=== PATIENT | female | born 1950 | race Caucasian/White ===

== ENCOUNTER 2018-05-11 15:37 | Emergency (ER) | payer MEDICARE, OTHER, SELFPAY ==
--- NOTE | 2018-05-11 15:45 | DI.US.S_ITS ---
PROCEDURE: US PERIPH VENOUS LOW EXTREM RT INDICATIONS: RIGHT LEG PAIN, EDEMA TECHNIQUE: Real-time imaging, as well as color and pulse Doppler interrogation, were performed of the lower extremity deep veins from the inguinal ligament to the popliteal fossa. COMPARISON: None. FINDINGS: The deep veins are normally compressible, and free of intraluminal thrombus. Color and pulse Doppler demonstrate normal phasic intraluminal flow. There is normal augmentation response to distal compression maneuver. IMPRESSION: Negative for deep venous thrombosis. Dictated by: Mart Davila M.D. on 05/11/2018 at 16:21 Approved by: Mart Davila M.D. on 05/11/2018 at 16:21
[2018-05-11 15:49] VITALS: BP 180/100; PULSE 92; RESP 15; TEMP 36.6; O2SAT 97; BMI 35.3
--- NOTE | 2018-05-11 16:08 | ED_ITS ---
HPI - Extremity Problem General Chief complaint: Extremity Problem,Nontraumatic Stated complaint: SENT TO R/O BLOOD CLOT RLE Time Seen by Provider: 05/11/18 15:41 Source: patient and family Mode of arrival: ambulatory Limitations: no limitations History of Present Illness HPI Narrative: 68-year-old female presents to the emergency department for evaluation of right lower extremity pain and swelling over the past few days. She was seen and evaluated by her primary care provider and sent to the emergency department for evaluation of possible DVT. Patient denies any chest pain or shortness of breath. She has no history of clot. She denies any injury , recent surgery or the use of exogenous estrogens. She does admit to recent long distance travel to [facility] twice in the past month. Her pain is worse with motion and improves with rest MD Complaint: extremity pain Onset (ago): day(s) Pain Consistency: constant Location: right Quality: aching Radiation: none Relieving factors: rest Exacerbating factors: walking Associated symptoms: denies other symptoms Context: recent travel Related Data Home Medications Medication Instructions Recorded Confirmed alendronate 1 tab PO QWEEK 05/11/18 05/11/18 amlodipine 5 mg PO DAILY 05/11/18 05/11/18 aspirin 81 mg PO QPM 05/11/18 05/11/18 exenatide microspheres [Bydureon 1 dose SUB-Q QWEEK 05/11/18 05/11/18 BCise] insulin glargine [Lantus Solostar 30 - 34 units SUB-Q QPM 05/11/18 05/11/18 U-100 Insulin] loratadine 10 mg PO DAILY 05/11/18 05/11/18 meloxicam 1 tab PO DAILY 05/11/18 05/11/18 metformin 1 tab PO BID 05/11/18 05/11/18 metoprolol succinate [Toprol XL] 1 tab PO DAILY 05/11/18 05/11/18 pantoprazole 1 tab PO DAILY 05/11/18 05/11/18 simvastatin 80 mg PO QPM 05/11/18 05/11/18 telmisartan-hydrochlorothiazid 1 tab PO DAILY 05/11/18 05/11/18 [Micardis HCT] Previous Rx's Medication Instructions Recorded cephalexin [Keflex] 500 mg PO QID 7 Days #28 cap 05/11/18 Allergies Allergy/AdvReac Type Severity Reaction Status Date / Time No Known Drug Allergies Allergy Verified 05/11/18 15:49 Review of Systems Review of Systems All systems reviewed & are unremarkable except as noted in HPI and below Constitutional Denies chills, Denies fever(s), Denies lethargy and Denies weakness Eyes Denies change in vision, Denies eye discharge, Denies irritation and Denies loss of vision ENT Ears, Nose, Mouth, and Throat: Denies change in voice, Denies neck pain and Denies sore throat Cardiovascular Denies chest pain, Denies irregular heart rhythm, Denies lightheadedness, Denies palpitations, Denies dyspnea, Denies dyspnea on exertion and Denies orthopnea Respiratory Denies cough, Denies dyspnea, Denies dyspnea on exertion and Denies wheezing Gastrointestinal Gastrointestinal: Denies abdominal pain, Denies change in bowel habits, Denies diarrhea, Denies nausea and Denies vomiting Genitourinary Denies hematuria, Denies flank pain, Denies urinary incontinence and Denies urinary urgency Musculoskeletal Reports limited range of motion, Reports muscle cramps and Denies neck pain Integumentary/Breasts Denies pruritus, Denies erythema, Denies rash and Denies wounds Neurologic Denies confusion, Denies loss of vision and Denies weakness Psychiatric Denies anxiety, Denies confusion, Denies depression, Denies homicidal ideation and Denies suicidal ideation Endocrine Denies palpitations Hematologic/Lymphatic Denies easy bruising Allergic/Immunologic Denies wheezing [facility] Social History Smoking Status: Never smoker Exam Narrative Exam Narrative: GEN: AOx3 and in mild distress EYES: Pupils are equal, round, and reactive to light and accommodation. Extraoccular muscles are intact bilaterally. There is no subconjunctival hemorrhage or exudate. CHEST: Lungs are clear to auscultation bilaterally and free of wheezes, rales, or rhonchi. Heart rate is regular rhythm, there are no murmurs, clicks, rubs, or gallops. There is no chest wall tenderness. ABD: Abdomen is soft and nontender. There is no guarding or rebound. Bowel sounds are normal in all 4 quadrants. There is no mass or organomegaly. EXT: mild tenderness and swelling just superior to R lateral malleolous. No warmth or erythema. No calf pain SKIN: Warm, pink, and dry. No erythema or rash Initial Vital Signs Initial Vital Signs: Vital Signs Temperature 98 F 05/11/18 15:49 Pulse Rate 92 H 05/11/18 15:49 Respiratory Rate 15 05/11/18 15:49 Blood Pressure 180/100 H 05/11/18 15:49 Pulse Oximetry 97 05/11/18 15:49 Course Orders Ordered: ED Orders 05/11/18 15:45 US periph venous low extrem rt Stat Vital Signs - 8 hr 05/11/18 15:49 Temperature 98 F Pulse Rate 92 H Respiratory Rate 15 Blood Pressure 180/100 H Pulse Oximetry 97 Discharge Plan Departure Patient Disposition: Home Clinical Impression: Acute pain of right lower extremity, Cellulitis of leg, right Discharge Date/Time: 05/11/18 17:37 Interventions: ED Discharge Assessment Last Done: 05/11/18 17:36 Instructions: DI for Cellulitis -- Adult Activity Restrictions/Additional Instructions: *You have been diagnosed with [ acute right lower extremity pain, possible cellulitis ] *What to do: *Take medications as directed *Follow up with your primary care provider in 2-3 days, call for an appointment. Let them know you were seen in the Emergency Department and that we ask that you be seen in follow up *Return to ER if you should have any new, worsening or concerning symptoms Prescriptions: New cephalexin [Keflex] 500 mg capsule 500 mg PO QID 7 Days Qty: 28 RF: 0 No Action metoprolol succinate [Toprol XL] 50 mg tablet extended release 24 hr 1 tab PO DAILY RF: 0 meloxicam 15 mg tablet 1 tab PO DAILY RF: 0 alendronate 70 mg tablet 1 tab PO QWEEK RF: 0 amlodipine 5 mg tablet 5 mg PO DAILY RF: 0 simvastatin 80 mg tablet 80 mg PO QPM RF: 0 aspirin 81 mg tablet,delayed release (DR/EC) 81 mg PO QPM RF: 0 pantoprazole 40 mg tablet,delayed release (DR/EC) 1 tab PO DAILY RF: 0 metformin 1,000 mg tablet 1 tab PO BID RF: 0 loratadine 10 mg tablet 10 mg PO DAILY RF: 0 telmisartan-hydrochlorothiazid [Micardis HCT] 80-25 mg tablet 1 tab PO DAILY RF: 0 insulin glargine [Lantus Solostar U-100 Insulin] 100 unit/mL (3 mL) insulin pen 30 - 34 units Sub-Q QPM RF: 0 exenatide microspheres [Bydureon BCise] 2 mg/0.85 mL auto-injector 1 dose Sub-Q QWEEK RF: 0
[2018-05-11 17:36] VITALS: BP 156/88; PULSE 68; O2SAT 100
== END 2018-05-11 17:37 | disposition home or self-care (01) ==
PROVIDERS: Emergency Provider Emergency Medicine; Family Provider Physician Assistant
DX: L03.115 Cellulitis of right lower limb (principal); M79.604 Pain in right leg
CPT/HCPCS: 93971; 99282; 99284

== ENCOUNTER 2019-01-18 06:05 | Day surgery (SDC) | payer MEDICARE, OTHER, SELFPAY ==
[2019-01-18] MEDS: PROPARACAINE 0.5% OPHTH SOL 2 DROPS EYE-OP (07:07)
[2019-01-18 07:10] VITALS: BP 142/74; PULSE 73; RESP 15; TEMP 36.1; O2SAT 98; BMI 29.7
[2019-01-18] MEDS: CATARACT EYE COMPOUND (10 DROPS/SYRINGE) 3 DROPS EYE-OP (07:29)
--- NOTE | 2019-01-18 07:42 | PM.PREOP ---
Pre-operative Note Interval Note History & Physical reviewed/Exam performed by Physician: Yes Changes to H&P: No
--- NOTE | 2019-01-18 08:09 | SUR.OPER ---
Supine on eye stretcher, head on extension cradle secured with tape. Arms tucked at sides with blanket. Pillow under knees.
[2019-01-18] MEDS: CHONDROIDTIN/SOD HYALURONATE 1.05 ML SYRINGE INTRAOCULA (08:17)
[2019-01-18] MEDS: BALANCED SALT IRRIG SOLN NO.2 15 ML IRR (08:19)
[2019-01-18] MEDS: BALANCED SALT IRRIG SOLN NO.2 500 ML, EPINEPHrine 1 MG IRR (08:21)
[2019-01-18] MEDS: TETRACAINE 0.5% OPHTH DROPS 4 ML 1 DROPS EYE-RIGHT (08:21)
[2019-01-18] MEDS: MOXIFLOXACIN OPHTH DROPS 3 ML BOTTLE 2 DROPS INJ ×2 (08:22→08:26)
[2019-01-18] MEDS: LIDOCAINE 2% INJ SDV 0.5 ML TOP (08:28)
--- NOTE | 2019-01-18 08:42 | PM.OP.1 ---
Procedure & Clinicians Procedure: Cataract extraction with intraocular lens implant, right Same procedure as scheduled: Yes Indications: Visually significant nuclear sclerosis, right Surgeon: Liborio Terry Click Yes if Unassisted: Yes Anesthesia Type: MAC +/- Operative Notes Procedure in detail: The patient was brought to the operating suite. The correct patient, surgical site and lens were confirmed. 0.5 % tetracaine drops were placed in the right eye. The patient was prepped and draped in the typical sterile manner. A lid speculum was placed in the eye. 2% lidocaine was placed on the eye. A paracentesis port was created with a side-port blade. 0.1 mL of 1% preservative free lidocaine was injected into the anterior chamber. Viscoelastic was injected into the anterior chamber. A 2.6mm keratome was used to create a clear corneal temporal incision. Cystotome and Utrata forceps were used to create a continuous curvilinear capsulorrhexis. Balanced salt solution was used to hydrodissect the nucleus. At this point the iris prolapsed out of the main wound. The iris was repositioned inside the anterior chamber. Phacoemulsification was used to remove the lens. The capsular bag was inflated with viscoelastic. A Perla ZBOO +19.5D lens was inserted into the capsule. Viscoelastic was removed and the wound hydrated. A 10-0 nylon suture was placed in the main wound. The wound was found to be leak free and the eye was assessed to be at normal physiologic pressure. 0.1mL Vigamox was injected into the anterior chamber. The lid speculum was removed and the patient left the operating room in excellent condition. Complications: none Condition: stable Disposition: same day surgery
[2019-01-18 09:01] VITALS: BP 127/78; PULSE 64; RESP 12; TEMP 36.4; O2SAT 99
== END 2019-01-18 08:58 | disposition home or self-care (01) ==
LOC: OR 06:10
PROVIDERS: Visit Provider Ophthalmology
DX: H25.11 Age-related nuclear cataract, right eye (principal); E11.9 Type 2 diabetes mellitus without complications; I10 Essential (primary) hypertension; E78.5 Hyperlipidemia, unspecified; Z79.84 Long term (current) use of oral hypoglycemic drugs
CPT/HCPCS: J0171; J2250; J3010

== ENCOUNTER 2019-02-01 12:30 | Day surgery (SDC) | payer MEDICARE, OTHER, SELFPAY ==
[2019-02-01] MEDS: PROPARACAINE 0.5% OPHTH SOL 2 DROPS EYE-OP (15:13)
[2019-02-01] MEDS: CATARACT EYE COMPOUND (10 DROPS/SYRINGE) 3 DROPS EYE-OP (15:15)
[2019-02-01 15:22] VITALS: BP 137/78; PULSE 73; RESP 16; TEMP 36.8; O2SAT 97; BMI 28.8
[2019-02-01 15:31] VITALS: BMI 28.8
--- NOTE | 2019-02-01 15:53 | PM.PREOP ---
Pre-operative Note Interval Note History & Physical reviewed/Exam performed by Physician: Yes Changes to H&P: No
[2019-02-01] MEDS: TETRACAINE 0.5% OPHTH DROPS 4 ML 2 DROPS EYE-RIGHT (16:00)
[2019-02-01] MEDS: CHONDROIDTIN/SOD HYALURONATE 1.05 ML SYRINGE INTRAOCULA (16:18)
[2019-02-01] MEDS: PHENYLEPHRINE/LIDOCAINE VIAL (OR) 0.2 ML EYE-OP (16:19)
[2019-02-01] MEDS: MOXIFLOXACIN OPHTH DROPS 3 ML BOTTLE 2 DROPS INJ (16:19)
[2019-02-01] MEDS: LIDOCAINE 2% INJ SDV 0.5 ML TOP (16:20)
[2019-02-01] MEDS: BALANCED SALT IRRIG SOLN NO.2 500 ML, EPINEPHrine 1 MG IRR (16:20)
--- NOTE | 2019-02-01 16:39 | PM.OP.1 ---
Procedure & Clinicians Procedure: Intraocular lens repositioning, right eye Same procedure as scheduled: Yes Indications: dislocated in the bag intraocular lens, right Surgeon: Liborio Terry Click Yes if Unassisted: Yes Anesthesia Type: MAC +/- Operative Notes Procedure in detail: The patient was brought to the operating suite. The correct patient, surgical site and lens were confirmed. 0.5 % tetracaine drops were placed in the right eye. The patient was prepped and draped in the typical sterile manner. A lid speculum was placed in the eye. 2% lidocaine was placed on the eye. A paracentesis port was created with a 1.0mm side-port blade at 10 o'clock. 0.1 mL of 1% preservative free lidocaine with phenylephrine was injected into the anterior chamber. The lens was inspected and no defects were appreciated. The entire lens was found to be in the bag and the lens was displaced nasal. The anterior capsule was inspected and found to be intact. Balanced salt solution on a 23G cannula was used to inflate the bag. No defects were appreciated in the posterior aspect of the bag. The cannula was used to lift up the iris and inspect the peripheral capsule. No capsular defects were appreciated, and no zonular dehiscence was appreciated. The lens was rotated 90 degrees in the bag and centered. The lens was observed for 5 minutes. The patient was instructed to move her eyes vigorously. The bag lens complex appeared stable and the lens remained well centered. The anterior chamber was irrigated and no movement of the lens was appreciated. The lens was felt to be well centered and stable in the eye. The wound was hydrated, 0.1ml Vigamox was injected into the anterior chamber and the eye was assessed to be at normal physiologic pressure. The eyelid speculum was removed and a plastic eye shield was placed over the patient's eye. The patient tolerated the procedure well and left the operating room in excellent condition. Complications: none Condition: stable Disposition: same day surgery
[2019-02-01 16:40] VITALS: BP 129/79; PULSE 74; RESP 16; TEMP 36.6; O2SAT 100
== END 2019-02-01 17:02 | disposition home or self-care (01) ==
PROVIDERS: Visit Provider Ophthalmology
PROC: (CPT 66825; principal; 2019-02-01 14:30)
DX: T85.22XA Displacement of intraocular lens, initial encounter (principal); E11.9 Type 2 diabetes mellitus without complications; I10 Essential (primary) hypertension; E78.5 Hyperlipidemia, unspecified; Z79.84 Long term (current) use of oral hypoglycemic drugs
CPT/HCPCS: 66825; J0171; J2250; J3010

== ENCOUNTER 2019-02-15 08:15 | Day surgery (SDC) | payer MEDICARE, OTHER, SELFPAY ==
[2019-02-15 08:30] VITALS: BP 131/78; PULSE 71; RESP 16; TEMP 36.6; O2SAT 100; BMI 29.0
[2019-02-15] MEDS: PROPARACAINE 0.5% OPHTH SOL 2 DROPS EYE-OP (08:30)
[2019-02-15] MEDS: CATARACT EYE COMPOUND (10 DROPS/SYRINGE) 3 DROPS EYE-OP (08:35)
--- NOTE | 2019-02-15 08:42 | PM.PREOP ---
Pre-operative Note Interval Note History & Physical reviewed/Exam performed by Physician: Yes Changes to H&P: No
[2019-02-15] MEDS: TETRACAINE 0.5% OPHTH DROPS 4 ML 2 DROPS EYE-LEFT (08:49)
[2019-02-15] MEDS: CHONDROIDTIN/SOD HYALURONATE 1.05 ML SYRINGE INTRAOCULA (09:07)
[2019-02-15] MEDS: BALANCED SALT IRRIG SOLN NO.2 500 ML, EPINEPHrine 1 MG IRR (09:08)
[2019-02-15] MEDS: MOXIFLOXACIN OPHTH DROPS 3 ML BOTTLE 2 DROPS INJ (09:08)
[2019-02-15] MEDS: PHENYLEPHRINE/LIDOCAINE VIAL (OR) 0.2 ML EYE-OP (09:08)
[2019-02-15] MEDS: BALANCED SALT IRRIG SOLN NO.2 15 ML IRR (09:10)
[2019-02-15] MEDS: LIDOCAINE 2% INJ SDV 0.5 ML TOP (09:11)
--- NOTE | 2019-02-15 09:35 | PM.OP.1 ---
Procedure & Clinicians Procedure: cataract extraction with intraocular lens implant, left Same procedure as scheduled: Yes Indications: Age related nuclear sclerosis, left Surgeon: Liborio Terry Click Yes if Unassisted: Yes Anesthesia Type: MAC +/- Operative Notes Procedure in detail: The patient was brought to the operating suite. The correct patient, surgical site and lens were confirmed. 0.5 % tetracaine drops were placed in the left eye. The patient was prepped and draped in the typical sterile manner. A lid speculum was placed in the eye. 2% lidocaine was placed on the eye. A paracentesis port was created with a side-port blade. 0.1 mL of 1% preservative free lidocaine with phenylephrine was injected into the anterior chamber. Viscoelastic was injected into the anterior chamber. A 2.6mm keratome was used to create a clear corneal temporal incision. Cystotome and Utrata forceps were used to create a continuous curvilinear capsulorrhexis. Balanced salt solution was used to hydrodissect the nucleus. Phacoemulsification was used to remove the lens. The capsular bag was inflated with viscoelastic. A Perla ZBOO +20.5D lens was inserted into the capsule. Viscoelastic was removed and the wound hydrated. The wound was found to be leak free and the eye was assessed to be at normal physiologic pressure. 0.1mL Vigamox was injected into the anterior chamber. The lid speculum was removed and the patient left the operating room in excellent condition. Complications: none Condition: stable Disposition: same day surgery
[2019-02-15 09:37] VITALS: BP 135/73; PULSE 66; RESP 12; TEMP 36.2; O2SAT 98
== END 2019-02-15 10:01 | disposition home or self-care (01) ==
LOC: OR 08:16
PROVIDERS: Visit Provider Ophthalmology
PROC: (CPT 66984; principal; 2019-02-15 09:45)
DX: H25.12 Age-related nuclear cataract, left eye (principal); E11.9 Type 2 diabetes mellitus without complications; I10 Essential (primary) hypertension; E78.5 Hyperlipidemia, unspecified; Z79.84 Long term (current) use of oral hypoglycemic drugs
CPT/HCPCS: 66984; J0171; J2250; J3010

== ENCOUNTER → 2019-03-26 06:04 | Outpatient (CLI) | payer MEDICARE, OTHER, SELFPAY ==
--- NOTE | 2019-03-26 | DI.MRI.S_ITS ---
PROCEDURE: MR FOOT RT WO CON INDICATIONS: BOWEL INCONTINENCE, RIGHT FOREFOOT PAIN TECHNIQUE: Noncontrast sagittal T1 spin echo and T2 fast spin echo with fat saturation, long-axis T1 spin echo and T2 fast spin echo with fat saturation, short-axis T1 spin echo and T2 fast spin echo with fat saturation through the forefoot. COMPARISON: None. FINDINGS: Image quality: Excellent. Bones and joints: No bone marrow contusions or metatarsal stress fractures. The sesamoid bones appear in expected positions, without internal edema. Moderate first MTP joint degeneration. There is also marginal erosion along the medial aspect of the first metatarsal head with mild T2 hyperintensity. Appearance suggests osseous bunion which can be seen in the setting of hallux valgus. This could be confirmed with weightbearing foot radiographs. Subchondral marrow signal changes involving the third metatarsal head which could represent osteophyte as, although cannot exclude other etiology such as osteochondrosis such as Freiberg infraction and further evaluation with dedicated radiographs recommended. Soft tissues: The visualized plantar foot muscles demonstrate normal signal and bulk. Visualized flexor and extensor tendons appear intact, without tenosynovitis. The distal insertions of the peroneus brevis and longus tendons appear intact. The principal Lisfranc ligament appears intact. No soft tissue ganglion cysts or bursal fluid collections. Sagittal images demonstrate no evidence for plantar plate tears. IMPRESSION: Findings suggest hallux valgus with osseous bunion although this could be specifically confirmed with weightbearing foot radiographs. Possible marginal erosion along the medial aspect of the first metatarsal, which raises the possibility of gout. Additional subchondral marrow signal changes involving the third metatarsal head, which could be due to osteoarthritis, however cannot exclude other possibilities such as osteochondroses (such as Freiberg infraction). Recommend further assessment with dedicated foot radiographs to better evaluate the possibility of articular surface collapse. Dictated by: Roger Gorman M.D. on 03/26/2019 at 9:45 Approved by: Roger Gorman M.D. on 03/26/2019 at 10:12
--- NOTE | 2019-03-26 | DI.MRI.S_ITS ---
PROCEDURE: MR LUMBAR SPINE WO CON INDICATIONS: BOWEL INCONTINENCE, RIGHT FOREFOOT PAIN TECHNIQUE: Noncontrast sagittal T1 spin echo and T2 fast echo, sagittal STIR, axial T1 and T2 fast spin echo through the lumbar spine. In cases with scoliosis, additional coronal T2 fast spin echo may be performed. COMPARISON: None. FINDINGS: Image quality: Excellent. Alignment and Curvature: Grade 1 anterolisthesis of L4 and L5. Grade 1 anterolisthesis of L5 on S1 Bone Marrow: No evidence of acute compression fracture seen. Multilevel degenerative endplate sclerosis and spurring. Diffuse facet arthropathy. Spinal Cord: Conus medullaris terminates at the L1 level. Visualized cord demonstrates normal signal and size. Paraspinous Soft Tissues: Presumed T2 hyperintense left renal cyst measuring 4 cm although technically indeterminate L1-L2: Normal appearance. L2-L3: Minimal broad-based posterior disc bulge and bilateral facet arthropathy. No high-grade central canal narrowing. Lateral recesses appear grossly patent. Mild bilateral foraminal narrowing L3-L4: Mild broad-based posterior disc bulge and bilateral facet arthropathy. Mild dorsal epidural lipomatosis. Mild central canal narrowing. Partial effacement of both lateral recesses with bilaterally symmetric appearance. Moderate right foraminal stenosis with associated nerve root compression. Mild left foraminal narrowing L4-L5: Broad-based posterior disc bulge mild facet arthropathy. Mild central canal narrowing. Near complete effacement of both lateral recesses with nerve root compression. Severe right foraminal stenosis with nerve root compression. Moderate left foraminal stenosis with minimal nerve root compression. L5-S1: There is suggestion of bilateral L5 pars defects, chronic. Mild central canal narrowing. Partial effacement of both lateral recesses with bilaterally symmetric appearance. Severe right foraminal stenosis with nerve root compression. Moderate left foraminal narrowing IMPRESSION: Multilevel spondylosis and facet arthropathy, with chronic bilateral L5 pars defects. Grade 1 anterolisthesis of L4 on L5 and L5 on S1. Diffuse bilateral foraminal stenoses as detailed above, most pronounced at L4-L5 (right), and L5-S1 (right). Severe bilateral L4-L5 subarticular narrowing. Dictated by: Roger Groman M.D. on 03/26/2019 at 11:32 Approved by: Roger Gorman M.D. on 03/26/2019 at 11:42
== END ==
PROVIDERS: Visit Provider Registered Nurse Diabetes Educator
DX: M79.671 Pain in right foot (principal); R15.9 Full incontinence of feces; M51.36 Other intervertebral disc degeneration, lumbar region; M47.816 Spondylosis without myelopathy or radiculopathy, lumbar region; M48.061 Spinal stenosis, lumbar region without neurogenic claudication; M48.07 Spinal stenosis, lumbosacral region
CPT/HCPCS: 72148; 73718

== ENCOUNTER 2020-02-07 15:47 | Emergency (ER) | payer MEDICARE, OTHER, SELFPAY ==
[2020-02-07 16:01] VITALS: BP 129/68; PULSE 95; RESP 15; TEMP 37.9; O2SAT 95
--- NOTE | 2020-02-07 16:02 | DI.RAD.S_ITS ---
PROCEDURE: XR CHEST 1V INDICATIONS: sepsis TECHNIQUE: One view of the chest was acquired. COMPARISON: None. FINDINGS: Surgical changes and devices: None. Lungs and pleura: Patchy bibasilar atelectasis versus infiltrate. No pleural effusions or pneumothorax. Mediastinum: Mediastinal contours appear normal. Heart size is normal. Bones and chest wall: No suspicious bony lesions. Overlying soft tissues appear unremarkable. IMPRESSION: Patchy focal bibasilar atelectasis versus infiltrate. Dictated by: Fede Fleming M.D. on 02/07/2020 at 17:16 Approved by: Fede Fleming M.D. on 02/07/2020 at 17:16
[2020-02-07 16:21] LABS: Add Manual Diff / Slide Review NO; Basophils Absolute Auto 100 /uL (0-100); Basophils Percent Auto 0.5 % (0-2); Eosinophils Absolute Auto 0 /uL (0-450); Hematocrit 37.1 % (36-46); Hemoglobin 12.2 g/dL (12.0-16.0); Lymphocytes Absolute Auto 800 /uL (1100-4500); Mean Corpuscular Hemoglobin 28.1 PG (26-34); Mean Corpuscular Volume 85.3 fL (80-100); Monocytes Absolute Auto 1600 /uL (0-900); Monocytes Percent Auto 7.8 % (3-14); Neutrophils Absolute Auto 17900 /uL (1500-7000); Neutrophils Percent Auto 87.7 % (50-75); Platelet Count 261 X10^3/uL (150-400); Red Blood Cell Count 4.35 X10^6/uL (4.0-5.2); Red Cell Distribution Width 14.6 % (11.6-14.8); White Blood Cell Count 20.4 X10^3/uL (4.5-11.0)
--- NOTE | 2020-02-07 16:23 | ED_ITS ---
HPI - Altered Mental Status General Chief Complaint: Altered Mental Status Stated Complaint: not feeling good,tired,disoriented,memory loss Time Seen by Provider: 02/07/20 15:50 Source: patient and family Mode of arrival: Wheelchair Limitations: no limitations History of Present Illness HPI narrative: 69-year-old female nonsmoker with history of hypertension and diabetes presents with her daughter and a chief complaint of acting off and confused for the past 3 days. Patient denies any focal neurologic findings such as blurred vision or trouble with speech nor does she have any numbness, tingling or weakness of her extremities. She has had no falls or injuries. She denies any runny nose, sore throat or cough. She denies any chest pain or shortness of breath. She denies any abdominal pain, nausea or vomiting. She denies any dysuria, frequency or urgency. She denies any dietary change or medication change. She is scheduled to have outpatient labs as ordered by her PCP tomorrow complaint: altered mental status Onset (ago): day(s) Timing confirmed by: family member Severity: mild Consistency of symptoms: constant Context: diabetes Associated symptoms: denies other symptoms Related Data Home Medications Medication Instructions Recorded Confirmed alendronate 1 tab PO QWEEK 05/11/18 02/15/19 amlodipine 5 mg PO DAILY 05/11/18 02/15/19 aspirin 81 mg PO QPM 05/11/18 02/15/19 loratadine 10 mg PO DAILY 05/11/18 02/15/19 meloxicam 1 tab PO DAILY 05/11/18 02/15/19 metformin 1 tab PO BID 05/11/18 02/15/19 metoprolol succinate [Toprol XL] 1 tab PO DAILY 05/11/18 02/15/19 pantoprazole 1 tab PO DAILY 05/11/18 02/15/19 simvastatin 80 mg PO QPM 05/11/18 02/15/19 telmisartan-hydrochlorothiazid 1 tab PO DAILY 05/11/18 02/15/19 [Micardis HCT] Previous Rx's Medication Instructions Recorded amoxicillin-pot clavulanate 1 tab PO BID #20 tab 02/07/20 [Augmentin] ondansetron HCl [Zofran] 4 mg PO Q8H PRN #10 tab 02/07/20 Allergies Allergy/AdvReac Type Severity Reaction Status Date / Time No Known Drug Allergies Allergy Verified 05/11/18 15:49 Review of Systems Constitutional Constitutional: Denies chills, Denies fatigue, Denies fever(s), Denies frequent falls, Denies lethargy and Reports weakness Eyes Eyes: Denies change in vision, Denies eye discharge, Denies irritation and Denies loss of vision ENT Ears, Nose, Mouth, and Throat: Denies change in voice, Denies dizziness, Denies neck pain, Denies sore throat and Denies throat swelling Cardiovascular Cardiovascular: Denies chest pain, Denies irregular heart rhythm, Denies lightheadedness, Denies palpitations, Denies dyspnea, Denies dyspnea on exertion and Denies orthopnea Respiratory Respiratory: Denies cough, Denies dyspnea, Denies dyspnea on exertion and Denies wheezing Gastrointestinal Gastrointestinal: Denies abdominal pain, Denies change in bowel habits, Denies diarrhea, Denies nausea and Denies vomiting Genitourinary Genitourinary: Denies hematuria, Denies flank pain, Denies urinary incontinence and Denies urinary urgency Musculoskeletal Musculoskeletal: Denies back pain, Denies muscle weakness, Denies neck pain, Denies numbness and Denies tingling Integumentary/Breasts Skin/Breast: Denies pruritus, Denies erythema, Denies rash and Denies wounds Neurologic Neurologic: Denies behavioral changes, Reports confusion, Denies dizziness, Denies frequent falls, Denies loss of vision, Denies numbness, Denies tingling and Reports weakness Psychiatric Psychiatric: Denies anxiety, Denies behavioral changes, Reports confusion, Denies depression, Denies homicidal ideation and Denies suicidal ideation Endocrine Endocrine: Denies fatigue, Denies flushing and Denies palpitations Hematologic/Lymphatic Hematologic/Lymphatic: Denies easy bruising Allergic/Immunologic Allergic/Immunologic: Denies urticaria, Denies throat swelling and Denies wheezing Patient History Social History household members: none Smoking Status: Never smoker Smoking Status: Never smoker alcohol intake frequency: 0-2 drinks per day Substance Use Type: does not use Exam Narrative Exam Narrative: GENERAL: [69] year old patient appears stated age. Well- nourished, well-developed patient, in mild distress. HEAD: Atraumatic. Normocephalic. EYES: Pupils equal round and reactive. Extraocular motions intact. No scleral icterus. No injection or drainage. ENT: Nose without bleeding, purulent drainage. Throat without erythema, tonsillar hypertrophy or exudate. Airway patent. NECK: Trachea midline. Non tender CARDIOVASCULAR: Regular rate and rhythm without murmurs, gallops, or rubs. RESPIRATORY: Clear to auscultation. Breath sounds equal bilaterally. No wheezes, rales, or rhonchi. GASTROINTESTINAL: Abdomen soft, non-tender, nondistended. EXTREMITIES: No edema or joint tenderness. BACK: Nontender without deformity or crepitance. No flank tenderness. NEURO: AOx3. SKIN: No rash or erythema of visible areas NIH Stroke Scale 1a. LOC: Patient is alert and keenly responsive (0) 1b. LOC Questions: Patient answers both LOC questions accurately (0) 1c. LOC Commands: Patient performs both tasks correctly (0) 2. Best Gaze: Normal (0) 3. Visual: No visual loss (0) 4. Facial palsy: Normal symmetrical movements (0) 5. Motor arm: No drift (0) 6. Motor leg: No drift (0) 7. Limb ataxia: Absent (0) 8. Sensory: Normal (0) 9. Best language: No aphasia; normal (0) 10. Dysarthria: Normal (0) 11. Extinction and inattention: No abnormality (0) NIHSS: 0 Initial Vital Signs Initial Vital Signs: Vital Signs Temperature 100.2 F H 02/07/20 16:01 Pulse Rate 95 H 02/07/20 16:01 Respiratory Rate 15 02/07/20 16:01 Blood Pressure 129/68 02/07/20 16:01 Pulse Oximetry 95 02/07/20 16:01 Course Course Course Narrative: Patient a and O x3, feeling much better after above-stated therapies. No difficulty breathing or abnormal vital signs. Patient has close family support and is appropriate for discharge. She will follow closely with her PCP. Return precautions have been given. Questions answered to their apparent satisfaction Orders Ordered: ED Orders 02/07/20 16:02 XR chest 1V Stat 02/07/20 16:05 Urine Culture Stat Urine Microscopic Stat 02/07/20 16:14 Basic Metabolic Panel Stat Complete Blood Count AUTO DIFF Stat Hemoglobin A1C% w Est Avg Glu Stat Lactate (Lactic Acid) Stat Procalcitonin Stat 02/07/20 16:32 Blood Culture Stat Discontinued Medications Sodium Chloride (Normal Saline 0.9%) 1,000 mls @ 1,000 mls/hr IV BOLUS ONE Stop: 02/07/20 17:00 Last Infusion: 02/07/20 17:34 Dose: 1,000 mls/hr Documented by: Admin: 02/07/20 16:36 Dose: 1,000 mls/hr Documented by: CVANCE Ceftriaxone Sodium/Dextrose (Rocephin) 1 gm in 50 mls @ 100 mls/hr IV NOW ONE Stop: 02/07/20 16:45 Last Infusion: 02/07/20 17:10 Dose: 100 mls/hr Documented by: Admin: 02/07/20 16:37 Dose: 100 mls/hr Documented by: CVMARIAMA Vital Signs Vital signs: Vital Signs - 8 hr 02/07/20 16:01 02/07/20 16:51 Temperature 100.2 F H Pulse Rate 95 H 88 Respiratory Rate 15 19 Blood Pressure 129/68 Blood Pressure [Left Arm] 119/57 L Pulse Oximetry 95 97 MDM - Altered Mental Status Lab Data Result diagrams: 02/07/20 16:14 02/07/20 16:14 Labs: Lab Results 02/07/20 02/07/20 02/07/20 Range/Units 16:05 16:14 16:14 WBC 20.4 H (4.5-11.0) X10^3/uL RBC 4.35 (4.0-5.2) X10^6/uL Hgb 12.2 (12.0-16.0) g/dL Hct 37.1 (36-46) % MCV 85.3 (80-100) fL MCH 28.1 (26-34) PG MCHC 33.0 (30-36) % RDW 14.6 (11.6-14.8) % Plt Count 261 (150-400) X10^3/uL Neut % (Auto) 87.7 H (50-75) % Lymph % (Auto) 4.0 L (25-40) % [place] % (Auto) 7.8 (3-14) % Eos % (Auto) 0.0 L (2-4) % Baso % (Auto) 0.5 (0-2) % Neut # (Auto) 41259 H (4152-8608) /uL Lymph # (Auto) 800 L (6595-1581) /uL [place] # (Auto) 1600 H (0-900) /uL Eos # (Auto) 0 (0-450) /uL Baso # (Auto) 100 (0-100) /uL Sodium (137-145) mmol/L Potassium (3.4-5.1) mmol/L Chloride (98-107) mmol/L Carbon Dioxide (22-32) mmol/L BUN (7-17) mg/dL Creatinine (0.52-1.04) mg/dL Estimated GFR (>60) mL/min BUN/Creatinine Ratio (6-22) Glucose (80-110) mg/dL Hemoglobin A1c (4.0-6.0) % Lactate 1.3 (0.7-2.1) mmol/L Calcium (8.4-10.2) mg/dL Procalcitonin (<0.5) ng/mL Urine RBC 5-10/hpf H (0-5/HPF) Urine WBC >100/hpf H (0-5/HPF) Ur Squamous Epith Cells 1-5 /hpf (0-5/HPF) Ur Renal Epithelial Cell 0-1/hpf (0-1/HPF) Amorphous Sediment 1+ Urine Bacteria Many (>30) H (None) Urine Mucus 2+ H (Negative) Ur Culture Indicated? Specimen cultured 02/07/20 02/07/20 02/07/20 Range/Units 16:14 16:14 16:14 WBC (4.5-11.0) X10^3/uL RBC (4.0-5.2) X10^6/uL Hgb (12.0-16.0) g/dL Hct (36-46) % MCV (80-100) fL MCH (26-34) PG MCHC (30-36) % RDW (11.6-14.8) % Plt Count (150-400) X10^3/uL Neut % (Auto) (50-75) % Lymph % (Auto) (25-40) % [place] % (Auto) (3-14) % Eos % (Auto) (2-4) % Baso % (Auto) (0-2) % Neut # (Auto) (1078-0189) /uL Lymph # (Auto) (9931-8087) /uL [place] # (Auto) (0-900) /uL Eos # (Auto) (0-450) /uL Baso # (Auto) (0-100) /uL Sodium 131 L (137-145) mmol/L Potassium 3.9 (3.4-5.1) mmol/L Chloride 94 L (98-107) mmol/L Carbon Dioxide 27 (22-32) mmol/L BUN 21 H (7-17) mg/dL Creatinine 0.77 (0.52-1.04) mg/dL Estimated GFR > 60.0 (>60) mL/min BUN/Creatinine Ratio 27.3 H (6-22) Glucose 273 H (80-110) mg/dL Hemoglobin A1c 8.1 H (4.0-6.0) % Lactate (0.7-2.1) mmol/L Calcium 9.6 (8.4-10.2) mg/dL Procalcitonin 0.09 (<0.5) ng/mL Urine RBC (0-5/HPF) Urine WBC (0-5/HPF) Ur Squamous Epith Cells (0-5/HPF) Ur Renal Epithelial Cell (0-1/HPF) Amorphous Sediment Urine Bacteria (None) Urine Mucus (Negative) Ur Culture Indicated? Urine Dip Bedside Urine Glucose Negative Bedside Urine Bilirubin + 1 Bedside Urine Ketone ++ 40 Urine Specific [place] 1.025 Bedside Urine Occult Blood +++ Bedside Urine pH 6.0 Bedside Urine Protein ++ 100 Bedside Urine Urobilinogen - Negative Bedside Urine Nitrite - Negative Bedside Urine Leukocytes +++ 500 Esterase Imaging Data Chest x-ray: Radiologist's Impression: [place] [address] XRay Report Signed Patient: Tori Cohen [facility]#: [id number] : 2Acct:[id number] Age/Sex: 69 / FDate of Service: 02/07/20 Loc: ED Accession Number: [id number] Procedure: XR chest 1V Ordering Provider: Jose Navarro D.O. PROCEDURE: XR CHEST 1V INDICATIONS: sepsis TECHNIQUE: One view of the chest was acquired. COMPARISON: None. FINDINGS: Surgical changes and devices: None. Lungs and pleura: Patchy bibasilar atelectasis versus infiltrate. No pleural effusions or pneumothorax. Mediastinum: Mediastinal contours appear normal. Heart size is normal. Bones and chest wall: No suspicious bony lesions. Overlying soft tissues appear unremarkable. IMPRESSION: Patchy focal bibasilar atelectasis versus infiltrate. Dictated by: Fede Fleming M.D. on 02/07/2020 at 17:16 Approved by: Fede Fleming M.D. on 02/07/2020 at 17:16 Discharge Plan Departure Patient Disposition: Home Clinical Impression: Acute UTI, Left lower lobe consolidation Discharge Date/Time: 02/07/20 18:07 Activity Restrictions/Additional Instructions: *You have been diagnosed with [acute urinary tract infection and possible left lower lobe pneumonia] *What to do: *Take medications as directed *Follow up with your primary care provider in 2-3 days, call for an appointment. Let them know you were seen in the Emergency Department and that we ask that you be seen in follow up *Return to ER if you should have any new, worsening or concerning symptoms Prescriptions: New amoxicillin-pot clavulanate [Augmentin] 875-125 mg tablet 1 tab PO BID Qty: 20 RF: 0 ondansetron HCl [Zofran] 4 mg tablet 4 mg PO Q8H PRN (Reason: nausea and vomiting) Qty: 10 RF: 0 No Action metoprolol succinate [Toprol XL] 50 mg tablet extended release 24 hr 1 tab PO DAILY RF: 0 meloxicam 15 mg tablet 1 tab PO DAILY RF: 0 alendronate 70 mg tablet 1 tab PO QWEEK RF: 0 amlodipine 5 mg tablet 5 mg PO DAILY RF: 0 simvastatin 80 mg tablet 80 mg PO QPM RF: 0 aspirin 81 mg tablet,delayed release (DR/EC) 81 mg PO QPM RF: 0 pantoprazole 40 mg tablet,delayed release (DR/EC) 1 tab PO DAILY RF: 0 metformin 1,000 mg tablet 1 tab PO BID RF: 0 loratadine 10 mg tablet 10 mg PO DAILY RF: 0 telmisartan-hydrochlorothiazid [Micardis HCT] 80-25 mg tablet 1 tab PO DAILY RF: 0 Referrals: [facility] [Outside]
[2020-02-07 16:31] LABS: Hemoglobin A1C% w Est Avg Glu 8.1 % (4.0-6.0)
[2020-02-07 16:34] LABS: Lactate (Lactic Acid) 1.3 mmol/L (0.7-2.1)
[2020-02-07] MEDS: SODIUM CHLORIDE 0.9% 1,000 ML 1000 ML IV (16:36)
[2020-02-07] MEDS: CEFTRIAXONE 1 GM/50 ML FROZ.PIGGY IV (16:37)
[2020-02-07 16:48] LABS: RBC Urine 5-10/HPF (0-5/HPF); WBC Urine >100/HPF (0-5/HPF)
[2020-02-07 16:49] LABS: Amorphous Sediment Urine 1+; Bacteria Urine Many (>30); Culture Indicated Urine Specimen Cultured; Mucus Urine 2+ (Negative); Renal Epithelial Cells Urine 0-1/HPF (0-1/HPF); Squamous Epithelial Cell Urine 1-5 /HPF (0-5/HPF)
[2020-02-07 16:49] LABS: Procalcitonin 0.09 ng/mL (<0.5)
[2020-02-07 16:51] VITALS: BP 119/57; PULSE 88; RESP 19; O2SAT 97
[2020-02-07 17:29] LABS: BUN Creatinine Ratio 27.3 (6-22); Blood Urea Nitrogen 21 mg/dL (7-17); Calcium 9.6 mg/dL (8.4-10.2); Carbon Dioxide 27 mmol/L (22-32); Chloride 94 mmol/L (98-107); Estimated Glomerular Filt Rate > 60.0 mL/min (>60); Glucose 273 mg/dL (80-110); HEMOLYSIS 34 (0-50); Potassium 3.9 mmol/L (3.4-5.1); Sodium 131 mmol/L (137-145)
[2020-02-07 18:05] VITALS: BP 118/55; PULSE 79; RESP 22; O2SAT 96
== END 2020-02-07 18:07 | disposition home or self-care (01) ==
PROVIDERS: Emergency Provider Emergency Medicine
DX: N39.0 Urinary tract infection, site not specified (principal); J18.1 Lobar pneumonia, unspecified organism
CPT/HCPCS: 36415; 71045; 80048; 81003; 81015; 83036; 83605; 84145; 85025; 87040; 87077; 87086; 87186; 96365; 99284

== ENCOUNTER 2020-07-09 23:33 | Emergency (ER) | payer MEDICARE, SELFPAY ==
[2020-07-09 23:41] VITALS: BP 170/79; PULSE 92; RESP 21; TEMP 37.3; O2SAT 99
--- NOTE | 2020-07-09 23:51 | ED.GENADULT ---
HPI - General Adult General Chief complaint: Ear Stated complaint: fever, ear hurts Time Seen by Provider: 07/09/20 23:42 Source: patient Mode of arrival: Ambulatory Limitations: no limitations History of Present Illness HPI narrative: 70-year-old female here for evaluation 1-2 days of left-sided ear pain and also a fever r. Has not tried anything for the symptoms prior to arrival. No sinus congestion. No sore throat. No coughing. Related Data Home Medications Medication Instructions Recorded Confirmed alendronate 1 tab PO QWEEK 05/11/18 02/15/19 amlodipine 5 mg PO DAILY 05/11/18 02/15/19 aspirin 81 mg PO QPM 05/11/18 02/15/19 loratadine 10 mg PO DAILY 05/11/18 02/15/19 meloxicam 1 tab PO DAILY 05/11/18 02/15/19 metformin 1 tab PO BID 05/11/18 02/15/19 metoprolol succinate [Toprol XL] 1 tab PO DAILY 05/11/18 02/15/19 pantoprazole 1 tab PO DAILY 05/11/18 02/15/19 simvastatin 80 mg PO QPM 05/11/18 02/15/19 telmisartan-hydrochlorothiazid 1 tab PO DAILY 05/11/18 02/15/19 [Micardis HCT] Previous Rx's Medication Instructions Recorded amoxicillin-pot clavulanate 1 tab PO BID #20 tab 02/07/20 [Augmentin] ondansetron HCl [Zofran] 4 mg PO Q8H PRN #10 tab 02/07/20 Allergies Allergy/AdvReac Type Severity Reaction Status Date / Time No Known Drug Allergies Allergy Verified 05/11/18 15:49 Review of Systems Constitutional Constitutional: Denies body ache(s), Denies chills and Reports fever(s) ENT Ears, Nose, Mouth, and Throat: Denies tinnitus, Denies sinus pain, Denies sinus pressure and Denies sore throat Comments: Sign your pain Cardiovascular Cardiovascular: Denies dyspnea Respiratory Respiratory: Denies cough and Denies dyspnea Gastrointestinal Gastrointestinal: Denies nausea and Denies vomiting Integumentary/Breasts Skin/Breast: Denies rash Hematologic/Lymphatic Hematologic/Lymphatic: Denies easy bleeding and Denies easy bruising Allergic/Immunologic Allergic/Immunologic: Denies urticaria Patient History Medical History Healthy adult (Acute) Social History household members: none Smoking Status: Never smoker Smoking Status: Never smoker alcohol intake frequency: 0-2 drinks per day Substance Use Type: does not use Exam Initial Vital Signs Initial Vital Signs: Vital Signs Temperature 99.1 F 07/09/20 23:41 Pulse Rate 92 H 07/09/20 23:41 Respiratory Rate 21 07/09/20 23:41 Blood Pressure 170/79 H 07/09/20 23:41 Pulse Oximetry 99 07/09/20 23:41 Const General: cooperative, comfortable and well developed Limitations: mental status not altered HENMT Head: normal to inspection and normocephalic Ears: TM normal on the right, EAC's normal and TM abnormal bulging on the left and with fluid behind the TM on the left; not erythematous Resp Effort & Inspection: normal respiratory effort Auscultation: clear to auscultation bilaterally Cardio Rate: regular rate Rhythm: regular rhythm Skin Lesions: no lesions Rashes: no rashes Extrem General: capillary refill normal Course Orders Ordered: ED Orders 07/10/20 00:02 COVID19 -ED/INPAT/OR/L&D Stat Vital Signs Vital signs: Vital Signs - 8 hr 07/09/20 23:41 Temperature 99.1 F Pulse Rate 92 H Respiratory Rate 21 Blood Pressure 170/79 H Pulse Oximetry 99 Medical Decision Making Lab Data Lab results reviewed: Yes I reviewed the patient's lab results. Labs: Lab Results 07/10/20 Range/Units 00:02 COVID-19 PCR Negative (Negative) MDM Narrative Medical decision making narrative: Patient does have fluid behind the left tympanic membrane however no erythema. Lungs are clear. COVID-19 test negative. No indication for antibiotics. Discussed the use of antihistamine/decongestant. Patient was given return precautions. She expressed understanding and agreement. Discharge Plan Departure Patient Disposition: Home Clinical Impression: Earache Discharge Date/Time: 07/10/20 00:26 Instructions: DI for Ear Pain-Adult Activity Restrictions/Additional Instructions: Recommend that you do start on a daily antihistamine such as Claritin or Shalini or Zyrtec. The generic versions of these medications are appropriate. You can also try Afrin which he can buy [id number]. Contact her primary provider for follow-up. Take Tylenol and/or ibuprofen for any fevers. Return to the emergency department for any new or worsening symptoms Prescriptions: No Action amoxicillin-pot clavulanate [Augmentin] 875-125 mg tablet 1 tab PO BID Qty: 20 RF: 0 ondansetron HCl [Zofran] 4 mg tablet 4 mg PO Q8H PRN (Reason: nausea and vomiting) Qty: 10 RF: 0 metoprolol succinate [Toprol XL] 50 mg tablet extended release 24 hr 1 tab PO DAILY RF: 0 meloxicam 15 mg tablet 1 tab PO DAILY RF: 0 alendronate 70 mg tablet 1 tab PO QWEEK RF: 0 amlodipine 5 mg tablet 5 mg PO DAILY RF: 0 simvastatin 80 mg tablet 80 mg PO QPM RF: 0 aspirin 81 mg tablet,delayed release (DR/EC) 81 mg PO QPM RF: 0 pantoprazole 40 mg tablet,delayed release (DR/EC) 1 tab PO DAILY RF: 0 metformin 1,000 mg tablet 1 tab PO BID RF: 0 loratadine 10 mg tablet 10 mg PO DAILY RF: 0 telmisartan-hydrochlorothiazid [Micardis HCT] 80-25 mg tablet 1 tab PO DAILY RF: 0
[2020-07-10 00:19] LABS: COVID19 -Nasal RAPID Negative (Negative)
== END 2020-07-10 00:26 | disposition home or self-care (01) ==
PROVIDERS: Emergency Provider Emergency Medicine
DX: H92.02 Otalgia, left ear (principal); R50.9 Fever, unspecified
CPT/HCPCS: 87635; 99281; 99282

== ENCOUNTER → 2020-10-24 09:16 | Outpatient (CLI) | payer MEDICARE, SELFPAY ==
--- NOTE | 2020-10-24 09:19 | DI.MG.S_ITS ---
BILATERAL DIGITAL SCREENING MAMMOGRAM 3D/2D WITH CAD: 10/24/2020 CLINICAL: Routine screening. Comparison is made to exams dated: 09/06/2018 mammogram, 08/24/2017 mammogram, and 08/24/2016 mammogram - [facility]. The tissue of both breasts is predominantly fatty. Current study was also evaluated with a Computer Aided Detection (CAD) system. There is a benign calcification in both breasts. No significant masses, calcifications, or other findings are seen in either breast. There has been no significant interval change. IMPRESSION: BENIGN There is no mammographic evidence of malignancy. A 1 year screening mammogram is recommended. This exam was interpreted at Station ID: [id number]. NOTE: For mammograms, a report in lay terms will be sent to the patient. Approximately 15% of breast malignancies will not be visualized mammographically. In the management of a palpable breast mass, a negative mammogram must not discourage biopsy of a clinically suspicious lesion. Electronically Signed By: Antoine Xiao acr/penrad:10/24/2020 13:40:46 letter sent: Normal Exam ACR BI-RADS Category 2: Benign Finding(s) [id number]
== END ==
PROVIDERS: Referring Provider Physician Assistant Medical; Visit Provider Physician Assistant Medical
DX: Z12.31 Encounter for screening mammogram for malignant neoplasm of breast (principal); Z13.820 Encounter for screening for osteoporosis; M85.851 Other specified disorders of bone density and structure, right thigh; Z78.0 Asymptomatic menopausal state; E07.9 Disorder of thyroid, unspecified; E11.9 Type 2 diabetes mellitus without complications; Z87.891 Personal history of nicotine dependence
CPT/HCPCS: 77063; 77067; 77080

== ENCOUNTER 2022-06-27 13:46 | Emergency (ER) | payer OTHER, SELFPAY ==
[2022-06-27] VITALS (13 sets, daily range): BP systolic 146–162; BP diastolic 75–88; PULSE 92–115; RESP 15–24; TEMP 38.3; O2SAT 92–96; BMI 29.5
--- NOTE | 2022-06-27 13:59 | DI.RAD.S_ITS ---
PROCEDURE: XR CHEST 2V INDICATIONS: shortness of breath TECHNIQUE: 2 views of the chest were acquired. COMPARISON: [facility], , XR CHEST 1V, 02/07/2020, 16:51. FINDINGS: Surgical changes and devices: None. Lungs and pleura: Lungs are clear. No pleural effusions or pneumothorax. Mediastinum: Mediastinal contours are normal. Heart size is normal. Atherosclerotic vascular calcification noted in the aortic arch. Bones and chest wall: No suspicious bony abnormalities. Soft tissues appear unremarkable. IMPRESSION: No acute cardiopulmonary findings Approved by: Alcides Zapata M.D. on 06/27/2022 at 13:45
[2022-06-27 14:12] LABS: Add Manual Diff / Slide Review NO; Basophils Absolute Auto 200 /uL (0-100); Eosinophils Absolute Auto 100 /uL (0-450); Eosinophils Percent Auto 0.5 % (2-4); Hematocrit 38.9 % (36-46); Hemoglobin 12.9 g/dL (12.0-16.0); Lymphocytes Absolute Auto 1400 /uL (1100-4500); Lymphocytes Percent Auto 7.8 % (25-40); Mean Corpuscular HGB Conc 33.3 % (30-36); Mean Corpuscular Hemoglobin 27.8 PG (26-34); Mean Corpuscular Volume 83.7 fL (80-100); Monocytes Absolute Auto 1700 /uL (0-900); Monocytes Percent Auto 9.5 % (3-14); Neutrophils Absolute Auto 14700 /uL (1500-7000); Neutrophils Percent Auto 81.2 % (50-75); Platelet Count 361 X10^3/uL (150-400); Red Blood Cell Count 4.65 X10^6/uL (4.0-5.2); Red Cell Distribution Width 14.1 % (11.6-14.8); White Blood Cell Count 18.1 X10^3/uL (4.5-11.0)
[2022-06-27 14:20] LABS: Alanine Aminotransferase 11 IU/L (<35); Albumin 4.1 g/dL (3.5-5.0); Albumin Globulin Ratio 1.2 (1.0-2.8); Alkaline Phosphatase 98 U/L (38-126); Aspartate Aminotransferase 16 IU/L (14-36); BUN Creatinine Ratio 20.2 (6-22); Bilirubin Total 0.5 mg/dL (0.2-1.3); Blood Urea Nitrogen 19 mg/dL (7-17); Calcium 9.4 mg/dL (8.4-10.2); Carbon Dioxide 28 mmol/L (22-32); Chloride 96 mmol/L (98-107); Estimated Glomerular Filt Rate > 60 mL/min (>60); Globulin 3.5 g/dL (1.7-4.1); Glucose 282 mg/dL (80-110); HEMOLYSIS < 15 (0-50); Potassium 3.9 mmol/L (3.4-5.1); Sodium 136 mmol/L (137-145); Total Protein 7.6 g/dL (6.3-8.2)
[2022-06-27 14:21] LABS: Lactate (Lactic Acid) 1.2 mmol/L (0.7-2.1)
--- NOTE | 2022-06-27 14:21 | DI.CT.S_ITS ---
PROCEDURE: CT HEAD/BRAIN WO CON INDICATIONS: altered mental status TECHNIQUE: Noncontrast 4.5 mm thick angled axial sections acquired from the foramen magnum to the vertex, with coronal and sagittal reformats. For radiation dose reduction, the following was used: automated exposure control, adjustment of mA and/or kV according to patient size. COMPARISON: None. FINDINGS: Image quality: Excellent. CSF spaces: Basal cisterns are patent. No extra-axial fluid collections. Ventricles are normal in size and shape. Brain: No midline shift. No intracranial masses or hemorrhage. Mal[place]-white matter interface is normal. Moderate cerebral and cerebellar volume loss with multifocal white matter chronic ischemic change noted. Skull and face: Calvarium and visualized facial bones are intact, without suspicious lesions. Sinuses: Visualized sinuses and mastoids are clear. IMPRESSION: Mild atrophy and chronic ischemic change without intracranial hemorrhage or mass effect. Approved by: Alcides Zapata M.D. on 06/27/2022 at 14:05
[2022-06-27 14:32] LABS: D Dimer 620 ng/ml (<500)
[2022-06-27 14:34] LABS: Lipase 218 U/L (23-300)
[2022-06-27 14:44] LABS: COVID19 -Nasal RAPID Negative (Negative)
[2022-06-27 14:47] LABS: NT-proBNP (BNP-Adult 18+) 286 pg/mL (<125); Troponin I < 0.012 ng/mL (0.01-0.034)
[2022-06-27 14:52] LABS: Procalcitonin 0.08 ng/mL (<0.5)
[2022-06-27] MEDS: SODIUM CHLORIDE 0.9% 1,000 ML 1000 ML IV (15:37)
--- NOTE | 2022-06-27 16:08 | ED_ITS ---
HPI - General Adult General Chief complaint: Shortness of Breath/Dyspnea Stated complaint: sob, low bp, fever, low oxygen, diabetic high suga Time Seen by Provider: 06/27/22 13:57 Source: patient Mode of arrival: Ambulatory History of Present Illness HPI narrative: 72-year-old woman with history of diabetes, hypertension, reflux, hyperlipidemia as well as depression and anxiety presents with a myriad of complaints including increased blood sugars, decreased blood pressures, febrile to 101 the last 24 hours significant dizziness for the past 3 days patient states that she is not short of breath but daughter states that she is and has trouble taking a deep breath. She has had mild increased urinary incontinence over the last number of days. She reportedly started Ozempic 3 months ago has had no appetite and patient thinks that she has lost weight but daughter says that she lost 3 lb and then gained it back. 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 Patient does not complain of headache, vision changes paresthesias or weakness. Patient seems to have little insight overall into her symptoms and her presentation is dramatically different from her daughter's perception of her illness. She complains of no abdominal pain no constipation or diarrhea. Related Data Home Medications Medication Instructions Recorded Confirmed alendronate 70 mg tablet 1 tab PO QWEEK 05/11/18 12/07/21 amlodipine 5 mg tablet 5 mg PO DAILY 05/11/18 12/07/21 aspirin 81 mg tablet,delayed 81 mg PO QPM 05/11/18 12/07/21 release loratadine 10 mg tablet 10 mg PO DAILY 05/11/18 12/07/21 meloxicam 15 mg tablet 1 tab PO DAILY 05/11/18 12/07/21 metformin 1,000 mg tablet 1 tab PO BID 05/11/18 12/07/21 metoprolol succinate 50 mg 1 tab PO DAILY 05/11/18 12/07/21 tablet,extended release 24 hr pantoprazole 40 mg tablet,delayed 1 tab PO DAILY 05/11/18 12/07/21 release simvastatin 80 mg tablet 80 mg PO QPM 05/11/18 12/07/21 telmisartan 80 1 tab PO DAILY 05/11/18 12/07/21 mg-hydrochlorothiazide 25 mg tablet Previous Rx's Medication Instructions Recorded amoxicillin 875 mg-potassium 1 tab PO BID #20 tabs 02/07/20 clavulanate 125 mg tablet (Augmentin) ondansetron HCl 4 mg tablet 4 mg PO Q8H PRN nausea and 02/07/20 (Zofran) vomiting #10 tabs CMP Estradiol 0.0125% Vaginal Cream 1 g vaginal 2XW #42.5 grams 12/09/21 sulfamethoxazole 800 1 tab PO BID #20 tabs 06/27/22 mg-trimethoprim 160 mg tablet (Bactrim DS) Allergies Allergy/AdvReac Type Severity Reaction Status Date / Time No Known Drug Allergies Allergy Verified 12/07/21 15:37 Review of Systems Review of Systems Narrative: Remainder of complete review of systems is otherwise unremarkable except for that included in the HPI. Patient History Medical History (Updated 06/27/22 @ 18:31 by Yolanda Castle MD) Carpal tunnel syndrome (~2013) Cataracts, bilateral (~2018) Chicken pox Depression (~2015) Diabetes mellitus (~1989) Foot pain (~2019) Healthy adult Measles Melanoma (~2019) Osteoporosis (~2018) Retinal detachment (~2017) Vertigo Surgical History (Updated 12/08/21 @ 20:50 by Darlin Sarabia) Anesthesia History of carpal tunnel release (~2013) History of cataract removal with insertion of prosthetic lens (~2020) History of eye surgery (~2017) History of partial thyroidectomy (~1979) History of removal of cyst (~1978) Family History (Updated 12/08/21 @ 20:52 by Darlin Sarabia) Father Cancer Mother Diabetes mellitus Hypertension Brother Diabetes mellitus Brother Diabetes mellitus Family/Other Diabetes mellitus Hypertension Social History household members: none Smoking Status: Never smoker Smoking Status: Never smoker alcohol intake frequency: 0-2 drinks per day Substance Use Type: does not use Exam Initial Vital Signs Initial Vital Signs: Vital Signs Temperature 101 F H 06/27/22 14:02 Pulse Rate 115 H 06/27/22 14:02 Respiratory Rate 22 06/27/22 14:02 Blood Pressure 162/76 H 06/27/22 14:02 Pulse Oximetry 95 06/27/22 14:02 Oxygen Delivery Method 06/27/22 14:02 General: Fatigued appearing with poor eye contact but in no acute distress. HEENT: Moist mucous membranes, normal sclera with reactive pupils, Neck: No JVD, supple Respiratory: Lungs are clear to auscultation, no wheezing no rales no rhonchi. Full and symmetrical air movement Cardiac: Tachycardic, no murmurs no bruits Abdomen: Soft, nontender, good bowel tones, no flank pain Skin: Warm and dry, no rashes Neurologic: Grossly neurologically intact with no obvious asymmetries or abnormalities Extremities: No trauma, well perfused Psych: Cooperative, slightly slowed speech, poor overall insight Course Orders Ordered: ED Orders 06/27/22 13:56 Complete Blood Count AUTO DIFF Stat Comprehensive Metabolic Panel Stat D Dimer Stat Lactate (Lactic Acid) Stat Lipase Stat Magnesium Stat NT-proBNP (BNP-Adult 18+) Stat Procalcitonin Stat Troponin I Stat 06/27/22 13:59 XR chest 2V Stat EKG-12 Lead Stat Measure peak expiratory flow ONCE RT Consult Eval and Treat Now 06/27/22 14:05 Blood Culture Stat 06/27/22 14:21 CT head/brain wo con Stat 06/27/22 14:25 COVID19 -Nasal RAPID/Pre-Proc Stat 06/27/22 16:21 Urinalysis and Microscopic Stat Urine Culture Stat Discontinued Medications Sodium Chloride (Normal Saline 0.9%) 1,000 mls @ 1,000 mls/hr IV BOLUS ONE Stop: 06/27/22 15:19 Last Infusion: 06/27/22 17:25 Dose: 0 mls/hr Documented By: Admin: 06/27/22 15:37 Dose: 1,000 mls/hr Documented By: HERBERT Ceftriaxone Sodium 2,000 mg/ (Sodium Chloride) 100 mls @ 200 mls/hr IV NOW ONE Stop: 06/27/22 16:52 Last Infusion: 06/27/22 17:53 Dose: 0 mls/hr Documented By: Admin: 06/27/22 17:13 Dose: 200 mls/hr Documented By: HERBERT Vital Signs Vital signs: Vital Signs - 8 hr 06/27/22 14:02 06/27/22 14:13 06/27/22 14:21 Temperature 101 F H Pulse Rate 115 H 106 H Respiratory Rate 22 Blood Pressure 162/76 H 161/88 H Pulse Oximetry 95 95 Oxygen Delivery Method Room Air 06/27/22 14:21 06/27/22 14:42 06/27/22 15:00 Temperature Pulse Rate 104 H 111 H 98 H Respiratory Rate 24 Blood Pressure Pulse Oximetry 96 96 93 Oxygen Delivery Method 06/27/22 15:30 06/27/22 16:00 06/27/22 16:48 Temperature Pulse Rate 111 H 95 H 92 H Respiratory Rate 15 Blood Pressure Pulse Oximetry 95 96 Oxygen Delivery Method 06/27/22 17:00 Temperature Pulse Rate 98 H Respiratory Rate Blood Pressure Pulse Oximetry Oxygen Delivery Method Medical Decision Making Lab Data Result diagrams: 06/27/22 13:56 06/27/22 13:56 Labs: Lab Results 06/27/22 06/27/22 06/27/22 Range/Units 13:56 13:56 13:56 WBC 18.1 H (4.5-11.0) X10^3/uL RBC 4.65 (4.0-5.2) X10^6/uL Hgb 12.9 (12.0-16.0) g/dL Hct 38.9 (36-46) % MCV 83.7 (80-100) fL MCH 27.8 (26-34) PG MCHC 33.3 (30-36) % RDW 14.1 (11.6-14.8) % Plt Count 361 (150-400) X10^3/uL Neut % (Auto) 81.2 H (50-75) % Lymph % (Auto) 7.8 L (25-40) % [place] % (Auto) 9.5 (3-14) % Eos % (Auto) 0.5 L (2-4) % Baso % (Auto) 1.0 (0-2) % Neut # (Auto) 42680 H (9729-4727) /uL Lymph # (Auto) 1400 (9891-0473) /uL [place] # (Auto) 1700 H (0-900) /uL Eos # (Auto) 100 (0-450) /uL Baso # (Auto) 200 H (0-100) /uL D-Dimer (<500) ng/ml Sodium 136 L (137-145) mmol/L Potassium 3.9 (3.4-5.1) mmol/L Chloride 96 L (98-107) mmol/L Carbon Dioxide 28 (22-32) mmol/L BUN 19 H (7-17) mg/dL Creatinine 0.94 (0.52-1.04) mg/dL Estimated GFR > 60 (>60) mL/min BUN/Creatinine Ratio 20.2 (6-22) Glucose 282 H (80-110) mg/dL Lactate 1.2 (0.7-2.1) mmol/L Calcium 9.4 (8.4-10.2) mg/dL Magnesium (1.6-2.3) mg/dL Total Bilirubin 0.5 (0.2-1.3) mg/dL AST 16 (14-36) IU/L ALT 11 (<35) IU/L Alkaline Phosphatase 98 (38-126) U/L Troponin I (0.01-0.034) ng/mL NT-Pro-B Natriuret Pep (<125) pg/mL Total Protein 7.6 (6.3-8.2) g/dL Albumin 4.1 (3.5-5.0) g/dL Globulin 3.5 (1.7-4.1) g/dL Albumin/Globulin Ratio 1.2 (1.0-2.8) Lipase (23-300) U/L Procalcitonin (<0.5) ng/mL Urine Color Urine Appearance Urine pH (4.5-8.0) Ur Specific [place] (1.000-1.035) Urine Protein (Negative) Urine Glucose (UA) (Negative) g/dL Urine Ketones (NEGATIVE) Urine Occult Blood (Negative) Urine Nitrate (Negative) Urine Bilirubin (NEGATIVE) Urine Urobilinogen (0.2) E.U./dL Ur Leukocyte Esterase (NEGATIVE) Urine RBC (0-5/HPF) Urine WBC (0-5/HPF) Ur Squamous Epith Cells (0-5/HPF) Urine Bacteria (None) Ur Culture Indicated? SARS-CoV-2 (PCR) (Negative) 06/27/22 06/27/22 06/27/22 Range/Units 13:56 13:56 14:25 WBC (4.5-11.0) X10^3/uL RBC (4.0-5.2) X10^6/uL Hgb (12.0-16.0) g/dL Hct (36-46) % MCV (80-100) fL MCH (26-34) PG MCHC (30-36) % RDW (11.6-14.8) % Plt Count (150-400) X10^3/uL Neut % (Auto) (50-75) % Lymph % (Auto) (25-40) % [place] % (Auto) (3-14) % Eos % (Auto) (2-4) % Baso % (Auto) (0-2) % Neut # (Auto) (1345-5889) /uL Lymph # (Auto) (1540-3760) /uL [place] # (Auto) (0-900) /uL Eos # (Auto) (0-450) /uL Baso # (Auto) (0-100) /uL D-Dimer 620 H (<500) ng/ml Sodium (137-145) mmol/L Potassium (3.4-5.1) mmol/L Chloride (98-107) mmol/L Carbon Dioxide (22-32) mmol/L BUN (7-17) mg/dL Creatinine (0.52-1.04) mg/dL Estimated GFR (>60) mL/min BUN/Creatinine Ratio (6-22) Glucose (80-110) mg/dL Lactate (0.7-2.1) mmol/L Calcium (8.4-10.2) mg/dL Magnesium 1.0 L (1.6-2.3) mg/dL Total Bilirubin (0.2-1.3) mg/dL AST (14-36) IU/L ALT (<35) IU/L Alkaline Phosphatase (38-126) U/L Troponin I < 0.012 (0.01-0.034) ng/mL NT-Pro-B Natriuret Pep 286 H (<125) pg/mL Total Protein (6.3-8.2) g/dL Albumin (3.5-5.0) g/dL Globulin (1.7-4.1) g/dL Albumin/Globulin Ratio (1.0-2.8) Lipase 218 (23-300) U/L Procalcitonin 0.08 (<0.5) ng/mL Urine Color Urine Appearance Urine pH (4.5-8.0) Ur Specific [place] (1.000-1.035) Urine Protein (Negative) Urine Glucose (UA) (Negative) g/dL Urine Ketones (NEGATIVE) Urine Occult Blood (Negative) Urine Nitrate (Negative) Urine Bilirubin (NEGATIVE) Urine Urobilinogen (0.2) E.U./dL Ur Leukocyte Esterase (NEGATIVE) Urine RBC (0-5/HPF) Urine WBC (0-5/HPF) Ur Squamous Epith Cells (0-5/HPF) Urine Bacteria (None) Ur Culture Indicated? SARS-CoV-2 (PCR) Negative (Negative) 06/27/22 Range/Units 16:21 WBC (4.5-11.0) X10^3/uL RBC (4.0-5.2) X10^6/uL Hgb (12.0-16.0) g/dL Hct (36-46) % MCV (80-100) fL MCH (26-34) PG MCHC (30-36) % RDW (11.6-14.8) % Plt Count (150-400) X10^3/uL Neut % (Auto) (50-75) % Lymph % (Auto) (25-40) % [place] % (Auto) (3-14) % Eos % (Auto) (2-4) % Baso % (Auto) (0-2) % Neut # (Auto) (5949-0296) /uL Lymph # (Auto) (5846-7953) /uL [place] # (Auto) (0-900) /uL Eos # (Auto) (0-450) /uL Baso # (Auto) (0-100) /uL D-Dimer (<500) ng/ml Sodium (137-145) mmol/L Potassium (3.4-5.1) mmol/L Chloride (98-107) mmol/L Carbon Dioxide (22-32) mmol/L BUN (7-17) mg/dL Creatinine (0.52-1.04) mg/dL Estimated GFR (>60) mL/min BUN/Creatinine Ratio (6-22) Glucose (80-110) mg/dL Lactate (0.7-2.1) mmol/L Calcium (8.4-10.2) mg/dL Magnesium (1.6-2.3) mg/dL Total Bilirubin (0.2-1.3) mg/dL AST (14-36) IU/L ALT (<35) IU/L Alkaline Phosphatase (38-126) U/L Troponin I (0.01-0.034) ng/mL NT-Pro-B Natriuret Pep (<125) pg/mL Total Protein (6.3-8.2) g/dL Albumin (3.5-5.0) g/dL Globulin (1.7-4.1) g/dL Albumin/Globulin Ratio (1.0-2.8) Lipase (23-300) U/L Procalcitonin (<0.5) ng/mL Urine Color Yellow Urine Appearance Sl cloudy Urine pH 6.5 (4.5-8.0) Ur Specific [place] <=1.005 (1.000-1.035) Urine Protein 1+ H (Negative) Urine Glucose (UA) Negative (Negative) g/dL Urine Ketones Negative (NEGATIVE) Urine Occult Blood 1+ H (Negative) Urine Nitrate Positive H (Negative) Urine Bilirubin Negative (NEGATIVE) Urine Urobilinogen 0.2 (0.2) E.U./dL Ur Leukocyte Esterase 2+ H (NEGATIVE) Urine RBC 1-5/hpf (0-5/HPF) Urine WBC 10-30/hpf H (0-5/HPF) Ur Squamous Epith Cells 0-1 /hpf (0-5/HPF) Urine Bacteria Many (>30) H (None) Ur Culture Indicated? Specimen cultured SARS-CoV-2 (PCR) (Negative) Imaging Data Chest x-ray: Radiologist's Impression: FINDINGS:? ? Surgical changes and devices:? None.? ? Lungs and pleura:? Lungs are clear.? No pleural effusions or pneumothorax.? ? Mediastinum:? Mediastinal contours are normal.? Heart size is normal.? Atherosclerotic vascular calcification noted in the aortic arch. ? Bones and chest wall:? No suspicious bony abnormalities.? Soft tissues appear unremarkable.? ? IMPRESSION:? No acute cardiopulmonary findings ? ? ? Approved by: Alcides Zapata M.D. on 06/27/2022 at 13:45? CT scan - head: Radiologist's Impression: FINDINGS:? Image quality:? Excellent.? ? CSF spaces:? Basal cisterns are patent.? No extra-axial fluid collections.? Ventricles are normal in size and shape.? ? Brain:? No midline shift.? No intracranial masses or hemorrhage.? Maloney-white matter interface is normal.? Moderate cerebral and cerebellar volume loss with multifocal white matter chronic ischemic change noted. ? Skull and face:? Calvarium and visualized facial bones are intact, without suspicious lesions.? ? Sinuses:? Visualized sinuses and mastoids are clear.? ? IMPRESSION:? Mild atrophy and chronic ischemic change without intracranial hemorrhage or mass effect. ? ? ? Approved by: Alcides Zapata M.D. on 06/27/2022 at 14:05? ECG Data Interpretation: Sinus tachycardia at a rate of 108 Normal intervals, normal axis No acute ischemic changes MDM Narrative Medical decision making narrative: 72-year-old woman who complains of increased blood sugars, dizziness, weakness, increased psychomotor depressive type symptoms. She has responded nicely to fluids, there is no evidence of sepsis, labs are actually quite reassuring with evidence of pyelonephritis with an elevated white blood cell count and sig nificantly abnormal urine however she is able to eat, drink, is neurologically appropriate and would much prefer home discharge. She has help at home and access to say follow-up and is able to follow directions and complete medications. In the emergency room she is given 2 g of IV ceftriaxone and urine is cultured. We also discussed restarting her duloxetine. I think many of her symptoms are a ctually depression. She is open to considering this, does have medication at home and will follow-up with her primary care physician. There is no evidence of acute coronary syndrome, congestive heart failure, her D-dimer corrects appropriately for age and I am not concerned with pulmonary embolism. All this is reviewed with patient and her daughter. I believe she is safe for home discharge. Discharge Plan Departure Patient Disposition: Home Clinical Impression: Acute pyelonephritis, Depression Instructions: DI for Kidney Infection Activity Restrictions/Additional Instructions: Thank you for coming in today It does appear that you have both a urine infection that is affecting your e ntire body so by definition would call this a kidney infection or pyelonephritis. I have given you a dose of antibiotics in the emergency department that is good for the 1st 24 hours a but I wanted to complete 10 days of Septra/Bactrim to make sure the infection completely clears. Prescription was electronically transmitted to [facility] in [place] I did not find any evidence of sepsis, kidney failure, heart failure, heart attack, stroke. I do think that your depression is significant. You have had a number of significant life changes in the last months. I would strongly recommend that you restart your duloxetine, the antidepressant that you had been taking and follow-up with your primary care doctor. When you do follow-up with your primary care doctor, please also discuss possibility of sleep apnea and a sleep study. If you find that you are getting worse or develop any new symptoms, please feel free to return to the emergency department for further evaluation. Prescriptions: New sulfamethoxazole-trimethoprim [Bactrim DS] 800-160 mg tablet 1 tab PO BID Qty: 20 0RF No Action CMP Estradiol 0.0125% Vaginal Cream 1 g vaginal 2XW Qty: 42.5 4RF amoxicillin-pot clavulanate [Augmentin] 875-125 mg tablet 1 tab PO BID Qty: 20 0RF ondansetron HCl [Zofran] 4 mg tablet 4 mg PO Q8H PRN (Reason: nausea and vomiting) Qty: 10 0RF metoprolol succinate [Toprol XL] 50 mg tablet extended release 24 hr 1 tab PO DAILY meloxicam 15 mg tablet 1 tab PO DAILY alendronate 70 mg tablet 1 tab PO QWEEK amlodipine 5 mg tablet 5 mg PO DAILY simvastatin 80 mg tablet 80 mg PO QPM aspirin 81 mg tablet,delayed release (DR/EC) 81 mg PO QPM pantoprazole 40 mg tablet,delayed release (DR/EC) 1 tab PO DAILY Label Comments: pt no longer taking metformin 1,000 mg tablet 1 tab PO BID loratadine 10 mg tablet 10 mg PO DAILY Label Comments: no longer taking telmisartan-hydrochlorothiazid [Micardis HCT] 80-25 mg tablet 1 tab PO DAILY Referrals: Beverley Albert PA-C [Primary Care Provider] -
[2022-06-27 17:08] LABS: Appearance Urine UA SL CLOUDY; Bilirubin Urine UA NEGATIVE (NEGATIVE); Color Urine UA YELLOW; Glucose Urine UA NEGATIVE (Negative); Ketones Urine UA NEGATIVE (NEGATIVE); Leukocyte Esterase Urine UA 2+ (NEGATIVE); Nitrite Urine UA POSITIVE (Negative); Occult Blood Urine UA 1+ (Negative); Protein Urine UA 1+ (Negative); Specific Gravity Urine UA <=1.005 (1.000-1.035); Urobilinogen Urine UA 0.2 E.U./dL (0.2)
[2022-06-27 17:10] LABS: pH Urine UA 6.5 (4.5-8.0)
[2022-06-27] MEDS: cefTRIAXone 2,000 MG in SODIUM CHLORIDE 0.9% 100 ML 200 MG IV (17:13)
[2022-06-27 17:15] LABS: Bacteria Urine Many (>30); Culture Indicated Urine Specimen Cultured; RBC Urine 1-5/HPF (0-5/HPF); Squamous Epithelial Cell Urine 0-1 /HPF (0-5/HPF); WBC Urine 10-30/HPF (0-5/HPF)
--- NOTE | 2022-06-27 17:22 | PC.NURSE ---
Pt daughter reports that her oxygen goes down when she lays flat. Pt is currently supine and at 93% on RA. This RN to monitor.
--- NOTE | 2022-06-27 18:31 | PC.NURSE ---
Pt was placed on 1 L oxygen by RN Carrie after she desated to 91% while laying flat. Pt sat upright by this RN and is at 96% on RA. Provider Corrine rico.
== END 2022-06-27 18:52 | disposition home or self-care (01) ==
PROVIDERS: Emergency Provider Emergency Medicine; PCP Physician Assistant
DX: N10 Acute pyelonephritis (principal); F32.A Depression, unspecified; R50.9 Fever, unspecified; Z20.822 Contact with and (suspected) exposure to COVID-19
CPT/HCPCS: 36415; 70450; 71046; 80053; 81001; 83605; 83690; 83735; 83880; 84145; 84484; 85025; 85379; 87040; 87077; 87086; 87186; 87635; 93005; 96365; 99284; C9803; J0696

== ENCOUNTER 2023-01-24 17:13 | Emergency (ER) | payer OTHER, SELFPAY ==
[2023-01-24 17:29] VITALS: BP 107/60; PULSE 111; RESP 22; TEMP 36.6; O2SAT 97; BMI 27.4
--- NOTE | 2023-01-24 17:48 | DI.RAD.S_ITS ---
PROCEDURE: XR ABDOMEN 1V INDICATIONS: c/o no bm x 3 days, abd pain TECHNIQUE: One view of the abdomen acquired. COMPARISON: None. FINDINGS: Surgical changes and devices: None. Bowel: Bowel gas pattern is nonobstructive. Large amount of fecal matter throughout the colon is seen. No gross pneumoperitoneum. Soft tissues: 1 centimeter calcification is seen in left side of abdomen and may represent left renal calculus. Small calcifications are seen scattered in lower pelvis likely represent phleboliths. Visualized solid organ contours appear normal in size. Bones: No suspicious bony lesions. IMPRESSION: 1. Moderate to severe constipation and fecal impaction. No gross free air. 2. Possible left renal calculus. Likely bilateral phleboliths in lower pelvis. Dictated by: Zi Souza M.D. on 01/24/2023 at 18:10 Approved by: Zi Souza M.D. on 01/24/2023 at 18:11
--- NOTE | 2023-01-24 19:17 | ED.GENADULT ---
HPI - General Adult General Chief complaint: Abdominal Pain Stated complaint: [id number], abd pain Time Seen by Provider: 01/24/23 18:52 Source: patient Mode of arrival: Family Vehicle History of Present Illness HPI narrative: 72-year-old woman presents complaining of 3 days of rectal pain and pressure, no bowel movement for 3 days. She notes she did use a suppository today additional medical problems include hypertension, osteoporosis, hyperlipidemia, diabetes and currently on Ozempic. She reports that she has been eating significantly less and has lost approximately 20 lb. The increased constipation is concurrent with this. She reports no fevers, cough, chills. Related Data Home Medications Medication Instructions Recorded Confirmed alendronate 70 mg tablet 1 tab PO QWEEK 05/11/18 12/07/21 amlodipine 5 mg tablet 5 mg PO DAILY 05/11/18 12/07/21 aspirin 81 mg tablet,delayed 81 mg PO QPM 05/11/18 12/07/21 release loratadine 10 mg tablet 10 mg PO DAILY 05/11/18 12/07/21 meloxicam 15 mg tablet 1 tab PO DAILY 05/11/18 12/07/21 metformin 1,000 mg tablet 1 tab PO BID 05/11/18 12/07/21 metoprolol succinate 50 mg 1 tab PO DAILY 05/11/18 12/07/21 tablet,extended release 24 hr pantoprazole 40 mg tablet,delayed 1 tab PO DAILY 05/11/18 12/07/21 release simvastatin 80 mg tablet 80 mg PO QPM 05/11/18 12/07/21 telmisartan 80 1 tab PO DAILY 05/11/18 12/07/21 mg-hydrochlorothiazide 25 mg tablet Previous Rx's Medication Instructions Recorded amoxicillin 875 mg-potassium 1 tab PO BID #20 tabs 02/07/20 clavulanate 125 mg tablet (Augmentin) ondansetron HCl 4 mg tablet 4 mg PO Q8H PRN nausea and 02/07/20 (Zofran) vomiting #10 tabs CMP Estradiol 0.0125% Vaginal Cream 1 g vaginal 2XW #42.5 grams 12/09/21 sulfamethoxazole 800 1 tab PO BID #20 tabs 06/27/22 mg-trimethoprim 160 mg tablet (Bactrim DS) Allergies Allergy/AdvReac Type Severity Reaction Status Date / Time No Known Drug Allergies Allergy Verified 12/07/21 15:37 Review of Systems Review of Systems Narrative: Pertinent positive and negative findings as per HPI Patient History Medical History Carpal tunnel syndrome (~2013) Cataracts, bilateral (~2018) Chicken pox Depression (~2015) Diabetes mellitus (~1989) Foot pain (~2019) Healthy adult Measles Melanoma (~2019) Osteoporosis (~2018) Retinal detachment (~2017) Vertigo Surgical History Anesthesia History of carpal tunnel release (~2013) History of cataract removal with insertion of prosthetic lens (~2020) History of eye surgery (~2017) History of partial thyroidectomy (~1979) History of removal of cyst (~1978) Family History Father Cancer Mother Diabetes mellitus Hypertension Brother Diabetes mellitus Brother Diabetes mellitus Family/Other Diabetes mellitus Hypertension Social History household members: none Smoking Status: Never smoker Smoking Status: Never smoker alcohol intake frequency: 0-2 drinks per day Substance Use Type: does not use Exam Initial Vital Signs Initial Vital Signs: Vital Signs Temperature 97.8 F 01/24/23 17:29 Pulse Rate 111 H 01/24/23 17:29 Respiratory Rate 22 01/24/23 17:29 Blood Pressure 107/60 01/24/23 17:29 Pulse Oximetry 97 01/24/23 17:29 Oxygen Delivery Method Room Air 01/24/23 17:29 General: Alert appropriate in no acute distress Respiratory: Able to speak in full sentences, no obvious respiratory distress Skin: No obvious rashes, warm and dry Neurologic: Grossly intact no obvious asymmetries or abnormalities Psych: appropriate insight and affect, cooperative Rectal exam: She does have a large bolus of firm stool sitting right at the rectal verge with the anus being distended. She is disimpacted with significant relief and a large volume of very hard stool easily removed with saw stool still remaining and should be easily passed at home. Course Orders Ordered: ED Orders 01/24/23 17:48 XR abdomen 1V Stat Vital Signs Vital signs: Vital Signs - 8 hr 01/24/23 17:29 Temperature 97.8 F Pulse Rate 111 H Respiratory Rate 22 Blood Pressure 107/60 Pulse Oximetry 97 Oxygen Delivery Method Room Air Medical Decision Making [facility] Narrative Medical decision making narrative: CC: Constipation with rectal pain, this is an acute problem uncertain prognosis Complicating co-morbidities: Prior history of fecal incontinence and mixed urinary incontinence Data collected from: patient, Social determinants of health that may influence the patients condition: Age Medical records reviewed: Gynecology notes from December 07, 2021 Differential considered: Constipation, rectal mass, bowel obstruction Exam documented above, pertinent findings include: Benign exam with significant constipation appreciated on rectal exam Lab Test not indicated today Treatments: Manual disimpaction with significant relief and a large volume of very hard stool easily removed with saw stool still remaining and should be easily passed at home. Discussion: Patient is feeling significantly better. She is safe for discharge home. We discussed the importance of adding fiber when she is eating significantly less food. She takes a protein shake every morning and I recommended looking for the variety that has added fiber. I also recommended adding a scoop of MiraLax into the morning protein shake and then following that with a large glass of water. All questions are answered Discharge Plan Departure Patient Disposition: Home Clinical Impression: Fecal impaction in rectum Constipation Qualifiers: Constipation type: unspecified constipation type Qualified Code(s): K59.00 - Constipation, unspecified Instructions: DI for Constipation Activity Restrictions/Additional Instructions: Thank you for coming in today We were able to get out a large amount of very firm stool. He currently have a moderate amount of significantly softer stool. I would recommend another dose of the laxative tonight to try and completely clear out your colon. With your morning protein shake, look for varieties have added fiber. I would also recommend adding a full capful, 17 g, of MiraLax to your morning protein shake. This will pull water anterior: To help prevent further constipation. If you find that you are getting worse or develop any new symptoms, please feel free to return to the emergency department for further evaluation. Prescriptions: No Action CMP Estradiol 0.0125% Vaginal Cream 1 g vaginal 2XW Qty: 42.5 4RF amoxicillin-pot clavulanate [Augmentin] 875-125 mg tablet 1 tab PO BID Qty: 20 0RF ondansetron HCl [Zofran] 4 mg tablet 4 mg PO Q8H PRN (Reason: nausea and vomiting) Qty: 10 0RF sulfamethoxazole-trimethoprim [Bactrim DS] 800-160 mg tablet 1 tab PO BID Qty: 20 0RF metoprolol succinate [Toprol XL] 50 mg tablet extended release 24 hr 1 tab PO DAILY meloxicam 15 mg tablet 1 tab PO DAILY alendronate 70 mg tablet 1 tab PO QWEEK amlodipine 5 mg tablet 5 mg PO DAILY simvastatin 80 mg tablet 80 mg PO QPM aspirin 81 mg tablet,delayed release (DR/EC) 81 mg PO QPM pantoprazole 40 mg tablet,delayed release (DR/EC) 1 tab PO DAILY Patient Comments: pt no longer taking metformin 1,000 mg tablet 1 tab PO BID loratadine 10 mg tablet 10 mg PO DAILY Patient Comments: no longer taking telmisartan-hydrochlorothiazid [Micardis HCT] 80-25 mg tablet 1 tab PO DAILY Referrals: Beverley Albert PA-C [Primary Care Provider] - Stand Alone Forms: Patient Portal/API
--- NOTE | 2023-01-24 19:20 | PC.NURSE ---
Dr Castle in to evaluate pt
== END 2023-01-24 19:40 | disposition home or self-care (01) ==
PROVIDERS: Emergency Provider Emergency Medicine; PCP Physician Assistant
DX: K56.41 Fecal impaction (principal)
CPT/HCPCS: 74018; 99281; 99283

== ENCOUNTER 2023-08-08 10:26 | Inpatient (IN) | payer OTHER, SELFPAY ==
[2023-08-08] VITALS (37 sets, daily range): BP systolic 109–217; BP diastolic 56–138; PULSE 79–127; RESP 17–38; TEMP 36.7–40.7; O2SAT 88–98; BMI 30.9; BMI 32.9
[2023-08-08] MEDS: ONDANSETRON 4 MG ODT SL (11:55)
--- NOTE | 2023-08-08 12:44 | PC.NURSE ---
Attempted to take patient to restroom at 1230pm and patient unable to void. Patient states that she urinated twice since arrival prior coming back to a room.
--- NOTE | 2023-08-08 12:47 | DI.CT.S_ITS ---
PROCEDURE: CT HEAD/BRAIN WO CON INDICATIONS: ALTERED MENTAL STATUS TECHNIQUE: Noncontrast 4.5 mm thick angled axial sections acquired from the foramen magnum to the vertex, with coronal and sagittal reformats. For radiation dose reduction, the following was used: automated exposure control, adjustment of mA and/or kV according to patient size. COMPARISON: [facility], CT, CT HEAD/BRAIN WO CON, 06/27/2022, 14:35. FINDINGS: Image quality: Excellent. CSF spaces: Basal cisterns are patent. No extra-axial fluid collections. The ventricles are symmetric in size and shape. Brain: No intracranial bleeds or masses. There is cerebral volume loss for age, with resultant ventricular and sulcal prominence. There are periventricular and deep white matter chronic small vessel ischemic changes. There is intracranial internal carotid artery atherosclerosis. Skull and face: Calvarium and visualized facial bones appear intact, without suspicious lesions. Sinuses: Visualized sinuses and mastoids are clear. IMPRESSION: 1. No acute intracranial process. 2. Moderate atrophy and chronic microvascular ischemic changes. Dictated by: Ragini Rollins M.D. on 08/08/2023 at 13:56 Approved by: Ragini Rollins M.D. on 08/08/2023 at 13:58
--- NOTE | 2023-08-08 12:50 | DI.RAD.S_ITS ---
PROCEDURE: XR CHEST 1V INDICATIONS: ams TECHNIQUE: One view of the chest was acquired. COMPARISON: [facility], CR, XR CHEST 2V, 06/27/2022, 14:27. FINDINGS: Surgical changes and devices: None. Lungs and pleura: Mild increased vascularity. Mediastinum: Mediastinal contours appear normal. Heart size is enlarged. Bones and chest wall: No suspicious bony lesions. Overlying soft tissues appear unremarkable. IMPRESSION: Cardiomegaly with increased vascularity suggestive of edema. Dictated by: Ragini Rollins M.D. on 08/08/2023 at 13:59 Approved by: Ragini Rollins M.D. on 08/08/2023 at 14:11
--- NOTE | 2023-08-08 12:51 | ED.ABDPAIN ---
HPI - Abdominal Pain General Chief Complaint: Urogenital-Female Stated Complaint: LT flank pain Time Seen by Provider: 08/08/23 11:57 Source: patient Mode of arrival: Ambulatory History of Present Illness HPI narrative: Patient 73-year-old female history of insulin-dependent diabetes presenting today with left flank pain and altered mental status. According to previous record in January she was on Ozempic at that time. Friend reports that she called her for help today for some left flank pain. While they have been waiting to be seen she has an less responsive and hunched over in the wheelchair. Tachycardic responding to voice but not answering questions she can follow some commands. Questionable UTI. Related Data Home Medications Medication Instructions Recorded Confirmed alendronate 70 mg tablet 1 tab PO QWEEK 05/11/18 12/07/21 amlodipine 5 mg tablet 5 mg PO DAILY 05/11/18 12/07/21 aspirin 81 mg tablet,delayed 81 mg PO QPM 05/11/18 12/07/21 release loratadine 10 mg tablet 10 mg PO DAILY 05/11/18 12/07/21 meloxicam 15 mg tablet 1 tab PO DAILY 05/11/18 12/07/21 metformin 1,000 mg tablet 1 tab PO BID 05/11/18 12/07/21 metoprolol succinate 50 mg 1 tab PO DAILY 05/11/18 12/07/21 tablet,extended release 24 hr pantoprazole 40 mg tablet,delayed 1 tab PO DAILY 05/11/18 12/07/21 release simvastatin 80 mg tablet 80 mg PO QPM 05/11/18 12/07/21 telmisartan 80 1 tab PO DAILY 05/11/18 12/07/21 mg-hydrochlorothiazide 25 mg tablet Previous Rx's Medication Instructions Recorded amoxicillin 875 mg-potassium 1 tab PO BID #20 tabs 02/07/20 clavulanate 125 mg tablet (Augmentin) ondansetron HCl 4 mg tablet 4 mg PO Q8H PRN nausea and 02/07/20 (Zofran) vomiting #10 tabs CMP Estradiol 0.0125% Vaginal Cream 1 g vaginal 2XW #42.5 grams 12/09/21 sulfamethoxazole 800 1 tab PO BID #20 tabs 06/27/22 mg-trimethoprim 160 mg tablet (Bactrim DS) Allergies Allergy/AdvReac Type Severity Reaction Status Date / Time No Known Drug Allergies Allergy Verified 12/07/21 15:37 Review of Systems Review of Systems ROS Unobtainable: All systems reviewed & are unremarkable except as noted in HPI and below Patient History Medical History Melanoma (~2019) Depression (~2015) Osteoporosis (~2018) Foot pain (~2019) Carpal tunnel syndrome (~2013) Measles Chicken pox Vertigo Retinal detachment (~2017) Cataracts, bilateral (~2018) Diabetes mellitus (~1989) Healthy adult Surgical History Anesthesia History of removal of cyst (~1978) History of carpal tunnel release (~2013) History of partial thyroidectomy (~1979) History of eye surgery (~2017) History of cataract removal with insertion of prosthetic lens (~2020) Family History Father Cancer Mother Diabetes mellitus Hypertension Brother Diabetes mellitus Brother Diabetes mellitus Family/Other Diabetes mellitus Hypertension Social History household members: none Smoking Status: Never smoker Smoking Status: Never smoker alcohol intake frequency: 0-2 drinks per day Substance Use Type: does not use Exam Initial Vital Signs Initial Vital Signs: Vital Signs Temperature 98.0 F 08/08/23 11:38 Pulse Rate 79 08/08/23 11:38 Respiratory Rate 18 08/08/23 11:38 Blood Pressure 137/77 08/08/23 11:38 Pulse Oximetry 95 08/08/23 11:38 Oxygen Delivery Method Room Air 08/08/23 11:38 GENERAL: Responsive to voice HEENT: Head atraumatic,EOMI, pupils reactive, face symmetric, moist mucous membranes CARDIOVASCULAR: Regular rate and rhythm without murmurs, rubs or gallops. RESPIRATORY: Breath sounds equal bilaterally, no wheezes rales or rhonchi. ABDOMEN: Soft, nontender. Normoactive bowel sounds all 4 quadrants. No guarding or rebound. : No CVA tenderness EXTREMITIES: Normal range of motion, no clubbing or edema. Neurovascularly intact NEUROLOGICAL: A moving extremities wrist withdrawals from pain SKIN: Warm, dry, no laceration, no petechiae, no rashes or lesions. Course Orders Ordered: ED Orders 08/08/23 12:47 CT head/brain wo con Stat EKG-12 Lead Stat 08/08/23 12:50 CT abdomen pelvis w con Stat Chest [XR chest 1V] Stat 08/08/23 12:51 CBC Auto Diff [Complete Blood Count AUTO DIFF] Stat CMP [Comprehensive Metabolic Panel] Stat ETOH [Ethanol (ETOH)] Stat Ketones (Beta-Hydroxybutyrate) Stat Lactate (Lactic Acid) Stat Lipase Stat Procalcitonin Stat Troponin & CK Cardiac Panel Stat 08/08/23 13:05 Ammonia (NH3) Stat Blood Culture Stat 08/08/23 13:09 VBG [Venous Blood Gas] Stat 08/08/23 13:45 Respiratory Panel (Film Array) Stat 08/08/23 14:00 UA Complete [Urinalysis and Microscopic] Stat Urine Culture Stat Urine Drug Screen, Rapid Stat 08/08/23 16:44 XR chest for PICC 1V Stat 08/08/23 17:10 Lactate (Lactic Acid) Stat 08/08/23 17:16 C-Reactive Protein Quant Urgent D Dimer Stat Ferritin Urgent LDH [Lactate Dehydrogenase] Urgent 08/08/23 17:18 ESR [Erythrocyte Sedimentation Rate] Urgent Remdesivir 100 mg/ Sodium (Chloride) 250 mls @ 250 mls/hr IV DAILY MONTRELL Stop: 08/17/23 09:59 Ondansetron HCl (Ondansetron 4 Mg/2 Ml Inj) 4 mg IV NOW PRN PRN Reason: Nausea And Vomiting Ondansetron HCl (Ondansetron 4 Mg Odt) 4 mg SL NOW PRN PRN Reason: Nausea And Vomiting Last Admin: 08/08/23 11:55 Dose: 4 mg Documented By: RB Discontinued Medications Dexamethasone (Dexamethasone 10 Mg/Ml Vial) 6 mg IV NOW ONE Stop: 08/08/23 15:45 Last Admin: 08/08/23 15:53 Dose: 6 mg Documented By: SPF Sodium Chloride (Normal Saline 0.9%) 1,000 mls @ 1,000 mls/hr IV BOLUS ONE Stop: 08/08/23 13:35 Last Admin: 08/08/23 14:14 Dose: Not Given Documented By: SB Sodium Chloride (Normal Saline 0.9%) 1,000 mls @ 1,000 mls/hr IV BOLUS ONE Stop: 08/08/23 13:46 Last Admin: 08/08/23 14:09 Dose: Not Given Documented By: HERBERT Sodium Chloride (Normal Saline 0.9%) 2,449.41 mls @ 816.47 mls/hr 30 ml/kg infuse over 3 hr (2449.41 ml) IV NOW ONE Stop: 08/08/23 16:41 Last Infusion: 08/08/23 16:54 Dose: Infused Documented By: Admin: 08/08/23 14:15 Dose: 816.47 mls/hr Documented By: HERBERT Ceftriaxone Sodium 1,000 mg/ (Sodium Chloride) 100 mls @ 200 mls/hr IV NOW ONE Stop: 08/08/23 13:43 Last Infusion: 08/08/23 15:10 Dose: Infused Documented By: Infusion: 08/08/23 14:54 Dose: 200 mls/hr Documented By: Admin: 08/08/23 14:08 Dose: 200 mls/hr Documented By: SB Acetaminophen (Ofirmev) 1,000 mg in 100 mls @ 400 mls/hr IV NOW ONE Stop: 08/08/23 14:25 Last Infusion: 08/08/23 14:40 Dose: Infused Documented By: Admin: 08/08/23 14:18 Dose: 400 mls/hr Documented By: HERBERT Piperacillin Sod/Tazobactam (Sod 4.5 gm/ Sodium Chloride) 100 mls @ 200 mls/hr IV NOW ONE Stop: 08/08/23 14:57 Last Infusion: 08/08/23 16:09 Dose: Infused Documented By: Admin: 08/08/23 15:27 Dose: 200 mls/hr Documented By: SPF Remdesivir 200 mg/ Sodium (Chloride) 250 mls @ 250 mls/hr IV NOW ONE Stop: 08/08/23 16:59 Last Admin: 08/08/23 17:06 Dose: 250 mls/hr Documented By: YULISA Sodium Chloride (Normal Saline 0.9%) 1,000 mls @ 1,000 mls/hr IV BOLUS ONE Stop: 08/08/23 17:53 Last Admin: 08/08/23 17:15 Dose: 1,000 mls/hr Documented By: SPF Ketorolac Tromethamine (Ketorolac 30 Mg/Ml Vial) 15 mg IV NOW ONE Stop: 08/08/23 13:42 Last Admin: 08/08/23 14:06 Dose: 15 mg Documented By: SB Vital Signs Vital signs: Vital Signs - 8 hr 08/08/23 11:38 08/08/23 12:39 08/08/23 13:01 Temperature 98.0 F 101.3 F H Pulse Rate 79 127 H Respiratory Rate 18 Blood Pressure 137/77 184/79 H Pulse Oximetry 95 95 Oxygen Delivery Method Room Air Room Air Oxygen Flow Rate 08/08/23 13:43 08/08/23 13:45 08/08/23 13:45 Temperature Pulse Rate 123 H 125 H Respiratory Rate Blood Pressure 187/81 H Pulse Oximetry 92 88 L 93 Oxygen Delivery Method Room Air Nasal Cannula Oxygen Flow Rate 2 08/08/23 14:00 08/08/23 14:00 08/08/23 14:04 Temperature 101.7 F H 104.5 F H Pulse Rate 122 H 123 H Respiratory Rate Blood Pressure 199/138 H Pulse Oximetry 96 96 Oxygen Delivery Method Nasal Cannula Oxygen Flow Rate 2 08/08/23 14:04 08/08/23 14:23 08/08/23 14:23 Temperature 105.3 F H Pulse Rate 120 H Respiratory Rate 17 Blood Pressure 217/90 H 152/71 H Pulse Oximetry 94 Oxygen Delivery Method Nasal Cannula Oxygen Flow Rate 2 08/08/23 14:30 08/08/23 14:30 08/08/23 14:42 Temperature 105.3 F H 104.9 F H Pulse Rate 116 H Respiratory Rate 24 Blood Pressure 146/69 H Pulse Oximetry 95 Oxygen Delivery Method Oxygen Flow Rate 08/08/23 14:45 08/08/23 14:45 08/08/23 15:00 Temperature 104.9 F H 104.5 F H Pulse Rate 113 H 111 H Respiratory Rate 24 23 Blood Pressure 155/71 H Pulse Oximetry 95 95 Oxygen Delivery Method Nasal Cannula Oxygen Flow Rate 2 08/08/23 15:00 08/08/23 15:15 08/08/23 15:15 Temperature 104.0 F H Pulse Rate 115 H Respiratory Rate 38 H Blood Pressure 142/63 H 138/65 Pulse Oximetry 95 Oxygen Delivery Method Nasal Cannula Oxygen Flow Rate 2 08/08/23 15:30 08/08/23 15:30 08/08/23 15:45 Temperature 103.6 F H 103.5 F H Pulse Rate 110 H 110 H Respiratory Rate 25 H 21 Blood Pressure 134/61 Pulse Oximetry 97 93 Oxygen Delivery Method Oxygen Flow Rate 08/08/23 15:45 08/08/23 16:00 08/08/23 16:00 Temperature 103.3 F H Pulse Rate 110 H Respiratory Rate 21 Blood Pressure 139/65 139/58 L Pulse Oximetry 96 Oxygen Delivery Method Nasal Cannula Oxygen Flow Rate 2 08/08/23 16:15 08/08/23 16:15 08/08/23 16:30 Temperature 103.1 F H 102.7 F H Pulse Rate 111 H 110 H Respiratory Rate 21 20 Blood Pressure 127/60 Pulse Oximetry 96 97 Oxygen Delivery Method Nasal Cannula Nasal Cannula Oxygen Flow Rate 2 2 08/08/23 16:30 08/08/23 16:45 08/08/23 16:45 Temperature 102.6 F H Pulse Rate 110 H Respiratory Rate 21 Blood Pressure 122/61 121/58 L Pulse Oximetry 96 Oxygen Delivery Method Oxygen Flow Rate 08/08/23 17:00 08/08/23 17:00 08/08/23 17:15 Temperature 102.6 F H 102.2 F H Pulse Rate 116 H 109 H Respiratory Rate 21 20 Blood Pressure 117/57 L Pulse Oximetry 96 96 Oxygen Delivery Method Nasal Cannula Nasal Cannula Oxygen Flow Rate 2 2 08/08/23 17:15 08/08/23 17:30 08/08/23 17:30 Temperature 102.0 F H Pulse Rate 108 H Respiratory Rate 19 Blood Pressure 125/56 L 119/56 L Pulse Oximetry 98 Oxygen Delivery Method Oxygen Flow Rate MDM - Abdominal Pain Lab Data 08/08/23 12:51 08/08/23 12:51 Labs: Lab Results 08/08/23 08/08/23 08/08/23 Range/Units 12:51 13:05 13:09 WBC 13.4 H (4.5-11.0) X10^3/uL RBC 4.78 (4.0-5.2) X10^6/uL Hgb 13.1 (12.0-16.0) g/dL Hct 40.2 (36-46) % MCV 84.0 (80-100) fL MCH 27.4 (26-34) PG MCHC 32.6 (30-36) % RDW 14.3 (11.6-14.8) % Plt Count 356 (150-400) X10^3/uL Neut % (Auto) 95.9 H (50-75) % Lymph % (Auto) 2.8 L (25-40) % [place] % (Auto) 0.9 L (3-14) % Eos % (Auto) 0.2 L (2-4) % Baso % (Auto) 0.2 (0-2) % Neut # (Auto) 19310 H (4916-0421) /uL Lymph # (Auto) 400 L (0153-8589) /uL [place] # (Auto) 100 (0-900) /uL Eos # (Auto) 0 (0-450) /uL Baso # (Auto) 0 (0-100) /uL ESR (0-20) MM/HR D-Dimer (<500) ng/ml VBG pH 7.32 L (7.33-7.43) VBG pCO2 45.0 (45-50) mmHg VBG pO2 29 L (35-45) mmHg VBG HCO3 23 L (24-28) mmol/L VBG Total CO2 25 (24-29) mmol/L VBG O2 Saturation 50 L (70-75) % VBG Base Excess -3.0 L (0-4) mmol/L FiO2 21 Sodium 137 (137-145) mmol/L Potassium 4.0 (3.4-5.1) mmol/L Chloride 100 (98-107) mmol/L Carbon Dioxide 24 (22-32) mmol/L BUN 25 H (7-17) mg/dL Creatinine 0.91 (0.52-1.04) mg/dL Estimated GFR > 60 (>60) mL/min BUN/Creatinine Ratio 27.5 H (6-22) Glucose 300 H (80-110) mg/dL Lactate 3.3 H (0.7-2.1) mmol/L Calcium 10.4 H (8.4-10.2) mg/dL Total Bilirubin 0.6 (0.2-1.3) mg/dL AST 23 (14-36) IU/L ALT 18 (<35) IU/L Alkaline Phosphatase 128 H (38-126) U/L Ammonia 12 (9-30) umol/L Lactate Dehydrogenase (120-246) U/L Total Creatine Kinase 67 (30-135) U/L Troponin I < 0.012 (0.01-0.034) ng/mL C-Reactive Protein (<1.0) mg/dL Total Protein 7.8 (6.3-8.2) g/dL Albumin 4.5 (3.5-5.0) g/dL Globulin 3.3 (1.7-4.1) g/dL Albumin/Globulin Ratio 1.4 (1.0-2.8) Lipase 321 H (23-300) U/L Procalcitonin 0.21 (<0.5) ng/mL Urine Color Urine Appearance Urine pH (4.5-8.0) Ur Specific [place] (1.000-1.035) Urine Protein (Negative) Urine Glucose (UA) (Negative) g/dL Urine Ketones (NEGATIVE) Urine Occult Blood (Negative) Urine Nitrate (Negative) Urine Bilirubin (NEGATIVE) Urine Urobilinogen (0.2) E.U./dL Ur Leukocyte Esterase (NEGATIVE) Urine RBC (0-5/HPF) Urine WBC (0-5/HPF) Ur Squamous Epith Cells (0-5/HPF) Urine Bacteria (None) Ur Culture Indicated? U Opiates 300ng/mL cut (Negative) Ur Oxycodone Screen (Negative) Urine Methadone Screen (Negative) Ur Barbiturates Screen (Negative) U Tricyclic Antidepress (Negative) Ur Phencyclidine Scrn (Negative) Ur Amphetamines Screen (Negative) U Methamphetamines Scrn (Negative) Ur MDMA Scrn (Ecstasy) (Negative) U Benzodiazepines Scrn (Negative) Urine Cocaine Screen (Negative) U Marijuana (THC) Screen (Negative) Ethyl Alcohol < 10 ( - 10) mg/dL Ketones 0.51 H (<0.27) mmol/L Chlamy pneumoniae PCR (Not Detect) Adenovirus (PCR) (Not Detect) B.parapertussis DNA PCR (Not Detecte) Coronavirus OC43 (PCR) (Not Detect) Coronavirus HKU1 (PCR) (Not Detect) Coronavirus 229E (PCR) (Not Detect) SARS-CoV-2 (PCR) (Not Detecte) Coronavirus NL63 (PCR) (Not Detect) Human Metapneumovir PCR (Not Detect) Influenza Type A (PCR) (Not Detect) Influenza Type B (PCR) (Not Detect) M. pneumoniae (PCR) (Not Detect) Parainfluenza 1 (PCR) (Not Detect) Parainfluenza 2 (PCR) (Not Detect) Parainfluenza 3 (PCR) (Not Detect) Parainfluenza 4 (PCR) (Not Detect) RSV (PCR) (Not Detect) Entero/Rhino (PCR) (Not Detect) 08/08/23 08/08/23 08/08/23 Range/Units 13:45 14:00 14:45 WBC (4.5-11.0) X10^3/uL RBC (4.0-5.2) X10^6/uL Hgb (12.0-16.0) g/dL Hct (36-46) % MCV (80-100) fL MCH (26-34) PG MCHC (30-36) % RDW (11.6-14.8) % Plt Count (150-400) X10^3/uL Neut % (Auto) (50-75) % Lymph % (Auto) (25-40) % [place] % (Auto) (3-14) % Eos % (Auto) (2-4) % Baso % (Auto) (0-2) % Neut # (Auto) (1409-4027) /uL Lymph # (Auto) (8218-1664) /uL [place] # (Auto) (0-900) /uL Eos # (Auto) (0-450) /uL Baso # (Auto) (0-100) /uL ESR (0-20) MM/HR D-Dimer (<500) ng/ml VBG pH (7.33-7.43) VBG pCO2 (45-50) mmHg VBG pO2 (35-45) mmHg VBG HCO3 (24-28) mmol/L VBG Total CO2 (24-29) mmol/L VBG O2 Saturation (70-75) % VBG Base Excess (0-4) mmol/L FiO2 Sodium (137-145) mmol/L Potassium (3.4-5.1) mmol/L Chloride (98-107) mmol/L Carbon Dioxide (22-32) mmol/L BUN (7-17) mg/dL Creatinine (0.52-1.04) mg/dL Estimated GFR (>60) mL/min BUN/Creatinine Ratio (6-22) Glucose (80-110) mg/dL Lactate 4.5 H* (0.7-2.1) mmol/L Calcium (8.4-10.2) mg/dL Total Bilirubin (0.2-1.3) mg/dL AST (14-36) IU/L ALT (<35) IU/L Alkaline Phosphatase (38-126) U/L Ammonia (9-30) umol/L Lactate Dehydrogenase (120-246) U/L Total Creatine Kinase (30-135) U/L Troponin I (0.01-0.034) ng/mL C-Reactive Protein (<1.0) mg/dL Total Protein (6.3-8.2) g/dL Albumin (3.5-5.0) g/dL Globulin (1.7-4.1) g/dL Albumin/Globulin Ratio (1.0-2.8) Lipase (23-300) U/L Procalcitonin (<0.5) ng/mL Urine Color Yellow Urine Appearance Clear Urine pH 5.5 (4.5-8.0) Ur Specific [place] 1.025 (1.000-1.035) Urine Protein 2+ H (Negative) Urine Glucose (UA) Negative (Negative) g/dL Urine Ketones 1+ H (NEGATIVE) Urine Occult Blood 1+ H (Negative) Urine Nitrate Positive H (Negative) Urine Bilirubin Negative (NEGATIVE) Urine Urobilinogen 0.2 (0.2) E.U./dL Ur Leukocyte Esterase Trace H (NEGATIVE) Urine RBC None seen (0-5/HPF) Urine WBC 1-5/hpf (0-5/HPF) Ur Squamous Epith Cells 1-5 /hpf (0-5/HPF) Urine Bacteria Many (>30) H (None) Ur Culture Indicated? Specimen cultured U Opiates 300ng/mL cut Negative (Negative) Ur Oxycodone Screen Negative (Negative) Urine Methadone Screen Negative (Negative) Ur Barbiturates Screen Negative (Negative) U Tricyclic Antidepress Negative (Negative) Ur Phencyclidine Scrn Negative (Negative) Ur Amphetamines Screen Negative (Negative) U Methamphetamines Scrn Negative (Negative) Ur MDMA Scrn (Ecstasy) Negative (Negative) U Benzodiazepines Scrn Negative (Negative) Urine Cocaine Screen Negative (Negative) U Marijuana (THC) Screen Negative (Negative) Ethyl Alcohol ( - 10) mg/dL Ketones (<0.27) mmol/L Chlamy pneumoniae PCR Not detected (Not Detect) Adenovirus (PCR) Not detected (Not Detect) B.parapertussis DNA PCR Not detected (Not Detecte) Coronavirus OC43 (PCR) Not detected (Not Detect) Coronavirus HKU1 (PCR) Not detected (Not Detect) Coronavirus 229E (PCR) Not detected (Not Detect) SARS-CoV-2 (PCR) Detected H (Not Detecte) Coronavirus NL63 (PCR) Not detected (Not Detect) Human Metapneumovir PCR Not detected (Not Detect) Influenza Type A (PCR) Not detected (Not Detect) Influenza Type B (PCR) Not detected (Not Detect) M. pneumoniae (PCR) Not detected (Not Detect) Parainfluenza 1 (PCR) Not detected (Not Detect) Parainfluenza 2 (PCR) Not detected (Not Detect) Parainfluenza 3 (PCR) Not detected (Not Detect) Parainfluenza 4 (PCR) Not detected (Not Detect) RSV (PCR) Not detected (Not Detect) Entero/Rhino (PCR) Not detected (Not Detect) 08/08/23 08/08/23 08/08/23 Range/Units 17:10 17:16 17:18 WBC (4.5-11.0) X10^3/uL RBC (4.0-5.2) X10^6/uL Hgb (12.0-16.0) g/dL Hct (36-46) % MCV (80-100) fL MCH (26-34) PG MCHC (30-36) % RDW (11.6-14.8) % Plt Count (150-400) X10^3/uL Neut % (Auto) (50-75) % Lymph % (Auto) (25-40) % [place] % (Auto) (3-14) % Eos % (Auto) (2-4) % Baso % (Auto) (0-2) % Neut # (Auto) (1176-1951) /uL Lymph # (Auto) (6824-7522) /uL [place] # (Auto) (0-900) /uL Eos # (Auto) (0-450) /uL Baso # (Auto) (0-100) /uL ESR 22 H (0-20) MM/HR D-Dimer 01542 H (<500) ng/ml VBG pH (7.33-7.43) VBG pCO2 (45-50) mmHg VBG pO2 (35-45) mmHg VBG HCO3 (24-28) mmol/L VBG Total CO2 (24-29) mmol/L VBG O2 Saturation (70-75) % VBG Base Excess (0-4) mmol/L FiO2 Sodium (137-145) mmol/L Potassium (3.4-5.1) mmol/L Chloride (98-107) mmol/L Carbon Dioxide (22-32) mmol/L BUN (7-17) mg/dL Creatinine (0.52-1.04) mg/dL Estimated GFR (>60) mL/min BUN/Creatinine Ratio (6-22) Glucose (80-110) mg/dL Lactate 2.8 H (0.7-2.1) mmol/L Calcium (8.4-10.2) mg/dL Total Bilirubin (0.2-1.3) mg/dL AST (14-36) IU/L ALT (<35) IU/L Alkaline Phosphatase (38-126) U/L Ammonia (9-30) umol/L Lactate Dehydrogenase 181 (120-246) U/L Total Creatine Kinase (30-135) U/L Troponin I (0.01-0.034) ng/mL C-Reactive Protein 2.1 H (<1.0) mg/dL Total Protein (6.3-8.2) g/dL Albumin (3.5-5.0) g/dL Globulin (1.7-4.1) g/dL Albumin/Globulin Ratio (1.0-2.8) Lipase (23-300) U/L Procalcitonin (<0.5) ng/mL Urine Color Urine Appearance Urine pH (4.5-8.0) Ur Specific [place] (1.000-1.035) Urine Protein (Negative) Urine Glucose (UA) (Negative) g/dL Urine Ketones (NEGATIVE) Urine Occult Blood (Negative) Urine Nitrate (Negative) Urine Bilirubin (NEGATIVE) Urine Urobilinogen (0.2) E.U./dL Ur Leukocyte Esterase (NEGATIVE) Urine RBC (0-5/HPF) Urine WBC (0-5/HPF) Ur Squamous Epith Cells (0-5/HPF) Urine Bacteria (None) Ur Culture Indicated? U Opiates 300ng/mL cut (Negative) Ur Oxycodone Screen (Negative) Urine Methadone Screen (Negative) Ur Barbiturates Screen (Negative) U Tricyclic Antidepress (Negative) Ur Phencyclidine Scrn (Negative) Ur Amphetamines Screen (Negative) U Methamphetamines Scrn (Negative) Ur MDMA Scrn (Ecstasy) (Negative) U Benzodiazepines Scrn (Negative) Urine Cocaine Screen (Negative) U Marijuana (THC) Screen (Negative) Ethyl Alcohol ( - 10) mg/dL Ketones (<0.27) mmol/L Chlamy pneumoniae PCR (Not Detect) Adenovirus (PCR) (Not Detect) B.parapertussis DNA PCR (Not Detecte) Coronavirus OC43 (PCR) (Not Detect) Coronavirus HKU1 (PCR) (Not Detect) Coronavirus 229E (PCR) (Not Detect) SARS-CoV-2 (PCR) (Not Detecte) Coronavirus NL63 (PCR) (Not Detect) Human Metapneumovir PCR (Not Detect) Influenza Type A (PCR) (Not Detect) Influenza Type B (PCR) (Not Detect) M. pneumoniae (PCR) (Not Detect) Parainfluenza 1 (PCR) (Not Detect) Parainfluenza 2 (PCR) (Not Detect) Parainfluenza 3 (PCR) (Not Detect) Parainfluenza 4 (PCR) (Not Detect) RSV (PCR) (Not Detect) Entero/Rhino (PCR) (Not Detect) Point of care testing: Point of Care Testing Glucose POC 291 Imaging Data Chest x-ray: Radiologist's Impression: PROCEDURE: XR CHEST 1V INDICATIONS: ams TECHNIQUE: One view of the chest was acquired. COMPARISON: [facility], , XR CHEST 2V, 06/27/2022, 14:27. FINDINGS: Surgical changes and devices: None. Lungs and pleura: Mild increased vascularity. Mediastinum: Mediastinal contours appear normal. Heart size is enlarged. Bones and chest wall: No suspicious bony lesions. Overlying soft tissues appear unremarkable. IMPRESSION: Cardiomegaly with increased vascularity suggestive of edema. Dictated by: Ragini Rollins M.D. on 08/08/2023 at 13:59 CT scan - abdomen/pelvis: Radiologist's Impression: PROCEDURE: CT ABDOMEN PELVIS W CON INDICATIONS: left flank pain TECHNIQUE: After the administration of oral and IV contrast, axial sections were acquired from the lung bases to the pubic symphysis. Coronal and sagittal reformats were performed. For radiation dose reduction, the following was used: automated exposure control, adjustment of mA and/or kV according to patient size. COMPARISON: None. FINDINGS: Image quality: Excellent. Lung bases: Unremarkable. Heart: No significant findings. ABDOMEN: Liver: Liver measures 21.2 cm with diffuse steatosis. Gallbladder: Unremarkable. Biliary ducts: Unremarkable. Pancreas: Unremarkable. Spleen: Unremarkable. Adrenal Glands: Unremarkable. Kidneys and Ureters: There is a 1 cm superior left renal pole calcification Hounsfield units 893. Low-attenuation foci are also present consistent with simple cysts. Mild hydronephrosis is present. There is a questionable punctate calcification within the proximal ureter on series 2, image 50. In addition, there is perinephric fluid as well as somewhat diminished appearance of nephrostogram. Right kidney is unremarkable. Stomach and Bowel: Stomach, small bowel loops, and colon are nonobstructive. Prominent hiatal hernia. Peritoneum: No abnormal intraperitoneal fluid. No free air. Ventral Wall: No hernia. Abdominal Nodes: No retroperitoneal or mesenteric adenopathy by size criteria. Vessels: Aorta and inferior vena cava are normal in size. PELVIS: Pelvic Organs: Calcifications are present within the uterus suggestive of fibroids. Bladder: Unremarkable. Pelvic Nodes: No enlarged lymph nodes. Miscellaneous: No inguinal hernias are seen. Bones: Unremarkable. IMPRESSION: Mild left hydronephrosis and proximal hydroureter with questionable punctate calcification as described above. Findings may be related to obstruction. However, given obstruction is relatively mild in the presence of delayed nephrostogram coupled with perinephric fluid and stranding, recommend correlation to urinalysis for infection such as pyelonephritis. In addition, recently passed stone cannot be excluded. Dictated by: Ragini Rollins M.D. on 08/08/2023 at 14:15 CT scan - head: Radiologist's Impression: PROCEDURE: CT HEAD/BRAIN WO CON INDICATIONS: ALTERED MENTAL STATUS TECHNIQUE: Noncontrast 4.5 mm thick angled axial sections acquired from the foramen magnum to the vertex, with coronal and sagittal reformats. For radiation dose reduction, the following was used: automated exposure control, adjustment of mA and/or kV according to patient size. COMPARISON: [facility], CT, CT HEAD/BRAIN WO CON, 06/27/2022, 14:35. FINDINGS: Image quality: Excellent. CSF spaces: Basal cisterns are patent. No extra-axial fluid collections. The ventricles are symmetric in size and shape. Brain: No intracranial bleeds or masses. There is cerebral volume loss for age, with resultant ventricular and sulcal prominence. There are periventricular and deep white matter chronic small vessel ischemic changes. There is intracranial internal carotid artery atherosclerosis. Skull and face: Calvarium and visualized facial bones appear intact, without suspicious lesions. Sinuses: Visualized sinuses and mastoids are clear. IMPRESSION: 1. No acute intracranial process. 2. Moderate atrophy and chronic microvascular ischemic changes. Dictated by: Ragini Rollins M.D. on 08/08/2023 at 13:56 ECG Data Interpretation: Normal sinus rhythm rate 133 NJ interval 138 QRS [address] changes similar to previous Q-wave noted in lead 3 and AVF similar to prior MDM Narrative Medical decision making narrative: Patient is 73-year-old female who apparently received a phone call while in the waiting room that she had a UTI in the called in antibiotics. She became more more unresponsive and urgently brought back to the ED. she is responsive to voice and pain but not able to participate in exam. Eventually fully temperature sensing catheter placed has a temperature of 105? surprisingly not hypotensive she is tachycardic. She has leukocytosis 13 initial lactate was 3.3 however repeat was 4.5 as her temperature started rising. She is given sepsis fluid Rocephin and Zosyn. Urinalysis is positive for nitrates consistent with UTI. She was complaining of left-sided flank pain. CT confirms left renal stone and possibly a punctate stone causing some mild hydronephrosis. Patient actually becomes more alert but is requiring about 2 L of oxygen. She is also positive for COVID. 1500: Dr. Le on-call for Urology with [facility] updated on patient's symptoms test results concerning for septic punctate stone. At this time he says if it is not even measured on the CT would definitely try and let her pass it on her own. Agrees with broad-spectrum antibiotics. Imaging has been pushed [facility] he will look at it and call back if he thinks the plan needs to change 1600 patient re-evaluated awake alert talking to check her glucose mildly confused looks much better. Temperature coming down 103. She is moving head and neck very easily I think multiple other causes for fever and altered mental status do not suspect an encephalitis or meningitis Dr. Watters agrees to admission to ICU. Aware of extremely high D-dimer will add a CT angio if needed Critical Care Time Critical Care Time Critical Care Time: Yes Total Critical Care Time: 55 Attestation: The high probability of a clinically significant, sudden or life threatening deterioration of the [cardiovascular] system(s) required my full and direct attention, intervention and personal management. The aggregate critical care time was 55 minutes. This time is in addition to time spent performing reported procedures but includes the following: [x] Data Review and interpretation [x] Patient assessment and monitoring of vital signs [x] Documentation [x] Medication orders and management Discharge Plan Departure Patient Disposition: Admitted As Inpatient Clinical Impression: Sepsis, Acute UTI, Acute metabolic encephalopathy, COVID-19 Admit Date/Time: 08/08/23 17:35 Admit Provider: Darrin Watters
[2023-08-08 13:02] LABS: Add Manual Diff / Slide Review NO; Basophils Absolute Auto 0 /uL (0-100); Basophils Percent Auto 0.2 % (0-2); Eosinophils Absolute Auto 0 /uL (0-450); Eosinophils Percent Auto 0.2 % (2-4); Hematocrit 40.2 % (36-46); Hemoglobin 13.1 g/dL (12.0-16.0); Lymphocytes Absolute Auto 400 /uL (1100-4500); Lymphocytes Percent Auto 2.8 % (25-40); Mean Corpuscular HGB Conc 32.6 % (30-36); Mean Corpuscular Hemoglobin 27.4 PG (26-34); Monocytes Absolute Auto 100 /uL (0-900); Monocytes Percent Auto 0.9 % (3-14); Neutrophils Absolute Auto 12800 /uL (1500-7000); Neutrophils Percent Auto 95.9 % (50-75); Platelet Count 356 X10^3/uL (150-400); Red Blood Cell Count 4.78 X10^6/uL (4.0-5.2); Red Cell Distribution Width 14.3 % (11.6-14.8); White Blood Cell Count 13.4 X10^3/uL (4.5-11.0)
[2023-08-08 13:17] LABS: Creatine Kinase 67 U/L (30-135); Ethanol (ETOH) < 10 mg/dL
[2023-08-08 13:18] LABS: Alanine Aminotransferase 18 IU/L (<35); Albumin 4.5 g/dL (3.5-5.0); Albumin Globulin Ratio 1.4 (1.0-2.8); Alkaline Phosphatase 128 U/L (38-126); Aspartate Aminotransferase 23 IU/L (14-36); BUN Creatinine Ratio 27.5 (6-22); Bilirubin Total 0.6 mg/dL (0.2-1.3); Blood Urea Nitrogen 25 mg/dL (7-17); Calcium 10.4 mg/dL (8.4-10.2); Carbon Dioxide 24 mmol/L (22-32); Chloride 100 mmol/L (98-107); Estimated Glomerular Filt Rate > 60 mL/min (>60); Globulin 3.3 g/dL (1.7-4.1); Glucose 300 mg/dL (80-110); HEMOLYSIS < 15 (0-50); Lactate (Lactic Acid) 3.3 mmol/L (0.7-2.1); Lipase 321 U/L (23-300); Sodium 137 mmol/L (137-145); Total Protein 7.8 g/dL (6.3-8.2)
[2023-08-08 13:26] LABS: Fractionated Inspired Oxygen 21; HCO3 VBG 23 mmol/L (24-28); Oxygen Saturation VBG 50 % (70-75); PO2 VBG 29 mmHg (35-45); Total CO2 VBG 25 mmol/L (24-29); pH VBG 7.32 (7.33-7.43)
[2023-08-08 13:28] LABS: Troponin I < 0.012 ng/mL (0.01-0.034)
[2023-08-08 13:30] LABS: Ammonia (NH3) 12 umol/L (9-30)
[2023-08-08 13:34] LABS: Procalcitonin 0.21 ng/mL (<0.5)
[2023-08-08 13:47] LABS: Ketones (Beta-Hydroxybutyrate) 0.51 mmol/L (<0.27)
--- NOTE | 2023-08-08 13:48 | PC.NURSE ---
Pt oxygen 88% on RA. Pt repositioned upright and placed on 2L via NC. Pt is responsive to voice and touch, but not spontaneous speech. Pt confused to situation and not answering basic questions like last name. Provider made aware.
[2023-08-08] MEDS: KETOROLAC 30 MG/ML VIAL 15 MG IV (14:06)
[2023-08-08] MEDS: cefTRIAXone 1,000 MG in SODIUM CHLORIDE 0.9% 100 ML 200 MG IV (14:08)
[2023-08-08] MEDS: SODIUM CHLORIDE 0.9% 2,449.41 ML 816.47 ML IV (14:15)
[2023-08-08] MEDS: ACETAMINOPHEN IV 1,000 MG/100 ML VIAL 400 MG IV (14:18)
[2023-08-08 14:26] LABS: Appearance Urine UA CLEAR; Bilirubin Urine UA NEGATIVE (NEGATIVE); Color Urine UA YELLOW; Glucose Urine UA NEGATIVE (Negative); Ketones Urine UA 1+ (NEGATIVE); Leukocyte Esterase Urine UA TRACE (NEGATIVE); Nitrite Urine UA POSITIVE (Negative); Occult Blood Urine UA 1+ (Negative); Protein Urine UA 2+ (Negative); Specific Gravity Urine UA 1.025 (1.000-1.035); Urobilinogen Urine UA 0.2 E.U./dL (0.2)
[2023-08-08 14:27] LABS: UR Morphine/Opiate cutoff 300 Negative (Negative); Ur Creatinine Normal (Normal); Ur Specific Gravity Normal (Normal); Urine Amphetamines Negative (Negative); Urine Barbiturates Negative (Negative); Urine Benzodiazepines Negative (Negative); Urine Cocaine Negative (Negative); Urine MDMA Negative (Negative); Urine Methadone Negative (Negative); Urine Methamphetamines Negative (Negative); Urine Oxycodone Negative (Negative); Urine Phencyclidine Negative (Negative); Urine Tetrahydrocannabinol Negative (Negative); Urine Tricyclic Antidepressant Negative (Negative); Urine pH Normal (Normal); pH Urine UA 5.5 (4.5-8.0)
[2023-08-08 14:31] LABS: Bacteria Urine Many (>30); Culture Indicated Urine Specimen Cultured; RBC Urine None Seen (0-5/HPF); Squamous Epithelial Cell Urine 1-5 /HPF (0-5/HPF); WBC Urine 1-5/HPF (0-5/HPF)
[2023-08-08 14:37] LABS: Reflexed Lactate in 2 Hours Y
[2023-08-08 14:51] LABS: Adenovirus Not Detected (Not Detect); B. parapertussis Not Detected (Not Detecte); Bordetella pertussis Not Detected (Not Detect); Chlamydophila pneumoniae Not Detected (Not Detect); Coronavirus 229E Not Detected (Not Detect); Coronavirus HKU1 Not Detected (Not Detect); Coronavirus NL 63 Not Detected (Not Detect); Coronavirus OC43 Not Detected (Not Detect); Human Metapneumovirus Not Detected (Not Detect); Human Rhinovirus/Enterovirus Not Detected (Not Detect); Influenza A Not Detected (Not Detect); Influenza B Not Detected (Not Detect); Mycoplasma pneumoniae Not Detected (Not Detect); Parainfluenza Virus 1 Not Detected (Not Detect); Parainfluenza Virus 2 Not Detected (Not Detect); Parainfluenza Virus 3 Not Detected (Not Detect); Parainfluenza Virus 4 Not Detected (Not Detect); Respiratory Syncytial Virus Not Detected (Not Detect)
[2023-08-08 14:55] LABS: SARS- CoV-2 Detected (Not Detecte)
[2023-08-08 15:10] LABS: Lactate 2HR (Lactic Acid Rflx) 4.5 mmol/L (0.7-2.1)
[2023-08-08] MEDS: PIPERACILLIN/TAZO 4.5 GM in SODIUM CHLORIDE 0.9% 100 ML IV (15:27)
--- NOTE | 2023-08-08 15:36 | PC.NURSE ---
Pt is more alert and able to now tell me her name, birthday, city, and that she is in [facility]. Pt is trying to check her blood sugar but does not have her glucometer in her hands. Pt is trying to poke her finger but is hallucinating.
[2023-08-08] MEDS: DEXAMETHASONE 10 MG/ML VIAL 6 MG IV (15:53)
--- NOTE | 2023-08-08 16:44 | DI.RAD.S_ITS ---
PROCEDURE: XR CHEST FOR PICC 1V INDICATIONS: picc placement COMPARISON: [facility], , XR CHEST 1V, 08/08/2023, 13:11. FINDINGS: PICC was placed by the intravenous therapy team from the left side. Fluoroscopic spot film demonstrates the tip of PICC projecting to the area of mid brachiocephalic vein. IMPRESSION: Tip of PICC projects to the area of mid brachiocephalic vein near the midline. Recommend repositioning. Approved by: Alcides Zapata M.D. on 08/08/2023 at 16:31
[2023-08-08] MEDS: REMDESIVIR 200 MG in SODIUM CHLORIDE 0.9% 250 ML 250 MG IV (17:06)
[2023-08-08] MEDS: SODIUM CHLORIDE 0.9% 1,000 ML 1000 ML IV (17:15)
--- NOTE | 2023-08-08 17:40 | PC.NURSE ---
Pt's daughter is concerned because pt's mother from sepsis. Family was educated about sepsis and care regarding IV antibiotics and fluids.
[2023-08-08 17:43] LABS: Lactate (Lactic Acid) 2.8 mmol/L (0.7-2.1)
[2023-08-08 17:43] LABS: C-Reactive Protein Quant 2.1 mg/dL (<1.0); D Dimer 22428 ng/ml (<500); Lactate Dehydrogenase 181 U/L (120-246)
[2023-08-08 17:52] LABS: Erythrocyte Sedimentation Rate 22 MM/HR (0-20)
[2023-08-08 18:16] LABS: Ferritin 34 ng/mL (11-264)
--- NOTE | 2023-08-08 18:42 | PC.ADMIT ---
Admission Note: Pt arrived to room 231 at 1835. Transferred to bed via slider board. Alert and oriented x3. Temp via Ulrich 102. RA with SpO2 94%. Denies shortness of breath. Denies pain. Oriented to room and to bed/tv/call light controls. Bed alarm on. Daughter and friend in room. The patient,Tori Cohen,73 y/o, was given written information regarding hospital policies, unit procedures and contact persons. Patient's smoking status: Never smoker. Vital Signs - 8 hr 08/08/23 11:38 08/08/23 12:39 08/08/23 13:01 Temperature 98.0 F 101.3 F H Pulse Rate 79 127 H Respiratory Rate 18 Blood Pressure 137/77 184/79 H Pulse Oximetry 95 95 Oxygen Delivery Method Room Air Room Air Oxygen Flow Rate 08/08/23 13:43 08/08/23 13:45 08/08/23 13:45 Temperature Pulse Rate 123 H 125 H Respiratory Rate Blood Pressure 187/81 H Pulse Oximetry 92 88 L 93 Oxygen Delivery Method Room Air Nasal Cannula Oxygen Flow Rate 2 08/08/23 14:00 08/08/23 14:00 08/08/23 14:04 Temperature 101.7 F H 104.5 F H Pulse Rate 122 H 123 H Respiratory Rate Blood Pressure 199/138 H Pulse Oximetry 96 96 Oxygen Delivery Method Nasal Cannula Oxygen Flow Rate 2 08/08/23 14:04 08/08/23 14:23 08/08/23 14:23 Temperature 105.3 F H Pulse Rate 120 H Respiratory Rate 17 Blood Pressure 217/90 H 152/71 H Pulse Oximetry 94 Oxygen Delivery Method Nasal Cannula Oxygen Flow Rate 2 08/08/23 14:30 08/08/23 14:30 08/08/23 14:42 Temperature 105.3 F H 104.9 F H Pulse Rate 116 H Respiratory Rate 24 Blood Pressure 146/69 H Pulse Oximetry 95 Oxygen Delivery Method Oxygen Flow Rate 08/08/23 14:45 08/08/23 14:45 08/08/23 15:00 Temperature 104.9 F H 104.5 F H Pulse Rate 113 H 111 H Respiratory Rate 24 23 Blood Pressure 155/71 H Pulse Oximetry 95 95 Oxygen Delivery Method Nasal Cannula Oxygen Flow Rate 2 08/08/23 15:00 08/08/23 15:15 08/08/23 15:15 Temperature 104.0 F H Pulse Rate 115 H Respiratory Rate 38 H Blood Pressure 142/63 H 138/65 Pulse Oximetry 95 Oxygen Delivery Method Nasal Cannula Oxygen Flow Rate 2 08/08/23 15:30 08/08/23 15:30 08/08/23 15:45 Temperature 103.6 F H 103.5 F H Pulse Rate 110 H 110 H Respiratory Rate 25 H 21 Blood Pressure 134/61 Pulse Oximetry 97 93 Oxygen Delivery Method Oxygen Flow Rate 08/08/23 15:45 08/08/23 16:00 08/08/23 16:00 Temperature 103.3 F H Pulse Rate 110 H Respiratory Rate 21 Blood Pressure 139/65 139/58 L Pulse Oximetry 96 Oxygen Delivery Method Nasal Cannula Oxygen Flow Rate 2 08/08/23 16:15 08/08/23 16:15 08/08/23 16:30 Temperature 103.1 F H 102.7 F H Pulse Rate 111 H 110 H Respiratory Rate 21 20 Blood Pressure 127/60 Pulse Oximetry 96 97 Oxygen Delivery Method Nasal Cannula Nasal Cannula Oxygen Flow Rate 2 2 08/08/23 16:30 08/08/23 16:45 08/08/23 16:45 Temperature 102.6 F H Pulse Rate 110 H Respiratory Rate 21 Blood Pressure 122/61 121/58 L Pulse Oximetry 96 Oxygen Delivery Method Oxygen Flow Rate 08/08/23 17:00 08/08/23 17:00 08/08/23 17:15 Temperature 102.6 F H 102.2 F H Pulse Rate 116 H 109 H Respiratory Rate 21 20 Blood Pressure 117/57 L Pulse Oximetry 96 96 Oxygen Delivery Method Nasal Cannula Nasal Cannula Oxygen Flow Rate 2 2 08/08/23 17:15 08/08/23 17:30 08/08/23 17:30 Temperature 102.0 F H Pulse Rate 108 H Respiratory Rate 19 Blood Pressure 125/56 L 119/56 L Pulse Oximetry 98 Oxygen Delivery Method Oxygen Flow Rate 08/08/23 17:45 08/08/23 17:45 08/08/23 18:00 Temperature 101.8 F H Pulse Rate 105 H Respiratory Rate 24 Blood Pressure 123/59 L 120/60 Pulse Oximetry 98 Oxygen Delivery Method Nasal Cannula Oxygen Flow Rate 2 08/08/23 18:00 Temperature 101.8 F H Pulse Rate 105 H Respiratory Rate 21 Blood Pressure Pulse Oximetry 98 Oxygen Delivery Method Nasal Cannula Oxygen Flow Rate 2
[2023-08-08] MEDS: SODIUM CHLORIDE 0.9% 1,000 ML 100 ML IV (18:49)
--- NOTE | 2023-08-08 18:51 | P.HP_ITS ---
History of Present Illness History of Present Illness Date Patient Seen: 08/08/23 Time Patient Seen: 18:51 Chief complaint: LT flank pain Narrative: 73 F with PMH of DM, HTN, HLD who presented with L sided abdominal pain, n/v for one day. Fever and fatigue for 2-3 days. Recent brother in law ill with covid 1 week ago but was trying to isolate. Family report she was quite lethargic and confused. In the emergency room, she was not responding and quite out of it. Fever was as high as 105, tachycardic and hypertensive. O2 saturations on room air were in the mid 80s, improved with 2L. Her mentation improved with fluids, antibiotics, and fever reducers. CT with small ureteral stone, urology stated no intervention per ER physician. Family at bedside state she is currently better, but still confused compared to her usual self. On my evaluation in the ICU, she was no longer requiring supplemental oxygen, and she was alert and able to present the above history herself. [facility] Medical History Melanoma (~2019) Depression (~2015) Osteoporosis (~2018) Foot pain (~2019) Carpal tunnel syndrome (~2013) Measles Chicken pox Vertigo Retinal detachment (~2017) Cataracts, bilateral (~2018) Diabetes mellitus (~1989) Healthy adult Surgical History Anesthesia History of removal of cyst (~1978) History of carpal tunnel release (~2013) History of partial thyroidectomy (~1979) History of eye surgery (~2017) History of cataract removal with insertion of prosthetic lens (~2020) Family History Father Cancer Mother Diabetes mellitus Hypertension Brother Diabetes mellitus Brother Diabetes mellitus Family/Other Diabetes mellitus Hypertension Social History household members: none Smoking Status: Never smoker Meds Home Medications and Allergies Home Medications Medication Instructions Recorded Confirmed Type amlodipine 5 mg tablet 5 mg PO DAILY 05/11/18 08/08/23 History aspirin 81 mg tablet,delayed 81 mg PO QPM 05/11/18 08/08/23 History release metformin 1,000 mg tablet 1 tab PO BID 05/11/18 08/08/23 History metoprolol succinate 50 mg 1 tab PO DAILY 05/11/18 08/08/23 History tablet,extended release 24 hr cyclobenzaprine 5 mg tablet 5 mg PO 3XD PRN Spasms 08/08/23 08/08/23 History duloxetine 30 mg capsule,delayed 30 mg PO DAILY 08/08/23 08/08/23 History release glipizide 10 mg tablet 10 mg PO BID 08/08/23 08/08/23 History losartan 100 1 tab PO DAILY 08/08/23 08/08/23 History mg-hydrochlorothiazide 12.5 mg tablet pantoprazole 20 mg tablet,delayed 20 mg PO DAILY 08/08/23 08/08/23 History release rosuvastatin 20 mg tablet 20 mg PO DAILY 08/08/23 08/08/23 History Allergies Allergy/AdvReac Type Severity Reaction Status Date / Time No Known Drug Allergies Allergy Verified 12/07/21 15:37 Review of Systems Review of Systems Narrative: All other systems reviewed with the patient and are negative unless otherwise stated. Exam Vital Signs (past 8 hours): - 08/08/23 11:38 08/08/23 12:39 08/08/23 13:01 Temperature 98.0 F 101.3 F H Pulse Rate 79 127 H Respiratory Rate 18 Blood Pressure 137/77 184/79 H Pulse Oximetry 95 95 Oxygen Delivery Method Room Air Room Air Oxygen Flow Rate 08/08/23 13:43 08/08/23 13:45 08/08/23 13:45 Temperature Pulse Rate 123 H 125 H Respiratory Rate Blood Pressure 187/81 H Pulse Oximetry 92 88 L 93 Oxygen Delivery Method Room Air Nasal Cannula Oxygen Flow Rate 2 08/08/23 14:00 08/08/23 14:00 08/08/23 14:04 Temperature 101.7 F H 104.5 F H Pulse Rate 122 H 123 H Respiratory Rate Blood Pressure 199/138 H Pulse Oximetry 96 96 Oxygen Delivery Method Nasal Cannula Oxygen Flow Rate 2 08/08/23 14:04 08/08/23 14:23 08/08/23 14:23 Temperature 105.3 F H Pulse Rate 120 H Respiratory Rate 17 Blood Pressure 217/90 H 152/71 H Pulse Oximetry 94 Oxygen Delivery Method Nasal Cannula Oxygen Flow Rate 2 08/08/23 14:30 08/08/23 14:30 08/08/23 14:42 Temperature 105.3 F H 104.9 F H Pulse Rate 116 H Respiratory Rate 24 Blood Pressure 146/69 H Pulse Oximetry 95 Oxygen Delivery Method Oxygen Flow Rate 08/08/23 14:45 08/08/23 14:45 08/08/23 15:00 Temperature 104.9 F H 104.5 F H Pulse Rate 113 H 111 H Respiratory Rate 24 23 Blood Pressure 155/71 H Pulse Oximetry 95 95 Oxygen Delivery Method Nasal Cannula Oxygen Flow Rate 2 08/08/23 15:00 08/08/23 15:15 08/08/23 15:15 Temperature 104.0 F H Pulse Rate 115 H Respiratory Rate 38 H Blood Pressure 142/63 H 138/65 Pulse Oximetry 95 Oxygen Delivery Method Nasal Cannula Oxygen Flow Rate 2 08/08/23 15:30 08/08/23 15:30 08/08/23 15:45 Temperature 103.6 F H 103.5 F H Pulse Rate 110 H 110 H Respiratory Rate 25 H 21 Blood Pressure 134/61 Pulse Oximetry 97 93 Oxygen Delivery Method Oxygen Flow Rate 08/08/23 15:45 08/08/23 16:00 08/08/23 16:00 Temperature 103.3 F H Pulse Rate 110 H Respiratory Rate 21 Blood Pressure 139/65 139/58 L Pulse Oximetry 96 Oxygen Delivery Method Nasal Cannula Oxygen Flow Rate 2 08/08/23 16:15 08/08/23 16:15 08/08/23 16:30 Temperature 103.1 F H 102.7 F H Pulse Rate 111 H 110 H Respiratory Rate 21 20 Blood Pressure 127/60 Pulse Oximetry 96 97 Oxygen Delivery Method Nasal Cannula Nasal Cannula Oxygen Flow Rate 2 2 08/08/23 16:30 08/08/23 16:45 08/08/23 16:45 Temperature 102.6 F H Pulse Rate 110 H Respiratory Rate 21 Blood Pressure 122/61 121/58 L Pulse Oximetry 96 Oxygen Delivery Method Oxygen Flow Rate 08/08/23 17:00 08/08/23 17:00 08/08/23 17:15 Temperature 102.6 F H 102.2 F H Pulse Rate 116 H 109 H Respiratory Rate 21 20 Blood Pressure 117/57 L Pulse Oximetry 96 96 Oxygen Delivery Method Nasal Cannula Nasal Cannula Oxygen Flow Rate 2 2 08/08/23 17:15 08/08/23 17:30 08/08/23 17:30 Temperature 102.0 F H Pulse Rate 108 H Respiratory Rate 19 Blood Pressure 125/56 L 119/56 L Pulse Oximetry 98 Oxygen Delivery Method Oxygen Flow Rate 08/08/23 17:45 08/08/23 17:45 08/08/23 18:00 Temperature 101.8 F H Pulse Rate 105 H Respiratory Rate 24 Blood Pressure 123/59 L 120/60 Pulse Oximetry 98 Oxygen Delivery Method Nasal Cannula Oxygen Flow Rate 2 08/08/23 18:00 Temperature 101.8 F H Pulse Rate 105 H Respiratory Rate 21 Blood Pressure Pulse Oximetry 98 Oxygen Delivery Method Nasal Cannula Oxygen Flow Rate 2 Oxygen Delivery Method Nasal Cannula Oxygen Flow Rate 2 Narrative Exam Narrative: General:? Patient is well developed and well nourished, but mildly ill appearing, slight lethargy and falls asleep easily. no distress at this time. HEENT:? Normocephalic, atraumatic, extraocular muscles intact, oral pharynx is clear and mucous membranes are moist. Neck: supple and symmetric, trachea is midline, no cervical adenopathy. Negative for JVD Chest:? Normal AP diameter and contour without kyphoscoliosis, no tachypnea, equal chest rise bilaterally. Lungs:? CTA b/l no wheezing rhonchi or rales. Cardio: tachycardic, regular, no murmurs rubs or gallops Abdomen: soft, mild LLQ tenderness, + CVA tenderness on the L Musculoskeletal:? Muscle strength and tone are equal within normal limits, no deformity. Extremities: No edema or joint effusions. No cyanosis or clubbing. Skin:? Pale,? Warm to touch,dry and intact without rashes, ulcerations or petechiae.? Neuro:? Alert and orientated to name, location.No focal deficits Objective ECG Impression: Sinus tachycardia, significant motion artifact but no obvious acute ischemia. Labs 08/08/23 12:51 08/08/23 12:51 Labs: Laboratory Results - last 24 hr 08/08/23 08/08/23 08/08/23 12:51 13:05 13:09 WBC 13.4 H RBC 4.78 Hgb 13.1 Hct 40.2 MCV 84.0 MCH 27.4 MCHC 32.6 RDW 14.3 Plt Count 356 Neut % (Auto) 95.9 H Lymph % (Auto) 2.8 L [place] % (Auto) 0.9 L Eos % (Auto) 0.2 L Baso % (Auto) 0.2 Neut # (Auto) 55620 H Lymph # (Auto) 400 L [place] # (Auto) 100 Eos # (Auto) 0 Baso # (Auto) 0 ESR D-Dimer VBG pH 7.32 L VBG pCO2 45.0 VBG pO2 29 L VBG HCO3 23 L VBG Total CO2 25 VBG O2 Saturation 50 L VBG Base Excess -3.0 L FiO2 21 Sodium 137 Potassium 4.0 Chloride 100 Carbon Dioxide 24 BUN 25 H Creatinine 0.91 Estimated GFR > 60 BUN/Creatinine Ratio 27.5 H Glucose 300 H Lactate 3.3 H Calcium 10.4 H Ferritin Total Bilirubin 0.6 AST 23 ALT 18 Alkaline Phosphatase 128 H Ammonia 12 Lactate Dehydrogenase Total Creatine Kinase 67 Troponin I < 0.012 C-Reactive Protein Total Protein 7.8 Albumin 4.5 Globulin 3.3 Albumin/Globulin Ratio 1.4 Lipase 321 H Procalcitonin 0.21 Urine Color Urine Appearance Urine pH Ur Specific [place] Urine Protein Urine Glucose (UA) Urine Ketones Urine Occult Blood Urine Nitrate Urine Bilirubin Urine Urobilinogen Ur Leukocyte Esterase Urine RBC Urine WBC Ur Squamous Epith Cells Urine Bacteria Ur Culture Indicated? U Opiates 300ng/mL cut Ur Oxycodone Screen Urine Methadone Screen Ur Barbiturates Screen U Tricyclic Antidepress Ur Phencyclidine Scrn Ur Amphetamines Screen U Methamphetamines Scrn Ur MDMA Scrn (Ecstasy) U Benzodiazepines Scrn Urine Cocaine Screen U Marijuana (THC) Screen Ethyl Alcohol < 10 Ketones 0.51 H Chlamy pneumoniae PCR Adenovirus (PCR) B.parapertussis DNA PCR Coronavirus OC43 (PCR) Coronavirus HKU1 (PCR) Coronavirus 229E (PCR) SARS-CoV-2 (PCR) Coronavirus NL63 (PCR) Human Metapneumovir PCR Influenza Type A (PCR) Influenza Type B (PCR) M. pneumoniae (PCR) Parainfluenza 1 (PCR) Parainfluenza 2 (PCR) Parainfluenza 3 (PCR) Parainfluenza 4 (PCR) RSV (PCR) Entero/Rhino (PCR) 08/08/23 08/08/23 08/08/23 13:45 14:00 14:45 WBC RBC Hgb Hct MCV MCH MCHC RDW Plt Count Neut % (Auto) Lymph % (Auto) [place] % (Auto) Eos % (Auto) Baso % (Auto) Neut # (Auto) Lymph # (Auto) [place] # (Auto) Eos # (Auto) Baso # (Auto) ESR D-Dimer VBG pH VBG pCO2 VBG pO2 VBG HCO3 VBG Total CO2 VBG O2 Saturation VBG Base Excess FiO2 Sodium Potassium Chloride Carbon Dioxide BUN Creatinine Estimated GFR BUN/Creatinine Ratio Glucose Lactate 4.5 H* Calcium Ferritin Total Bilirubin AST ALT Alkaline Phosphatase Ammonia Lactate Dehydrogenase Total Creatine Kinase Troponin I C-Reactive Protein Total Protein Albumin Globulin Albumin/Globulin Ratio Lipase Procalcitonin Urine Color Yellow Urine Appearance Clear Urine pH 5.5 Ur Specific [place] 1.025 Urine Protein 2+ H Urine Glucose (UA) Negative Urine Ketones 1+ H Urine Occult Blood 1+ H Urine Nitrate Positive H Urine Bilirubin Negative Urine Urobilinogen 0.2 Ur Leukocyte Esterase Trace H Urine RBC None seen Urine WBC 1-5/hpf Ur Squamous Epith Cells 1-5 /hpf Urine Bacteria Many (>30) H Ur Culture Indicated? Specimen cultured U Opiates 300ng/mL cut Negative Ur Oxycodone Screen Negative Urine Methadone Screen Negative Ur Barbiturates Screen Negative U Tricyclic Antidepress Negative Ur Phencyclidine Scrn Negative Ur Amphetamines Screen Negative U Methamphetamines Scrn Negative Ur MDMA Scrn (Ecstasy) Negative U Benzodiazepines Scrn Negative Urine Cocaine Screen Negative U Marijuana (THC) Screen Negative Ethyl Alcohol Ketones Chlamy pneumoniae PCR Not detected Adenovirus (PCR) Not detected B.parapertussis DNA PCR Not detected Coronavirus OC43 (PCR) Not detected Coronavirus HKU1 (PCR) Not detected Coronavirus 229E (PCR) Not detected SARS-CoV-2 (PCR) Detected H Coronavirus NL63 (PCR) Not detected Human Metapneumovir PCR Not detected Influenza Type A (PCR) Not detected Influenza Type B (PCR) Not detected M. pneumoniae (PCR) Not detected Parainfluenza 1 (PCR) Not detected Parainfluenza 2 (PCR) Not detected Parainfluenza 3 (PCR) Not detected Parainfluenza 4 (PCR) Not detected RSV (PCR) Not detected Entero/Rhino (PCR) Not detected 08/08/23 08/08/23 08/08/23 17:10 17:16 17:18 WBC RBC Hgb Hct MCV MCH MCHC RDW Plt Count Neut % (Auto) Lymph % (Auto) [place] % (Auto) Eos % (Auto) Baso % (Auto) Neut # (Auto) Lymph # (Auto) [place] # (Auto) Eos # (Auto) Baso # (Auto) ESR 22 H D-Dimer 24463 H VBG pH VBG pCO2 VBG pO2 VBG HCO3 VBG Total CO2 VBG O2 Saturation VBG Base Excess FiO2 Sodium Potassium Chloride Carbon Dioxide BUN Creatinine Estimated GFR BUN/Creatinine Ratio Glucose Lactate 2.8 H Calcium Ferritin 34 Total Bilirubin AST ALT Alkaline Phosphatase Ammonia Lactate Dehydrogenase 181 Total Creatine Kinase Troponin I C-Reactive Protein 2.1 H Total Protein Albumin Globulin Albumin/Globulin Ratio Lipase Procalcitonin Urine Color Urine Appearance Urine pH Ur Specific [place] Urine Protein Urine Glucose (UA) Urine Ketones Urine Occult Blood Urine Nitrate Urine Bilirubin Urine Urobilinogen Ur Leukocyte Esterase Urine RBC Urine WBC Ur Squamous Epith Cells Urine Bacteria Ur Culture Indicated? U Opiates 300ng/mL cut Ur Oxycodone Screen Urine Methadone Screen Ur Barbiturates Screen U Tricyclic Antidepress Ur Phencyclidine Scrn Ur Amphetamines Screen U Methamphetamines Scrn Ur MDMA Scrn (Ecstasy) U Benzodiazepines Scrn Urine Cocaine Screen U Marijuana (THC) Screen Ethyl Alcohol Ketones Chlamy pneumoniae PCR Adenovirus (PCR) B.parapertussis DNA PCR Coronavirus OC43 (PCR) Coronavirus HKU1 (PCR) Coronavirus 229E (PCR) SARS-CoV-2 (PCR) Coronavirus NL63 (PCR) Human Metapneumovir PCR Influenza Type A (PCR) Influenza Type B (PCR) M. pneumoniae (PCR) Parainfluenza 1 (PCR) Parainfluenza 2 (PCR) Parainfluenza 3 (PCR) Parainfluenza 4 (PCR) RSV (PCR) Entero/Rhino (PCR) Assessment & Plan Assessment & Plan narrative: 73 F with PMH of DM, HTN, HLD who is admitted with sepsis secondary to COVID and pyelonephritis 1. Sepsis with acute metabolic encephalopathy acute respiratory failure with hypoxia secondary to COVID 19 infection and acute pyelonephritis in setting of ureteral stone. - continue zosyn for presumed pyelonpehritis, if MRSA positive can add vanco per pharmacy depending on trajectory. Patient was given IVF, ceftriaxone and zosyn in the ER. Will continue IV fluids for now, stop if re-develops hypoxia. - rapid resolution of respiratory failure, hold further steroids and remdesevir with positive COVID - despite dimer with no shortness of breath or hypoxia now, will not persue CT angio chest at this time - consider echo given appearance of CXR, but not clinically overloaded on exam. - follow up blood, urine cultures. ESR and CRP added to lab. Recheck procalcitonin tomorrow, borderline on admission. - urology consulted in the ER, no interventions recommended. If BP stable, start flomax tomorrow AM for presumed stone if continues to have some L abdominal pain. However if not clinically improving, will repeat either CT or renal ultrasound to evaluate for worsening hydronephrosis. 2. DM - currently glucose around 300, start 10 U lantus, with Sliding scale and continue to adjust - check A1c - no DKA on admission labs, continue to follow BMP - hold home oral medications 3. HTN - hold home medications in the setting of above sepsis. 4. Left hydronephrosis secondary to ureteral calculi - no interventions recommended, management as noted above in #1. 5. HLD - okay to continue home statin, replaced for formulary alternative atorvastatin. Code: Full, surrogate is patient's daughter. Dispo: Admit to ICU given high fever, sepsis, concern for possible developing shock, q2 vitals overnight. If stable can downgrade tomorrow to acute care inpatient. I have utilized all available immediate resources to obtain, update, or review the patient's current medications. I spent 40 minutes providing critical care management this patient. This excludes time spent in performing separately billed procedures. Scores SOFA PaO2/FIO2: < 400 mmHg Platelets: >= 150 Bilirubin: < 1.2 mg/dL Hypotension: MAP >= 70 mmHg [place] Coma Scale: 13-14 Renal: < 1.2 mg/dL SOFA Score: 2 Quality MIPS - Admit I confirm the patient?s Advance Care Plan is present, Code status is documented, Surrogate decision maker is in patient?s record [If Yes, STOP here]: Yes
[2023-08-08 19:16] LABS: Reflexed Lactate in 2 Hours Y
[2023-08-08] MEDS: INSULIN LISPRO 100 UNIT/ML 3ML VIAL SUBCUT ×2 (19:19→21:36)
[2023-08-08 20:16] LABS: MRSA (Nasal) PCR Not Detected (Not Detect)
[2023-08-08] MEDS: CYCLOBENZAPRINE 10 MG TABLET 5 MG PO (21:17)
[2023-08-08] MEDS: ATORVASTATIN 20 MG TABLET 40 MG PO (21:17)
[2023-08-08] MEDS: ACETAMINOPHEN 325 MG TABLET 650 MG PO (21:17)
[2023-08-08] MEDS: INSULIN GLARGINE 100 UNIT/ML 3ML PEN 10 UNIT SUBCUT (21:35)
[2023-08-08] MEDS: PIPERACILLIN/TAZO 3.375 GM in SODIUM CHLORIDE 0.9% 100 ML IV (21:35)
[2023-08-08] MEDS: INSULIN LISPRO 100 UNIT/ML 3ML VIAL 10 UNIT SUBCUT (22:42)
[2023-08-09] VITALS (43 sets, daily range): BP systolic 101–162; BP diastolic 55–74; PULSE 91–122; RESP 16–41; TEMP 37–38.9; O2SAT 90–96
[2023-08-09 00:02] LABS: Acinetobacter calcoa-baumannii Not Detected (Not Detect); Bacteroides fragilis Not Detected (Not Detect); CTX-M Resistance Not Detected (Not Detect); Candida albicans Not Detected (Not Detect); Candida auris Not Detected (Not Detect); Candida glabrata Not Detected (Not Detect); Candida krusei Not Detected (Not Detect); Candida parapsilosis Not Detected (Not Detect); Candida tropicalis Not Detected (Not Detect); Cryptococcus neoformans/gatti Not Detected (Not Detect); Enterobacter cloacae complex Not Detected (Not Detect); Enterobacterales Detected (Not Detect); Enterococcus faecalis Not Detected (Not Detect); Enterococcus faecium Not Detected (Not Detect); Haemophilus influenzae Not Detected (Not Detect); IMP Resistance Not Detected (Not Detect); KPC Resistance Not Detected (Not Detect); Klebsiella aerogenes Not Detected (Not Detect); Listeria monocytogenes Not Detected (Not Detect); NDM Resistance Not Detected (Not Detect); Neisseria meningitidis Not Detected (Not Detect); OXA-48-like Resistance Not Detected (Not Detect); Proteus species Not Detected (Not Detect); Pseudomonas aeruginosa Not Detected (Not Detect); Salmonella species Not Detected (Not Detect); Serratia marcescens Not Detected (Not Detect); Staphylococcus epidermidis Not Detected (Not Detect); Staphylococcus lugdunensis Not Detected (Not Detect); Staphylococcus species Not Detected (Not Detect); Stenotrophomonas maltophilia Not Detected (Not Detect); Streptococcus agalactiae (Gr B Not Detected (Not Detect); Streptococcus pneumonia Not Detected (Not Detect); Streptococcus pyogenes (Gr A) Not Detected (Not Detect); Streptococcus species Not Detected (Not Detect); VIM Resistance Not Detected (Not Detect); mcr-1 Resistance Not Detected (Not Detect)
[2023-08-09] MEDS: PIPERACILLIN/TAZO 3.375 GM in SODIUM CHLORIDE 0.9% 100 ML IV ×3 (05:09→21:52)
[2023-08-09] MEDS: SODIUM CHLORIDE 0.9% 1,000 ML 100 ML IV ×2 (05:09→14:59)
[2023-08-09] MEDS: ACETAMINOPHEN 325 MG TABLET 650 MG PO ×3 (05:09→21:54)
[2023-08-09 05:47] LABS: Add Manual Diff / Slide Review NO; Basophils Absolute Auto 0 /uL (0-100); Eosinophils Absolute Auto 0 /uL (0-450); Eosinophils Percent Auto 0.1 % (2-4); Hematocrit 31.7 % (36-46); Hemoglobin 10.3 g/dL (12.0-16.0); Lymphocytes Absolute Auto 600 /uL (1100-4500); Lymphocytes Percent Auto 2.3 % (25-40); Mean Corpuscular HGB Conc 32.4 % (30-36); Mean Corpuscular Hemoglobin 27.4 PG (26-34); Mean Corpuscular Volume 84.4 fL (80-100); Monocytes Absolute Auto 300 /uL (0-900); Monocytes Percent Auto 1.1 % (3-14); Neutrophils Absolute Auto 23700 /uL (1500-7000); Neutrophils Percent Auto 96.5 % (50-75); Platelet Count 190 X10^3/uL (150-400); Red Blood Cell Count 3.76 X10^6/uL (4.0-5.2); Red Cell Distribution Width 14.7 % (11.6-14.8); White Blood Cell Count 24.6 X10^3/uL (4.5-11.0)
[2023-08-09 06:04] LABS: Alanine Aminotransferase 21 IU/L (<35); Albumin 3.2 g/dL (3.5-5.0); Albumin Globulin Ratio 1.1 (1.0-2.8); Alkaline Phosphatase 62 U/L (38-126); Aspartate Aminotransferase 31 IU/L (14-36); BUN Creatinine Ratio 24.3 (6-22); Bilirubin Total 0.5 mg/dL (0.2-1.3); Blood Urea Nitrogen 28 mg/dL (7-17); Calcium 8.6 mg/dL (8.4-10.2); Carbon Dioxide 20 mmol/L (22-32); Chloride 110 mmol/L (98-107); Estimated Glomerular Filt Rate 51 mL/min (>60); Globulin 2.8 g/dL (1.7-4.1); Glucose 166 mg/dL (80-110); HEMOLYSIS 27 (0-50); Magnesium 1.1 mg/dL (1.6-2.3); Potassium 3.5 mmol/L (3.4-5.1); Sodium 140 mmol/L (137-145)
[2023-08-09 06:20] LABS: Procalcitonin 86.4 ng/mL (<0.5)
--- NOTE | 2023-08-09 06:23 | PC.NURSE ---
Addendum entered by Michelle Peres R.N. 08/09/23 06:53: Pharmacy notified this am about Mg+ 1.1, K+ 3.5. PO replacement ordered. Original Note: Senior [address] Engineer Note-Patient has been drowsy and fatigued but oriented x3. Core Ulrich temp 102.6 max. Tylenol given for fever and generalized pain. ST up to 120, decreasing down to 100 as temp goes down, BP stable, RR 20, SpO2 >92% on RA-see vital trends, did have shortness of breath and mild audible wheezes with activity. Was incontinent large loose brown stool in am. HS CBG 381, provider notified, 10 units SQ Lispro given in addition to insulin already ordered, lab value glucose 166 in am. Provider also informed about positive Blood Cultures. Droplet Precautions in place, no cough noted.
[2023-08-09 06:30] LABS: Hemoglobin A1C% w Est Avg Glu 9.6 % (4.0-6.0)
[2023-08-09] MEDS: MAGNESIUM CHLORIDE 64 MG TABLET 128 MG PO ×2 (07:41→14:29)
[2023-08-09] MEDS: POTASSIUM CHLORIDE 20 MEQ TAB PO (07:41)
[2023-08-09] MEDS: PANTOPRAZOLE DR 20 MG TABLET PO (08:34)
[2023-08-09] MEDS: ENOXAPARIN 40 MG/0.4 ML SYRINGE SUBCUT (08:34)
[2023-08-09] MEDS: DULOXETINE 30 MG CAPSULE PO (08:34)
[2023-08-09] MEDS: INSULIN LISPRO 100 UNIT/ML 3ML VIAL SUBCUT ×3 (08:38→16:37)
--- NOTE | 2023-08-09 09:06 | PM.PN.1 ---
Subjective Subjective Interval history: 73 F admitted with sepsis due to pyelonephritis and blood cultures positive overnight for gram negative bacilli. Fever curve overall improving. But worsened leukocytosis, BP soft and she is still tachycardic. Procalcitonin jump to 86. Creatinine a bit worse today. Mg also 1.1. She remains off of supplemental oxygen today but does feel some dyspnea. Exam Vital Signs (past 8 hours): - 08/09/23 01:30 08/09/23 02:00 08/09/23 02:00 Temperature 99.7 F H 99.7 F H Pulse Rate 103 H 103 H Respiratory Rate 17 17 Blood Pressure 103/55 L Pulse Oximetry 93 93 Oxygen Delivery Method Oxygen Flow Rate Fraction of Inspired Oxygen 08/09/23 02:30 08/09/23 03:00 08/09/23 03:30 Temperature 99.3 F 99.3 F 99.3 F Pulse Rate 102 H 100 H 107 H Respiratory Rate 16 17 21 Blood Pressure Pulse Oximetry 94 94 94 Oxygen Delivery Method Oxygen Flow Rate Fraction of Inspired Oxygen 08/09/23 04:00 08/09/23 04:00 08/09/23 04:30 Temperature 99.3 F 99.9 F H Pulse Rate 97 H 122 H Respiratory Rate 32 H 41 H Blood Pressure 111/63 Pulse Oximetry 96 Oxygen Delivery Method Oxygen Flow Rate Fraction of Inspired Oxygen 08/09/23 05:00 08/09/23 05:00 08/09/23 05:27 Temperature 100.9 F H 101.8 F H Pulse Rate 122 H 119 H Respiratory Rate 22 24 Blood Pressure Pulse Oximetry 96 Oxygen Delivery Method Room Air Oxygen Flow Rate Fraction of Inspired Oxygen 08/09/23 05:27 08/09/23 05:30 08/09/23 06:00 Temperature 102.0 F H 102.0 F H Pulse Rate 116 H Respiratory Rate 24 Blood Pressure 118/71 Pulse Oximetry 94 Oxygen Delivery Method Oxygen Flow Rate Fraction of Inspired Oxygen 08/09/23 06:00 08/09/23 06:00 08/09/23 06:30 Temperature 102.0 F H 101.5 F H Pulse Rate 109 H 105 H Respiratory Rate 20 18 Blood Pressure 101/58 L Pulse Oximetry 94 93 Oxygen Delivery Method Oxygen Flow Rate Fraction of Inspired Oxygen 08/09/23 07:00 08/09/23 07:25 08/09/23 07:30 Temperature 100.9 F H 100.8 F H Pulse Rate 106 H 109 H 114 H Respiratory Rate 18 22 Blood Pressure Pulse Oximetry 93 94 95 Oxygen Delivery Method Room Air Oxygen Flow Rate 0 Fraction of Inspired Oxygen 21 08/09/23 07:47 08/09/23 07:47 08/09/23 07:48 Temperature 100.6 F H Pulse Rate 113 H Respiratory Rate 27 H Blood Pressure 105/61 104/62 Pulse Oximetry 96 Oxygen Delivery Method Oxygen Flow Rate Fraction of Inspired Oxygen 08/09/23 07:48 08/09/23 08:00 08/09/23 08:00 Temperature 100.6 F H 100.4 F H Pulse Rate 114 H 113 H Respiratory Rate 28 H 28 H Blood Pressure 109/59 L Pulse Oximetry 95 94 Oxygen Delivery Method Oxygen Flow Rate Fraction of Inspired Oxygen 08/09/23 08:09 Temperature Pulse Rate Respiratory Rate Blood Pressure Pulse Oximetry Oxygen Delivery Method Room Air Oxygen Flow Rate Fraction of Inspired Oxygen Fraction of Inspired Oxygen 21 SaO2/FiO2 Ratio 447 Oxygen Delivery Method Room Air Oxygen Flow Rate 0 Narrative Exam Narrative: General:? Patient is well developed and well nourished, but mildly ill appearing, slight lethargy and falls asleep easily. no distress at this time. HEENT:? Normocephalic, atraumatic, extraocular muscles intact, oral pharynx is clear and mucous membranes are moist. Neck: supple and symmetric, trachea is midline, no cervical adenopathy. Negative for JVD Chest:? Normal AP diameter and contour without kyphoscoliosis, no tachypnea, equal chest rise bilaterally. Lungs:? CTA b/l no wheezing rhonchi or rales. Cardio: tachycardic, regular, no murmurs rubs or gallops Abdomen: soft, mild LLQ tenderness, no distension. No CVA tenderness today. Musculoskeletal:? Muscle strength and tone are equal within normal limits, no deformity. Extremities: No edema or joint effusions. No cyanosis or clubbing. Skin:? Pale,? Warm to touch,dry and intact without rashes, ulcerations or petechiae.? Neuro:? Alert and orientated to name, location.No focal deficits Objective Labs 08/09/23 05:05 08/09/23 05:05 Labs: Laboratory Results - last 24 hr 08/08/23 08/08/23 08/08/23 12:51 13:05 13:09 WBC 13.4 H RBC 4.78 Hgb 13.1 Hct 40.2 MCV 84.0 MCH 27.4 MCHC 32.6 RDW 14.3 Plt Count 356 Neut % (Auto) 95.9 H Lymph % (Auto) 2.8 L [place] % (Auto) 0.9 L Eos % (Auto) 0.2 L Baso % (Auto) 0.2 Neut # (Auto) 00735 H Lymph # (Auto) 400 L [place] # (Auto) 100 Eos # (Auto) 0 Baso # (Auto) 0 ESR D-Dimer VBG pH 7.32 L VBG pCO2 45.0 VBG pO2 29 L VBG HCO3 23 L VBG Total CO2 25 VBG O2 Saturation 50 L VBG Base Excess -3.0 L FiO2 21 Sodium 137 Potassium 4.0 Chloride 100 Carbon Dioxide 24 BUN 25 H Creatinine 0.91 Estimated GFR > 60 BUN/Creatinine Ratio 27.5 H Glucose 300 H Hemoglobin A1c Lactate 3.3 H Calcium 10.4 H Magnesium Ferritin Total Bilirubin 0.6 AST 23 ALT 18 Alkaline Phosphatase 128 H Ammonia 12 Lactate Dehydrogenase Total Creatine Kinase 67 Troponin I < 0.012 C-Reactive Protein Total Protein 7.8 Albumin 4.5 Globulin 3.3 Albumin/Globulin Ratio 1.4 Lipase 321 H Procalcitonin 0.21 Urine Color Urine Appearance Urine pH Ur Specific [place] Urine Protein Urine Glucose (UA) Urine Ketones Urine Occult Blood Urine Nitrate Urine Bilirubin Urine Urobilinogen Ur Leukocyte Esterase Urine RBC Urine WBC Ur Squamous Epith Cells Urine Bacteria Ur Culture Indicated? Nasal Screen MRSA (PCR) U Opiates 300ng/mL cut Ur Oxycodone Screen Urine Methadone Screen Ur Barbiturates Screen U Tricyclic Antidepress Ur Phencyclidine Scrn Ur Amphetamines Screen U Methamphetamines Scrn Ur MDMA Scrn (Ecstasy) U Benzodiazepines Scrn Urine Cocaine Screen U Marijuana (THC) Screen Ethyl Alcohol < 10 Ketones 0.51 H A.calcoaceticus-baumannii cmplx PCR Not detected Chlamy pneumoniae PCR Adenovirus (PCR) Bacteroides fragilis Not detected B.parapertussis DNA PCR Mariama albicans (PCR) Not detected Mariama auris (PCR) Not detected C. glabrata (PCR) Not detected C. krusei (PCR) Not detected C. parapsilosis (PCR) Not detected C. tropicalis (PCR) Not detected Coronavirus OC43 (PCR) Coronavirus HKU1 (PCR) Coronavirus 229E (PCR) SARS-CoV-2 (PCR) Coronavirus NL63 (PCR) C. neoform/gattii (PCR) Not detected Enterobacterales (PCR) Detected E. cloacae complex PCR Not detected Enterococc faecalis PCR Not detected Enterococc faecium PCR Not detected E. coli (PCR) Detected H. influenzae (PCR) Not detected Human Metapneumovir PCR Influenza Type A (PCR) Influenza Type B (PCR) Klebsiella aerogenes (PCR) Not detected Klebsiella oxytoca PCR Not detected Klebsiella pneumoniae Not detected List. monocytogenes PCR Not detected M. pneumoniae (PCR) N. meningitidis (PCR) Not detected Parainfluenza 1 (PCR) Parainfluenza 2 (PCR) Parainfluenza 3 (PCR) Parainfluenza 4 (PCR) Proteus species (PCR) Not detected RSV (PCR) Entero/Rhino (PCR) Salmonella spp. (PCR) Not detected Serratia marcescens PCR Not detected Staphylococcus sp PCR Not detected Staph aureus (PCR) Not detected mecA/C & MREJ Resist Gene Not applicable mecA/C-Methicil Resis Gene Not applicable mcr-1 Colistin Res Gene PCR Not detected Staph epidermidis (PCR) Not detected Staph lugdunensis PCR Not detected S. maltophilia (PCR) Not detected Streptococcus sp PCR Not detected Group A Strep (PCR) Not detected Strep agalactiae (PCR) Not detected Strep pneumoniae (PCR) Not detected P. aeruginosa (PCR) Not detected Meggan/B-Vanco Res Genes Not applicable blaIMP Car res Gene PCR Not detected KPC-Carbap Res Gene PCR Not detected blaNDM Car Res Gene PCR Not detected OXA-48 Carbapenem Resis Gene (PCR) Not detected blaVIM Car Res Gene PCR Not detected CTX-M Gene Resistance (PCR) Not detected 08/08/23 08/08/23 08/08/23 13:45 14:00 14:45 WBC RBC Hgb Hct MCV MCH MCHC RDW Plt Count Neut % (Auto) Lymph % (Auto) [place] % (Auto) Eos % (Auto) Baso % (Auto) Neut # (Auto) Lymph # (Auto) [place] # (Auto) Eos # (Auto) Baso # (Auto) ESR D-Dimer VBG pH VBG pCO2 VBG pO2 VBG HCO3 VBG Total CO2 VBG O2 Saturation VBG Base Excess FiO2 Sodium Potassium Chloride Carbon Dioxide BUN Creatinine Estimated GFR BUN/Creatinine Ratio Glucose Hemoglobin A1c Lactate 4.5 H* Calcium Magnesium Ferritin Total Bilirubin AST ALT Alkaline Phosphatase Ammonia Lactate Dehydrogenase Total Creatine Kinase Troponin I C-Reactive Protein Total Protein Albumin Globulin Albumin/Globulin Ratio Lipase Procalcitonin Urine Color Yellow Urine Appearance Clear Urine pH 5.5 Ur Specific [place] 1.025 Urine Protein 2+ H Urine Glucose (UA) Negative Urine Ketones 1+ H Urine Occult Blood 1+ H Urine Nitrate Positive H Urine Bilirubin Negative Urine Urobilinogen 0.2 Ur Leukocyte Esterase Trace H Urine RBC None seen Urine WBC 1-5/hpf Ur Squamous Epith Cells 1-5 /hpf Urine Bacteria Many (>30) H Ur Culture Indicated? Specimen cultured Nasal Screen MRSA (PCR) U Opiates 300ng/mL cut Negative Ur Oxycodone Screen Negative Urine Methadone Screen Negative Ur Barbiturates Screen Negative U Tricyclic Antidepress Negative Ur Phencyclidine Scrn Negative Ur Amphetamines Screen Negative U Methamphetamines Scrn Negative Ur MDMA Scrn (Ecstasy) Negative U Benzodiazepines Scrn Negative Urine Cocaine Screen Negative U Marijuana (THC) Screen Negative Ethyl Alcohol Ketones A.calcoaceticus-baumannii cmplx PCR Chlamy pneumoniae PCR Not detected Adenovirus (PCR) Not detected Bacteroides fragilis B.parapertussis DNA PCR Not detected Mariama albicans (PCR) Mariama auris (PCR) C. glabrata (PCR) C. krusei (PCR) C. parapsilosis (PCR) C. tropicalis (PCR) Coronavirus OC43 (PCR) Not detected Coronavirus HKU1 (PCR) Not detected Coronavirus 229E (PCR) Not detected SARS-CoV-2 (PCR) Detected H Coronavirus NL63 (PCR) Not detected C. neoform/gattii (PCR) Enterobacterales (PCR) E. cloacae complex PCR Enterococc faecalis PCR Enterococc faecium PCR E. coli (PCR) H. influenzae (PCR) Human Metapneumovir PCR Not detected Influenza Type A (PCR) Not detected Influenza Type B (PCR) Not detected Klebsiella aerogenes (PCR) Klebsiella oxytoca PCR Klebsiella pneumoniae List. monocytogenes PCR M. pneumoniae (PCR) Not detected N. meningitidis (PCR) Parainfluenza 1 (PCR) Not detected Parainfluenza 2 (PCR) Not detected Parainfluenza 3 (PCR) Not detected Parainfluenza 4 (PCR) Not detected Proteus species (PCR) RSV (PCR) Not detected Entero/Rhino (PCR) Not detected Salmonella spp. (PCR) Serratia marcescens PCR Staphylococcus sp PCR Staph aureus (PCR) mecA/C & MREJ Resist Gene mecA/C-Methicil Resis Gene mcr-1 Colistin Res Gene PCR Staph epidermidis (PCR) Staph lugdunensis PCR S. maltophilia (PCR) Streptococcus sp PCR Group A Strep (PCR) Strep agalactiae (PCR) Strep pneumoniae (PCR) P. aeruginosa (PCR) Meggan/B-Vanco Res Genes blaIMP Car res Gene PCR KPC-Carbap Res Gene PCR blaNDM Car Res Gene PCR OXA-48 Carbapenem Resis Gene (PCR) blaVIM Car Res Gene PCR CTX-M Gene Resistance (PCR) 08/08/23 08/08/23 08/08/23 17:10 17:16 17:18 WBC RBC Hgb Hct MCV MCH MCHC RDW Plt Count Neut % (Auto) Lymph % (Auto) [place] % (Auto) Eos % (Auto) Baso % (Auto) Neut # (Auto) Lymph # (Auto) [place] # (Auto) Eos # (Auto) Baso # (Auto) ESR 22 H D-Dimer 55128 H VBG pH VBG pCO2 VBG pO2 VBG HCO3 VBG Total CO2 VBG O2 Saturation VBG Base Excess FiO2 Sodium Potassium Chloride Carbon Dioxide BUN Creatinine Estimated GFR BUN/Creatinine Ratio Glucose Hemoglobin A1c Lactate 2.8 H Calcium Magnesium Ferritin 34 Total Bilirubin AST ALT Alkaline Phosphatase Ammonia Lactate Dehydrogenase 181 Total Creatine Kinase Troponin I C-Reactive Protein 2.1 H Total Protein Albumin Globulin Albumin/Globulin Ratio Lipase Procalcitonin Urine Color Urine Appearance Urine pH Ur Specific [place] Urine Protein Urine Glucose (UA) Urine Ketones Urine Occult Blood Urine Nitrate Urine Bilirubin Urine Urobilinogen Ur Leukocyte Esterase Urine RBC Urine WBC Ur Squamous Epith Cells Urine Bacteria Ur Culture Indicated? Nasal Screen MRSA (PCR) U Opiates 300ng/mL cut Ur Oxycodone Screen Urine Methadone Screen Ur Barbiturates Screen U Tricyclic Antidepress Ur Phencyclidine Scrn Ur Amphetamines Screen U Methamphetamines Scrn Ur MDMA Scrn (Ecstasy) U Benzodiazepines Scrn Urine Cocaine Screen U Marijuana (THC) Screen Ethyl Alcohol Ketones A.calcoaceticus-baumannii cmplx PCR Chlamy pneumoniae PCR Adenovirus (PCR) Bacteroides fragilis B.parapertussis DNA PCR Mariama albicans (PCR) Mariama auris (PCR) C. glabrata (PCR) C. krusei (PCR) C. parapsilosis (PCR) C. tropicalis (PCR) Coronavirus OC43 (PCR) Coronavirus HKU1 (PCR) Coronavirus 229E (PCR) SARS-CoV-2 (PCR) Coronavirus NL63 (PCR) C. neoform/gattii (PCR) Enterobacterales (PCR) E. cloacae complex PCR Enterococc faecalis PCR Enterococc faecium PCR E. coli (PCR) H. influenzae (PCR) Human Metapneumovir PCR Influenza Type A (PCR) Influenza Type B (PCR) Klebsiella aerogenes (PCR) Klebsiella oxytoca PCR Klebsiella pneumoniae List. monocytogenes PCR M. pneumoniae (PCR) N. meningitidis (PCR) Parainfluenza 1 (PCR) Parainfluenza 2 (PCR) Parainfluenza 3 (PCR) Parainfluenza 4 (PCR) Proteus species (PCR) RSV (PCR) Entero/Rhino (PCR) Salmonella spp. (PCR) Serratia marcescens PCR Staphylococcus sp PCR Staph aureus (PCR) mecA/C & MREJ Resist Gene mecA/C-Methicil Resis Gene mcr-1 [place] Res Gene PCR Staph epidermidis (PCR) Staph lugdunensis PCR S. maltophilia (PCR) Streptococcus sp PCR Group A Strep (PCR) Strep agalactiae (PCR) Strep pneumoniae (PCR) P. aeruginosa (PCR) Meggan/B-Vanco Res Genes blaIMP Car res Gene PCR KPC-Carbap Res Gene PCR blaNDM Car Res Gene PCR OXA-48 Carbapenem Resis Gene (PCR) blaVIM Car Res Gene PCR CTX-M Gene Resistance (PCR) 08/08/23 08/08/23 08/09/23 18:37 20:00 05:05 WBC 24.6 H D RBC 3.76 L Hgb 10.3 L Hct 31.7 L MCV 84.4 MCH 27.4 MCHC 32.4 RDW 14.7 Plt Count 190 Neut % (Auto) 96.5 H Lymph % (Auto) 2.3 L [place] % (Auto) 1.1 L Eos % (Auto) 0.1 L Baso % (Auto) 0.0 Neut # (Auto) 79214 H Lymph # (Auto) 600 L [place] # (Auto) 300 Eos # (Auto) 0 Baso # (Auto) 0 ESR D-Dimer VBG pH VBG pCO2 VBG pO2 VBG HCO3 VBG Total CO2 VBG O2 Saturation VBG Base Excess FiO2 Sodium 140 Potassium 3.5 Chloride 110 H Carbon Dioxide 20 L BUN 28 H Creatinine 1.15 H Estimated GFR 51 L BUN/Creatinine Ratio 24.3 H Glucose 166 H D Hemoglobin A1c 9.6 H Lactate 2.0 Calcium 8.6 Magnesium 1.1 L Ferritin Total Bilirubin 0.5 AST 31 ALT 21 Alkaline Phosphatase 62 D Ammonia Lactate Dehydrogenase Total Creatine Kinase Troponin I C-Reactive Protein Total Protein 6.0 L Albumin 3.2 L Globulin 2.8 Albumin/Globulin Ratio 1.1 Lipase Procalcitonin 86.4 H Urine Color Urine Appearance Urine pH Ur Specific [place] Urine Protein Urine Glucose (UA) Urine Ketones Urine Occult Blood Urine Nitrate Urine Bilirubin Urine Urobilinogen Ur Leukocyte Esterase Urine RBC Urine WBC Ur Squamous Epith Cells Urine Bacteria Ur Culture Indicated? Nasal Screen MRSA (PCR) Not detected U Opiates 300ng/mL cut Ur Oxycodone Screen Urine Methadone Screen Ur Barbiturates Screen U Tricyclic Antidepress Ur Phencyclidine Scrn Ur Amphetamines Screen U Methamphetamines Scrn Ur MDMA Scrn (Ecstasy) U Benzodiazepines Scrn Urine Cocaine Screen U Marijuana (THC) Screen Ethyl Alcohol Ketones A.calcoaceticus-baumannii cmplx PCR Chlamy pneumoniae PCR Adenovirus (PCR) Bacteroides fragilis B.parapertussis DNA PCR Mariama albicans (PCR) Mariama auris (PCR) C. glabrata (PCR) C. krusei (PCR) C. parapsilosis (PCR) C. tropicalis (PCR) Coronavirus OC43 (PCR) Coronavirus HKU1 (PCR) Coronavirus 229E (PCR) SARS-CoV-2 (PCR) Coronavirus NL63 (PCR) C. neoform/gattii (PCR) Enterobacterales (PCR) E. cloacae complex PCR Enterococc faecalis PCR Enterococc faecium PCR E. coli (PCR) H. influenzae (PCR) Human Metapneumovir PCR Influenza Type A (PCR) Influenza Type B (PCR) Klebsiella aerogenes (PCR) Klebsiella oxytoca PCR Klebsiella pneumoniae List. monocytogenes PCR M. pneumoniae (PCR) N. meningitidis (PCR) Parainfluenza 1 (PCR) Parainfluenza 2 (PCR) Parainfluenza 3 (PCR) Parainfluenza 4 (PCR) Proteus species (PCR) RSV (PCR) Entero/Rhino (PCR) Salmonella spp. (PCR) Serratia marcescens PCR Staphylococcus sp PCR Staph aureus (PCR) mecA/C & MREJ Resist Gene mecA/C-Methicil Resis Gene mcr-1 [place] Res Gene PCR Staph epidermidis (PCR) Staph lugdunensis PCR S. maltophilia (PCR) Streptococcus sp PCR Group A Strep (PCR) Strep agalactiae (PCR) Strep pneumoniae (PCR) P. aeruginosa (PCR) Meggan/B-Vanco Res Genes blaIMP Car res Gene PCR KPC-Carbap Res Gene PCR blaNDM Car Res Gene PCR OXA-48 Carbapenem Resis Gene (PCR) blaVIM Car Res Gene PCR CTX-M Gene Resistance (PCR) PFSH Medical History Melanoma (~2019) Depression (~2015) Osteoporosis (~2018) Foot pain (~2019) Carpal tunnel syndrome (~2013) Measles Chicken pox Vertigo Retinal detachment (~2017) Cataracts, bilateral (~2018) Diabetes mellitus (~1989) Healthy adult Surgical History Anesthesia History of removal of cyst (~1978) History of carpal tunnel release (~2013) History of partial thyroidectomy (~1979) History of eye surgery (~2017) History of cataract removal with insertion of prosthetic lens (~2020) Family History Father Cancer Mother Diabetes mellitus Hypertension Brother Diabetes mellitus Brother Diabetes mellitus Family/Other Diabetes mellitus Hypertension Social History household members: none Smoking Status: Never smoker Assessment & Plan Assessment & Plan narrative: 73 F with PMH of DM, HTN, HLD who is admitted with sepsis secondary to COVID and pyelonephritis with gram negative bacteremia. 1. Sepsis with acute metabolic encephalopathy acute respiratory failure with hypoxia secondary to COVID 19 infection and acute pyelonephritis in setting of ureteral stone. - continue zosyn for pyelonpehritis and bacteremia. MRSA swab negative. Patient was given IVF, ceftriaxone and zosyn in the ER. Will continue IV fluids for now, stop if re-develops hypoxia. - rapid resolution of respiratory failure, hold further steroids and remdesevir with positive COVID - despite dimer with no shortness of breath or hypoxia now, will not persue CT angio chest at this time. If requiring O2 will persue CTA, repeat abdominal imaging to rule out worsening obstruction or persistent stone. - consider echo given appearance of CXR, but not clinically overloaded on exam still. - follow up blood, urine cultures. Currently urine and blood with gram negative bacilli. ESR and CRP elevated. Procalcitonin increased to 86 today. - urology consulted in the ER, no interventions recommended. If BP stable, start flomax tomorrow AM for presumed stone if continues to have some L abdominal pain. However if not clinically improving, will repeat either CT or renal ultrasound to evaluate for worsening hydronephrosis. 2. DM - glucose around 300 on admission, started 10 U lantus, with Sliding scale and continue to adjust. AM glucose 166 today, will continue. - A1c 9.6% - no DKA on admission labs, continue to follow BMP - hold home oral medications 3. HTN - hold home medications in the setting of above sepsis. 4. Left hydronephrosis secondary to ureteral calculi - no interventions recommended, management as noted above in #1. 5. HLD - okay to continue home statin, replaced for formulary alternative atorvastatin. Code: Full, surrogate is patient's daughter. Dispo: Admit to ICU given high fever, sepsis, concern for possible developing shock, q2 vitals overnight. If stable can downgrade tomorrow to acute care inpatient. I have utilized all available immediate resources to obtain, update, or review the patient's current medications. I spent 35 minutes providing critical care management this patient. This excludes time spent in performing separately billed procedures.
[2023-08-09] MEDS: ASPIRIN EC 81 MG TABLET PO (16:37)
--- NOTE | 2023-08-09 17:22 | PC.NURSE ---
Pt offered bed bath, and dental hygiene, pt refused and is waiting until tomorrow for daughter to bring in personal hygiene items.
--- NOTE | 2023-08-09 18:43 | CM.DPNOTE ---
DCP Note Patient is a 73yo F here for Sepsis with acute metabolic encephalopathy acute respiratory failure with hypoxia secondary to COVID 19 infection and acute pyelonephritis in setting of ureteral stone (H&P). 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 Unable to meet with today for comprehensive discharge assessment due to triaging needs. Per provider in rounds, likely here for a few days. Per chart review, POA is daughter Aimee ([phone]). CM team will follow for full discharge assessment. [facility] [place]
[2023-08-09] MEDS: INSULIN GLARGINE 100 UNIT/ML 3ML PEN 10 UNIT SUBCUT (20:37)
[2023-08-09] MEDS: ATORVASTATIN 20 MG TABLET 40 MG PO (20:37)
[2023-08-10] VITALS (22 sets, daily range): BP systolic 136–172; BP diastolic 63–85; PULSE 95–112; RESP 16–35; TEMP 36.8–37.4; O2SAT 92–98
[2023-08-10] MEDS: SODIUM CHLORIDE 0.9% 1,000 ML 100 ML IV (00:42)
[2023-08-10] MEDS: PIPERACILLIN/TAZO 3.375 GM in SODIUM CHLORIDE 0.9% 100 ML IV (05:53)
[2023-08-10 06:38] LABS: Hematocrit 29.4 % (36-46); Hemoglobin 9.6 g/dL (12.0-16.0); Mean Corpuscular HGB Conc 32.8 % (30-36); Mean Corpuscular Hemoglobin 27.2 PG (26-34); Mean Corpuscular Volume 82.8 fL (80-100); Platelet Count 166 X10^3/uL (150-400); Red Blood Cell Count 3.55 X10^6/uL (4.0-5.2)
[2023-08-10 06:40] LABS: Alanine Aminotransferase 21 IU/L (<35); Albumin 2.8 g/dL (3.5-5.0); Alkaline Phosphatase 84 U/L (38-126); Aspartate Aminotransferase 29 IU/L (14-36); BUN Creatinine Ratio 24.4 (6-22); Bilirubin Total 0.4 mg/dL (0.2-1.3); Blood Urea Nitrogen 20 mg/dL (7-17); Calcium 8.4 mg/dL (8.4-10.2); Carbon Dioxide 19 mmol/L (22-32); Chloride 114 mmol/L (98-107); Estimated Glomerular Filt Rate > 60 mL/min (>60); Globulin 2.7 g/dL (1.7-4.1); Glucose 116 mg/dL (80-110); HEMOLYSIS < 15 (0-50); Magnesium 1.5 mg/dL (1.6-2.3); Sodium 141 mmol/L (137-145); Total Protein 5.5 g/dL (6.3-8.2)
[2023-08-10 07:08] LABS: White Blood Cell Count 31.5 X10^3/uL (4.5-11.0)
[2023-08-10 07:09] LABS: Add Manual Diff / Slide Review YES
[2023-08-10 07:10] LABS: Neutrophils Absolute Manual 27720 /uL (3000-5900); Total Cells Counted 100
[2023-08-10 07:11] LABS: RBC Morphology Normal Morphology
[2023-08-10] MEDS: ENOXAPARIN 40 MG/0.4 ML SYRINGE SUBCUT (08:41)
[2023-08-10] MEDS: PANTOPRAZOLE DR 20 MG TABLET PO (08:42)
[2023-08-10] MEDS: DULOXETINE 30 MG CAPSULE PO (08:42)
[2023-08-10] MEDS: AMLODIPINE 5 MG TABLET PO (08:42)
--- NOTE | 2023-08-10 08:42 | P.PN_ITS ---
Subjective Subjective Interval history: 73 F admitted with sepsis due to pyelonephritis and E. coli bacteremia. She is clinically improving, leukocytosis a bit worse but BP, procalcitonin all improving. Cultures have an E. coli resistant to some pencillins, zosyn was narrowed to ceftriaxone today based on sensitivities. She is tolerating a diet today, no more loose stools and C. diff testing was cancelled. She denies abdominal pain or shortness of breath. Exam Vital Signs (past 8 hours): - 08/10/23 01:00 08/10/23 02:00 08/10/23 02:00 Temperature 99.0 F Pulse Rate 100 H Respiratory Rate 16 Blood Pressure 155/70 H Pulse Oximetry 92 Oxygen Delivery Method Room Air Oxygen Flow Rate 0 08/10/23 04:00 08/10/23 04:00 08/10/23 05:00 Temperature 98.8 F Pulse Rate 99 H Respiratory Rate 16 Blood Pressure 153/76 H Pulse Oximetry 93 Oxygen Delivery Method Room Air Oxygen Flow Rate 0 08/10/23 06:00 08/10/23 06:00 08/10/23 07:00 Temperature 99.0 F Pulse Rate 103 H Respiratory Rate 19 Blood Pressure 172/80 H Pulse Oximetry 93 Oxygen Delivery Method Room Air Oxygen Flow Rate 0 08/10/23 07:47 08/10/23 07:47 08/10/23 07:48 Temperature 99.1 F Pulse Rate 110 H Respiratory Rate 25 H Blood Pressure 155/74 H 160/73 H 157/72 H Pulse Oximetry 94 Oxygen Delivery Method Oxygen Flow Rate 08/10/23 07:48 08/10/23 08:00 08/10/23 08:00 Temperature 99.1 F 99.0 F Pulse Rate 112 H 108 H Respiratory Rate 26 H 19 Blood Pressure 155/74 H Pulse Oximetry 94 94 Oxygen Delivery Method Oxygen Flow Rate Fraction of Inspired Oxygen 21 SaO2/FiO2 Ratio 447 Oxygen Delivery Method Room Air Oxygen Flow Rate 0 Narrative Exam Narrative: General:? Patient is well developed and well nourished, but mildly ill appearing, slight lethargy. no distress at this time. HEENT:? Normocephalic, atraumatic, extraocular muscles intact, oral pharynx is clear and mucous membranes are moist. Neck: supple and symmetric, trachea is midline, no cervical adenopathy. Negative for JVD Chest:? Normal AP diameter and contour without kyphoscoliosis, no tachypnea, equal chest rise bilaterally. Lungs:? CTA b/l no wheezing rhonchi or rales. Cardio: tachycardic, regular, no murmurs rubs or gallops Abdomen: S NT ND Musculoskeletal:? Muscle strength and tone are equal within normal limits, no deformity. Extremities: No edema or joint effusions. No cyanosis or clubbing. Skin:? Pale,? Warm to touch,dry and intact without rashes, ulcerations or petechiae.? Neuro:? Alert and orientated to name, location.No focal deficits Objective Labs 08/10/23 05:00 08/10/23 05:00 Labs: Laboratory Results - last 24 hr 08/10/23 05:00 WBC 31.5 H* RBC 3.55 L Hgb 9.6 L Hct 29.4 L MCV 82.8 MCH 27.2 MCHC 32.8 RDW 15.0 H Plt Count 166 Neut % (Auto) Not Reportable Lymph % (Auto) Not Reportable [place] % (Auto) Not Reportable Eos % (Auto) Not Reportable Baso % (Auto) Not Reportable Lymph # (Auto) Not Reportable [place] # (Auto) Not Reportable Baso # (Auto) Not Reportable Total Counted 100 Seg Neutrophils % 80.0 H Band Neutrophils % 8.0 H Lymphocytes % (Manual) 6.0 L Atypical Lymphs % 2.0 H Monocytes % (Manual) 4.0 Neutrophils # (Manual) 14436 H RBC Morphology Normal morphology Sodium 141 Potassium 3.0 L Chloride 114 H Carbon Dioxide 19 L BUN 20 H Creatinine 0.82 Estimated GFR > 60 BUN/Creatinine Ratio 24.4 H Glucose 116 H Calcium 8.4 Magnesium 1.5 L Total Bilirubin 0.4 AST 29 ALT 21 Alkaline Phosphatase 84 Total Protein 5.5 L Albumin 2.8 L Globulin 2.7 Albumin/Globulin Ratio 1.0 PFSH Medical History Melanoma (~2019) Depression (~2015) Osteoporosis (~2018) Foot pain (~2019) Carpal tunnel syndrome (~2013) Measles Chicken pox Vertigo Retinal detachment (~2017) Cataracts, bilateral (~2018) Diabetes mellitus (~1989) Healthy adult Surgical History Anesthesia History of removal of cyst (~1978) History of carpal tunnel release (~2013) History of partial thyroidectomy (~1979) History of eye surgery (~2017) History of cataract removal with insertion of prosthetic lens (~2020) Family History Father Cancer Mother Diabetes mellitus Hypertension Brother Diabetes mellitus Brother Diabetes mellitus Family/Other Diabetes mellitus Hypertension Social History household members: none Smoking Status: Never smoker Assessment & Plan Assessment & Plan narrative: 73 F with PMH of DM, HTN, HLD who is admitted with sepsis secondary to COVID and pyelonephritis with gram negative bacteremia. 1. Sepsis with acute metabolic encephalopathy acute respiratory failure with hypoxia secondary to COVID 19 infection and acute pyelonephritis with E. coli bacteremia in setting of ureteral stone. - continued zosyn for pyelonpehritis and bacteremia but will change to 2g ceftriaxone q24 this morning. MRSA swab negative. Patient was given IVF, ceftriaxone and zosyn in the ER. Can stop IV fluids today. - rapid resolution of respiratory failure with above therapies, hold further steroids and remdesevir with positive COVID. She was given only one dose of each. - despite markedly elevated dimer with no shortness of breath or hypoxia now, will not persue CT angio chest at this time. If requiring O2 will persue CTA, and will repeat abdominal imaging to rule out worsening obstruction or persistent stone if clinically worsening. - considered echo given appearance of CXR on admission, but not clinically overloaded on exam still and no current symptoms. - Blood cultures positive for E. coli. Narrowed antibiotics as noted above. - urology consulted in the ER, no interventions recommended. With improvement no repeat imaging necessary at this time. With resolution of pain likely passed the stone. 2. DM - glucose around 300 on admission, started 10 U lantus, with Sliding scale and continue to adjust. AM glucose 116 today, will continue. - A1c 9.6% - no DKA on admission labs, continue to follow BMP - hold home oral medications for now - discharge home on Lantus, patient had previously needed insulin but was able to come off many years ago. With worsening A1c despite two oral agents discussed with patient and she agrees for need for lantus. Additional follow up with PCP after discharge for continued management of her DM. 3. HTN - held home medications in the setting of above sepsis. BP increasing today added back her home amlodipine. 4. Left hydronephrosis secondary to ureteral calculi - no interventions recommended, management as noted above in #1. 5. HLD - okay to continue home statin, replaced for formulary alternative atorvastatin. Code: Full, surrogate is patient's daughter. Dispo: Stable for regular floor today, remains inpatient, likely home in the next 1-2 days. Consider PT depending on mobility. I have utilized all available immediate resources to obtain, update, or review the patient's current medications. I spent 30 minutes providing critical care management this patient. This excludes time spent in performing separately billed procedures.
[2023-08-10 08:53] LABS: Procalcitonin 39.8 ng/mL (<0.5)
[2023-08-10] MEDS: MAGNESIUM CHLORIDE 64 MG TABLET 128 MG PO (09:33)
[2023-08-10] MEDS: POTASSIUM CHLORIDE 20 MEQ TAB 40 MEQ PO ×2 (09:33→16:15)
[2023-08-10] MEDS: cefTRIAXone 2,000 MG in SODIUM CHLORIDE 0.9% 100 ML 200 MG IV (09:36)
[2023-08-10] MEDS: METOPROLOL ER 25 MG TABLET PO (09:37)
[2023-08-10] MEDS: ASPIRIN EC 81 MG TABLET PO (16:15)
--- NOTE | 2023-08-10 18:11 | PC.NURSE ---
Pt presents with audible trachea/larynx wheezing w/no signs of distress. Respiratory was contacted and provider for new finding. Creamy white lesions on tongue and palate newly presented. Oral Nystatin given per provider order.
--- NOTE | 2023-08-10 18:17 | RT ---
At 1800, pt's RN informed RT regarding audible wheeze over pt's throat. RT assessed the pt. Noted a faint end-expiratory wheeze over the trachea. Pt has an SpO2 of 98%, is speaking in complete sentences, is alert and oriented, no overt signs of distress noted. She is not c/o dyspnea. Dr. Watters notified regarding this finding at 1810.
[2023-08-10] MEDS: NYSTATIN SUSP 500,000 UNIT/5 ML UDC 500000 UNIT PO ×2 (18:25→20:11)
[2023-08-10] MEDS: ATORVASTATIN 20 MG TABLET 40 MG PO (20:12)
[2023-08-10] MEDS: INSULIN GLARGINE 100 UNIT/ML 3ML PEN 10 UNIT SUBCUT (20:12)
[2023-08-10] MEDS: ALBUTEROL 2.5 MG/3 ML NEB (ADULT) INH (20:45)
[2023-08-11] VITALS (16 sets, daily range): BP systolic 148–169; BP diastolic 76–84; PULSE 84–95; RESP 14–20; TEMP 36.7–37.2; O2SAT 95–100
[2023-08-11] MEDS: ACETAMINOPHEN 325 MG TABLET 650 MG PO (04:59)
[2023-08-11 05:07] LABS: Alanine Aminotransferase 18 IU/L (<35); Albumin 2.8 g/dL (3.5-5.0); Alkaline Phosphatase 100 U/L (38-126); Aspartate Aminotransferase 23 IU/L (14-36); BUN Creatinine Ratio 25.8 (6-22); Bilirubin Total 0.4 mg/dL (0.2-1.3); Blood Urea Nitrogen 17 mg/dL (7-17); Calcium 8.9 mg/dL (8.4-10.2); Carbon Dioxide 21 mmol/L (22-32); Chloride 113 mmol/L (98-107); Estimated Glomerular Filt Rate > 60 mL/min (>60); Globulin 2.8 g/dL (1.7-4.1); Glucose 131 mg/dL (80-110); HEMOLYSIS < 15 (0-50); Magnesium 1.5 mg/dL (1.6-2.3); Potassium 3.9 mmol/L (3.4-5.1); Sodium 139 mmol/L (137-145); Total Protein 5.6 g/dL (6.3-8.2)
[2023-08-11 05:18] LABS: Hemoglobin 9.9 g/dL (12.0-16.0)
[2023-08-11 05:41] LABS: Mean Corpuscular Hemoglobin 27.2 PG (26-34); Mean Corpuscular Volume 82.3 fL (80-100); Platelet Count 184 X10^3/uL (150-400); Red Blood Cell Count 3.65 X10^6/uL (4.0-5.2); Red Cell Distribution Width 15.2 % (11.6-14.8)
[2023-08-11 06:05] LABS: Add Manual Diff / Slide Review YES
[2023-08-11 06:06] LABS: White Blood Cell Count 34.9 X10^3/uL (4.5-11.0)
[2023-08-11 06:33] LABS: Total Cells Counted 100
[2023-08-11 06:34] LABS: RBC Morphology Normal Morphology
[2023-08-11] MEDS: MAGNESIUM CHLORIDE 64 MG TABLET 128 MG PO (07:45)
[2023-08-11] MEDS: PANTOPRAZOLE DR 20 MG TABLET PO (08:11)
[2023-08-11] MEDS: AMLODIPINE 5 MG TABLET PO (08:11)
[2023-08-11] MEDS: NYSTATIN SUSP 500,000 UNIT/5 ML UDC 500000 UNIT PO ×4 (08:11→20:25)
[2023-08-11] MEDS: DULOXETINE 30 MG CAPSULE PO (08:11)
[2023-08-11] MEDS: cefTRIAXone 2,000 MG in SODIUM CHLORIDE 0.9% 100 ML 200 MG IV (08:11)
[2023-08-11] MEDS: METOPROLOL ER 25 MG TABLET PO (08:11)
[2023-08-11] MEDS: ENOXAPARIN 40 MG/0.4 ML SYRINGE SUBCUT (08:11)
--- NOTE | 2023-08-11 08:45 | PM.PN.1 ---
Subjective Subjective Interval history: Patient having worsened COVID symptoms today including cough and wheezing. Also broke out in mucocutaneous lesions on her lips and nose. WBC uptrending to 32 but procal downtrending. No fevers. Exam Vital Signs (past 8 hours): - 08/11/23 04:00 08/11/23 04:00 08/11/23 06:00 Temperature 98.3 F Pulse Rate 95 H 91 H Respiratory Rate 15 15 Blood Pressure 148/76 H Pulse Oximetry 97 96 Oxygen Delivery Method Oxygen Flow Rate 0 08/11/23 07:00 08/11/23 07:50 08/11/23 07:50 Temperature Pulse Rate 95 H Respiratory Rate 17 Blood Pressure 169/82 H Pulse Oximetry 98 Oxygen Delivery Method Room Air Oxygen Flow Rate 08/11/23 08:11 08/11/23 08:27 Temperature 98.5 F Pulse Rate 85 Respiratory Rate Blood Pressure 168/83 H Pulse Oximetry Oxygen Delivery Method Oxygen Flow Rate Fraction of Inspired Oxygen 21 SaO2/FiO2 Ratio 447 Oxygen Delivery Method Room Air Oxygen Flow Rate 0 Narrative Exam Narrative: General:? Patient is well developed and well nourished, but mildly ill appearing, slight lethargy. no distress at this time. HEENT:? Normocephalic, atraumatic, extraocular muscles intact, herpetic lesions in bilateral nares and right upper lip Neck: supple and symmetric, trachea is midline, no cervical adenopathy. Negative for JVD Chest:? Normal AP diameter and contour without kyphoscoliosis, no tachypnea, equal chest rise bilaterally. Lungs:? CTA b/l no wheezing rhonchi or rales. Cardio: regular, no murmurs rubs or gallops Abdomen: S NT ND Musculoskeletal:? Muscle strength and tone are equal within normal limits, no deformity. Extremities: No edema or joint effusions. No cyanosis or clubbing. Skin:? Pale,? Warm to touch,dry and intact without rashes, ulcerations or petechiae.? Neuro:? Alert and orientated to name, location.No focal deficits Objective Labs 08/11/23 04:52 08/11/23 04:52 Labs: Laboratory Results - last 24 hr 08/10/23 08/11/23 05:00 04:52 WBC 34.9 H* RBC 3.65 L Hgb 9.9 L Hct 30.0 L MCV 82.3 MCH 27.2 MCHC 33.0 RDW 15.2 H Plt Count 184 Neut % (Auto) Not Reportable Lymph % (Auto) Not Reportable [place] % (Auto) Not Reportable Eos % (Auto) Not Reportable Baso % (Auto) Not Reportable Lymph # (Auto) Not Reportable [place] # (Auto) Not Reportable Baso # (Auto) Not Reportable Total Counted 100 Seg Neutrophils % 82.0 H Band Neutrophils % 10.0 H Lymphocytes % (Manual) 4.0 L Monocytes % (Manual) 2.0 Eosinophils % (Manual) 1.0 L Basophils % (Manual) 1.0 Neutrophils # (Manual) 89691 H RBC Morphology Normal morphology Sodium 139 Potassium 3.9 Chloride 113 H Carbon Dioxide 21 L BUN 17 Creatinine 0.66 Estimated GFR > 60 BUN/Creatinine Ratio 25.8 H Glucose 131 H Calcium 8.9 Magnesium 1.5 L Total Bilirubin 0.4 AST 23 ALT 18 Alkaline Phosphatase 100 Total Protein 5.6 L Albumin 2.8 L Globulin 2.8 Albumin/Globulin Ratio 1.0 Procalcitonin 39.8 H PFSH Medical History Melanoma (~2019) Depression (~2015) Osteoporosis (~2018) Foot pain (~2019) Carpal tunnel syndrome (~2013) Measles Chicken pox Vertigo Retinal detachment (~2017) Cataracts, bilateral (~2018) Diabetes mellitus (~1989) Healthy adult Surgical History Anesthesia History of removal of cyst (~1978) History of carpal tunnel release (~2013) History of partial thyroidectomy (~1979) History of eye surgery (~2017) History of cataract removal with insertion of prosthetic lens (~2020) Family History Father Cancer Mother Diabetes mellitus Hypertension Brother Diabetes mellitus Brother Diabetes mellitus Family/Other Diabetes mellitus Hypertension Social History household members: none Smoking Status: Never smoker Assessment & Plan Assessment & Plan narrative: 73 F with PMH of DM, HTN, HLD who is admitted with sepsis secondary to COVID and pyelonephritis with gram negative bacteremia. 1. Sepsis with acute metabolic encephalopathy acute respiratory failure with hypoxia secondary to COVID 19 infection and acute pyelonephritis with E. coli bacteremia in setting of ureteral stone. Sepsis now resolved. - continued zosyn for pyelonpehritis and bacteremia but now chnaged to 2g ceftriaxone q24. MRSA swab negative. Patient was given IVF, ceftriaxone and zosyn in the ER. Can stop IV fluids. - rapid resolution of respiratory failure with above therapies, hold further steroids and remdesevir with positive COVID. She was given only one dose of each. - despite markedly elevated dimer with no shortness of breath or hypoxia now, will not persue CT angio chest at this time. If requiring O2 will persue CTA, and will repeat abdominal imaging to rule out worsening obstruction or persistent stone if clinically worsening. - considered echo given appearance of CXR on admission, but not clinically overloaded on exam still and no current symptoms. - Blood cultures positive for E. coli. Narrowed antibiotics as noted above. - urology consulted in the ER, no interventions recommended. With improvement no repeat imaging necessary at this time. With resolution of pain likely passed the stone. - WBC uptrending to 34, however procal decreasing to 16.9 from 86.4. Possibly due to decadron received on 2. DM2 - glucose around 300 on admission, started 10 U lantus, with Sliding scale and continue to adjust. AM glucose 116 today, will continue. - A1c 9.6% - no DKA on admission labs, continue to follow BMP - hold home oral medications for now - discharge home on Lantus, patient had previously needed insulin but was able to come off many years ago. With worsening A1c despite two oral agents discussed with patient and she agrees for need for lantus. Additional follow up with PCP after discharge for continued management of her DM. 3. HTN - held home medications in the setting of above sepsis. BP increasing so added back her home amlodipine. 4. Left hydronephrosis secondary to ureteral calculi - no interventions recommended, management as noted above in #1. 5. HLD - okay to continue home statin, replaced for formulary alternative atorvastatin. 6. Mucocutaneous herpetic lesions, thrush - valtrex 1g BID ordered - diflucan 200mg x7 days Code: Full, surrogate is patient's daughter. Dispo: Likely home in 1-2 days.
[2023-08-11] MEDS: FLUCONAZOLE 100 MG TABLET 200 MG PO (08:49)
[2023-08-11] MEDS: MAGNESIUM SULFATE 4 GM/100 ML PIGGYBACK IV (08:53)
[2023-08-11 09:25] LABS: Procalcitonin 16.9 ng/mL (<0.5)
[2023-08-11] MEDS: INSULIN LISPRO 100 UNIT/ML 3ML VIAL SUBCUT (12:09)
[2023-08-11] MEDS: valACYclovir 500 MG TABLET 1000 MG PO ×2 (16:32→20:25)
[2023-08-11] MEDS: ASPIRIN EC 81 MG TABLET PO (16:32)
[2023-08-11] MEDS: ATORVASTATIN 20 MG TABLET 40 MG PO (20:25)
[2023-08-11] MEDS: SODIUM CHLORIDE 0.9% FLUSH 10 ML IV (20:26)
[2023-08-11] MEDS: INSULIN GLARGINE 100 UNIT/ML 3ML PEN 10 UNIT SUBCUT (20:26)
[2023-08-12] VITALS (20 sets, daily range): BP systolic 140–190; BP diastolic 67–94; PULSE 75–114; RESP 15–24; TEMP 37–37.4; O2SAT 95–100
[2023-08-12 00:55] LABS: Clostridium Difficile Tox PCR Negative for C. diff (Negative)
[2023-08-12 04:34] LABS: BUN Creatinine Ratio 20.3 (6-22); Blood Urea Nitrogen 13 mg/dL (7-17); Carbon Dioxide 24 mmol/L (22-32); Estimated Glomerular Filt Rate > 60 mL/min (>60); Glucose 157 mg/dL (80-110); HEMOLYSIS < 15 (0-50)
[2023-08-12 04:35] LABS: Hematocrit 30.8 % (36-46); Hemoglobin 10.2 g/dL (12.0-16.0); Mean Corpuscular Hemoglobin 27.3 PG (26-34); Mean Corpuscular Volume 82.7 fL (80-100); Platelet Count 209 X10^3/uL (150-400); Red Blood Cell Count 3.72 X10^6/uL (4.0-5.2); Red Cell Distribution Width 15.1 % (11.6-14.8); White Blood Cell Count 24.5 X10^3/uL (4.5-11.0)
[2023-08-12 04:54] LABS: Calcium 9.1 mg/dL (8.4-10.2); Chloride 107 mmol/L (98-107); Potassium 3.7 mmol/L (3.4-5.1); Sodium 136 mmol/L (137-145)
[2023-08-12 05:07] LABS: Add Manual Diff / Slide Review YES
[2023-08-12 05:12] LABS: Procalcitonin 6.32 ng/mL (<0.5)
[2023-08-12 05:20] LABS: Total Cells Counted 100
[2023-08-12 05:21] LABS: Anisocytosis 1+; Ovalocytes 1+
[2023-08-12 05:23] LABS: Magnesium 1.6 mg/dL (1.6-2.3)
[2023-08-12] MEDS: ACETAMINOPHEN 325 MG TABLET 650 MG PO (06:21)
[2023-08-12] MEDS: SODIUM CHLORIDE 0.9% FLUSH 10 ML IV ×2 (07:51→20:52)
[2023-08-12] MEDS: cefTRIAXone 2,000 MG in SODIUM CHLORIDE 0.9% 100 ML 200 MG IV (07:52)
[2023-08-12] MEDS: INSULIN LISPRO 100 UNIT/ML 3ML VIAL SUBCUT ×4 (08:11→20:54)
--- NOTE | 2023-08-12 08:20 | DI.US.S_ITS ---
PROCEDURE: US PERIPH VENOUS LOW EXTREM LT INDICATIONS: POSTERIOR KNEE PAIN TECHNIQUE: Real-time imaging, as well as color and pulse Doppler interrogation, were performed of the lower extremity deep veins from the inguinal ligament to the popliteal fossa, with documentation of the visualized calf veins. COMPARISON: None. FINDINGS: The common femoral, femoral, popliteal, and the visualized calf veins are normally compressible, and free of intraluminal thrombus. Color and pulse Doppler demonstrate normal phasic intraluminal flow. There is normal augmentation response to distal compression maneuver. 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 No findings of lower extremity deep venous thrombosis. Dictated by: Carrie Johansen M.D. on 08/12/2023 at 9:14 Approved by: Carrie Johansen M.D. on 08/12/2023 at 9:15
[2023-08-12] MEDS: PANTOPRAZOLE DR 20 MG TABLET PO (08:52)
[2023-08-12] MEDS: DULOXETINE 30 MG CAPSULE PO (08:52)
[2023-08-12] MEDS: ENOXAPARIN 40 MG/0.4 ML SYRINGE SUBCUT (08:52)
[2023-08-12] MEDS: NYSTATIN SUSP 500,000 UNIT/5 ML UDC 500000 UNIT PO ×3 (08:52→17:02)
[2023-08-12] MEDS: METOPROLOL ER 25 MG TABLET PO (08:52)
[2023-08-12] MEDS: AMLODIPINE 5 MG TABLET PO (09:01)
[2023-08-12] MEDS: valACYclovir 500 MG TABLET 1000 MG PO ×2 (09:01→20:52)
[2023-08-12] MEDS: FLUCONAZOLE 100 MG TABLET 200 MG PO (09:01)
[2023-08-12] MEDS: MAGNESIUM CHLORIDE 64 MG TABLET 128 MG PO (09:35)
[2023-08-12] MEDS: SODIUM CHLORIDE 0.9% 250 ML 21 ML IV (11:53)
--- NOTE | 2023-08-12 13:31 | CM.DANOTE ---
Initial DCP Assessment Note Pt is a 73 yo female, resident of [place], presents with altered mental status and left flank pain. Admitted for management of : Sepsis with acute metabolic encephalopathy acute respiratory failure with hypoxia secondary to COVID 19 infection and acute pyelonephritis with E. coli bacteremia in setting of ureteral stone. Sepsis now resolved. PCP: Beverley Albert Payer: [facility] Reviewed chart, spoke with patient and her two friends/roommates, introduced self and role. Roommates state patient's daughter Aimee lives across the street from patient and works so may not be readily available to assist patient upon discharge. Patient states she is indp at baseline. Difficult to assess patient's needs further as roommates are argumentative with patient, stating patient is not safe to return home. Discussed Home w/ HH vs SNF, reviewed potential barriers to SNF placement which include: COVID+, [employer] insurance, and skilled needs (?) PT eval pending today which will assist this CM team with dispo planning. Plan: Discharge home is anticipated, awaiting PT recs, patient may be a good candidate for HH services- no agency preference. EZRA Steen Discharge Planning/Care Management CM Discharge Assessment Start: 08/12/23 13:23 Freq: Status: Active Protocol: Document 08/12/23 13:23 LACEY (Rec: 08/12/23 13:31 [email or web address] [id number]) Discharge Planning Assessment Assigned City Administrator EZRA Mcclure DPOA/Assigned Designee Name vinny Pagan Contact Information [phone] Advance Directives? No Advance Directives on File No History Provided By Patient,Friend Prior Living Arrangements House Household Members friend(s) Type of transporation used prior to Relies on Others admit Independent with ADL's Yes Is patient alert and oriented? Yes Patient/Family Preference Home with Home Health Barriers to Discharge Yes Comment Roommates/friends at bedside report patient will not have assist upon discharge Discharge Plan Home with Home Health Transportation Arrangement Family or friends Additional Comment PT eval pending
--- NOTE | 2023-08-12 13:40 | PT.IIE ---
Current Diagnoses Sepsis, unspecified organism (08/08/23) Surgical History (Last Reviewed 08/08/23 @ 22:30 by Darrin Watters DO) Anesthesia History of carpal tunnel release (~2013) History of cataract removal with insertion of prosthetic lens (~2020) History of eye surgery (~2017) History of partial thyroidectomy (~1979) History of removal of cyst (~1978) Medical History (Last Reviewed 08/08/23 @ 22:30 by Darrin Watters DO) Carpal tunnel syndrome (~2013) Cataracts, bilateral (~2018) Chicken pox Depression (~2015) Diabetes mellitus (~1989) Foot pain (~2019) Healthy adult Measles Melanoma (~2019) Osteoporosis (~2018) Retinal detachment (~2017) Vertigo Physical Therapy Inpatient Evaluation/Re-Eval M1 PT/OT-IP Prior Functional Status Start: 08/12/23 14:38 Freq: NEEDED Status: Active Protocol: Document 08/12/23 13:40 AB (Rec: 08/12/23 14:54 [email or web address]) Medical Review Prior Functional Status Medical History Reviewed Yes Communication able to make needs known Mobility and Gait pt stated that she was modified independent with all mobilities and ambulation without AD but occasionally uses a SPC when she gets dizzy per pt Social History Household Members none Living Arrangements House Number of Floors (Floors) One Floor Number of Stairs To Enter/Railing? 2 steps without rails to porch + 3 steps R rail ascending to enter the house Home Environment Standard Height Toilet,Tub/ Shower Home Equipment Four Wheel Walker,Straight Cane,Shower Seat without Backrest,Grab Bars In Shower Additional Social History Comment pt lives alone but stated that her daughter and grandson lives next door. Daughter works but grandson will be able to come in the morning to assist pt but will go home at night M2 PT-IP Current Condition Start: 08/12/23 14:38 Freq: NEEDED Status: Active Protocol: Document 08/12/23 13:40 AB (Rec: 08/12/23 14:54 AB [email or web address]) Physical Therapy Current Condition Current Condition Evaluation Date 08/12/23 Treatment Diagnosis sepsis; Covid; difficulty in walking Onset Date 08/08/23 M3 PT-IP Subjective Start: 08/12/23 14:38 Freq: NEEDED Status: Active Protocol: Document 08/12/23 13:40 AB (Rec: 08/12/23 14:54 AB [id number]) Subjective Physical Therapy Visit Type Type Initial Evaluation Visit Start Time 13:40 Visit Stop Time 14:33 Total Visit Minutes 53 Number of PROFESSOR OF [employer]OL[employer] Visits 0 Physical Therapy Visit Comments Patient Comments agreeable to do PT M4 PT-IP Mobility and Gait Start: 08/12/23 14:38 Freq: NEEDED Status: Active Protocol: Document 08/12/23 13:40 AB (Rec: 08/12/23 14:54 AB [id number]) PT-Bed Mobility Assessment Supine to Sit Supine to Sit Standby Assistance,Bedrails Sit to Supine Sit to Supine Standby Assistance,Bedrails PT-Transfer Assessment Sit to and From Stand Sit to and from Stand Contact Guard Assistance,1 Person Assistance,Use of Upper Extremities Equipment Transfer Assistive Device Gait Belt,Front Wheeled Walker Orthotic/Prosthetic Devices or Brace: No Transfers Transfer Destination Bed,Chair Transfer Technique Stand Step Pivot Transfer Ability Level of Assist Contact Guard Assistance, Minimal Assistance,1 Person Assistance,Use of Upper Extremities Comments Mobility Comments pt sitting on the chair. agreeable to do PT. O2 sat at RA: 97-100%. CA: 106. pt completed sit to stand CGA and step transfer to EOB SBA using FWW. completed sit<> supine SBA using bed rail and presents with difficulty completing task. O2 sat: 97% pt agreed to do more ambulation in room and completed ~ 75 ft using FWW CGA to min A and cues for safety. (+) LOB during turning requiring min A. pt presents with an antalgic gait with increase forward trunk lean and lateral lean to the R . CA after ambulation sitting on the chair: 131 O2 sat: 100% . pt sat back on the chair. positioned on the chair. call light and table placed within reach. informed nurse regarding CA and mobility. Gait Assessment Gait Gait Assistance Required: Contact Guard Assist,Minimum Assistance Distance (Feet) 75 Able to Maintain Weight Bearing Status Yes During Gait Assistive Devices Assistive Device Gait Belt,Front Wheeled Walker Orthotic/Prosthetic Devices or Brace: No Gait Deviations General Gait Pattern Antalgic,Decreased Stride Length,Decreased Feet Clearance,Flexed Trunk,Lateral Trunk Lean,Step-to Gait Factors Limiting Gait Function Factors Limiting Gait Function Decreased Activity Tolerance, Decreased Strength,Poor Balance,Poor Safety Awareness, Respiratory Distress PT-Balance Assessment Sitting Balance and Reactions Static Sitting Balance Ability Good Dynamic Sitting Balance Ability Good Standing Balance and Reactions Static Standing Balance Ability Fair Dynamic Standing Balance Ability Poor Device Used FWW M5 PT-IP Objective Assessments Start: 08/12/23 14:38 Freq: NEEDED Status: Active Protocol: Document 08/12/23 13:40 AB (Rec: 08/12/23 14:54 AB [id number]) Orientation Orientation/Cognition Level of Alertness Alert Orientation Name,Place,Situation Language Function Ability No Deficits Noted Safety Awareness Decreased Safety Awareness Memory Description No Deficits Noted Gross Range of Motion Lower Extremity ROM Assessment Within Functional Limits Strength Lower Extremity Strength Assessment Left Impaired Hip 3+/5 Knee 3+/5 Muscle Tone Muscle Tone WNL Yes M6 PT-IP Treatment Start: 08/12/23 14:38 Freq: NEEDED Status: Active Protocol: Document 08/12/23 13:40 AB (Rec: 08/12/23 14:54 AB [id number]) Physical Therapy Treatment Education Education Provided Safety M7 PT-IP Assessment and Plan Start: 08/12/23 14:38 Freq: NEEDED Status: Active Protocol: Document 08/12/23 13:40 AB (Rec: 08/12/23 14:54 AB [id number]) PT Summary Assessment and Plan Potential Rehabilitation Potential Fair Status of Condition at Evaluation Evolving Summary Impairments Pain,ROM,Strength,Balance, Coordination,Sensation,Tone, Cognition,Bed Mobility, Transfers,Gait,Activity Tolerance Assessment Summary pt is a 73 y/o F whoc presents to the ED with c/o L flank pain and AMS. pt admitted for sepsis, UTI, acute metabolic encephalopathy and also found to be COVID (+). pt requiring CGA to min A with ambulation using FWW. pt lives alone but stated that her grandson will be able to stay with her in the morning to assist. Caregiver training will be conducted and pt needs to complete stair climbing training prior to d/c. will continue to assess progress. pt will also benefit from HHPT . Goals Bed Mobility Goal Independent Transfer Goal Independent,Front Wheeled Walker Gait Goal Independent,Front Wheel Walker Gait Distance 200 Other Goals improve ambulation using LRAD/ without AD 250 ft mod I up/down 2 steps without rails + 3 steps R rail ascending SBA Days to Meet Goals 10 Frequency of Treatment Frequency Of Treatment Once a Day Treatment Plan Physical Therapy Treatment Plan Bed Mobility Training,Transfer Training,Gait Training, Therapeutic Exercise,Balance Retraining,Discharge Planning, Hot or Cold Pack,Neuromuscular Re-ed,Coordination Retraining Other Recommendations and Next Treatment ambulation using 4WW; up/down Focus steps Precautions Other Precautions Covid (+), CA, falls Recommendations To Nursing Amount of Assist Needed 1 Person Assist Discharge Recommendations PT Discharge Recommendations Home with / Assist Available,Home Health,SNF Rehab,Home vs SNF Equipment Needed for Home Before FWW if not safe with 4WW Discharge Transportation Needs at Discharge Private Vehicle,Wheelchair/ Cabulance
--- NOTE | 2023-08-12 14:47 | P.PN_ITS ---
Subjective Subjective Interval history: Patient still not feeling great. Very tired. Says lip lesions have improved some. WBC now improving to 24 and procal down to 6.32. PT/OT ordered to get patient out of bed. Exam Vital Signs (past 8 hours): - 08/12/23 07:24 08/12/23 07:24 08/12/23 07:29 Pulse Rate 75 Respiratory Rate 16 Blood Pressure 165/91 H Pulse Oximetry 95 Oxygen Delivery Method Room Air 08/12/23 08:00 08/12/23 08:52 08/12/23 08:59 Pulse Rate 82 82 Respiratory Rate 19 Blood Pressure 160/93 H 160/93 H Pulse Oximetry 97 Oxygen Delivery Method 08/12/23 08:59 08/12/23 09:23 08/12/23 09:26 Pulse Rate 83 80 82 Respiratory Rate 17 15 Blood Pressure 179/75 H Pulse Oximetry 97 98 Oxygen Delivery Method 08/12/23 09:26 08/12/23 09:29 08/12/23 09:29 Pulse Rate 79 Respiratory Rate 16 Blood Pressure 190/94 H 179/85 H Pulse Oximetry 98 Oxygen Delivery Method 08/12/23 10:00 08/12/23 12:00 08/12/23 14:00 Pulse Rate 88 86 114 H Respiratory Rate 24 18 19 Blood Pressure 179/75 H Pulse Oximetry 97 96 Oxygen Delivery Method Fraction of Inspired Oxygen 21 SaO2/FiO2 Ratio 447 Oxygen Delivery Method Room Air Oxygen Flow Rate 0 Narrative Exam Narrative: General:? Patient is well developed and well nourished, but mildly ill appearing. no distress at this time. HEENT:? Normocephalic, atraumatic, extraocular muscles intact, herpetic lesions in bilateral nares and right upper lip Neck: supple and symmetric, trachea is midline, no cervical adenopathy. Negative for JVD Chest:? Normal AP diameter and contour without kyphoscoliosis, no tachypnea, equal chest rise bilaterally. Lungs:? CTA b/l no wheezing rhonchi or rales. Cardio: regular, no murmurs rubs or gallops Abdomen: S NT ND Musculoskeletal:? Muscle strength and tone are equal within normal limits, no deformity. Extremities: No edema or joint effusions. No cyanosis or clubbing. Skin:? Pale,? Warm to touch,dry and intact without rashes, ulcerations or petechiae.? Neuro:? Alert and orientated to name, location.No focal deficits Objective Labs 08/12/23 04:15 08/12/23 04:15 Labs: Laboratory Results - last 24 hr 08/10/23 08/12/23 09:33 04:15 WBC 24.5 H RBC 3.72 L Hgb 10.2 L Hct 30.8 L MCV 82.7 MCH 27.3 MCHC 33.0 RDW 15.1 H Plt Count 209 Neut % (Auto) Not Reportable Lymph % (Auto) Not Reportable [place] % (Auto) Not Reportable Eos % (Auto) Not Reportable Baso % (Auto) Not Reportable Lymph # (Auto) Not Reportable [place] # (Auto) Not Reportable Baso # (Auto) Not Reportable Total Counted 100 Seg Neutrophils % 94.0 H Monocytes % (Manual) 2.0 Eosinophils % (Manual) 4.0 Neutrophils # (Manual) 99136 H RBC Morphology See below Anisocytosis 1+ H Ovalocytes 1+ H Sodium 136 L Potassium 3.7 Chloride 107 Carbon Dioxide 24 BUN 13 Creatinine 0.64 Estimated GFR > 60 BUN/Creatinine Ratio 20.3 Glucose 157 H Calcium 9.1 Magnesium 1.6 Procalcitonin 6.32 H C. difficile Tox (PCR) Negative for c. diff [facility] Medical History Melanoma (~2019) Depression (~2015) Osteoporosis (~2018) Foot pain (~2019) Carpal tunnel syndrome (~2013) Measles Chicken pox Vertigo Retinal detachment (~2017) Cataracts, bilateral (~2018) Diabetes mellitus (~1989) Healthy adult Surgical History Anesthesia History of removal of cyst (~1978) History of carpal tunnel release (~2013) History of partial thyroidectomy (~1979) History of eye surgery (~2017) History of cataract removal with insertion of prosthetic lens (~2020) Family History Father Cancer Mother Diabetes mellitus Hypertension Brother Diabetes mellitus Brother Diabetes mellitus Family/Other Diabetes mellitus Hypertension Social History household members: friend(s) Smoking Status: Never smoker Assessment & Plan Assessment & Plan narrative: 73 F with PMH of DM, HTN, HLD who is admitted with sepsis secondary to COVID and pyelonephritis with gram negative bacteremia. 1. Sepsis with acute metabolic encephalopathy acute respiratory failure with hypoxia secondary to COVID 19 infection and acute pyelonephritis with E. coli bacteremia in setting of ureteral stone. Sepsis now resolved. - continued zosyn for pyelonpehritis and bacteremia but now chnaged to 2g ceftriaxone q24. MRSA swab negative. Patient was given IVF, ceftriaxone and zosyn in the ER. Can stop IV fluids. - rapid resolution of respiratory failure with above therapies, hold further steroids and remdesevir with positive COVID. She was given only one dose of each. - despite markedly elevated dimer with no shortness of breath or hypoxia now, will not persue CT angio chest at this time. If requiring O2 will persue CTA, and will repeat abdominal imaging to rule out worsening obstruction or persistent stone if clinically worsening. - considered echo given appearance of CXR on admission, but not clinically overloaded on exam still and no current symptoms. - Blood cultures positive for E. coli. Narrowed antibiotics as noted above. - urology consulted in the ER, no interventions recommended. With improvement no repeat imaging necessary at this time. With resolution of pain likely passed the stone. - WBC uptrending to 34, however procal decreasing to 16.9 from 86.4. Possibly due to decadron received on admission. - WBC now downtrending to 24 and procal down to 6.32 2. DM2 - glucose around 300 on admission, started 10 U lantus, with Sliding scale and continue to adjust. AM glucose 116 today, will continue. - A1c 9.6% - no DKA on admission labs, continue to follow BMP - hold home oral medications for now - discharge home on Lantus, patient had previously needed insulin but was able to come off many years ago. With worsening A1c despite two oral agents discussed with patient and she agrees for need for lantus. Additional follow up with PCP after discharge for continued management of her DM. 3. HTN - held home medications in the setting of above sepsis. BP increasing so added back her home amlodipine. 4. Left hydronephrosis secondary to ureteral calculi - no interventions recommended, management as noted above in #1. 5. HLD - okay to continue home statin, replaced for formulary alternative atorvastatin. 6. Mucocutaneous herpetic lesions, thrush - valtrex 1g BID ordered - diflucan 200mg x7 days Code: Full, surrogate is patient's daughter. Dispo: Likely home on 08/13.
--- NOTE | 2023-08-12 15:30 | OT.IP.EVAL ---
Addendum entered and electronically signed by Danae Zamora OT 08/12/23 15:56: esign Original Note: Current Diagnoses Sepsis, unspecified organism (08/08/23) Past Medical History (Last Reviewed 08/08/23 @ 22:30 by Darrin Watters DO) Carpal tunnel syndrome (~2013) Cataracts, bilateral (~2018) Chicken pox Depression (~2015) Diabetes mellitus (~1989) Foot pain (~2019) Healthy adult Measles Melanoma (~2019) Osteoporosis (~2018) Retinal detachment (~2017) Vertigo Surgical History (Last Reviewed 08/08/23 @ 22:30 by Darrin Watters DO) Anesthesia History of carpal tunnel release (~2013) History of cataract removal with insertion of prosthetic lens (~2020) History of eye surgery (~2017) History of partial thyroidectomy (~1979) History of removal of cyst (~1978) Occupational Therapy Inpatient Evaluation/Re-Eval M1 PT/OT-IP Prior Functional Status Start: 08/12/23 15:36 Freq: NEEDED Status: Active Protocol: Document 08/12/23 15:37 [facility] (Rec: 08/12/23 15:51 [facility] [id number]) Medical Review Prior Functional Status Medical History Reviewed Yes Communication able to make needs known Mobility and Gait pt stated that she was modified independent with all mobilities and ambulation without AD but occasionally uses a SPC when she gets dizzy per pt Activities of Daily Living and IADL's Pt able ot do all ADL and IADL needs. Social History Household Members none Living Arrangements House Number of Floors (Floors) One Floor Number of Stairs To Enter/Railing? 2 steps without rails to porch + 3 steps R rail ascending to enter the house Home Environment Standard Height Toilet,Tub/ Shower Home Equipment Four Wheel Walker,Straight Cane,Shower Seat without Backrest,Grab Bars In Shower Additional Social History Comment pt lives alone but stated that her daughter and grandson lives next door. Daughter works but grandson will be able to come in the morning to assist pt but will go home at night M2 OT-IP Current Condition Start: 08/12/23 15:36 Freq: Status: Active Protocol: Document 08/12/23 15:37 [facility] (Rec: 08/12/23 15:51 [facility] [id number]) Occupational Therapy Current Condition Current Condition Evaluation Date 08/12/23 Treatment Diagnosis COVID+, sepsis, acute metabolic encephalopathy M3 OT- IP Subjective and Pain Start: 08/12/23 15:36 Freq: Status: Active Protocol: Document 08/12/23 15:37 [facility] (Rec: 08/12/23 15:51 [facility] [id number]) OT- Subjective Occupational Therapy Visit Type Type Initial Evaluation Visit Start Time 15:04 Visit Stop Time 15:30 Total Visit Minutes 26 Occupational Therapy Visit Comments Patient Comments Pt agreed to get up to work with OT. Patient/Caregiver Goals TO go home. OT Pain Assessment Pain When Pain Assessed At Rest Pain Present Pain Present Pain Reported M4 OT- IP ADL's Start: 08/12/23 15:36 Freq: Status: Active Protocol: Document 08/12/23 15:37 [facility] (Rec: 08/12/23 15:51 [facility] [id number]) OT [id number] General Evaluation Self-Feeding Ability Independent OT ADL-Grooming Comments OT Grooming Comments Pt states did earlier. OT ADL-Oral Care Comments Oral Care Comments Pt states did earlier. OT ADL-Dressing General Eval Lower Body Dressing Ability Standby Assistance Comments OT Dressing Comments Pt able to romi/doff her socks ,needing increased time for left sock. OT ADL-Toileting Comments OT Toileting Comments Pt states did earlier. Suggested use of a BSC but pt feel that she will be fine just to walk to the bathroom at night. OT ADL-Bathing Comments OT Bathing Comments Pt states showered earlier and aware to have her daughter present to assist at home due to her decreased dynamic balance. M5 OT- IP IADL's Start: 08/12/23 15:36 Freq: Status: Active Protocol: Document 08/12/23 15:37 [facility] (Rec: 08/12/23 15:51 [facility] [id number]) OT-Instrumental Activities of Daily Living Deficits IADL Deficits Identified Deficits Home Safety Awareness Awareness of Need for Assistance at Home Good Awareness Ability to Problem Solve Emergency Able to Problem Solve Situations Meal Preparation Meal Preparation Caregiver Provides Assist Civil Cadd Technician Civil Cadd Technician Caregiver Provides Assist Driving Driving Comments Pt states will not drive at this time. M6 OT- IP Functional Cognition Start: 08/12/23 15:36 Freq: Status: Active Protocol: Document 08/12/23 15:37 [facility] (Rec: 08/12/23 15:51 [facility] [id number]) Cognitive Factors Limiting Selfcare Function Cognitive Ability Level of Alertness Alert Patient Orientation Name,Age,Birthday,Month,Date, Year,Day of Week,Place, Situation Attention Span Ability Capable of Focused Attention, Capable of Sustained Attention Ability to Follow Commands Able to Follow One Step Commands Memory Description Short Term Impaired Cognitive Tests SLUMS Pt scored 24/30 which implies mild neurocognitive deficits. Pt able to recall 12 animal in one minute, able to recall 4 objects after time passed, and not able to draw the hour hands correctly after time given and able to answer 3/4 questions after paragraph read . Pt still feel not back to her baseline for cognitive needs. Cognitive Comments Cognitive Assessment Comments Pt is aware that she is still not 100% for thinking and physically but much better than yesterday. Pt states her grandson can stay with her during the day and daughter after work. OT- Vision and Hearing OT- Hearing Assessment OT- Hearing Assessment WFL OT- Vision Assessment Visual Acuity Glasses All The Time Visual Attentiveness WFL Occular Pursuits WFL M7 OT- IP Mobility and Balance Start: 08/12/23 15:36 Freq: Status: Active Protocol: Document 08/12/23 15:37 [facility] (Rec: 08/12/23 15:51 [facility] [id number]) OT-Transfer Assessment Sit to and From Stand Sit to and from Stand Minimal Assistance Comments Mobility Comments DIMITRIOS to stand without a device due to decreased dynamic balance. Pt may consider to get a FWW or just use the 4ww at home pending how she progresses. OT- Balance Assessment Sitting Balance and Reactions Static Sitting Balance Ability Normal Dynamic Sitting Balance Ability Good Standing Balance and Reactions Static Standing Balance Ability Fair Dynamic Standing Balance Ability Poor M8 OT- IP Objective Assessments Start: 08/12/23 15:36 Freq: Status: Active Protocol: Document 08/12/23 15:37 [facility] (Rec: 08/12/23 15:51 [facility] [id number]) OT Gross Range of Motion Upper Extremity Range of Motion Assessment Within Functional Limits OT Strength Upper Extremity Strength Assessment Within Functional Limits OT- Coordination Assessment Upper Extremity Finger to Nose Test Within Functional Limits M9 OT- IP Assessment and Plan Start: 08/12/23 15:36 Freq: Status: Active Protocol: Document 08/12/23 15:37 [facility] (Rec: 08/12/23 15:51 [facility] [id number]) OT Summary Assessment and Plan Potential Rehabilitation Potential Good Analytic Complexity at Evaluation Moderate Summary OT Impairments Pain,Balance,Functional Mobility,Dressing,Toileting, Bathing,Toilet Transfers, Shower Transfers,Activity Tolerance Progress Towards Goals Progressing Toward Goals,Slow Progress due to Medical Issues Assessment Summary Pt MOD complexity and main barriers are pain,decreased activity tolerance, and needing use of FWW for mobility at this time. Pt to go home with 24/ available assist and home health. Goals Self-Feeding Goal Independent Grooming Goal Independent,Moderate Assistance Toileting Goal Independent Bathing Goal Independent Toilet Transfer Goal Independent Shower Transfer Goal Independent Days to Meet Goals 7 Frequency of Treatment Frequency Of Treatment Once a Day Treatment Plan OT Treatment Plan ADL Training,Functional Mobility,Patient/Family Education,Discharge Planning Discharge Recommendations OT Discharge Recommendations Home with 24/ Assist Available,Home Health Home Equipment Needs FWW Transportation Needs at Discharge Private Vehicle
[2023-08-12] MEDS: ASPIRIN EC 81 MG TABLET PO (17:02)
[2023-08-12] MEDS: ATORVASTATIN 20 MG TABLET 40 MG PO (20:52)
[2023-08-12] MEDS: INSULIN GLARGINE 100 UNIT/ML 3ML PEN 10 UNIT SUBCUT (20:54)
[2023-08-13] VITALS (16 sets, daily range): BP systolic 131–169; BP diastolic 67–84; PULSE 74–108; RESP 13–23; TEMP 36.1–37.9; O2SAT 92–99
[2023-08-13 05:13] LABS: Hemoglobin 10.6 g/dL (12.0-16.0); Mean Corpuscular HGB Conc 33.3 % (30-36); Mean Corpuscular Hemoglobin 26.9 PG (26-34); Platelet Count 218 X10^3/uL (150-400); Red Blood Cell Count 3.95 X10^6/uL (4.0-5.2); Red Cell Distribution Width 15.1 % (11.6-14.8); White Blood Cell Count 15.2 X10^3/uL (4.5-11.0)
[2023-08-13 05:16] LABS: Add Manual Diff / Slide Review YES
[2023-08-13 05:18] LABS: BUN Creatinine Ratio 19.7 (6-22); Blood Urea Nitrogen 13 mg/dL (7-17); Calcium 9.5 mg/dL (8.4-10.2); Carbon Dioxide 24 mmol/L (22-32); Chloride 106 mmol/L (98-107); Estimated Glomerular Filt Rate > 60 mL/min (>60); Glucose 166 mg/dL (80-110); HEMOLYSIS < 15 (0-50); Potassium 3.5 mmol/L (3.4-5.1); Sodium 138 mmol/L (137-145)
[2023-08-13 05:19] LABS: Magnesium 1.5 mg/dL (1.6-2.3)
[2023-08-13 05:35] LABS: Neutrophils Absolute Manual 11552 /uL (3000-5900); Procalcitonin 2.83 ng/mL (<0.5); Total Cells Counted 100
[2023-08-13 05:37] LABS: RBC Morphology Normal Morphology
[2023-08-13] MEDS: MAGNESIUM CHLORIDE 64 MG TABLET 128 MG PO (07:46)
[2023-08-13] MEDS: cefTRIAXone 2,000 MG in SODIUM CHLORIDE 0.9% 100 ML 200 MG IV (07:47)
[2023-08-13] MEDS: POTASSIUM CHLORIDE 20 MEQ TAB 40 MEQ PO (07:47)
[2023-08-13] MEDS: INSULIN LISPRO 100 UNIT/ML 3ML VIAL SUBCUT ×4 (08:10→20:35)
[2023-08-13] MEDS: NYSTATIN SUSP 500,000 UNIT/5 ML UDC 500000 UNIT PO ×4 (08:48→20:25)
[2023-08-13] MEDS: ENOXAPARIN 40 MG/0.4 ML SYRINGE SUBCUT (08:48)
[2023-08-13] MEDS: FLUCONAZOLE 100 MG TABLET 200 MG PO (08:48)
[2023-08-13] MEDS: DULOXETINE 30 MG CAPSULE PO (08:49)
[2023-08-13] MEDS: valACYclovir 500 MG TABLET 1000 MG PO ×2 (08:49→20:24)
[2023-08-13] MEDS: AMLODIPINE 5 MG TABLET PO (08:49)
[2023-08-13] MEDS: PANTOPRAZOLE DR 20 MG TABLET PO (08:49)
[2023-08-13] MEDS: METOPROLOL ER 25 MG TABLET PO (08:53)
[2023-08-13] MEDS: SODIUM CHLORIDE 0.9% FLUSH 10 ML IV ×2 (08:54→20:26)
[2023-08-13] MEDS: MAGNESIUM SULFATE 4 GM/100 ML PIGGYBACK IV (09:18)
[2023-08-13] MEDS: ACETAMINOPHEN 325 MG TABLET 650 MG PO (09:32)
[2023-08-13] MEDS: LOSARTAN 50 MG TABLET 100 MG PO (10:28)
[2023-08-13] MEDS: hydroCHLOROthiazide 25 MG TABLET 12.5 MG PO (10:29)
--- NOTE | 2023-08-13 10:45 | PT.IPTN ---
Current Diagnoses Sepsis, unspecified organism (08/08/23) Physical Therapy Treatment Note M2 PT-IP Current Condition Start: 08/12/23 14:38 Freq: NEEDED Status: Active Protocol: Document 08/12/23 13:40 AB (Rec: 08/12/23 14:54 AB [id number]) Physical Therapy Current Condition Current Condition Evaluation Date 08/12/23 Treatment Diagnosis sepsis; Covid; difficulty in walking Onset Date 08/08/23 M3 PT-IP Subjective Start: 08/12/23 14:38 Freq: NEEDED Status: Active Protocol: Document 08/13/23 11:11 TS (Rec: 08/13/23 11:33 TS [id number]) Subjective Physical Therapy Visit Type Type Treatment Note Visit Start Time 10:45 Visit Stop Time 11:10 Total Visit Minutes 25 Number of FLOOR PRESS OPERATOR Visits 1 Physical Therapy Visit Comments Patient Comments Pt found resting in bed, is having some pain in her knees this morning and feels weak. Pt is agreeable to PT. M4 PT-IP Mobility and Gait Start: 08/12/23 14:38 Freq: NEEDED Status: Active Protocol: Document 08/13/23 11:11 TS (Rec: 08/13/23 11:33 TS [id number]) PT-Bed Mobility Assessment Supine to Sit Supine to Sit Standby Assistance,Bedrails Sit to Supine Sit to Supine Standby Assistance,Bedrails Scooting Scooting to Edge of Bed Standby Assistance PT-Transfer Assessment Sit to and From Stand Sit to and from Stand Standby Assistance,Use of Upper Extremities Equipment Transfer Assistive Device Gait Belt,Front Wheeled Walker Orthotic/Prosthetic Devices or Brace: No Comments Mobility Comments Pt found resting in bed, agreeable to PT. Supine to sit HOB elevated SBA with BUE support. Sit to stand SBA with FWW, has good standing balance with no retroleaning. She ambulated ~80' in room SBA with step thru gait, is slightly unsteady with gait and reports general weakness in LEs. Pt feeling fatigued, requested to sit in chair. Stand to sit into chair SBA with BUE support on arms on chair. She was left in chair, all needs met, RN notified. Gait Assessment Gait Gait Assistance Required: Standby Assistance Distance (Feet) 80 Able to Maintain Weight Bearing Status Yes During Gait Assistive Devices Assistive Device Gait Belt,Front Wheeled Walker Orthotic/Prosthetic Devices or Brace: No Gait Deviations General Gait Pattern Antalgic,Decreased Stride Length,Decreased Feet Clearance,Flexed Trunk,Step-to Gait Factors Limiting Gait Function Factors Limiting Gait Function Decreased Activity Tolerance, Decreased Strength,Poor Balance,Poor Safety Awareness Comments Gait Comments See mobility comments PT-Balance Assessment Sitting Balance and Reactions Static Sitting Balance Ability Good Dynamic Sitting Balance Ability Good Standing Balance and Reactions Static Standing Balance Ability Good Dynamic Standing Balance Ability Fair Device Used FWW M5 PT-IP Objective Assessments Start: 08/12/23 14:38 Freq: NEEDED Status: Active Protocol: Document 08/12/23 13:40 AB (Rec: 08/12/23 14:54 AB [id number]) Orientation Orientation/Cognition Level of Alertness Alert Orientation Name,Place,Situation Language Function Ability No Deficits Noted Safety Awareness Decreased Safety Awareness Memory Description No Deficits Noted Gross Range of Motion Lower Extremity ROM Assessment Within Functional Limits Strength Lower Extremity Strength Assessment Left Impaired Hip 3+/5 Knee 3+/5 Muscle Tone Muscle Tone WNL Yes M6 PT-IP Treatment Start: 08/12/23 14:38 Freq: NEEDED Status: Active Protocol: Document 08/13/23 11:11 TS (Rec: 08/13/23 11:33 TS [id number]) Physical Therapy Treatment Education Education Provided Safety M7 PT-IP Assessment and Plan Start: 08/12/23 14:38 Freq: NEEDED Status: Active Protocol: Document 08/13/23 11:11 TS (Rec: 08/13/23 11:33 TS [id number]) PT Summary Assessment and Plan Potential Rehabilitation Potential Fair Summary Impairments Pain,ROM,Strength,Balance, Coordination,Sensation,Tone, Cognition,Bed Mobility, Transfers,Gait,Activity Tolerance Progress Towards Goals Progressing Toward Goals Assessment Summary Tori is progress well with her mobility. She is SBA for all bed mobility with HOB elevated. She performed sit to stand with FWW, has good standing balance with no retroleaning. She ambulated ~ 80' SBA with FWW, she is slightly unsteady with gait due to weakness in LEs. PT continues to recommend home vs SNF at this time. Pt could benefit from SNF for continued skilled therapy to improve overall strength and activity tolerance before d/c home where pt lives alone. Pt would require 24/7 assist at this time. Goals Bed Mobility Goal Independent Transfer Goal Independent,Front Wheeled Walker Gait Goal Independent,Front Wheel Walker Gait Distance 200 Other Goals improve ambulation using LRAD/ without AD 250 ft mod I up/down 2 steps without rails + 3 steps R rail ascending SBA Days to Meet Goals 10 Frequency of Treatment Frequency Of Treatment Once a Day Treatment Plan Physical Therapy Treatment Plan Bed Mobility Training,Transfer Training,Gait Training, Therapeutic Exercise,Balance Retraining,Discharge Planning, Hot or Cold Pack,Neuromuscular Re-ed,Coordination Retraining Other Recommendations and Next Treatment ambulation using 4WW; up/down Focus steps Precautions Other Precautions Covid (+), [place], falls Recommendations To Nursing Amount of Assist Needed 1 Person Assist Discharge Recommendations PT Discharge Recommendations Home with 18/04 Assist Available,Home Health,SNF Rehab,Home vs SNF Equipment Needed for Home Before FWW if not safe with 4WW Discharge Transportation Needs at Discharge Private Vehicle,Wheelchair/ Cabulance
[2023-08-13] MEDS: KETOROLAC 30 MG/ML VIAL IV (12:59)
--- NOTE | 2023-08-13 14:36 | CM.DPC ---
DCP Cont. Reviewed EMR and team rounds for status updates. Called pt's dtr and met with pt. They both prefer SNF rehab rather than HH. Faxed clinicals to [facility]. Joselito at will try to initiate [employer] auth today, but no result is expected until Tuesday for hearing back. D/C probable Tuesday pending bed availability at and [employer] auth in place. No PASSAR completed yet.
--- NOTE | 2023-08-13 15:23 | PM.PN.1 ---
Subjective Subjective Interval history: Patient having increased bilateral knee pain today. Nose and lips lesions are improving. WBC downtrending more. Requesting SNF. Exam Vital Signs (past 8 hours): - 08/13/23 07:51 08/13/23 08:53 08/13/23 09:30 Temperature 100.2 F H Pulse Rate 108 H 95 H 96 H Respiratory Rate 22 Blood Pressure 159/74 H 169/84 H 158/76 H Pulse Oximetry 94 Oxygen Flow Rate 0 08/13/23 09:32 08/13/23 09:37 08/13/23 10:28 Temperature 98.8 F 98.8 F Pulse Rate 96 H 81 Respiratory Rate 20 Blood Pressure 158/78 H 158/76 H Pulse Oximetry 94 Oxygen Flow Rate 0 08/13/23 11:37 Temperature 98.6 F Pulse Rate 94 H Respiratory Rate 20 Blood Pressure 149/73 H Pulse Oximetry 94 Oxygen Flow Rate 0 Fraction of Inspired Oxygen 21 SaO2/FiO2 Ratio 447 Oxygen Delivery Method Room Air Oxygen Flow Rate 0 Narrative Exam Narrative: General:? Patient is well developed and well nourished, but mildly ill appearing. no distress at this time. HEENT:? Normocephalic, atraumatic, extraocular muscles intact, herpetic lesions in bilateral nares and right upper lip Neck: supple and symmetric, trachea is midline, no cervical adenopathy. Negative for JVD Chest:? Normal AP diameter and contour without kyphoscoliosis, no tachypnea, equal chest rise bilaterally. Lungs:? CTA b/l no wheezing rhonchi or rales. Cardio: regular, no murmurs rubs or gallops Abdomen: S NT ND Musculoskeletal:? Muscle strength and tone are equal within normal limits, no deformity. Extremities: No edema or joint effusions. No cyanosis or clubbing. Skin:? Pale,? Warm to touch,dry and intact without rashes, ulcerations or petechiae.? Neuro:? Alert and orientated to name, location.No focal deficits Objective Labs 08/13/23 04:50 08/13/23 04:50 Labs: Laboratory Results - last 24 hr 08/13/23 04:50 WBC 15.2 H RBC 3.95 L Hgb 10.6 L Hct 32.0 L MCV 81.0 MCH 26.9 MCHC 33.3 RDW 15.1 H Plt Count 218 Neut % (Auto) Not Reportable Lymph % (Auto) Not Reportable [place] % (Auto) Not Reportable Eos % (Auto) Not Reportable Baso % (Auto) Not Reportable Lymph # (Auto) Not Reportable [place] # (Auto) Not Reportable Baso # (Auto) Not Reportable Total Counted 100 Seg Neutrophils % 76.0 H Lymphocytes % (Manual) 8.0 L Monocytes % (Manual) 7.0 Eosinophils % (Manual) 6.0 H Basophils % (Manual) 3.0 H Neutrophils # (Manual) 79643 H RBC Morphology Normal morphology Sodium 138 Potassium 3.5 Chloride 106 Carbon Dioxide 24 BUN 13 Creatinine 0.66 Estimated GFR > 60 BUN/Creatinine Ratio 19.7 Glucose 166 H Calcium 9.5 Magnesium 1.5 L Procalcitonin 2.83 H PFSH Medical History Melanoma (~2019) Depression (~2015) Osteoporosis (~2018) Foot pain (~2019) Carpal tunnel syndrome (~2013) Measles Chicken pox Vertigo Retinal detachment (~2017) Cataracts, bilateral (~2018) Diabetes mellitus (~1989) Healthy adult Surgical History Anesthesia History of removal of cyst (~1978) History of carpal tunnel release (~2013) History of partial thyroidectomy (~1979) History of eye surgery (~2017) History of cataract removal with insertion of prosthetic lens (~2020) Family History Father Cancer Mother Diabetes mellitus Hypertension Brother Diabetes mellitus Brother Diabetes mellitus Family/Other Diabetes mellitus Hypertension Social History household members: none Smoking Status: Never smoker Assessment & Plan Assessment & Plan narrative: 73 F with PMH of DM, HTN, HLD who is admitted with sepsis secondary to COVID and pyelonephritis with gram negative bacteremia. 1. Sepsis with acute metabolic encephalopathy acute respiratory failure with hypoxia secondary to COVID 19 infection and acute pyelonephritis with E. coli bacteremia in setting of ureteral stone. Sepsis now resolved. - continued zosyn for pyelonpehritis and bacteremia but now chnaged to 2g ceftriaxone q24. MRSA swab negative. Patient was given IVF, ceftriaxone and zosyn in the ER. Can stop IV fluids. - rapid resolution of respiratory failure with above therapies, hold further steroids and remdesevir with positive COVID. She was given only one dose of each. - despite markedly elevated dimer with no shortness of breath or hypoxia now, will not persue CT angio chest at this time. If requiring O2 will persue CTA, and will repeat abdominal imaging to rule out worsening obstruction or persistent stone if clinically worsening. - considered echo given appearance of CXR on admission, but not clinically overloaded on exam still and no current symptoms. - Blood cultures positive for E. coli. Narrowed antibiotics as noted above. - urology consulted in the ER, no interventions recommended. With improvement no repeat imaging necessary at this time. With resolution of pain likely passed the stone. - WBC uptrending to 34, however procal decreasing to 16.9 from 86.4. Possibly due to decadron received on admission. - WBC and procal downtrending nicely 2. DM2 - glucose around 300 on admission, started 10 U lantus, with Sliding scale and continue to adjust. AM glucose 116 today, will continue. - A1c 9.6% - no DKA on admission labs, continue to follow BMP - hold home oral medications for now - discharge home on Lantus, patient had previously needed insulin but was able to come off many years ago. With worsening A1c despite two oral agents discussed with patient and she agrees for need for lantus. Additional follow up with PCP after discharge for continued management of her DM. 3. HTN - intially held home medications in the setting of above sepsis. BP increasing so added back her home amlodipine and lisinopril-HCTZ. 4. Left hydronephrosis secondary to ureteral calculi - no interventions recommended, management as noted above in #1. 5. HLD - okay to continue home statin, replaced for formulary alternative atorvastatin. 6. Mucocutaneous herpetic lesions, thrush - valtrex 1g BID ordered - diflucan 200mg x7 days Code: Full, surrogate is patient's daughter. Dispo: Pending [facility] auth.
[2023-08-13] MEDS: ASPIRIN EC 81 MG TABLET PO (17:56)
[2023-08-13] MEDS: ATORVASTATIN 20 MG TABLET 40 MG PO (20:25)
[2023-08-13] MEDS: INSULIN GLARGINE 100 UNIT/ML 3ML PEN 10 UNIT SUBCUT (20:35)
[2023-08-14] VITALS (7 sets, daily range): BP systolic 131–171; BP diastolic 79–85; PULSE 78–94; RESP 16–19; TEMP 36.4–36.8; O2SAT 94–98
[2023-08-14 05:23] LABS: BUN Creatinine Ratio 17.1 (6-22); Blood Urea Nitrogen 14 mg/dL (7-17); Calcium 9.5 mg/dL (8.4-10.2); Carbon Dioxide 24 mmol/L (22-32); Chloride 105 mmol/L (98-107); Estimated Glomerular Filt Rate > 60 mL/min (>60); Glucose 159 mg/dL (80-110); HEMOLYSIS < 15 (0-50); Potassium 3.9 mmol/L (3.4-5.1); Sodium 137 mmol/L (137-145)
[2023-08-14 05:31] LABS: Hematocrit 31.2 % (36-46); Hemoglobin 10.5 g/dL (12.0-16.0); Mean Corpuscular HGB Conc 33.6 % (30-36); Mean Corpuscular Hemoglobin 27.2 PG (26-34); Mean Corpuscular Volume 80.9 fL (80-100); Platelet Count 239 X10^3/uL (150-400); Red Blood Cell Count 3.85 X10^6/uL (4.0-5.2); Red Cell Distribution Width 14.7 % (11.6-14.8); White Blood Cell Count 10.9 X10^3/uL (4.5-11.0)
[2023-08-14 05:34] LABS: Add Manual Diff / Slide Review YES
[2023-08-14 05:41] LABS: Procalcitonin 1.71 ng/mL (<0.5)
[2023-08-14 06:26] LABS: Neutrophils Absolute Manual 6976 /uL (3000-5900); Total Cells Counted 100
[2023-08-14 06:27] LABS: Ovalocytes 1+
[2023-08-14] MEDS: SODIUM CHLORIDE 0.9% FLUSH 10 ML IV ×4 (07:22→07:43)
[2023-08-14] MEDS: INSULIN LISPRO 100 UNIT/ML 3ML VIAL SUBCUT ×3 (07:57→21:04)
[2023-08-14] MEDS: cefTRIAXone 2,000 MG in SODIUM CHLORIDE 0.9% 100 ML 200 MG IV (09:03)
[2023-08-14] MEDS: ENOXAPARIN 40 MG/0.4 ML SYRINGE SUBCUT (09:04)
[2023-08-14] MEDS: NYSTATIN SUSP 500,000 UNIT/5 ML UDC 500000 UNIT PO ×4 (09:04→20:57)
[2023-08-14] MEDS: hydroCHLOROthiazide 25 MG TABLET 12.5 MG PO (09:05)
[2023-08-14] MEDS: FLUCONAZOLE 100 MG TABLET 200 MG PO (09:06)
[2023-08-14] MEDS: METOPROLOL ER 25 MG TABLET PO (09:07)
[2023-08-14] MEDS: PANTOPRAZOLE DR 20 MG TABLET PO (09:07)
[2023-08-14] MEDS: DULOXETINE 30 MG CAPSULE PO (09:07)
[2023-08-14] MEDS: AMLODIPINE 5 MG TABLET PO (09:07)
[2023-08-14] MEDS: valACYclovir 500 MG TABLET 1000 MG PO ×2 (09:09→20:57)
[2023-08-14] MEDS: LOSARTAN 50 MG TABLET 100 MG PO (09:09)
--- NOTE | 2023-08-14 11:14 | CM.DPC ---
DCP SNF cont vs HH Per MD, pt likely stable for d/c once safe discharge plan identified. Per PT, recommending d/c home with 24/7 vs SNF and pt lives alone but has local Dtr who works. Family preference has been SNF. Per LUIS, pt will need full 10 days of COVID isolation from initial COVID+ test. SW called following [facility] contracted SNFs: [facility]- no isolation rooms available. [facility]- no isolation rooms available [facility]- will need for February to review tomorrow Tue to determine if any iso rooms available and to initiate auth if they can accept. [facility]- will not know until tomorrow Tue if they have any iso rooms available, will review and call SW tomorrow Tuesday. Plan: SW to follow for further PT today towards determining if pt making enough progress to safely d/c home with HH and local supports vs [facility] and [facility] review to see if they can accept COVID+ and get insurance SNF auth. Will need PASRR if SNF. EZRA Leyva
--- NOTE | 2023-08-14 13:51 | PT.IPTN ---
Current Diagnoses Sepsis, unspecified organism (08/08/23) Physical Therapy Treatment Note M2 PT-IP Current Condition Start: 08/12/23 14:38 Freq: NEEDED Status: Active Protocol: Document 08/12/23 13:40 AB (Rec: 08/12/23 14:54 AB [id number]) Physical Therapy Current Condition Current Condition Evaluation Date 08/12/23 Treatment Diagnosis sepsis; Covid; difficulty in walking Onset Date 08/08/23 M3 PT-IP Subjective Start: 08/12/23 14:38 Freq: NEEDED Status: Active Protocol: Document 08/14/23 14:16 ZF (Rec: 08/14/23 14:29 ZF [id number]) Subjective Physical Therapy Visit Type Type Treatment Note Visit Start Time 13:51 Visit Stop Time 14:11 Total Visit Minutes 20 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 M4 PT-IP Mobility and Gait Start: 08/12/23 14:38 Freq: NEEDED Status: Active Protocol: Document 08/14/23 14:16 ZF (Rec: 08/14/23 14:29 ZF [id number]) PT-Bed Mobility Assessment Supine to Sit Supine to Sit Independent,Bedrails Sit to Supine Sit to Supine Independent,Bedrails Scooting Scooting to Edge of Bed Independent PT-Transfer Assessment Sit to and From Stand Sit to and from Stand Standby Assistance,Use of Upper Extremities Equipment Transfer Assistive Device Gait Belt,Front Wheeled Walker Orthotic/Prosthetic Devices or Brace: No Transfers Transfer Destination Bed,Chair Transfer Technique Stand Step Pivot Transfer Ability Level of Assist Standby Assistance,Use of Upper Extremities Comments Mobility Comments Pt agreeable to PT. Pt is IND for Supine<>Sitting EOB. STS from EOB, recliner w/2ww, SBA. Pt amb x90' in room w/2ww, SBA, step thru gait. Cueing required for reduced reliance on AD and improved proximity to AD for improved posture and safety w/good carryover. Standing LE TE to include: High Knee March, Hamstring Curls, Calf Raises, Hip Abd x10 reps using 2ww to improve standing tolerance and strength for functional mobility. Pt declines Mini Squats, reporting that she has bad knees. O2sat remained above 94% on room air. Gait Assessment Gait Gait Assistance Required: Standby Assistance Distance (Feet) 90 Assistive Devices Assistive Device Gait Belt,Front Wheeled Walker Orthotic/Prosthetic Devices or Brace: No Gait Deviations General Gait Pattern Flexed Trunk Factors Limiting Gait Function Factors Limiting Gait Function Decreased Activity Tolerance, Decreased Strength Comments Gait Comments See mobility comments. PT-Balance Assessment Sitting Balance and Reactions Static Sitting Balance Ability Good Dynamic Sitting Balance Ability Good Standing Balance and Reactions Static Standing Balance Ability Good Dynamic Standing Balance Ability Fair Device Used FWW M5 PT-IP Objective Assessments Start: 08/12/23 14:38 Freq: NEEDED Status: Active Protocol: Document 08/12/23 13:40 AB (Rec: 08/12/23 14:54 AB [id number]) Orientation Orientation/Cognition Level of Alertness Alert Orientation Name,Place,Situation Language Function Ability No Deficits Noted Safety Awareness Decreased Safety Awareness Memory Description No Deficits Noted Gross Range of Motion Lower Extremity ROM Assessment Within Functional Limits Strength Lower Extremity Strength Assessment Left Impaired Hip 3+/5 Knee 3+/5 Muscle Tone Muscle Tone WNL Yes M6 PT-IP Treatment Start: 08/12/23 14:38 Freq: NEEDED Status: Active Protocol: Document 08/13/23 11:11 TS (Rec: 08/13/23 11:33 TS [id number]) Physical Therapy Treatment Education Education Provided Safety M7 PT-IP Assessment and Plan Start: 08/12/23 14:38 Freq: NEEDED Status: Active Protocol: Document 08/14/23 14:16 ZF (Rec: 08/14/23 14:29 ZF [id number]) PT Summary Assessment and Plan Potential Rehabilitation Potential Good Summary Impairments Pain,ROM,Strength,Balance, Coordination,Sensation,Tone, Cognition,Bed Mobility, Transfers,Gait,Activity Tolerance Progress Towards Goals Progressing Toward Goals Assessment Summary Tori braxton improved activity tolerance today. She is IND with Bed Mobility and SBA for all OOB activities. Sheyla improved stability w/gait today. Goals Bed Mobility Goal Independent Transfer Goal Independent,Front Wheeled Walker Gait Goal Independent,Front Wheel Walker Gait Distance 200 Other Goals improve ambulation using LRAD/ without AD 250 ft mod I up/down 2 steps without rails + 3 steps R rail ascending SBA Days to Meet Goals 10 Frequency of Treatment Frequency Of Treatment Once a Day Treatment Plan Physical Therapy Treatment Plan Bed Mobility Training,Transfer Training,Gait Training, Therapeutic Exercise,Balance Retraining,Discharge Planning, Hot or Cold Pack,Neuromuscular Re-ed,Coordination Retraining Other Recommendations and Next Treatment ambulation using 4WW; up/down Focus steps Precautions Other Precautions Covid (+), [place], falls Recommendations To Nursing Amount of Assist Needed Standby Assistance Discharge Recommendations PT Discharge Recommendations Home with 18/04 Assist Available,Home Health,SNF Rehab,Home vs SNF Equipment Needed for Home Before FWW if not safe with 4WW Discharge Transportation Needs at Discharge Private Vehicle,Wheelchair/ Cabulance
--- NOTE | 2023-08-14 16:19 | P.PN_ITS ---
Subjective Subjective Interval history: No changes. Awaiting SNF auth. Exam Vital Signs (past 8 hours): - 08/14/23 09:07 08/14/23 09:10 08/14/23 10:07 Temperature 98 F Pulse Rate 87 94 H 78 Respiratory Rate 18 Blood Pressure 171/80 H 171/85 H 171/85 H Pulse Oximetry 98 Oxygen Flow Rate 0 08/14/23 11:49 Temperature 97.8 F Pulse Rate 87 Respiratory Rate 16 Blood Pressure 131/79 Pulse Oximetry 98 Oxygen Flow Rate 0 Fraction of Inspired Oxygen 21 SaO2/FiO2 Ratio 447 Oxygen Delivery Method Room Air Oxygen Flow Rate 0 Narrative Exam Narrative: General:? Patient is well developed and well nourished, but mildly ill appearing. no distress at this time. HEENT:? Normocephalic, atraumatic, extraocular muscles intact, herpetic lesions in bilateral nares and right upper lip Neck: supple and symmetric, trachea is midline, no cervical adenopathy. Negative for JVD Chest:? Normal AP diameter and contour without kyphoscoliosis, no tachypnea, equal chest rise bilaterally. Lungs:? CTA b/l no wheezing rhonchi or rales. Cardio: regular, no murmurs rubs or gallops Abdomen: S NT ND Musculoskeletal:? Muscle strength and tone are equal within normal limits, no deformity. Extremities: No edema or joint effusions. No cyanosis or clubbing. Skin:? Pale,? Warm to touch,dry and intact without rashes, ulcerations or petechiae.? Neuro:? Alert and orientated to name, location.No focal deficits Objective Labs 08/14/23 04:50 08/14/23 04:50 Labs: Laboratory Results - last 24 hr 08/14/23 04:50 WBC 10.9 RBC 3.85 L Hgb 10.5 L Hct 31.2 L MCV 80.9 MCH 27.2 MCHC 33.6 RDW 14.7 Plt Count 239 Neut % (Auto) Not Reportable Lymph % (Auto) Not Reportable [place] % (Auto) Not Reportable Eos % (Auto) Not Reportable Baso % (Auto) Not Reportable Lymph # (Auto) Not Reportable [place] # (Auto) Not Reportable Baso # (Auto) Not Reportable Total Counted 100 Seg Neutrophils % 63.0 Band Neutrophils % 1.0 L Lymphocytes % (Manual) 16.0 L Monocytes % (Manual) 13.0 H Eosinophils % (Manual) 5.0 H Basophils % (Manual) 1.0 Myelocytes % 1.0 H Neutrophils # (Manual) 6976 H RBC Morphology See below Ovalocytes 1+ H Sodium 137 Potassium 3.9 Chloride 105 Carbon Dioxide 24 BUN 14 Creatinine 0.82 Estimated GFR > 60 BUN/Creatinine Ratio 17.1 Glucose 159 H Calcium 9.5 Magnesium 2.0 Procalcitonin 1.71 H PFSH Medical History Melanoma (~2019) Depression (~2015) Osteoporosis (~2018) Foot pain (~2019) Carpal tunnel syndrome (~2013) Measles Chicken pox Vertigo Retinal detachment (~2017) Cataracts, bilateral (~2018) Diabetes mellitus (~1989) Healthy adult Surgical History Anesthesia History of removal of cyst (~1978) History of carpal tunnel release (~2013) History of partial thyroidectomy (~1979) History of eye surgery (~2017) History of cataract removal with insertion of prosthetic lens (~2020) Family History Father Cancer Mother Diabetes mellitus Hypertension Brother Diabetes mellitus Brother Diabetes mellitus Family/Other Diabetes mellitus Hypertension Social History household members: none Smoking Status: Never smoker Assessment & Plan Assessment & Plan narrative: 73 F with PMH of DM, HTN, HLD who is admitted with sepsis secondary to COVID and pyelonephritis with gram negative bacteremia. 1. Sepsis with acute metabolic encephalopathy acute respiratory failure with hypoxia secondary to COVID 19 infection and acute pyelonephritis with E. coli bacteremia in setting of ureteral stone. Sepsis now resolved. - continued zosyn for pyelonpehritis and bacteremia but now chnaged to 2g ceftriaxone q24. MRSA swab negative. Patient was given IVF, ceftriaxone and zosyn in the ER. Can stop IV fluids. - rapid resolution of respiratory failure with above therapies, hold further steroids and remdesevir with positive COVID. She was given only one dose of each. - despite markedly elevated dimer with no shortness of breath or hypoxia now, will not persue CT angio chest at this time. If requiring O2 will persue CTA, and will repeat abdominal imaging to rule out worsening obstruction or persistent stone if clinically worsening. - considered echo given appearance of CXR on admission, but not clinically overloaded on exam still and no current symptoms. - Blood cultures positive for E. coli. Narrowed antibiotics as noted above. - urology consulted in the ER, no interventions recommended. With improvement no repeat imaging necessary at this time. With resolution of pain likely passed the stone. - WBC uptrending to 34, however procal decreasing to 16.9 from 86.4. Possibly due to decadron received on admission. - WBC and procal now downtrending nicely and leukocytosis now resolved 2. DM2 - glucose around 300 on admission, started 10 U lantus, with Sliding scale and continue to adjust. AM glucose 116 today, will continue. - A1c 9.6% - no DKA on admission labs, continue to follow BMP - hold home oral medications for now - discharge home on Lantus, patient had previously needed insulin but was able to come off many years ago. With worsening A1c despite two oral agents discussed with patient and she agrees for need for lantus. Additional follow up with PCP after discharge for continued management of her DM. 3. HTN - intially held home medications in the setting of above sepsis. BP increasing so added back her home amlodipine and lisinopril-HCTZ. 4. Left hydronephrosis secondary to ureteral calculi - no interventions recommended, management as noted above in #1. 5. HLD - okay to continue home statin, replaced for formulary alternative atorvastatin. 6. Mucocutaneous herpetic lesions, thrush - valtrex 1g BID ordered - diflucan 200mg x7 days Code: Full, surrogate is patient's daughter. Dispo: Pending [facility] auth.
[2023-08-14] MEDS: ASPIRIN EC 81 MG TABLET PO (17:48)
[2023-08-14] MEDS: ATORVASTATIN 20 MG TABLET 40 MG PO (20:57)
[2023-08-14] MEDS: INSULIN GLARGINE 100 UNIT/ML 3ML PEN 10 UNIT SUBCUT (20:58)
[2023-08-15] VITALS (8 sets, daily range): BP systolic 154–177; BP diastolic 72–83; PULSE 72–101; RESP 18–20; TEMP 36.7–36.8; O2SAT 93–94
[2023-08-15 05:59] LABS: Add Manual Diff / Slide Review NO; Basophils Absolute Auto 100 /uL (0-100); Eosinophils Absolute Auto 400 /uL (0-450); Eosinophils Percent Auto 3.7 % (2-4); Hematocrit 29.7 % (36-46); Hemoglobin 9.9 g/dL (12.0-16.0); Lymphocytes Absolute Auto 1300 /uL (1100-4500); Lymphocytes Percent Auto 12.7 % (25-40); Mean Corpuscular HGB Conc 33.2 % (30-36); Mean Corpuscular Hemoglobin 27.2 PG (26-34); Monocytes Absolute Auto 1400 /uL (0-900); Monocytes Percent Auto 13.7 % (3-14); Neutrophils Absolute Auto 7000 /uL (1500-7000); Neutrophils Percent Auto 68.9 % (50-75); Platelet Count 261 X10^3/uL (150-400); Red Blood Cell Count 3.63 X10^6/uL (4.0-5.2); Red Cell Distribution Width 14.8 % (11.6-14.8); White Blood Cell Count 10.2 X10^3/uL (4.5-11.0)
[2023-08-15 06:07] LABS: BUN Creatinine Ratio 16.9 (6-22); Blood Urea Nitrogen 12 mg/dL (7-17); Calcium 9.5 mg/dL (8.4-10.2); Carbon Dioxide 26 mmol/L (22-32); Chloride 104 mmol/L (98-107); Estimated Glomerular Filt Rate > 60 mL/min (>60); Glucose 162 mg/dL (80-110); HEMOLYSIS < 15 (0-50); Potassium 3.6 mmol/L (3.4-5.1); Sodium 136 mmol/L (137-145)
[2023-08-15] MEDS: cefTRIAXone 2,000 MG in SODIUM CHLORIDE 0.9% 100 ML 200 MG IV (09:11)
[2023-08-15] MEDS: ENOXAPARIN 40 MG/0.4 ML SYRINGE SUBCUT (09:11)
[2023-08-15] MEDS: NYSTATIN SUSP 500,000 UNIT/5 ML UDC 500000 UNIT PO ×2 (09:11→13:35)
[2023-08-15] MEDS: PANTOPRAZOLE DR 20 MG TABLET PO (09:11)
[2023-08-15] MEDS: METOPROLOL ER 25 MG TABLET PO (09:11)
[2023-08-15] MEDS: DULOXETINE 30 MG CAPSULE PO (09:12)
[2023-08-15] MEDS: valACYclovir 500 MG TABLET 1000 MG PO (09:12)
[2023-08-15] MEDS: LOSARTAN 50 MG TABLET 100 MG PO (09:12)
[2023-08-15] MEDS: hydroCHLOROthiazide 25 MG TABLET 12.5 MG PO (09:13)
[2023-08-15] MEDS: AMLODIPINE 5 MG TABLET PO (09:13)
[2023-08-15] MEDS: FLUCONAZOLE 100 MG TABLET 200 MG PO (09:13)
[2023-08-15] MEDS: SODIUM CHLORIDE 0.9% FLUSH 10 ML IV ×2 (09:18)
--- NOTE | 2023-08-15 09:20 | CM.DPC ---
DCP HH Planning: Per RN and PT, pt has made progress the last day or two with her strength and mobility and pt now feels confident discharging home and not needing SNF and requesting new HH referral. [facility] and [facility] had been reviewing for SNF rehab but had not been able to confirm if they could accept or initiate insurance SNF auth. Pt has no HH preference and LORRI Olson kindly made referral to [facility] based on Vendor Calendar and pt living in [place]. F2F and HH orders completed. Per MD, pt medically stable to d/c home with family assist and HH. Plan: Patient to d/c home via family POV and new [facility] referral made and faxed along with F2F and HH orders, just awaiting discharge summary. EZRA Leyva
[2023-08-15] MEDS: SODIUM CHLORIDE 0.9% 250 ML 21 ML IV (10:10)
--- NOTE | 2023-08-15 10:45 | PT.IPTN ---
Current Diagnoses Sepsis, unspecified organism (08/08/23) Physical Therapy Treatment Note M2 PT-IP Current Condition Start: 08/12/23 14:38 Freq: NEEDED Status: Active Protocol: Document 08/12/23 13:40 AB (Rec: 08/12/23 14:54 AB [id number]) Physical Therapy Current Condition Current Condition Evaluation Date 08/12/23 Treatment Diagnosis sepsis; Covid; difficulty in walking Onset Date 08/08/23 M3 PT-IP Subjective Start: 08/12/23 14:38 Freq: NEEDED Status: Active Protocol: Document 08/15/23 10:45 AW (Rec: 08/15/23 11:24 AW [id number]) Subjective Physical Therapy Visit Type Type Treatment Note Visit Start Time 10:25 Visit Stop Time 10:45 Total Visit Minutes 20 Physical Therapy Visit Comments Patient Comments Pt is feeling so much better today. M4 PT-IP Mobility and Gait Start: 08/12/23 14:38 Freq: NEEDED Status: Active Protocol: Document 08/15/23 10:45 AW (Rec: 08/15/23 11:24 AW [id number]) PT-Bed Mobility Assessment Supine to Sit Supine to Sit Independent,Bedrails Sit to Supine Sit to Supine Independent,Bedrails Scooting Scooting to Edge of Bed Independent PT-Transfer Assessment Sit to and From Stand Sit to and from Stand Independent,Use of Upper Extremities Equipment Transfer Assistive Device None,Gait Belt Orthotic/Prosthetic Devices or Brace: No Transfers Transfer Destination Bed,Toilet Transfer Ability Level of Assist Standby Assistance,Use of Upper Extremities Comments Mobility Comments Pt found resting in bed, agreeable to PT. With HOB flat , pt completes supine to sit transfer using only bed rails. She stands and walks to the bathroom. SpO2 98% on room air . VS unremarkable. Pt completes toileting independently and agrees to ambulate. She walks 275 feet without AD SBA to mod I. Stair training notes below. Pt returns to bed end of session with call light in reach. Gait Assessment Gait Gait Assistance Required: Standby Assistance Distance (Feet) 275 Assistive Devices Assistive Device None,Gait Belt Orthotic/Prosthetic Devices or Brace: No Gait Deviations General Gait Pattern Decreased Stride Length, Decreased Feet Clearance, Lateral Trunk Lean,Wide Based Gait Factors Limiting Gait Function Factors Limiting Gait Function Decreased Activity Tolerance, Decreased Strength Comments Gait Comments Pt completes modified DGI with score of 06/07 (full points for change in gait speed, single points deducted for other three conditions). Stair Climbing Assessment Evaluation Level of Assist On Stairs Minimal Assistance,1 Person Assistance Devices Stair Climbing Assistive Devices Left Railing Technique/Endurance Stair Climbing Direction Ascend and Descend Number of Steps Climbed 1 Comments Stair Climbing Comments Pt attempts to use portable step in room but is not confident in its sturdiness. She requires min assist but would clearly do better on stable steps with bilateral support as she will have at home. PT-Balance Assessment Sitting Balance and Reactions Static Sitting Balance Ability Good Dynamic Sitting Balance Ability Good Standing Balance and Reactions Static Standing Balance Ability Good Dynamic Standing Balance Ability Fair Device Used no AD Functional Assessments Functional Tests Dynamic Gait Index mDGI: 06/07 M5 PT-IP Objective Assessments Start: 08/12/23 14:38 Freq: NEEDED Status: Active Protocol: Document 08/12/23 13:40 AB (Rec: 08/12/23 14:54 AB [id number]) Orientation Orientation/Cognition Level of Alertness Alert Orientation Name,Place,Situation Language Function Ability No Deficits Noted Safety Awareness Decreased Safety Awareness Memory Description No Deficits Noted Gross Range of Motion Lower Extremity ROM Assessment Within Functional Limits Strength Lower Extremity Strength Assessment Left Impaired Hip 3+/5 Knee 3+/5 Muscle Tone Muscle Tone WNL Yes M6 PT-IP Treatment Start: 08/12/23 14:38 Freq: NEEDED Status: Active Protocol: Document 08/15/23 10:45 AW (Rec: 08/15/23 11:24 AW [id number]) Physical Therapy Treatment Education Education Provided Safety M7 PT-IP Assessment and Plan Start: 08/12/23 14:38 Freq: NEEDED Status: Active Protocol: Document 08/15/23 10:45 AW (Rec: 08/15/23 11:24 AW [id number]) PT Summary Assessment and Plan Potential Rehabilitation Potential Good Summary Impairments Pain,Strength,Balance, Transfers,Gait,Activity Tolerance Progress Towards Goals Progressing Toward Goals,Safe For Discharge Assessment Summary Tori progressed her mobility significantly this date and with stable SpO2 on room air. She will have her grandson and daughter to assist her at home. She is needing no more than SBA at this time, even without AD. PT recommends discharge home with assist and PT for strengthening and higher level balance assessment to smooth the transition back to independent living. Goals Bed Mobility Goal Independent Transfer Goal Independent,Front Wheeled Walker Gait Goal Independent,Front Wheel Walker Gait Distance 200 Other Goals improve ambulation using LRAD/ without AD 250 ft mod I up/down 2 steps without rails + 3 steps R rail ascending SBA Days to Meet Goals 10 Frequency of Treatment Frequency Of Treatment Once a Day Treatment Plan Physical Therapy Treatment Plan Bed Mobility Training,Transfer Training,Gait Training, Therapeutic Exercise,Balance Retraining,Discharge Planning, Hot or Cold Pack,Neuromuscular Re-ed,Coordination Retraining Other Recommendations and Next Treatment gait without AD; steps Focus Precautions Other Precautions Covid (+), DC, falls Recommendations To Nursing Amount of Assist Needed Independent,Standby Assistance Discharge Recommendations PT Discharge Recommendations Home with 18/04 Assist Available,Home Health Transportation Needs at Discharge Private Vehicle
[2023-08-15] MEDS: INSULIN LISPRO 100 UNIT/ML 3ML VIAL SUBCUT (11:51)
--- NOTE | 2023-08-15 13:30 | OT.IPNOTE ---
Attempted to see pt for OT services. Pt states she has already perform ADLs and just got back to bed from working with P.T. Pt is planned for discharge home today.
--- NOTE | 2023-08-15 18:51 | P.DS_ITS ---
History of Present Illness History of Present Illness Date Patient Seen: 08/08/23 Time Patient Seen: 18:51 Chief complaint: LT flank pain Narrative: 73 F with PMH of DM, HTN, HLD who presented with L sided abdominal pain, n/v for one day. Fever and fatigue for 2-3 days. Recent brother in law ill with covid 1 week ago but was trying to isolate. Family report she was quite lethargic and confused. In the emergency room, she was not responding and quite out of it. Fever was as high as 105, tachycardic and hypertensive. O2 saturations on room air were in the mid 80s, improved with 2L. Her mentation improved with fluids, antibiotics, and fever reducers. CT with small ureteral stone, urology stated no intervention per ER physician. Family at bedside state she is currently better, but still confused compared to her usual self. On my evaluation in the ICU, she was no longer requiring supplemental oxygen, and she was alert and able to present the above history herself. 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 Sepsis with acute metabolic encephalopathy acute respiratory failure with hypoxia secondary to COVID 19 infection and acute pyelonephritis with E. coli bacteremia in setting of ureteral stone. Sepsis now resolved. - continued zosyn for pyelonpehritis and bacteremia but now chnaged to 2g ceftriaxone q24. MRSA swab negative. Patient was given IVF, ceftriaxone and zosyn in the ER. Can stop IV fluids. - rapid resolution of respiratory failure with above therapies, hold further steroids and remdesevir with positive COVID. She was given only one dose of each. - despite markedly elevated dimer with no shortness of breath or hypoxia now, will not persue CT angio chest at this time. If requiring O2 will persue CTA, and will repeat abdominal imaging to rule out worsening obstruction or persistent stone if clinically worsening. - considered echo given appearance of CXR on admission, but not clinically overloaded on exam still and no current symptoms. - Blood cultures positive for E. coli. Narrowed antibiotics as noted above. - urology consulted in the ER, no interventions recommended. With improvement no repeat imaging necessary at this time. With resolution of pain likely passed the stone. - WBC uptrending to 34, however procal decreasing to 16.9 from 86.4. Possibly due to decadron received on admission. - WBC and procal now downtrending nicely and leukocytosis now resolved 2. DM2 - glucose around 300 on admission, started 10 U lantus, with Sliding scale and continue to adjust. AM glucose 116 today, will continue. - A1c 9.6% - no DKA on admission labs, continue to follow BMP - hold home oral medications for now - discharged home on Lantus, patient had previously needed insulin but was able to come off many years ago. With worsening A1c despite two oral agents discussed with patient and she agrees for need for lantus. Additional follow up with PCP after discharge for continued management of her DM. 3. HTN - intially held home medications in the setting of above sepsis. BP increasing so added back her home amlodipine and lisinopril-HCTZ. 4. Left hydronephrosis secondary to ureteral calculi - no interventions recommended, management as noted above in #1. 5. HLD - okay to continue home statin, replaced for formulary alternative atorvastatin. 6. Mucocutaneous herpetic lesions, thrush - valtrex 1g BID ordered - diflucan 200mg x7 days Hospital Course: Admitted for sepsis/AMS from acute pyelo and E. coli bacteremia. Improved with IV rocephin. Had high A1c so put on insulin as patient only on po meds at home. Discharged with IV lantus 15 units daily and given supplies including strips, lancets, and glucometer. Had a mucocutaneous herpes outbreak on lips and nose so given valtrex with improvement. Also had thrush so given 1 week of diflucan. Exam Vital Signs (past 8 hours): - 08/15/23 15:00 Temperature 98.2 F Pulse Rate 88 Respiratory Rate 20 Blood Pressure 157/72 H Pulse Oximetry 94 Oxygen Flow Rate 0 Fraction of Inspired Oxygen 21 SaO2/FiO2 Ratio 447 Oxygen Delivery Method Room Air Oxygen Flow Rate 0 Narrative Exam Narrative: General:? Patient is well developed and well nourished, but mildly ill appearing. no distress at this time. HEENT:? Normocephalic, atraumatic, extraocular muscles intact, herpetic lesions in bilateral nares and right upper lip now crusting over Neck: supple and symmetric, trachea is midline, no cervical adenopathy. Negative for JVD Chest:? Normal AP diameter and contour without kyphoscoliosis, no tachypnea, equal chest rise bilaterally. Lungs:? CTA b/l no wheezing rhonchi or rales. Cardio: regular, no murmurs rubs or gallops Abdomen: S NT ND Musculoskeletal:? Muscle strength and tone are equal within normal limits, no deformity. Extremities: No edema or joint effusions. No cyanosis or clubbing. Skin:? Pale,? Warm to touch,dry and intact without rashes, ulcerations or petechiae.? Neuro:? Alert and orientated to name, location.No focal deficits Objective Labs 08/15/23 04:45 08/15/23 04:45 Labs: Laboratory Results - last 24 hr 08/15/23 04:45 WBC 10.2 RBC 3.63 L Hgb 9.9 L Hct 29.7 L MCV 82.0 MCH 27.2 MCHC 33.2 RDW 14.8 Plt Count 261 Neut % (Auto) 68.9 Lymph % (Auto) 12.7 L [place] % (Auto) 13.7 Eos % (Auto) 3.7 Baso % (Auto) 1.0 Neut # (Auto) 7000 Lymph # (Auto) 1300 [place] # (Auto) 1400 H Eos # (Auto) 400 Baso # (Auto) 100 Sodium 136 L Potassium 3.6 Chloride 104 Carbon Dioxide 26 BUN 12 Creatinine 0.71 Estimated GFR > 60 BUN/Creatinine Ratio 16.9 Glucose 162 H Calcium 9.5 PFSH Medical History Melanoma (~2019) Depression (~2015) Osteoporosis (~2018) Foot pain (~2019) Carpal tunnel syndrome (~2013) Measles Chicken pox Vertigo Retinal detachment (~2017) Cataracts, bilateral (~2018) Diabetes mellitus (~1989) Healthy adult Surgical History Anesthesia History of removal of cyst (~1978) History of carpal tunnel release (~2013) History of partial thyroidectomy (~1979) History of eye surgery (~2017) History of cataract removal with insertion of prosthetic lens (~2020) Family History Father Cancer Mother Diabetes mellitus Hypertension Brother Diabetes mellitus Brother Diabetes mellitus Family/Other Diabetes mellitus Hypertension Social History household members: none Smoking Status: Never smoker Discharge Plan Discharge Plan Patient Disposition: Home Health Service Discharge orders & Medications Prescriptions: New insulin glargine [Lantus Solostar U-100 Insulin] 100 unit/mL (3 mL) Insulin Pen 15 unit SUBCUT 2100 Qty: 15 0RF (DME) lancets 33 gauge misc See Rx Instructions .Route Qty: 100 0RF Rx Instructions: Use to test once daily (DME) True Metrix Glucose Test Strip Strip See Rx Instructions .ROUTE .MEDSUPPLY Qty: 100 0RF Rx Instructions: Use to test once daily (DME) pen needle, diabetic [Pen Needle] 32 gauge x 5/32 needle See Rx Instructions .Route Qty: 400 0RF Rx Instructions: Use to inject up to 4x daily (DME) blood-glucose meter [True Metrix Glucose Meter] Misc See Rx Instructions .ROUTE .MEDSUPPLY Qty: 1 0RF Rx Instructions: As directed Continued metoprolol succinate 50 mg tablet extended release 24 hr 1 tab PO DAILY amlodipine 5 mg tablet 5 mg PO DAILY aspirin 81 mg tablet,delayed release (DR/EC) 81 mg PO QPM metformin 1,000 mg tablet 1 tab PO BID pantoprazole 20 mg tablet,delayed release (DR/EC) 20 mg PO DAILY cyclobenzaprine 5 mg tablet 5 mg PO 3XD PRN (Reason: Spasms) rosuvastatin 20 mg tablet 20 mg PO DAILY duloxetine 30 mg capsule,delayed release(DR/EC) 30 mg PO DAILY losartan-hydrochlorothiazide 100-12.5 mg tablet 1 tab PO DAILY Discontinued glipizide 10 mg tablet 10 mg PO BID Follow up/Referrals: Beverley Albert PA-C [Primary Care Provider] - 2 Weeks Visit Report/Discharge Packet Stand Alone Forms: Patient Portal/API, Stroke Signs & Symptoms Discharge Data Primary Care Provider: Beverley Albert
== END 2023-08-15 16:15 | disposition home health service (06) | DRG 871 ==
LOC: ED 14:20 → AC 17:35 → ICU 17:49
PROVIDERS: Student in an Organized Health Care Education/Training Program; Admitting Provider Internal Medicine; Emergency Provider Emergency Medicine; PCP Physician Assistant; Referring Provider Emergency Medicine; Visit Provider Internal Medicine
DX: A41.9 Sepsis, unspecified organism (principal); G93.41 Metabolic encephalopathy; J96.01 Acute respiratory failure with hypoxia; U07.1 COVID-19; N13.6 Pyonephrosis; Z16.11 Resistance to penicillins; B37.0 Candidal stomatitis; R65.20 Severe sepsis without septic shock; E11.9 Type 2 diabetes mellitus without complications; E78.5 Hyperlipidemia, unspecified; B96.20 Unspecified Escherichia coli [E. coli] as the cause of diseases classified elsewhere; I10 Essential (primary) hypertension; Z79.84 Long term (current) use of oral hypoglycemic drugs
CPT/HCPCS: 36415; 36569; 36592; 70450; 71045; 74177; 80048; 80053; 80305; 80320; 81001; 82009; 82140; 82550; 82728; 82805; 82962; 83036; 83605; 83615; 83690; 83735; 84145; 84484; 85007; 85025; 85379; 85651; 86140; 87040; 87077; 87086; 87154; 87186; 87493; 87633; 87797; 93005; 93010; 93971; 94640; 96365; 96367; 96368; 96375; 97110; 97116; 97162; 97166; 97530; 99285; 99291; J0131; J0696; J1100; J1642; J1650; J1885; J2543; J3475; J7613; Q9967

== ENCOUNTER 2024-03-25 15:52 | Inpatient (IN) | payer MEDICARE, SELFPAY ==
[2023-08-08 20:00] VITALS: BMI 32.9
[2024-03-25] VITALS (9 sets, daily range): BP systolic 106–138; BP diastolic 59–79; PULSE 64–89; RESP 16–19; TEMP 36.1–36.6; O2SAT 91–98; BMI 30.2
--- NOTE | 2024-03-25 16:08 | DI.RAD.S_ITS ---
PROCEDURE: XR HIP W PEL IF DONE RT 2V INDICATIONS: fall TECHNIQUE: AP pelvis with lateral view(s) of the right hip(s). COMPARISON: None. FINDINGS: Bones: Mildly displaced intertrochanteric right hip fracture. Moderate to severe degenerative changes of the bilateral hips. Pelvic ring appears intact. No suspicious bony lesions. Soft tissues: The visualized bowel gas pattern is normal. No suspicious soft tissue calcifications. IMPRESSION: 1. Mildly displaced intertrochanteric right hip fracture. 2. 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 Dictated by: Indra Muro M.D. on 03/25/2024 at 15:46 Approved by: Indra Muro M.D. on 03/25/2024 at 15:46
--- NOTE | 2024-03-25 16:40 | ED.FALL ---
HPI - Fall General Chief Complaint: Fall Stated Complaint: Fall - R hip pain Time Seen by Provider: 03/25/24 16:39 Source: patient, EMS, RN notes reviewed and old records reviewed Mode of arrival: EMS Limitations: no limitations History of Present Illness HPI Narrative: 73-year-old female with history of insulin-dependent diabetes, hypertension, dyslipidemia, depression and anxiety who is on aspirin daily. Patient was walking in her house though she is in her hands she states she was able to clear the 1st 3 steps in her house she stepped into the kitchen, was losing pony edger on her bags dropped them and then fell forward onto her side. She has pain in her right hip. Pain with any movement of the hip. States she did not hit her head denies any neck or back pain, no chest pain or shortness of breath. No nausea or vomiting. States pain is just in the hip. She states her bottom of her right foot feels a little funny when she tried to step. But she states has normal sensation when I touch her lower extremities throughout the leg and on the top and bottom of her foot. She states she can move her foot and ankle without any issue. Patient states no known drug allergies. No regular tobacco, occasional alcohol, no recreational drugs. Patient notes only prior surgeries were infected kidney stone had ureteral stent placed and then removed and developed sepsis this was a couple weeks ago. She states she has been doing well since then and the 2nd ureteral stent has since been removed. Patient's primary care is Beverley Albert. Patient independently in her own home on her own, she occasionally uses a walker in the house. Related Data Home Medications Medication Instructions Recorded Confirmed amlodipine 5 mg tablet 5 mg PO DAILY 05/11/18 08/08/23 aspirin 81 mg tablet,delayed 81 mg PO QPM 05/11/18 08/08/23 release metformin 1,000 mg tablet 1 tab PO BID 05/11/18 08/08/23 metoprolol succinate 50 mg 1 tab PO DAILY 05/11/18 08/08/23 tablet,extended release 24 hr cyclobenzaprine 5 mg tablet 5 mg PO 3XD PRN Spasms 08/08/23 08/08/23 duloxetine 30 mg capsule,delayed 30 mg PO DAILY 08/08/23 08/08/23 release losartan 100 1 tab PO DAILY 08/08/23 08/08/23 mg-hydrochlorothiazide 12.5 mg tablet pantoprazole 20 mg tablet,delayed 20 mg PO DAILY 08/08/23 08/08/23 release rosuvastatin 20 mg tablet 20 mg PO DAILY 08/08/23 08/08/23 Previous Rx's Medication Instructions Recorded blood sugar diagnostic (True #100 ea 08/15/23 Metrix Glucose Test Strip) blood-glucose meter (True Metrix #1 ea 08/15/23 Glucose Meter) insulin glargine 100 unit/mL (3 15 unit (0.15 mL) SUBCUT 2100 #15 08/15/23 mL) subcutaneous pen (Lantus mL Solostar U-100 Insulin) lancets 33 gauge #100 ea 08/15/23 pen needle, diabetic 32 gauge x #400 ea 08/15/23 (Pen Needle) Allergies Allergy/AdvReac Type Severity Reaction Status Date / Time No Known Drug Allergies Allergy Verified 12/07/21 15:37 Review of Systems Review of Systems ROS Unobtainable: All systems reviewed & are unremarkable except as noted in HPI and below Patient History Medical History Melanoma (~2019) Depression (~2015) Osteoporosis (~2018) Foot pain (~2019) Carpal tunnel syndrome (~2013) Measles Chicken pox Vertigo Retinal detachment (~2017) Cataracts, bilateral (~2018) Diabetes mellitus (~1989) Healthy adult Surgical History Anesthesia History of removal of cyst (~1978) History of carpal tunnel release (~2013) History of partial thyroidectomy (~1979) History of eye surgery (~2017) History of cataract removal with insertion of prosthetic lens (~2020) Family History Father Cancer Mother Diabetes mellitus Hypertension Brother Diabetes mellitus Brother Diabetes mellitus Family/Other Diabetes mellitus Hypertension Social History household members: none Smoking Status: Never smoker Smoking Status: Never smoker alcohol intake frequency: holidays/special occasions only Substance Use Type: does not use Exam Narrative Exam Narrative: GEN: Patient appears in mild distress. HEAD: No evidence of trauma, no raccoon/Sauer sign. NECK: Nontender, painless range of motion, trachea midline For Nexus criteria, there is no midline line tenderness, distracting injury, altered mental status, neuro deficit, recent EtOH. EYES: PERRLA, EOMI ENT: External inspection normal, trachea is midline, TM's are normal no hemotypanum, Nares are clear, no septal hematoma, no dental or oral injury, airway is normal and with normal occlusion, No bony tenderness RESP: Chest is nontender and has symmetric movement, no ecchymosis, breath sounds are normal no crackles, wheezes or rales CVS: Heart sounds are normal, no murmur noted, No JVD. ABG/GI: Nontender, soft, normal bowel sounds, no distention, no organomegaly, pelvic rock is negative NEURO: Oriented AOx3, neuro is grossly intact, sensation and motor is normal all 4 extremities moving, cranial nerves II through XII are intact, GCS is 15 PSYCH: Normal mood and affect SKIN: Intact, warm and dry, no crepitus and without decubitus BACK: No CVA tenderness, no vertebral tenderness, no step-off's, no crepitus EXT: Positive for right hip tenderness,, no left hip tenderness. Patient does not have any bony tenderness of the distal femur, knee, right lower extremity, ankle or foot. She is sensation throughout bilateral lower extremities. 2+ dorsalis pedis bilaterally. Has good plantar and dorsiflexion bilateral lower extremities. No pedal edema, normal color and temperature, normal range of motion of extremities with normal tendon exam, 2+ pulses in all four extremities Initial Vital Signs Initial Vital Signs: Vital Signs Temperature 98 F 03/25/24 16:04 Pulse Rate 68 03/25/24 16:04 Respiratory Rate 19 03/25/24 16:04 Blood Pressure 106/62 03/25/24 16:04 Pulse Oximetry 97 03/25/24 16:04 Oxygen Delivery Method Room Air 03/25/24 16:04 Course Orders Ordered: ED Orders 03/25/24 16:08 XR hip w pel if done RT 2V Stat 03/25/24 17:12 CBC Auto Diff [Complete Blood Count AUTO DIFF] Stat CMP [Comprehensive Metabolic Panel] Stat PTT Partial Thromboplastin Braulio Stat Prothrombin Time INR Stat Type and Screen Stat Sodium Chloride (Normal Saline 0.9%) 1,000 mls @ 125 mls/hr IV CONT MONTRELL Last Admin: 03/25/24 17:26 Dose: 125 mls/hr Documented By: VANESA Morphine Sulfate (Morphine 4 Mg/Ml Inj) 4 mg IV Q4H PRN PRN Reason: pain Vital Signs Vital signs: Vital Signs - 8 hr 03/25/24 16:04 Temperature 98 F Pulse Rate 68 Respiratory Rate 19 Blood Pressure 106/62 Pulse Oximetry 97 Oxygen Delivery Method Room Air MDM - Fall Lab Data 03/25/24 17:12 03/25/24 17:12 Labs: Lab Results 03/25/24 Range/Units 17:12 WBC 16.1 H (4.5-11.0) X10^3/uL RBC 4.13 (4.0-5.2) X10^6/uL Hgb 11.3 L (12.0-16.0) g/dL Hct 34.1 L (36-46) % MCV 82.4 (80-100) fL MCH 27.3 (26-34) PG MCHC 33.1 (30-36) % RDW 16.7 H (11.6-14.8) % Plt Count 334 (150-400) X10^3/uL Neut % (Auto) 91.3 H (50-75) % Lymph % (Auto) 3.9 L (25-40) % [place] % (Auto) 3.7 (3-14) % Eos % (Auto) 0.8 L (2-4) % Baso % (Auto) 0.3 (0-2) % Neut # (Auto) 39068 H (7479-5009) /uL Lymph # (Auto) 600 L (5382-9610) /uL [place] # (Auto) 600 (0-900) /uL Eos # (Auto) 100 (0-450) /uL Baso # (Auto) 100 (0-100) /uL PT 12.1 (9.4-12.5) SECONDS INR 1.1 (0.9-1.3) APTT 32 (25.1-36.5) SECONDS Sodium 139 (137-145) mmol/L Potassium 4.0 (3.4-5.1) mmol/L Chloride 103 (98-107) mmol/L Carbon Dioxide 28 (22-32) mmol/L BUN 27 H (7-17) mg/dL Creatinine 1.07 H (0.52-1.04) mg/dL Estimated GFR 56 L (>60) mL/min BUN/Creatinine Ratio 25.2 H (6-22) Glucose 196 H (80-110) mg/dL Calcium 9.8 (8.4-10.2) mg/dL Total Bilirubin 0.3 (0.2-1.3) mg/dL AST 24 (14-36) IU/L ALT 29 (<35) IU/L Alkaline Phosphatase 101 (38-126) U/L Total Protein 7.2 (6.3-8.2) g/dL Albumin 4.0 (3.5-5.0) g/dL Globulin 3.2 (1.7-4.1) g/dL Albumin/Globulin Ratio 1.3 (1.0-2.8) Imaging Data Extremity x-ray #1: Radiologist's Impression: Close Hip X-Ray (Signed) Indra Muro - 03/25/24 Vascular Ultrasound (Signed) Carrie Johansen - 08/12/23 Telemetry Strips 08/08/23 Telemetry Strips 08/08/23 Chest X-Ray (Signed) Benny,Alcides - 08/08/23 Chest X-Ray (Signed) Ragini Rollins - 08/08/23 Abdomen/Pelvis CT (Signed) Ragini Rollins - 08/08/[address] (Signed) Ragini Rollins - 08/08/23 Abdomen X-Ray (Signed) Zi Souza - 01/24/[address] (Signed) ZapataAlcides espinoza - 06/27/22 Chest X-Ray (Signed) ZapataAlcides espinoza - 06/27/22 Mammogram Screening (Signed) Antoine Xiao - 10/24/20 Bone Densitometry 10/24/20 Chest X-Ray (Signed) Fede Fleming - 02/07/20 Lumbar Spine MRI (Signed) Roger Gorman - 03/26/19 Foot MRI (Signed) Roger Gorman - 03/26/19 Vascular Ultrasound (Signed) Mart Davila - 05/11/[address] [address] XRay Report Signed Patient: Tori Cohen MR#: [id number] : 1950 Acct:[id number] Age/Sex: 73 / F Date of Service: 03/25/24 Loc: ED Accession Number: [id number] Procedure: XR hip w pel if done RT 2V Ordering Provider: Jackie Payne D.O. PROCEDURE: XR HIP W PEL IF DONE RT 2V INDICATIONS: fall TECHNIQUE: AP pelvis with lateral view(s) of the right hip(s). COMPARISON: None. FINDINGS: Bones: Mildly displaced intertrochanteric right hip fracture. Moderate to severe degenerative changes of the bilateral hips. Pelvic ring appears intact. No suspicious bony lesions. Soft tissues: The visualized bowel gas pattern is normal. No suspicious soft tissue calcifications. IMPRESSION: 1. Mildly displaced intertrochanteric right hip fracture. 2. 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 Dictated by: Indra Muro M.D. on 03/25/2024 at 15:46 Approved by: Indra Muro M.D. on 03/25/2024 at 15:46 [facility] Narrative Medical decision making narrative: 73-year-old female insulin-dependent diabetic hypertension dyslipidemia on aspirin daily who presents with a mechanical ground level fall and found to have a right intertrochanteric hip fracture. Patient falling, she states she did not hit her head does not have any cervical pain requiring head CT or C-spine. Labs patient is a little bit of a leukocytosis reactive patient has not had any recent infectious symptoms this week, white hemoglobin of 11.3 was 9.9 in July 2023, platelets are 334. Electrolytes are overall appropriate sodium 139 potassium of 4 chloride of 103 CO2 of 28 BUN 27 with a creatinine 1.07 slightly up from July 2023 which was 0.7, glucose is 196 LFTs are negative. Type and screen was sent. X-ray shows right intertrochanteric fracture and moderate to severe bilateral hip joint degeneration. Patient received fluids, she would pain medication EN route states her pain is controlled if she is not moving, she defers anything currently for pain Spoke with Dr. Mcnamara, orthopedic surgery plan for OR likely tomorrow afternoon. Spoke with hospitalist, Dr. Chavez kindly accepts. Discharge Plan Departure Clinical Impression: Closed intertrochanteric fracture of right hip Prescriptions: No Action metoprolol succinate 50 mg tablet extended release 24 hr 1 tab PO DAILY amlodipine 5 mg tablet 5 mg PO DAILY aspirin 81 mg tablet,delayed release (DR/EC) 81 mg PO QPM metformin 1,000 mg tablet 1 tab PO BID pantoprazole 20 mg tablet,delayed release (DR/EC) 20 mg PO DAILY cyclobenzaprine 5 mg tablet 5 mg PO 3XD PRN (Reason: Spasms) rosuvastatin 20 mg tablet 20 mg PO DAILY duloxetine 30 mg capsule,delayed release(DR/EC) 30 mg PO DAILY losartan-hydrochlorothiazide 100-12.5 mg tablet 1 tab PO DAILY insulin glargine [Lantus Solostar U-100 Insulin] 100 unit/mL (3 mL) Insulin Pen 15 unit SUBCUT 2100 Qty: 15 0RF (DME) lancets 33 gauge misc See Rx Instructions .Route Qty: 100 0RF Rx Instructions: Use to test once daily (DME) True Metrix Glucose Test Strip Strip See Rx Instructions .ROUTE .MEDSUPPLY Qty: 100 0RF Rx Instructions: Use to test once daily (DME) pen needle, diabetic [Pen Needle] 32 gauge x 5/32 needle See Rx Instructions .Route Qty: 400 0RF Rx Instructions: Use to inject up to 4x daily (DME) blood-glucose meter [True Metrix Glucose Meter] Misc See Rx Instructions .ROUTE .MEDSUPPLY Qty: 1 0RF Rx Instructions: As directed Admit Date/Time: 03/25/24 18:03 Admit Provider: Rajinder Chavez
[2024-03-25] MEDS: SODIUM CHLORIDE 0.9% 1,000 ML 125 ML IV (17:26)
[2024-03-25 17:32] LABS: INR 1.1 (0.9-1.3); Prothrombin Time 12.1 SECONDS (9.4-12.5)
[2024-03-25 17:34] LABS: PTT Partial Thromboplastin Tim 32 SECONDS (25.1-36.5)
[2024-03-25 17:35] LABS: Add Manual Diff / Slide Review NO; Basophils Absolute Auto 100 /uL (0-100); Basophils Percent Auto 0.3 % (0-2); Eosinophils Absolute Auto 100 /uL (0-450); Eosinophils Percent Auto 0.8 % (2-4); Hematocrit 34.1 % (36-46); Hemoglobin 11.3 g/dL (12.0-16.0); Lymphocytes Absolute Auto 600 /uL (1100-4500); Lymphocytes Percent Auto 3.9 % (25-40); Mean Corpuscular HGB Conc 33.1 % (30-36); Mean Corpuscular Hemoglobin 27.3 PG (26-34); Mean Corpuscular Volume 82.4 fL (80-100); Monocytes Absolute Auto 600 /uL (0-900); Monocytes Percent Auto 3.7 % (3-14); Neutrophils Absolute Auto 14700 /uL (1500-7000); Neutrophils Percent Auto 91.3 % (50-75); Platelet Count 334 X10^3/uL (150-400); Red Blood Cell Count 4.13 X10^6/uL (4.0-5.2); Red Cell Distribution Width 16.7 % (11.6-14.8); White Blood Cell Count 16.1 X10^3/uL (4.5-11.0)
[2024-03-25 17:36] LABS: Alanine Aminotransferase 29 IU/L (<35); Albumin Globulin Ratio 1.3 (1.0-2.8); Alkaline Phosphatase 101 U/L (38-126); Aspartate Aminotransferase 24 IU/L (14-36); BUN Creatinine Ratio 25.2 (6-22); Bilirubin Total 0.3 mg/dL (0.2-1.3); Blood Urea Nitrogen 27 mg/dL (7-17); Calcium 9.8 mg/dL (8.4-10.2); Carbon Dioxide 28 mmol/L (22-32); Chloride 103 mmol/L (98-107); Estimated Glomerular Filt Rate 56 mL/min (>60); Globulin 3.2 g/dL (1.7-4.1); Glucose 196 mg/dL (80-110); HEMOLYSIS < 15 (0-50); Sodium 139 mmol/L (137-145); Total Protein 7.2 g/dL (6.3-8.2)
--- NOTE | 2024-03-25 17:57 | P.HP_ITS ---
History of Present Illness History of Present Illness Date Patient Seen: 03/25/24 Chief complaint: Fall - R hip pain Narrative: From ED doctor: 73-year-old female with history of insulin-dependent diabetes, hypertension, dyslipidemia, depression and anxiety who is on aspirin daily. 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 She has pain in her right hip. Pain with any movement of the hip. States she did not hit her head denies any neck or back pain, no chest pain or shortness of breath. No nausea or vomiting. States pain is just in the hip. She states her bottom of her right foot feels a little funny when she tried to step. But she states has normal sensation when I touch her lower extremities throughout the leg and on the top and bottom of her foot. She states she can move her foot and ankle without any issue. Patient states no known drug allergies. No regular tobacco, occasional alcohol, no recreational drugs. Patient notes only prior surgeries were infected kidney stone had ureteral stent placed and then removed and developed sepsis this was a couple weeks ago. She states she has been doing well since then and the 2nd ureteral stent has since been removed. Patient's primary care is Beverley Albert. Patient independently in her own home on her own, she occasionally uses a walker in the house. S: She lost her balance trying to get into her house with a couple of bags of groceries. She felt a pop as soon as she hit the ground. She could not move and ultimately was brought to the hospital and her right hip was noted to be fractured. No other injuries. This is the 1st bone she was broken. She has been otherwise doing well for the last week or 2. She did have a recent admission for nephrolithiasis and obstruction as well as sepsis in [facility]. She was recently had stenting, stone removal, and subsequent stent removal. She has no urinary symptoms at this time. She lives alone in an apartment on her property wishes shared with a daughter. [facility] Medical History Melanoma (~2019) Depression (~2015) Osteoporosis (~2018) Foot pain (~2019) Carpal tunnel syndrome (~2013) Measles Chicken pox Vertigo Retinal detachment (~2017) Cataracts, bilateral (~2018) Diabetes mellitus (~1989) Healthy adult Surgical History Anesthesia History of removal of cyst (~1978) History of carpal tunnel release (~2013) History of partial thyroidectomy (~1979) History of eye surgery (~2017) History of cataract removal with insertion of prosthetic lens (~2020) Family History Father Cancer Mother Diabetes mellitus Hypertension Brother Diabetes mellitus Brother Diabetes mellitus Family/Other Diabetes mellitus Hypertension Social History household members: none Smoking Status: Never smoker Meds Home Medications and Allergies Home Medications Medication Instructions Recorded Confirmed Type amlodipine 5 mg tablet 5 mg PO DAILY 05/11/18 08/08/23 History aspirin 81 mg tablet,delayed 81 mg PO QPM 05/11/18 08/08/23 History release metformin 1,000 mg tablet 1 tab PO BID 05/11/18 08/08/23 History metoprolol succinate 50 mg 1 tab PO DAILY 05/11/18 08/08/23 History tablet,extended release 24 hr cyclobenzaprine 5 mg tablet 5 mg PO 3XD PRN Spasms 08/08/23 08/08/23 History duloxetine 30 mg capsule,delayed 30 mg PO DAILY 08/08/23 08/08/23 History release losartan 100 1 tab PO DAILY 08/08/23 08/08/23 History mg-hydrochlorothiazide 12.5 mg tablet pantoprazole 20 mg tablet,delayed 20 mg PO DAILY 08/08/23 08/08/23 History release rosuvastatin 20 mg tablet 20 mg PO DAILY 08/08/23 08/08/23 History blood sugar diagnostic (True #100 ea 08/15/23 Rx Metrix Glucose Test Strip) blood-glucose meter (True Metrix #1 ea 08/15/23 Rx Glucose Meter) insulin glargine 100 unit/mL (3 15 unit (0.15 mL) SUBCUT 2100 #15 08/15/23 Rx mL) subcutaneous pen (Lantus mL Solostar U-100 Insulin) lancets 33 gauge #100 ea 08/15/23 Rx pen needle, diabetic 32 gauge x #400 ea 08/15/23 Rx (Pen Needle) Allergies Allergy/AdvReac Type Severity Reaction Status Date / Time No Known Drug Allergies Allergy Verified 12/07/21 15:37 Review of Systems Review of Systems Narrative: All else reviewed and otherwise unremarkable except as noted in the history and physical. Exam Vital Signs (past 8 hours): - 03/25/24 16:04 Temperature 98 F Pulse Rate 68 Respiratory Rate 19 Blood Pressure 106/62 Pulse Oximetry 97 Oxygen Delivery Method Room Air Oxygen Delivery Method Room Air Narrative Exam Narrative: NAD, alert and oriented, fluent speech, calm. Normocephalic skull, EOMI, anicteric sclera, symmetric pupils. Oropharynx unremarkable, no droop. Neck supple, midline trachea, no adenopathy. Lungs clear, normal rate and effort. Heart regular, no murmur gallop or rub. Abdomen is soft, non distended and non tender. Extremities are free of edema. Skin is free of rash or lesions. Joints are not swollen or deformed. Judgment appears to be normal. Objective Imaging Hip Xray:: Radiologist's impression: 1. Mildly displaced intertrochanteric right hip fracture. 2. 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 Labs 03/25/24 17:12 03/25/24 17:12 Labs: Laboratory Results - last 24 hr 03/25/24 17:12 WBC 16.1 H RBC 4.13 Hgb 11.3 L Hct 34.1 L MCV 82.4 MCH 27.3 MCHC 33.1 RDW 16.7 H Plt Count 334 Neut % (Auto) 91.3 H Lymph % (Auto) 3.9 L [place] % (Auto) 3.7 Eos % (Auto) 0.8 L Baso % (Auto) 0.3 Neut # (Auto) 11539 H Lymph # (Auto) 600 L [place] # (Auto) 600 Eos # (Auto) 100 Baso # (Auto) 100 PT 12.1 INR 1.1 APTT 32 Sodium 139 Potassium 4.0 Chloride 103 Carbon Dioxide 28 BUN 27 H Creatinine 1.07 H Estimated GFR 56 L BUN/Creatinine Ratio 25.2 H Glucose 196 H Calcium 9.8 Total Bilirubin 0.3 AST 24 ALT 29 Alkaline Phosphatase 101 Total Protein 7.2 Albumin 4.0 Globulin 3.2 Albumin/Globulin Ratio 1.3 Assessment & Plan Assessment & Plan narrative: 1. Right intertrochanteric hip fracture, present on admission and active. 2. DM 2, present on admission and active. 3. Essential hypertension, present on admission and active. 4. Hyperlipidemia, present on admission and active. PLAN: -NPO after midnight for operative repair per Dr. Mcnamara. Emergency department contacted Dr. Mcnamara. -minimal movement of right hip, and analgesia. -correctional lispro and low-dose Lantus (20 instead of usual 27) tonight for diabetes. -monitor blood pressure and introduced usual blood pressure medications as able. She is full resuscitation, confirmed time of admit. She was admitted to inpatient status with a 2 midnight expectation for need of hospital services. Time Spent With Patient Time with patient: 30 to 49 minutes with 50% spent counseling/coordinating care Quality MIPS - Admit I confirm the patient?s Advance Care Plan is present, Code status is documented, Surrogate decision maker is in patient?s record [If Yes, STOP here]: Yes MIPS - Meds 'Current medications' to include all prescriptions, [id number] products, herbals, cannabis/cannabidiol products, and vitamin/mineral/dietary (nutritional) supplements. I have utilized all available resources to obtain, update, or review the patient?s current medications. [If Yes, STOP here]: Yes
[2024-03-25] MEDS: HYDROMORPHONE 0.5 MG INJ IV (19:47)
[2024-03-25] MEDS: SODIUM CHLORIDE 0.9% 1,000 ML 75 ML IV (19:51)
[2024-03-25] MEDS: HEPARIN 5,000 UNIT/ML VIAL 5000 UNIT SUBCUT (21:11)
[2024-03-25] MEDS: ACETAMINOPHEN 325 MG TABLET 650 MG PO (21:11)
[2024-03-25] MEDS: OXYCODONE IR 5 MG TABLET PO (21:11)
[2024-03-25] MEDS: INSULIN GLARGINE 100 UNIT/ML 3ML PEN 20 UNIT SUBCUT (21:15)
--- NOTE | 2024-03-25 22:44 | PC.NURSE ---
Addendum entered by Radha Jasso R.N. 03/26/24 02:51: Patient peeing small amounts at a time, bladder scan showed >400cc. Notified MD Millan, indwelling catheter ordered & placed. 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 Patient is AxOx4, VSS. Complaints of 8/10 pain in right hip, medicated as ordered & ice pack placed. CMS intact. IVF infusing as ordered. Q2 turning as tolerated. Purewick in place, patient is voiding clear yellow urine. Oriented to room & call-light, plan of care ongoing.
[2024-03-26] VITALS (12 sets, daily range): BP systolic 123–152; BP diastolic 53–89; PULSE 75–105; RESP 12–18; TEMP 35.9–37.7; O2SAT 90–100; BMI 30.2
--- NOTE | 2024-03-26 | DI.RAD.S_ITS ---
PROCEDURE: XR HIP W PEL IF DONE RT 2V INDICATIONS: ORIF TECHNIQUE: 4 intraoperative fluoroscopic views of the hip were acquired. COMPARISON: [facility], CR, XR HIP W PEL IF DONE RT 2V, 03/25/2024, 16:08. FINDINGS: Intraoperative fluoroscopic images of right hip shows intramedullary nailing of the femoral shaft and compression screw placement in right femoral neck. IMPRESSION: Fluoro guidance was provided intraoperatively for ORIF of right proximal femur. Dictated by: Zi Souza M.D. on 03/26/2024 at 21:17 Approved by: Zi Souza M.D. on 03/26/2024 at 21:18
[2024-03-26] MEDS: HYDROMORPHONE 0.5 MG INJ IV ×3 (02:00→12:31)
[2024-03-26] MEDS: SODIUM CHLORIDE 0.9% 1,000 ML 75 ML IV (04:36)
[2024-03-26 05:02] LABS: Add Manual Diff / Slide Review NO; Basophils Absolute Auto 0 /uL (0-100); Basophils Percent Auto 0.6 % (0-2); Eosinophils Absolute Auto 100 /uL (0-450); Eosinophils Percent Auto 1.8 % (2-4); Hematocrit 31.5 % (36-46); Hemoglobin 10.4 g/dL (12.0-16.0); Lymphocytes Absolute Auto 1300 /uL (1100-4500); Mean Corpuscular HGB Conc 33.1 % (30-36); Mean Corpuscular Hemoglobin 27.2 PG (26-34); Mean Corpuscular Volume 82.2 fL (80-100); Monocytes Absolute Auto 900 /uL (0-900); Monocytes Percent Auto 12.1 % (3-14); Neutrophils Absolute Auto 5100 /uL (1500-7000); Neutrophils Percent Auto 68.5 % (50-75); Platelet Count 290 X10^3/uL (150-400); Red Blood Cell Count 3.83 X10^6/uL (4.0-5.2); Red Cell Distribution Width 16.5 % (11.6-14.8); White Blood Cell Count 7.4 X10^3/uL (4.5-11.0)
[2024-03-26 05:18] LABS: BUN Creatinine Ratio 26.9 (6-22); Blood Urea Nitrogen 25 mg/dL (7-17); Calcium 8.9 mg/dL (8.4-10.2); Carbon Dioxide 32 mmol/L (22-32); Chloride 103 mmol/L (98-107); Estimated Glomerular Filt Rate > 60 mL/min (>60); Glucose 102 mg/dL (80-110); HEMOLYSIS < 15 (0-50); Sodium 138 mmol/L (137-145)
--- NOTE | 2024-03-26 07:12 | PT-IP ANOTE ---
PT order received. Pt had a fall and hip fracture. Will wait for ortho note to see if she is having surgery before initiating PT.
--- NOTE | 2024-03-26 08:46 | OT.IPNOTE ---
OT eval and treat order recieved. Pt admitted with fall and R hip fx. Possible sx today 03/26/24 per notes. Will hold and continue to follow.
[2024-03-26] MEDS: ACETAMINOPHEN 325 MG TABLET 650 MG PO (10:02)
[2024-03-26] MEDS: HEPARIN 5,000 UNIT/ML VIAL 5000 UNIT SUBCUT (10:02)
[2024-03-26] MEDS: OXYCODONE IR 5 MG TABLET PO ×2 (10:03→18:06)
--- NOTE | 2024-03-26 10:14 | PT-IP ANOTE ---
Pt discussed in rounds and to go for surgery after hip fracture. Will d/c PT order and NNO post-op with any precautions and WB status. Thank you.
--- NOTE | 2024-03-26 15:30 | PM.PN.1 ---
Subjective Subjective Interval history: 73 F admitted with hip fracture. Awaiting OR today. Pain is controlled at rest, quite severe she states when she moves. No other complaints. Exam Vital Signs (past 8 hours): - 03/26/24 08:00 03/26/24 12:00 Temperature 97.2 F L 97.2 F L Pulse Rate 78 82 Respiratory Rate 16 12 Blood Pressure 128/69 148/70 H Pulse Oximetry 98 95 Oxygen Flow Rate 0 Oxygen Delivery Method Room Air Oxygen Flow Rate 0 Narrative Exam Narrative: NAD, alert and oriented, fluent speech, calm. Normocephalic skull, EOMI, anicteric sclera, symmetric pupils. Oropharynx unremarkable, no droop. Neck supple, midline trachea, no adenopathy. Lungs clear, normal rate and effort. Heart regular, no murmur gallop or rub. Abdomen is soft, non distended and non tender. Extremities are free of edema. Skin is free of rash or lesions. Joints are not swollen or deformed. Judgment appears to be normal. Objective Labs 03/26/24 04:48 03/26/24 04:48 Labs: Laboratory Results - last 24 hr 03/25/24 03/26/24 17:12 04:48 WBC 16.1 H 7.4 D RBC 4.13 3.83 L Hgb 11.3 L 10.4 L Hct 34.1 L 31.5 L MCV 82.4 82.2 MCH 27.3 27.2 MCHC 33.1 33.1 RDW 16.7 H 16.5 H Plt Count 334 290 Neut % (Auto) 91.3 H 68.5 D Lymph % (Auto) 3.9 L 17.0 L [place] % (Auto) 3.7 12.1 Eos % (Auto) 0.8 L 1.8 L Baso % (Auto) 0.3 0.6 Neut # (Auto) 83209 H 5100 Lymph # (Auto) 600 L 1300 [place] # (Auto) 600 900 Eos # (Auto) 100 100 Baso # (Auto) 100 0 PT 12.1 INR 1.1 APTT 32 Sodium 139 138 Potassium 4.0 4.0 Chloride 103 103 Carbon Dioxide 28 32 BUN 27 H 25 H Creatinine 1.07 H 0.93 Estimated GFR 56 L > 60 BUN/Creatinine Ratio 25.2 H 26.9 H Glucose 196 H 102 Calcium 9.8 8.9 Total Bilirubin 0.3 AST 24 ALT 29 Alkaline Phosphatase 101 Total Protein 7.2 Albumin 4.0 Globulin 3.2 Albumin/Globulin Ratio 1.3 Blood Type B Positive Antibody Screen Negative [facility] Medical History Melanoma (~2019) Depression (~2015) Osteoporosis (~2018) Foot pain (~2019) Carpal tunnel syndrome (~2013) Measles Chicken pox Vertigo Retinal detachment (~2017) Cataracts, bilateral (~2018) Diabetes mellitus (~1989) Healthy adult Surgical History Anesthesia History of removal of cyst (~1978) History of carpal tunnel release (~2013) History of partial thyroidectomy (~1979) History of eye surgery (~2017) History of cataract removal with insertion of prosthetic lens (~2020) Family History Father Cancer Mother Diabetes mellitus Hypertension Brother Diabetes mellitus Brother Diabetes mellitus Family/Other Diabetes mellitus Hypertension Social History household members: none Smoking Status: Never smoker alcohol intake: current Assessment & Plan Assessment & Plan narrative: 1. Right intertrochanteric hip fracture, present on admission and active. 2. DM 2, present on admission and active. 3. Essential hypertension, present on admission and active. 4. Hyperlipidemia, present on admission and active. PLAN: -Awaiting OR planned for today. -minimal movement of right hip, and analgesia. -continue correctional lispro and low-dose Lantus (20 instead of usual 27) tonight for diabetes. Adjust as needed moving forward. -monitor blood pressure and introduced usual blood pressure medications as able. She is full resuscitation, confirmed time of admit. Surrogate is patient's daughter. Dispo: patient admitted under inpatient status. Unclear if will be able to discharge home or possible SNF, will have PT/OT evaluations after surgery. Time Spent With Patient Time with patient: 30 to 49 minutes with 50% spent counseling/coordinating care Quality VTE Deep Vein Thrombosis/Pulmonary Embolism Present on Admission: No
--- NOTE | 2024-03-26 15:58 | P.CONS_ITS ---
History of Present Illness Consult details Date Patient Seen: 03/26/24 Time Patient Seen: 15:58 Chief complaint: Fall - R hip pain Reason for consult: hip fx Requesting provider: Darrin Watters Narrative: 73-year-old female with history of insulin-dependent diabetes, hypertension, dyslipidemia, depression and anxiety who is on aspirin daily. She was walking into her house and to put groceries away. She had a bag in each hand. She states they were having started tip forward and then she went over with them. She has a was unable get up. She called her daughter who on the same property help and they took EMS to [facility] where she was diagnosed with a right intertrochanteric hip fracture and Orthopedic surgery was consulted. I have asked my partner Dr. Mcnamara to evaluate. Patient endorses a history of kidney infections she reportedly had sepsis and a urethral stent placed previously. She states she was with [facility] back in July of 2023 and then was most recently in [facility] for the kidney infection. She does have a walker at home which she is used after deconditioning from her hospitalizations but does not use it baseline. She states she can move her foot and ankle without any issue. She denies any other injury. Patient states no known drug allergies. No regular tobacco, occasional alcohol, no recreational drugs. Patient notes only prior surgeries were infected kidney stone had ureteral stent placed and then removed and developed sepsis this was last month. She states she has been doing well since then and the 2nd ureteral stent has since been removed. Patient's primary care is Beverley Albert. Patient independently in her own home on her own, she occasionally uses a walker in the house. Meds Home Medications and Allergies Home Medications Medication Instructions Recorded Confirmed Type amlodipine 5 mg tablet 5 mg PO DAILY 05/11/18 03/25/24 History aspirin 81 mg tablet,delayed 81 mg PO QPM 05/11/18 03/25/24 History release metformin 1,000 mg tablet 1 tab PO BID 05/11/18 03/25/24 History rosuvastatin 20 mg tablet 20 mg PO DAILY 08/08/23 03/25/24 History bupropion HCl 300 mg 24 hr tablet, 300 mg PO QAM 03/25/24 03/25/24 History extended release duloxetine 60 mg capsule,delayed 60 mg PO DAILY 03/25/24 03/25/24 History release insulin glargine 100 unit/mL (3 27 unit SUBCUT DAILY 03/25/24 03/25/24 History mL) subcutaneous pen (Lantus Solostar U-100 Insulin) losartan 100 1 tab PO DAILY 03/25/24 03/25/24 History mg-hydrochlorothiazide 12.5 mg tablet metoprolol succinate 50 mg 50 mg PO DAILY 03/25/24 03/25/24 History tablet,extended release 24 hr Allergies Allergy/AdvReac Type Severity Reaction Status Date / Time No Known Drug Allergies Allergy Verified 12/07/21 15:37 Review of Systems Review of Systems Narrative: Diabetes and history of kidney infections and ureteral stents ROS: Yes All systems reviewed with the patient and are negative except as otherwise documented Exam Vital Signs (past 8 hours): - 03/26/24 08:00 03/26/24 12:00 03/26/24 15:42 Temperature 97.2 F L 97.2 F L 99.1 F Pulse Rate 78 82 89 Respiratory Rate 16 12 12 Blood Pressure 128/69 148/70 H 152/86 H Pulse Oximetry 98 95 93 Oxygen Delivery Method Room Air Oxygen Flow Rate 0 Oxygen Delivery Method Room Air Oxygen Flow Rate 0 Narrative Exam Narrative: Alert and oriented female in no acute distress lying in the hospital bed Normocephalic atraumatic Heart regular rate and rhythm Moving bilateral upper extremities without limitation Moves left lower extremity without limitation. Ulrich in place. Right lower extremity is shortened and externally rotated consistent with hip fracture. Calf is soft thigh is soft. Demonstrates dorsiflexion plantar flexion of the ankle and palpable dorsalis pedis pulse. Objective Imaging AP pelvis and lateral right hip: My impression: AP pelvis and lateral right hip demonstrates moderate displaced intertrochanteric femur fracture on the right, lesser intact Labs 03/26/24 04:48 03/26/24 04:48 Labs: Laboratory Results - last 24 hr 03/25/24 03/26/24 17:12 04:48 WBC 16.1 H 7.4 D RBC 4.13 3.83 L Hgb 11.3 L 10.4 L Hct 34.1 L 31.5 L MCV 82.4 82.2 MCH 27.3 27.2 MCHC 33.1 33.1 RDW 16.7 H 16.5 H Plt Count 334 290 Neut % (Auto) 91.3 H 68.5 D Lymph % (Auto) 3.9 L 17.0 L [place] % (Auto) 3.7 12.1 Eos % (Auto) 0.8 L 1.8 L Baso % (Auto) 0.3 0.6 Neut # (Auto) 77408 H 5100 Lymph # (Auto) 600 L 1300 [place] # (Auto) 600 900 Eos # (Auto) 100 100 Baso # (Auto) 100 0 PT 12.1 INR 1.1 APTT 32 Sodium 139 138 Potassium 4.0 4.0 Chloride 103 103 Carbon Dioxide 28 32 BUN 27 H 25 H Creatinine 1.07 H 0.93 Estimated GFR 56 L > 60 BUN/Creatinine Ratio 25.2 H 26.9 H Glucose 196 H 102 Calcium 9.8 8.9 Total Bilirubin 0.3 AST 24 ALT 29 Alkaline Phosphatase 101 Total Protein 7.2 Albumin 4.0 Globulin 3.2 Albumin/Globulin Ratio 1.3 Blood Type B Positive Antibody Screen Negative [facility] Medical History Melanoma (~2019) Depression (~2015) Osteoporosis (~2018) Foot pain (~2019) Carpal tunnel syndrome (~2013) Measles Chicken pox Vertigo Retinal detachment (~2017) Cataracts, bilateral (~2018) Diabetes mellitus (~1989) Healthy adult Surgical History Anesthesia History of removal of cyst (~1978) History of carpal tunnel release (~2013) History of partial thyroidectomy (~1979) History of eye surgery (~2017) History of cataract removal with insertion of prosthetic lens (~2020) Family History Father Cancer Mother Diabetes mellitus Hypertension Brother Diabetes mellitus Brother Diabetes mellitus Family/Other Diabetes mellitus Hypertension Social History household members: none Tobacco & Substance Use Smoking Status: Never smoker alcohol intake: current Assessment & Plan Assessment and plan (1) Closed intertrochanteric fracture of right hip: Qualifiers: Encounter type: initial encounter Fracture alignment: displaced Qualified Code(s): S72.141A - Displaced intertrochanteric fracture of right femur, initial encounter for closed fracture Status: Acute (2) Osteoporotic hip fracture: Qualifiers: Encounter type: initial encounter Laterality: right Qualified Code(s): M80.051A - Age-related osteoporosis with current pathological fracture, right femur, initial encounter for fracture Status: Acute Plan The patient is a 73-year-old female that sustained a moderately displaced right intertrochanteric hip fracture. She was indicated for surgical fixation to restore alignment length and allow early mobilization and reduce the morbidity of prolonged bedrest. Her labs were reviewed and appropriate kidney function within normal limits today. She was otherwise optimized by the Internal Medicine admitting team is NPO and appropriate proceed with surgical fixation. We discussed postoperatively she will be weightbear as tolerated initially use a walker then can wean down to a cane or crutch use a walking stick as she is able. She will benefit from physical therapy and occupational therapy while in the hospital before discharge. We discussed risks of blood loss possible need for transfusion and this would be monitored postoperatively. She was no history of previous thromboembolism. Postoperative DVT prophylaxis will be Lovenox x4 weeks alternatively if she is mobilizing well or if they are kidney concerns could consider aspirin 81 mg b.i.d. x6 weeks The risks and benefits of the procedure have been discussed with the patient and given the opportunity to ask questions. The risks of surgery include but are not limited to infection, malunion, nonunion, persistence of pain, damage to nerves and blood vessels, posttraumatic arthritis, DVT, PE, cardiopulmonary complications and . The patient expressed a thorough understanding of the risks and benefits of surgery and has elected to proceed. Consent was signed. High-level medical decision-making. Decision for major orthopedic surgery. Fixation of right hip fracture. This is dictation of inpatient hospital admission physical therapy possible discharge planning help replacement depending on progress with physical therapy. Time Spent With Patient Time with patient: 50 to 69 minutes with 50% spent counseling/coordinating care
[2024-03-26 16:05] LABS: COVID19 -Nasal RAPID Negative (Negative)
--- NOTE | 2024-03-26 16:13 | CM.DANOTE ---
Initial DCP Assessment Note Pt is a 73 yo female, resident of [place], presents following a GLF resulting in a dislocated right hip. Per EMR, pt lives alone but has daughter living across the driveway. PCP: Beverley Albert Payer: [facility]. Reviewed chart and team rounds for pt's medical status and initial discharge needs. Due to triaging needs, DCP was not able to meet with pt at bedside before she left floor for procedure. Plan: Pending PT/OT recommendations following surgery. CM team following clinical course closely for assessment of need and coordination of discharge plan. EMA Dobbs Discharge Planning/Care Management CM Discharge Assessment Start: 03/26/24 16:06 Freq: Status: Active Protocol: Document 03/26/24 16:06 MW (Rec: 03/26/24 16:11 MW [id number]) Discharge Planning Assessment Assigned Sales Representative Advertising EZRA Partida DPOA/Assigned Designee Name Allison Pagan Contact Information [phone] Advance Directives? No Advance Directives on File No History Provided By Patient,Family Member,Medical Record Has Patient been admitted in last 30 No days? Prior Living Arrangements House Comment daughter lives across the driveway Household Members none Type of transporation used prior to Relies on Others admit Patient/Family Preference Home with Home Health Discharge Plan Home with Home Health Transportation Arrangement Family or friends Additional Comment PT/OT eval pending Please Provide Date Initial DC 03/26/24 Assessment Was Performed Next Review Type Continued Stay Review
[2024-03-26] MEDS: CEFAZOLIN 2 GM/100 ML PREMIX 100 ML IV (16:26)
--- NOTE | 2024-03-26 16:41 | SUR.OPER ---
Lateral on padded OR bed. Gel axillary roll. Arms secured on padded armboard with pillow supporting top arm. Padded hip positioner braces x4 - anterior and posterior chest and pelvis. Additional gel pad used anterior pelvis. Gel pad under bottom leg from knee to foot and secured with tape over sheet.
[2024-03-26] MEDS: BUPIVACAINE 0.5% (PF) 30 ML, EPINEPHrine 0.15 MG INJ (16:51)
[2024-03-26] MEDS: BUPIVACAINE 0.5% (PF) 10 ML VIAL INJ (17:22)
[2024-03-26] MEDS: BUPIVACAINE LIPOSOME 266 MG/20 ML VIAL INJ (17:24)
--- NOTE | 2024-03-26 17:45 | P.OP_ITS ---
Operative Date/Time/Diagnoses Date of procedure: 03/26/24 Time of procedure: 17:00 Pre-op diagnosis: Right intertrochanteric hip fracture, osteoporotic hip fracture Post-op diagnosis: same Procedure & Clinicians Procedure: Intramedullary nailing right intertrochanteric hip fracture CPT code 15860 Same procedure as scheduled: Yes Indications: The patient is a 73-year-old female that had a ground level fall and sustained a right intertrochanteric hip fracture. She was indicated for operative fixation to restore alignment and promote early mobility and reduce the risks associated with prolonged bed rest. The risks and benefits of the procedure have been discussed with the patient and given the opportunity to ask questions. The risks of surgery include but are not limited to infection, malunion, nonunion, persistence of pain, damage to nerves and blood vessels, posttraumatic arthritis, DVT, PE, coardiopulmonary complications and . The patient expressed a thorough understanding of the risks and benefits of surgery and has elected to proceed. Consent was signed. Surgeon: Angelique Dyson Click Yes if Unassisted: Yes Anesthesia Type: General and Local Operative Notes Findings: Right intertrochanteric hip fracture Closure Type: primary Specimen(s): none sent Prosthetic devices, grafts, tissues, transplants, or devices: Mcnamara and nephew InterTAN Procedure cephalomedullary nail right Implant Mcnamara and Nephew 11.5 x 18 cm cephalomedullary nail intertan Lag screw and interlocking screw 100/95 Locking screw 35 x 5.0 Estimated Blood Loss (mL): 50 Blood products transfused: none Tourniquet time (min): 0 Procedure in detail: Procedure cephalomedullary nail intertrochanteric hip fracture the CPT code 71821 Side: Right Implant Mcnamara and Nephew 11.5 x 18 cm cephalomedullary nail intertan Procedure: The patient was seen and the site of surgery was marked in the preoperative area. This was the right hip. Patient was brought to the operating room and placed on the operative table and general anesthesia was administered. The patient was positioned on the fracture table in standard fashion with a well-padded boots and a padded peroneal post. An SCD was on the contralateral leg. A formal time-out was called to confirm the patient's side and site of surgery administration of preoperative antibiotics. All were in agreement. The operative leg was then gently manipulated under fluoroscopic guidance to obtain a closed reduction in near anatomic alignment. At this point the operative extremity was prepped and draped in the standard sterile manner. The starting point was marked out using fluoroscopic guidance and marked on the skin. A guidewire was placed percutaneously and the starting point was obtained. Incision was made over the guidewire. An opening drill was inserted to the level of the lesser trochanter. The opening Reamer and guidewire were then removed. An 18 cm cephalomedullary nail was selected. The 11.5 x 18 cm nail wa s then slid into the canal. The nail was advanced to the proper depth and rotation. The guide for the cephalomedullary screw was then inserted into the external handle. An incision was made and the guide was placed down to the bone. A guidewire was placed to the proper depth into the femoral head and this was confirmed on AP and lateral imaging. The tip apex distance was evaluated and appropriate. This was measured. Next the outer cortex was drilled for the interlocking screw and the anti rotation bar was placed. The cephalomedullary screw length was then measured off the drill again. A 100 mm lag screw was selected and the corresponding interlocking compression screw. A guidewire was then over drilled and the lag screw placed. The anti rotation bar was removed and then the locking compression screws were placed and confirmed on biplanar fluoroscopy. The integrated compression screw was tightened. Attention was turned to the distal interlock. This was placed with the guide in the standard technique, 35 mm screw. AP and lateral images were captured in the or confirming alignment hardware placement. Wounds were irrigated and closed in layers with 0 Vicryl in the deep fascia. 2- 0 in the subcutaneous tissue and geovanny in the skin. 0.5% Marcaine with epinephrine and 266 mg of Exparel was injected into the incision sites for local anesthetic. Sterile dressings were applied. There no immediate complications. Surgical counts were correct. The patient tolerated the procedure well was taken to recovery room for formal radiographs. . Complications: none Post-operative Condition: stable Disposition: PACU Plan for aftercare: Postoperative plan. Weightbear as tolerated to the surgical extremity. Work with physical therapy and occupational therapy. Discharge by primary team. Likely penitentiary. Monitor hemoglobin and hematocrit postoperatively may require transfusion if needed. Encourage incentive spirometry. SCDs and Lovenox for DVT prophylaxis. Recommend Lovenox 4 weeks for hip fracture---if mobilizing well alternative would be aspirin 81 mg b.i.d.. Follow-up [facility] in 2 weeks for wound check and repeat x-rays. Keep dressing clean and intact--Aquacel dressing we will allow showers. May change of saturated
[2024-03-26] MEDS: LACTATED RINGERS 1,000 ML 42 ML IV (18:07)
[2024-03-26] MEDS: LACTATED RINGERS 1,000 ML 100 ML IV (18:50)
[2024-03-26] MEDS: OXYCODONE IR 10 MG TABLET PO (19:55)
[2024-03-26] MEDS: INSULIN GLARGINE 100 UNIT/ML 3ML PEN 20 UNIT SUBCUT (21:25)
[2024-03-26] MEDS: DOCUSATE 100 MG CAPSULE PO (21:26)
[2024-03-26] MEDS: SENNOSIDES 8.6 MG TABLET 17.2 MG PO (21:26)
[2024-03-27] VITALS (8 sets, daily range): BP systolic 98–149; BP diastolic 51–76; PULSE 91–136; RESP 17–18; TEMP 35.9–36.6; O2SAT 93–100
[2024-03-27] MEDS: CEFAZOLIN 2 GM/100 ML PREMIX 100 ML IV ×2 (00:19→09:13)
[2024-03-27] MEDS: OXYCODONE IR 10 MG TABLET PO ×2 (02:36→05:32)
[2024-03-27] MEDS: IBUPROFEN 400 MG TABLET PO ×2 (05:20→20:55)
[2024-03-27] MEDS: ACETAMINOPHEN 325 MG TABLET 650 MG PO ×2 (05:20→17:22)
[2024-03-27 05:59] LABS: Add Manual Diff / Slide Review NO; Basophils Absolute Auto 0 /uL (0-100); Basophils Percent Auto 0.1 % (0-2); Eosinophils Absolute Auto 0 /uL (0-450); Hematocrit 27.5 % (36-46); Hemoglobin 9.2 g/dL (12.0-16.0); Lymphocytes Absolute Auto 800 /uL (1100-4500); Lymphocytes Percent Auto 7.3 % (25-40); Mean Corpuscular HGB Conc 33.3 % (30-36); Mean Corpuscular Hemoglobin 27.4 PG (26-34); Mean Corpuscular Volume 82.5 fL (80-100); Monocytes Absolute Auto 1100 /uL (0-900); Monocytes Percent Auto 9.9 % (3-14); Neutrophils Absolute Auto 9100 /uL (1500-7000); Neutrophils Percent Auto 82.7 % (50-75); Platelet Count 268 X10^3/uL (150-400); Red Blood Cell Count 3.34 X10^6/uL (4.0-5.2); Red Cell Distribution Width 16.5 % (11.6-14.8)
[2024-03-27 06:11] LABS: Blood Urea Nitrogen 16 mg/dL (7-17); Calcium 8.6 mg/dL (8.4-10.2); Carbon Dioxide 29 mmol/L (22-32); Chloride 102 mmol/L (98-107); Estimated Glomerular Filt Rate > 60 mL/min (>60); Glucose 197 mg/dL (80-110); HEMOLYSIS < 15 (0-50); Potassium 4.2 mmol/L (3.4-5.1); Sodium 134 mmol/L (137-145)
[2024-03-27] MEDS: ENOXAPARIN 40 MG/0.4 ML SYRINGE SUBCUT (09:16)
[2024-03-27] MEDS: DOCUSATE 100 MG CAPSULE PO ×2 (09:17→20:55)
[2024-03-27] MEDS: HYDROMORPHONE 0.5 MG INJ IV (09:24)
--- NOTE | 2024-03-27 11:03 | CM.DPNOTE ---
Addendum entered by EZRA Grove 03/27/24 15:32: Per PT/OT, rec SNF placement. SHALE PROCESSING TECHNICIAN spoke with Charlee from [facility], agreed to review and try for auth if able to accept. P: anticipate dc to [facility] pending auth/accepting facility. CM team will follow closely. PASRR needed. SL Original Note: DCP Note SHALE PROCESSING TECHNICIAN reviewed EMR. Surgery yesterday, PT/OT evals planned for today. SHALE PROCESSING TECHNICIAN met with pt, dtr Aimee, and grandson in room. Pt confirms hx of [facility]. Pt and dtr report no one can be with her 18/04 but dtr and grandson and other family could help at home. Has a walker/wc, dtr will look into getting bedside commode. Would prefer to dc home with family/HH but will likely follow recommendations from PT/OT. Concerned about pain with PT/OT. Preference for SNF would be [facility]. P: DCP pending therapy recs and pt preferences. Home with HH/family vs SNF. Referrals to [facility] or [facility] needed. CM team will follow closely. EZRA Grove
--- NOTE | 2024-03-27 11:06 | PM.PNPO.1 ---
Subjective Subjective Date Patient Seen: 03/27/24 Time Patient Seen: 11:06 Interval history: Pain is moderate. Patient has not yet worked with physical therapy. Patient's daughter lives nearby and her grandson's are other school on summer break and they would all be available to assist her. Exam Vital Signs (past 8 hours): - 03/27/24 05:35 03/27/24 08:00 03/27/24 08:35 Temperature 96.8 F L 96.6 F L Pulse Rate 112 H 93 H 97 H Respiratory Rate 17 18 18 Blood Pressure 149/72 H 108/66 Pulse Oximetry 94 98 98 Oxygen Delivery Method Nasal Cannula Oxygen Flow Rate 1 1.5 1.5 Oxygen Delivery Method Nasal Cannula Oxygen Flow Rate 1.5 Narrative Exam Narrative: 73-year-old female resting comfortably in bed in no apparent distress. Dressing is clean, dry and intact. Neurovascular status is intact bilateral lower extremities. Const General: cooperative and comfortable Nutritional Appearance: average body habitus Resp Effort & Inspection: normal respiratory effort and able to speak in complete sentences Objective Labs 03/27/24 05:31 03/27/24 05:31 Labs: Laboratory Results - last 24 hr 03/26/24 03/27/24 15:35 05:31 WBC 11.0 RBC 3.34 L Hgb 9.2 L Hct 27.5 L MCV 82.5 MCH 27.4 MCHC 33.3 RDW 16.5 H Plt Count 268 Neut % (Auto) 82.7 H Lymph % (Auto) 7.3 L [place] % (Auto) 9.9 Eos % (Auto) 0.0 L Baso % (Auto) 0.1 Neut # (Auto) 9100 H Lymph # (Auto) 800 L [place] # (Auto) 1100 H Eos # (Auto) 0 Baso # (Auto) 0 Sodium 134 L Potassium 4.2 Chloride 102 Carbon Dioxide 29 BUN 16 Creatinine 0.84 Estimated GFR > 60 BUN/Creatinine Ratio 19.0 Glucose 197 H Calcium 8.6 SARS-CoV-2 (PCR) Negative [facility] Medical History Melanoma (~2019) Depression (~2015) Osteoporosis (~2018) Foot pain (~2019) Carpal tunnel syndrome (~2013) Measles Chicken pox Vertigo Retinal detachment (~2017) Cataracts, bilateral (~2018) Diabetes mellitus (~1989) Healthy adult Surgical History Anesthesia History of removal of cyst (~1978) History of carpal tunnel release (~2013) History of partial thyroidectomy (~1979) History of eye surgery (~2017) History of cataract removal with insertion of prosthetic lens (~2020) Family History Father Cancer Mother Diabetes mellitus Hypertension Brother Diabetes mellitus Brother Diabetes mellitus Family/Other Diabetes mellitus Hypertension Social History household members: none Smoking Status: Never smoker alcohol intake: current Assessment & Plan Post-op Postoperative Procedures: Procedures Operation Date: 03/26/24 15:30 Actual Procedure Side Surgeon p Intramedullary Nailing Hip Right Angelique Dyson MD Postoperative day: 1 Postoperative status: doing well Postoperative status narrative: Anemia likely due to acute blood loss during surgery continue to follow Postoperative plan: routine post-op care Postoperative plan narrative: Weight-bearing as tolerated Mobilize with physical therapy SCDs and Lovenox for DVT prophylaxis, recommend Lovenox x4 weeks or if mobilizing well aspirin 81 mg b.i.d.. Follow up Orthopedic in 2 weeks for wound check and repeat x-rays Keep dressing clean and dry Disposition per hospitalist Quality VTE Deep Vein Thrombosis/Pulmonary Embolism Present on Admission: No
[2024-03-27] MEDS: HYDROMORPHONE 2 MG TABLET PO ×3 (11:09→23:27)
[2024-03-27] MEDS: INSULIN LISPRO 100 UNIT/ML 3ML VIAL SUBCUT ×3 (12:21→20:55)
--- NOTE | 2024-03-27 12:25 | PT.IIE ---
Current Diagnoses Age-related osteoporosis with current pathological fracture, right femur, initial encounter for fracture (03/25/24) Displaced intertrochanteric fracture of right femur, initial encounter for closed fracture (03/25/24) Surgery Performed Operation Date: 03/26/24 15:30 Actual Procedures p Intramedullary Nailing Hip(Right) - Angelique Dyson MD Surgical History (Last Reviewed 03/26/24 @ 16:00 by Angelique Dyson MD) Anesthesia History of carpal tunnel release (~2013) History of cataract removal with insertion of prosthetic lens (~2020) History of eye surgery (~2017) History of partial thyroidectomy (~1979) History of removal of cyst (~1978) Medical History (Last Reviewed 03/26/24 @ 16:00 by Angelique Dyson MD) Carpal tunnel syndrome (~2013) Cataracts, bilateral (~2018) Chicken pox Depression (~2015) Diabetes mellitus (~1989) Foot pain (~2019) Healthy adult Measles Melanoma (~2019) Osteoporosis (~2018) Retinal detachment (~2017) Vertigo Physical Therapy Inpatient Evaluation/Re-Eval M1 PT/OT-IP Prior Functional Status Start: 03/27/24 14:17 Freq: NEEDED Status: Active Protocol: Document 03/27/24 12:25 AB (Rec: 03/27/24 14:29 AB [id number]) Medical Review Prior Functional Status Medical History Reviewed Yes Communication able to make needs known; with confusion Mobility and Gait pt stated that she was modified independent with all mobilities and ambulation without AD indoors but occasionall uses a 4WW; occasionally uses a SPC fo routdoor mobility Social History Household Members none Living Arrangements House Number of Floors (Floors) One Floor Number of Stairs To Enter/Railing? 3 steps R rail to enter the house Home Environment Standard Height Toilet,Tub/ Shower Home Equipment Four Wheel Walker,Straight Cane,Manual Wheelchair,Shower Seat with Backrest,Hand Held Shower,Grab Bars In Shower Additional Social History Comment stated that her daughter and grandson just lives across the street and can assist her but will not be able to provide 24/7 assist M2 PT-IP Current Condition Start: 03/27/24 14:17 Freq: NEEDED Status: Active Protocol: Document 03/27/24 12:25 AB (Rec: 03/27/24 14:29 [id number]) Physical Therapy Current Condition Current Condition Evaluation Date 03/27/24 Treatment Diagnosis R hip fx s/p ORIF; difficulty in walking Onset Date 03/25/24 M3 PT-IP Subjective Start: 03/27/24 14:17 Freq: NEEDED Status: Active Protocol: Document 03/27/24 12:25 AB (Rec: 03/27/24 14:29 [id number]) Subjective Physical Therapy Visit Type Type Initial Evaluation Visit Start Time 12:25 Visit Stop Time 13:15 Number of CLINIC CHARGE NURSE Visits 0 Physical Therapy Visit Comments Patient Comments agreeable to do PT Therapy Pain Assessment Pain When Pain Assessed During Mobility Pain Present Pain Present Pain Reported Location Right Hip Scale Used pain scale not stated Pain Behaviors Facial Grimacing,Guarding, Holding Area,Wincing Pain Management Techniques Distraction,Modification of Treatment,Re-positioning, Timing of Activity with Medications M4 PT-IP Mobility and Gait Start: 03/27/24 14:17 Freq: NEEDED Status: Active Protocol: Document 03/27/24 12:25 AB (Rec: 03/27/24 14:29 [id number]) PT-Bed Mobility Assessment Supine to Sit Supine to Sit Maximum Assistance,1 Person Assistance,Head of Bed Elevated,Bedrails Scooting Scooting to Edge of Bed Maximum Assistance,Dependent PT-Transfer Assessment Sit to and From Stand Sit to and from Stand Maximum Assistance,1 Person Assistance,2 Person Assistance ,Use of Upper Extremities Equipment Transfer Assistive Device Gait Belt,Front Wheeled Walker Orthotic/Prosthetic Devices or Brace: No Transfers Transfer Destination Toilet Transfer Technique Stand Step Pivot Transfer Ability Level of Assist Maximum Assistance,1 Person Assistance,2 Person Assistance ,Use of Upper Extremities Comments Mobility Comments pt supine in bed and agreed to do PT but hesitant and c/o pain and expressed fear of falling. obtained PLOF and home set up from pt. BP in supine: 111/68. pt completed supine to sit max A and max cues. max A to total A for scooting to EOB. c/o increase R hip pain with increase guarding when assisted to scoot to EOB. pt needing increase rest breaks in between tasks. c/o dizziness with initial sitting : BP: 166 /82. pt completed sit to stand max A and max cues and step transfer to bedside commode max A and max cues. pt let go of FWW towards end of transferring and became anxious with fear of falling and required max A for controlled descent to bedside commode. NAC came in and left pt with NAC to assist with toileting needs. Gait Assessment Gait Gait Assistance Required: Maximum Assistance,1 Person Assist Distance (Feet) 2 Able to Maintain Weight Bearing Status Yes During Gait Assistive Devices Assistive Device Gait Belt,Front Wheeled Walker Orthotic/Prosthetic Devices or Brace: No Gait Deviations General Gait Pattern Decreased Stride Length Factors Limiting Gait Function Factors Limiting Gait Function Decreased Activity Tolerance, Decreased Strength,Difficulty Following Directions,Limited Range of Motion,Pain,Poor Balance,Poor Safety Awareness Comments Gait Comments able to take a few steps during transfers max A and max cues using fWW PT-Balance Assessment Sitting Balance and Reactions Static Sitting Balance Ability Fair Dynamic Sitting Balance Ability Fair Standing Balance and Reactions Static Standing Balance Ability Poor Dynamic Standing Balance Ability Poor Device Used FWW M5 PT-IP Objective Assessments Start: 03/27/24 14:17 Freq: NEEDED Status: Active Protocol: Document 03/27/24 12:25 AB (Rec: 03/27/24 14:29 AB [id number]) Orientation Orientation/Cognition Level of Alertness Alert Orientation Name,Place,Situation Safety Awareness Decreased Safety Awareness Memory Description No Deficits Noted Gross Range of Motion Lower Extremity ROM Assessment Within Functional Limits Strength Lower Extremity Strength Assessment Right Impaired Hip 3-/5 Knee 3+/5 Coordination Assessment Gross Coordination Gross Coordination WNL Muscle Tone Muscle Tone WNL Yes M6 PT-IP Treatment Start: 03/27/24 14:17 Freq: NEEDED Status: Active Protocol: Document 03/27/24 12:25 AB (Rec: 03/27/24 14:29 AB [id number]) Physical Therapy Treatment Exercises Exercises Heel Slides Education Education Provided Precautions,Weight Bearing Status,Post-Op Packet,Safety M7 PT-IP Assessment and Plan Start: 03/27/24 14:17 Freq: NEEDED Status: Active Protocol: Document 03/27/24 12:25 AB (Rec: 03/27/24 14:29 AB [id number]) PT Summary Assessment and Plan Potential Rehabilitation Potential Fair Status of Condition at Evaluation Evolving Summary Impairments Pain,ROM,Strength,Balance, Coordination,Sensation,Tone, Cognition,Bed Mobility, Transfers,Gait,Activity Tolerance Assessment Summary pt is a 73 y/o F s/p fall and sustained a R hp fx and underwent IM nailing. pt is WBAT on RLE. pt requiring max A with bed mobility and transfers using FWW and only was able to take a few steps during transfers using fWW max A and max cues. pt will require SNF rehab to improve mobility. Goals Bed Mobility Goal Minimal Assistance Transfer Goal Minimal Assistance,Front Wheeled Walker Gait Goal Minimal Assistance,Front Wheel Walker Gait Distance 50 Other Goals improve bed mobility, transfers, ambulation using FWW ~ 150 ft SBA up/down 3 steps R rail ascending SBA Days to Meet Goals 10 Frequency of Treatment Frequency Of Treatment Twice a Day Other frequency or as tolerated Treatment Plan Physical Therapy Treatment Plan Bed Mobility Training,Transfer Training,Gait Training, Therapeutic Exercise,Balance Retraining,Post Op Education, Discharge Planning,Hot or Cold Pack,Neuromuscular Re-ed, Coordination Retraining,Manual Therapy Weight Bearing Status Weight Bearing Status Weight Bear as Tolerated Allowed Weight Bearing Amount (enter % RLE WBAT or #) (%) Recommendations To Nursing Amount of Assist Needed 2 Person Assist Discharge Recommendations PT Discharge Recommendations SNF Rehab Transportation Needs at Discharge Private Vehicle
--- NOTE | 2024-03-27 14:04 | PM.PN.1 ---
Subjective Subjective Interval history: 73 F admitted with hip fracture. POD #1 ORIF. Pain is controlled at rest, quite severe she states when she moves. requested change to dilaudid as the IV shot seemed to be helping a bit more and oxycodone had not been effective. Exam Vital Signs (past 8 hours): - 03/27/24 08:00 03/27/24 08:35 03/27/24 12:00 Temperature 96.6 F L 97.9 F Pulse Rate 93 H 97 H 91 H Respiratory Rate 18 18 18 Blood Pressure 108/66 98/51 L Pulse Oximetry 98 98 93 Oxygen Delivery Method Nasal Cannula Oxygen Flow Rate 1.5 1.5 Oxygen Delivery Method Nasal Cannula Oxygen Flow Rate 1.5 Narrative Exam Narrative: NAD, alert and oriented, fluent speech, calm. Normocephalic skull, EOMI, anicteric sclera, symmetric pupils. Oropharynx unremarkable, no droop. Neck supple, midline trachea, no adenopathy. Lungs clear, normal rate and effort. Heart regular, no murmur gallop or rub. Abdomen is soft, non distended and non tender. Extremities are free of edema. Skin is free of rash or lesions. Joints are not swollen or deformed. Judgment appears to be normal. Objective Labs 03/27/24 05:31 03/27/24 05:31 Labs: Laboratory Results - last 24 hr 03/26/24 03/27/24 15:35 05:31 WBC 11.0 RBC 3.34 L Hgb 9.2 L Hct 27.5 L MCV 82.5 MCH 27.4 MCHC 33.3 RDW 16.5 H Plt Count 268 Neut % (Auto) 82.7 H Lymph % (Auto) 7.3 L Luna % (Auto) 9.9 Eos % (Auto) 0.0 L Baso % (Auto) 0.1 Neut # (Auto) 9100 H Lymph # (Auto) 800 L Luna # (Auto) 1100 H Eos # (Auto) 0 Baso # (Auto) 0 Sodium 134 L Potassium 4.2 Chloride 102 Carbon Dioxide 29 BUN 16 Creatinine 0.84 Estimated GFR > 60 BUN/Creatinine Ratio 19.0 Glucose 197 H Calcium 8.6 SARS-CoV-2 (PCR) Negative [facility], [facility] Medical History Melanoma (~2020) Depression (~2016) Osteoporosis (~2019) Foot pain (~2019) Carpal tunnel syndrome (~2013) Measles Chicken pox Vertigo Retinal detachment (~2017) Cataracts, bilateral (~2018) Diabetes mellitus (~1989) Healthy adult Surgical History Anesthesia History of removal of cyst (~1978) History of carpal tunnel release (~2013) History of partial thyroidectomy (~1979) History of eye surgery (~2017) History of cataract removal with insertion of prosthetic lens (~2020) Family History Father Cancer Mother Diabetes mellitus Hypertension Brother Diabetes mellitus Brother Diabetes mellitus Family/Other Diabetes mellitus Hypertension Social History household members: none Smoking Status: Never smoker alcohol intake: current Assessment & Plan Assessment & Plan narrative: 1. Right intertrochanteric hip fracture, present on admission and active. 2. DM 2, present on admission and active. 3. Essential hypertension, present on admission and active. 4. Hyperlipidemia, present on admission and active. PLAN: -POD #1 s/p IM nail placement. -changed oxycodone to hydromorphone 2-4 mg today with IV formulation for severe pain. continue PT /OT -increased lantus back to home dosing as diet has improved. Glucose mildly elevated but lantus was lower than home dose the last few days due to NPO status. Adjust as needed moving forward. -monitor blood pressure and introduced usual blood pressure medications as able. She is full resuscitation, confirmed time of admit. Surrogate is patient's daughter. Dispo: patient admitted under inpatient status. Unclear if will be able to discharge home or possible SNF, will have PT/OT evaluations today Time Spent With Patient Time with patient: 30 to 49 minutes with 50% spent counseling/coordinating care Quality VTE Deep Vein Thrombosis/Pulmonary Embolism Present on Admission: No
--- NOTE | 2024-03-27 15:15 | OT.IP.EVAL ---
Current Diagnoses Age-related osteoporosis with current pathological fracture, right femur, initial encounter for fracture (03/25/24) Displaced intertrochanteric fracture of right femur, initial encounter for closed fracture (03/25/24) Surgery Performed Operation Date: 03/26/24 15:30 Actual Procedures p Intramedullary Nailing Hip(Right) - Angelique Dyson MD Past Medical History (Last Reviewed 03/26/24 @ 16:00 by Angelique Dyson MD) Carpal tunnel syndrome (~2013) Cataracts, bilateral (~2018) Chicken pox Depression (~2015) Diabetes mellitus (~1989) Foot pain (~2019) Healthy adult Measles Melanoma (~2019) Osteoporosis (~2018) Retinal detachment (~2017) Vertigo Surgical History (Last Reviewed 03/26/24 @ 16:00 by Angelique Dyson MD) Anesthesia History of carpal tunnel release (~2013) History of cataract removal with insertion of prosthetic lens (~2020) History of eye surgery (~2017) History of partial thyroidectomy (~1979) History of removal of cyst (~1978) Occupational Therapy Inpatient Evaluation/Re-Eval M1 PT/OT-IP Prior Functional Status Start: 03/27/24 15:13 Freq: NEEDED Status: Active Protocol: Document 03/27/24 14:35 [facility] (Rec: 03/27/24 15:27 [facility] [id number]) Medical Review Prior Functional Status Medical History Reviewed Yes Communication able to make needs known; with confusion Mobility and Gait pt stated that she was modified independent with all mobilities and ambulation without AD indoors but occasionally uses a 4WW; occasionally uses a SPC fo outdoor mobility Activities of Daily Living and IADL's Pt states able to do all ADL, IADL , and drives prior. Social History Household Members none Living Arrangements House Number of Floors (Floors) One Floor Number of Stairs To Enter/Railing? 3 steps R rail to enter the house Home Environment Standard Height Toilet,Tub/ Shower Home Equipment Four Wheel Walker,Straight Cane,Manual Wheelchair,Shower Seat with Backrest,Hand Held Shower,Grab Bars In Shower Additional Social History Comment stated that her daughter and grandson just lives across the street and can assist her but will not be able to provide 24/7 assist M2 OT-IP Current Condition Start: 03/27/24 15:13 Freq: Status: Active Protocol: Document 03/27/24 14:35 [facility] (Rec: 03/27/24 15:27 [facility] [id number]) Occupational Therapy Current Condition Current Condition Evaluation Date 03/27/24 Treatment Diagnosis Fall s/p IM nailing Right intertrochanteric hip fx Diagnosis Onset Date 03/25/24 Weight Bearing Status Weight Bearing Status Weight Bear as Tolerated M3 OT- IP Subjective and Pain Start: 03/27/24 15:13 Freq: Status: Active Protocol: Document 03/27/24 14:35 [facility] (Rec: 03/27/24 15:27 [facility] [id number]) OT- Subjective Occupational Therapy Visit Type Type Initial Evaluation Visit Start Time 14:35 Visit Stop Time 15:15 Occupational Therapy Visit Comments Patient Comments Pt agreed to work with OT. Patient/Caregiver Goals To go to skilled rehab. OT Pain Assessment Pain When Pain Assessed During Mobility Pain Present Pain Present Pain Reported M4 OT- IP ADL's Start: 03/27/24 15:13 Freq: Status: Active Protocol: Document 03/27/24 14:35 [facility] (Rec: 03/27/24 15:27 [facility] [id number]) OT MLL-Wldz-Mgofjcf General Evaluation Self-Feeding Ability Independent OT ADL-Grooming Comments OT Grooming Comments Not performed. OT ADL-Oral Care Comments Oral Care Comments Not performed. OT ADL-Dressing General Eval Lower Body Dressing Ability Maximum Assistance Comments OT Dressing Comments Able to show pt use of finish opener , sock aid and long handled shoe horn to increased independence with LB dressing needs. OT ADL-Toileting Comments OT Toileting Comments Pt states used the BSC earlier and needing two person assist at this time. OT ADL-Bathing Comments OT Bathing Comments Sponge bath more appropriate at this time. M5 OT- IP IADL's Start: 03/27/24 15:13 Freq: Status: Active Protocol: Document 03/27/24 14:35 [facility] (Rec: 03/27/24 15:27 [facility] [id number]) OT-Instrumental Activities of Daily Living Deficits IADL Deficits Identified Deficits Home Safety Awareness Awareness of Need for Assistance at Home Good Awareness Ability to Problem Solve Emergency Able to Problem Solve Situations Medication Management Medication Management Comments Pt able to do prior. Money Management Money Management Comments Pt able to do prior. Meal Preparation Meal Preparation Comments Pt will need assist. Fruit Sorter Fruit Sorter Comments Pt will need assist. M6 OT- IP Functional Cognition Start: 03/27/24 15:13 Freq: Status: Active Protocol: Document 03/27/24 14:35 [facility] (Rec: 03/27/24 15:27 [facility] [id number]) Cognitive Factors Limiting Selfcare Function Cognitive Ability Level of Alertness Alert Patient Orientation Name,Age,Birthday,Month,Year, Place,Situation Attention Span Ability Capable of Focused Attention, Capable of Sustained Attention Ability to Follow Commands Able to Follow One Step Commands Cognitive Comments Cognitive Assessment Comments Pt able to follow command for ADL and mobility needs at this time. OT- Vision and Hearing OT- Hearing Assessment OT- Hearing Assessment WFL OT- Vision Assessment Visual Acuity Glasses For Reading Visual Attentiveness WFL Occular Pursuits WFL M7 OT- IP Mobility and Balance Start: 03/27/24 15:13 Freq: Status: Active Protocol: Document 03/27/24 14:35 [facility] (Rec: 03/27/24 15:27 [facility] [id number]) OT- Bed Mobility Assessment Scooting Scooting to Edge of Bed Standby Assistance OT-Transfer Assessment Sit to and From Stand Sit to and from Stand Maximum Assistance,1 Person Assistance Comments Mobility Comments Pt able to use the armrest of the recliner to assist to scoot to the edge of the recliner. MAXA x1 to stand to the FWW and pt not able to put much weight on the RLE at this time and tends to twist when coming to stand. Pt not able to take any steps and assist to lower her back down to the recliner. OT- Balance Assessment Sitting Balance and Reactions Static Sitting Balance Ability Good Dynamic Sitting Balance Ability Good Standing Balance and Reactions Static Standing Balance Ability Poor Dynamic Standing Balance Ability Poor M8 OT- IP Objective Assessments Start: 03/27/24 15:13 Freq: Status: Active Protocol: Document 03/27/24 14:35 [facility] (Rec: 03/27/24 15:27 [facility] [id number]) OT Gross Range of Motion Upper Extremity Range of Motion Assessment Within Functional Limits OT Strength Upper Extremity Strength Assessment Within Functional Limits M9 OT- IP Assessment and Plan Start: 03/27/24 15:13 Freq: Status: Active Protocol: Document 03/27/24 14:35 [facility] (Rec: 03/27/24 15:27 [facility] [id number]) OT Summary Assessment and Plan Potential Rehabilitation Potential Good Analytic Complexity at Evaluation Moderate Summary OT Impairments Pain,Strength,Balance, Functional Mobility,Grooming, Dressing,Toileting,Bathing, Toilet Transfers,Shower Transfers,Activity Tolerance Progress Towards Goals Slow Progress due to Pain,Slow Progress due to Activity Tolerance Assessment Summary Pt MOD complexity and main barriers are pain, weakness in RLE, steps, and now needing extensive two person assist for mobility and ADL needs. Pt is very motivated, cooperative and willing to go to skilled rehab. Goals Self-Feeding Goal Independent Grooming Goal Independent Dressing Goal Independent Toileting Goal Independent Bathing Goal Standby Assistance Toilet Transfer Goal Independent Shower Transfer Goal Standby Assistance Days to Meet Goals 30 Frequency of Treatment Frequency Of Treatment Once a Day Treatment Plan OT Treatment Plan ADL Training,Functional Mobility,Patient/Family Education,Discharge Planning Discharge Recommendations OT Discharge Recommendations SNF Rehab Transportation Needs at Discharge Wheelchair/Cabulance
--- NOTE | 2024-03-27 17:14 | PT-IP ANOTE ---
checked on pt x 2 and refused PT. stated that she had pain and does not want to do PT. rechecked on pt again after ~ 1 1/2 hours and continues to refuse PT. stated that she is going to have her dinner and will move with nursing staff.
[2024-03-27] MEDS: SENNOSIDES 8.6 MG TABLET 17.2 MG PO (20:55)
[2024-03-27] MEDS: INSULIN GLARGINE 100 UNIT/ML 3ML PEN 27 UNIT SUBCUT (20:56)
[2024-03-28 03:06] VITALS: BP 105/63; PULSE 101; RESP 16; TEMP 35.7; O2SAT 98
[2024-03-28 06:00] VITALS: BP 111/74; PULSE 92; RESP 16; TEMP 36.4; O2SAT 97
[2024-03-28 06:04] LABS: Add Manual Diff / Slide Review NO; Basophils Absolute Auto 0 /uL (0-100); Basophils Percent Auto 0.6 % (0-2); Eosinophils Absolute Auto 300 /uL (0-450); Eosinophils Percent Auto 3.7 % (2-4); Hematocrit 23.4 % (36-46); Hemoglobin 7.7 g/dL (12.0-16.0); Lymphocytes Absolute Auto 1700 /uL (1100-4500); Lymphocytes Percent Auto 20.8 % (25-40); Mean Corpuscular HGB Conc 32.9 % (30-36); Mean Corpuscular Hemoglobin 27.2 PG (26-34); Mean Corpuscular Volume 82.5 fL (80-100); Monocytes Absolute Auto 1000 /uL (0-900); Monocytes Percent Auto 12.5 % (3-14); Neutrophils Absolute Auto 5100 /uL (1500-7000); Neutrophils Percent Auto 62.4 % (50-75); Platelet Count 224 X10^3/uL (150-400); Red Blood Cell Count 2.83 X10^6/uL (4.0-5.2); Red Cell Distribution Width 16.1 % (11.6-14.8); White Blood Cell Count 8.2 X10^3/uL (4.5-11.0)
[2024-03-28 06:24] LABS: BUN Creatinine Ratio 26.3 (6-22); Blood Urea Nitrogen 26 mg/dL (7-17); Calcium 8.5 mg/dL (8.4-10.2); Carbon Dioxide 28 mmol/L (22-32); Chloride 104 mmol/L (98-107); Estimated Glomerular Filt Rate > 60 mL/min (>60); Glucose 173 mg/dL (80-110); HEMOLYSIS < 15 (0-50); Potassium 4.2 mmol/L (3.4-5.1); Sodium 137 mmol/L (137-145)
[2024-03-28 08:00] VITALS: BP 113/66; PULSE 99; RESP 16; TEMP 36.6; O2SAT 98
[2024-03-28] MEDS: INSULIN LISPRO 100 UNIT/ML 3ML VIAL SUBCUT ×2 (08:01→13:21)
--- NOTE | 2024-03-28 09:36 | CM.DPNOTE ---
Addendum entered by EZRA [place] 03/28/24 11:17: Hospitalist signed PASRR in morning rounds, confirmed cleared to dc today. SECURITY INFRASTRUCTURE ENGINEER gave CC Whitney signed med list and PASRR, sent to rachel and placed in chart. SECURITY INFRASTRUCTURE ENGINEER updated INSURANCE BILLING CLERK/RN/gave RN report number. P: DC to [facility] today between [id number] today. CM team will continue to follow as needed SL Original Note: DCP Note SECURITY INFRASTRUCTURE ENGINEER reviewed EMR. Per rachel at [facility], able to accept pt, got ins auth, and transport pending likely between [id number]. Per hospitalist, pt medically cleared to dc today. SECURITY INFRASTRUCTURE ENGINEER updated RN. SECURITY INFRASTRUCTURE ENGINEER met with pt in room. Reported on ins auth and p/u today. SECURITY INFRASTRUCTURE ENGINEER gave pt [facility] brochure with address on it for dtr. Reports dtr will bring her clothes but unsure if that would be before p/u or after. Pt in agreement with plan. SECURITY INFRASTRUCTURE ENGINEER completed PASRR. needs hospitalist signature. P: anticipate dc to [facility] between [id number] today. Meds needed, signed PASRR needed. CM team will continue to follow closely. EZRA [place]
[2024-03-28] MEDS: DOCUSATE 100 MG CAPSULE PO (10:25)
[2024-03-28] MEDS: ACETAMINOPHEN 325 MG TABLET 650 MG PO (10:25)
[2024-03-28] MEDS: HYDROMORPHONE 2 MG TABLET PO ×2 (10:26→13:22)
[2024-03-28] MEDS: ENOXAPARIN 40 MG/0.4 ML SYRINGE SUBCUT (10:27)
[2024-03-28] MEDS: polyethylene glycoL 3350 17 GM POWD.PACK PO (10:27)
--- NOTE | 2024-03-28 10:59 | P.DS_ITS ---
History of Present Illness History of Present Illness Chief complaint: Fall - R hip pain Narrative: From ED doctor: 73-year-old female with history of insulin-dependent diabetes, hypertension, dyslipidemia, depression and anxiety who is on aspirin daily. Patient was walking in her house though she is in her hands she states she was able to clear the 1st 3 steps in her house she stepped into the kitchen, was losing hospital aides and assistants teacher on her bags dropped them and then fell forward onto her side. She has pain in her right hip. Pain with any movement of the hip. States she did not hit her head denies any neck or back pain, no chest pain or shortness of breath. No nausea or vomiting. States pain is just in the hip. She states her bottom of her right foot feels a little funny when she tried to step. But she states has normal sensation when I touch her lower extremities throughout the leg and on the top and bottom of her foot. She states she can move her foot and ankle without any issue. Patient states no known drug allergies. No regular tobacco, occasional alcohol, no recreational drugs. Patient notes only prior surgeries were infected kidney stone had ureteral stent placed and then removed and developed sepsis this was a couple weeks ago. She states she has been doing well since then and the 2nd ureteral stent has since been removed. Patient's primary care is Beverley Albert. Patient independently in her own home on her own, she occasionally uses a walker in the house. S: She lost her balance trying to get into her house with a couple of bags of groceries. She felt a pop as soon as she hit the ground. She could not move and ultimately was brought to the hospital and her right hip was noted to be fractured. No other injuries. This is the 1st bone she was broken. She has been otherwise doing well for the last week or 2. She did have a recent admission for nephrolithiasis and obstruction as well as sepsis in [facility]. She was recently had stenting, stone removal, and subsequent stent removal. She has no urinary symptoms at this time. She lives alone in an apartment on her property wishes shared with a daughter. Discharge Providers Provider Date of admission: 03/25/24 18:03 Discharge Date: 03/28/24 Primary care physician: Beverley Albert Consults: 03/25/24 18:20 Consult to Occupational Therapy Evaluate & Treat Comment: Physician Instructions: Evaluate and treat Consult to Physical Therapy Evaluate & Treat Comment: Physician Instructions: Evaluate and Treat 03/26/24 18:11 Consult to Discharge Planning Routine Comment: Consult to Occupational Therapy Evaluate & Treat Comment: Physician Instructions: Evaluate and treat Consult to Physical Therapy Evaluate & Treat Comment: Physician Instructions: Evaluate and Treat 03/27/24 11:03 Consult to Orthopedic Surgery Routine Comment: Consulting Provider: Angelique Dyson Reason for consultation: R hip fracture Has provider been notified: Yes Discharge provider: Rajinder Chavez MD Summary Hospital Course Discharge Diagnosis: 1. Right intertrochanteric hip fracture, present on admission and active. 2. DM 2, present on admission and active. 3. Essential hypertension, present on admission and active. 4. Hyperlipidemia, present on admission and active. Hospital Course: She was admitted with a right hip fracture and underwent operative repair on March 26 without complication. Postprocedure she did well and her oxycodone was changed to hydromorphone as needed pain. She also had her Lantus increased back to home dosing and her blood pressure remained stable. She was felt to be stable for transfer to [facility] on the day of March 28. Status at Discharge Cognitive/behavioral status at discharge: oriented Functional status at discharge: uses cane/walker Overall status at discharge: patient is progressing back to baseline Time Spent with Patient Time spent: Greater than 30 minutes Exam Vital Signs (past 8 hours): - 03/28/24 03:06 03/28/24 06:00 03/28/24 08:00 Temperature 96.3 F L 97.5 F L 97.9 F Pulse Rate 101 H 92 H 99 H Respiratory Rate 16 16 16 Blood Pressure 105/63 111/74 113/66 Pulse Oximetry 98 97 98 Oxygen Flow Rate 0 Oxygen Delivery Method Room Air Oxygen Flow Rate 0 Narrative Exam Narrative: NAD, alert and oriented. Fluent speech. Lungs are clear, normal rate and effort. Heart is regular, no murmur gallop or rub. Abdomen is soft, non distended. Extremities are free of edema. Objective Imaging Hip Xray:: Radiologist's impression: 1. Mildly displaced intertrochanteric right hip fracture. 2. 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 Labs 03/28/24 05:48 03/28/24 05:48 Labs: Laboratory Results - last 24 hr 03/28/24 05:48 WBC 8.2 RBC 2.83 L Hgb 7.7 L Hct 23.4 L MCV 82.5 MCH 27.2 MCHC 32.9 RDW 16.1 H Plt Count 224 Neut % (Auto) 62.4 D Lymph % (Auto) 20.8 L Hickman % (Auto) 12.5 Eos % (Auto) 3.7 Baso % (Auto) 0.6 Neut # (Auto) 5100 Lymph # (Auto) 1700 Hickman # (Auto) 1000 H Eos # (Auto) 300 Baso # (Auto) 0 Sodium 137 Potassium 4.2 Chloride 104 Carbon Dioxide 28 BUN 26 H Creatinine 0.99 Estimated GFR > 60 BUN/Creatinine Ratio 26.3 H Glucose 173 H Calcium 8.5 PFSH Medical History Melanoma (~2019) Depression (~2015) Osteoporosis (~2018) Foot pain (~2019) Carpal tunnel syndrome (~2013) Measles Chicken pox Vertigo Retinal detachment (~2017) Cataracts, bilateral (~2018) Diabetes mellitus (~1989) Healthy adult Surgical History Anesthesia History of removal of cyst (~1978) History of carpal tunnel release (~2013) History of partial thyroidectomy (~1979) History of eye surgery (~2017) History of cataract removal with insertion of prosthetic lens (~2020) Family History Father Cancer Mother Diabetes mellitus Hypertension Brother Diabetes mellitus Brother Diabetes mellitus Family/Other Diabetes mellitus Hypertension Social History household members: none Smoking Status: Never smoker alcohol intake: current Discharge Assessment & Plan Assessment and Plan Assessment: 1. Right intertrochanteric hip fracture, present on admission and active. 2. DM 2, present on admission and active. 3. Essential hypertension, present on admission and active. 4. Hyperlipidemia, present on admission and active. Plan of Treatment: Stable for transfer to [facility] for ongoing therapy. DVT prophylaxis we will continue as well as pain control and physical therapy and occupational therapy. Discharge Plan Discharge Plan Patient Disposition: SNF Transfer to: [facility] Under care of provider: Dr. Caruso Provider Discharge Comment: Stable for discharge to snf facility for post hip ORIF rehabilitation. Discharge orders & Medications Prescriptions: New enoxaparin [Lovenox] 40 mg/0.4 mL Syringe 40 mg SUBCUT DAILY Qty: 28 0RF hydromorphone 2 mg Tablet 4 mg PO Q3H PRN (Reason: Pain, Severe (7-10)) Qty: 20 0RF Continued metoprolol succinate 50 mg tablet extended release 24 hr 50 mg PO DAILY bupropion HCl 300 mg tablet extended release 24 hr 300 mg PO QAM duloxetine 60 mg capsule,delayed release(DR/EC) 60 mg PO DAILY losartan-hydrochlorothiazide 100-12.5 mg tablet 1 tab PO DAILY insulin glargine [Lantus Solostar U-100 Insulin] 100 unit/mL (3 mL) insulin pen 27 unit SUBCUT DAILY amlodipine 5 mg tablet 5 mg PO DAILY aspirin 81 mg tablet,delayed release (DR/EC) 81 mg PO QPM metformin 1,000 mg tablet 1 tab PO BID rosuvastatin 20 mg tablet 20 mg PO DAILY Follow up/Referrals: Angelique Dyson MD [Physician] - 2 Weeks (Follow up in ortho clinic w/ MANE or Dr Dyson in 2 weeks for wound check and repeat imaging.) Beverley Albert PA-C [Primary Care Provider] - Discharge Health Status Multidrug resistant organism: No MDRO Diet/Activity/Treatments Diet: Carb-consistent/Diabetic Liquid consistency: Normal/Thin Activity: Weightbearing as tolerated to right leg. Skin/Wound/Dressing Care Report to your healthcare provider any signs of infection, such as:: chills, fever, increased pain, unusual drainage and unusual redness Dressing: May shower. Leave Aquacel dressing in place until follow up in office. If the dressing becomes saturated, remove and replace with clean, dry gauze. Special Rehabilitation Services Reason for rehabilitation: Post-operative therapy Rehab type: Physical therapy and Occupational therapy Visit Report/Discharge Packet Stand Alone Forms: Patient Portal/API Discharge Data Primary Care Provider: Beverley Albert Quality VTE Deep Vein Thrombosis/Pulmonary Embolism Present on Admission: No
--- NOTE | 2024-03-28 11:18 | PT.IPTN ---
Current Diagnoses Age-related osteoporosis with current pathological fracture, right femur, initial encounter for fracture (03/25/24) Displaced intertrochanteric fracture of right femur, initial encounter for closed fracture (03/25/24) Surgery Performed Operation Date: 03/26/24 15:30 Actual Procedures p Intramedullary Nailing Hip(Right) - Angelique Dyson MD Physical Therapy Treatment Note M2 PT-IP Current Condition Start: 03/27/24 14:17 Freq: NEEDED Status: Active Protocol: Document 03/27/24 12:25 AB (Rec: 03/27/24 14:29 AB [id number]) Physical Therapy Current Condition Current Condition Evaluation Date 03/27/24 Treatment Diagnosis R hip fx s/p ORIF; difficulty in walking Onset Date 03/25/24 M3 PT-IP Subjective Start: 03/27/24 14:17 Freq: NEEDED Status: Active Protocol: Document 03/28/24 12:12 TS (Rec: 03/28/24 12:26 TS [id number]) Subjective Physical Therapy Visit Type Type Treatment Note Visit Start Time 11:18 Visit Stop Time 11:45 Number of [facility] Visits 1 Physical Therapy Visit Comments Patient Comments Pt was found resting in bed, required motivation to participate with therapy. Therapy Pain Assessment Pain When Pain Assessed During Mobility Pain Present Pain Present Pain Reported M4 PT-IP Mobility and Gait Start: 03/27/24 14:17 Freq: NEEDED Status: Active Protocol: Document 03/28/24 12:12 TS (Rec: 03/28/24 12:26 TS [id number]) PT-Bed Mobility Assessment Supine to Sit Supine to Sit Maximum Assistance,1 Person Assistance,Head of Bed Elevated,Bedrails Scooting Scooting to Edge of Bed Maximum Assistance PT-Transfer Assessment Sit to and From Stand Sit to and from Stand Maximum Assistance,1 Person Assistance Equipment Transfer Assistive Device Gait Belt,Front Wheeled Walker Orthotic/Prosthetic Devices or Brace: No Transfers Transfer Destination Chair Transfer Technique Stand Step Pivot Transfer Ability Level of Assist Moderate Assistance,1 Person Assistance,Use of Upper Extremities Comments Mobility Comments Supine to sit MaxA with BUE support and HOB elevated. She scooted to EOB MaxA with BUE support. STS with FWW MaxA x1. She performed stand pivot to chair ModA. Pt was left in chair, all needs met. Gait Assessment Gait Gait Assistance Required: Maximum Assistance,1 Person Assist Distance (Feet) 1 Able to Maintain Weight Bearing Status Yes During Gait Assistive Devices Assistive Device Gait Belt,Front Wheeled Walker Orthotic/Prosthetic Devices or Brace: No Gait Deviations General Gait Pattern Decreased Stride Length Factors Limiting Gait Function Factors Limiting Gait Function Decreased Activity Tolerance, Decreased Strength,Difficulty Following Directions,Limited Range of Motion,Pain,Poor Balance,Poor Safety Awareness PT-Balance Assessment Sitting Balance and Reactions Static Sitting Balance Ability Good Dynamic Sitting Balance Ability Fair Standing Balance and Reactions Static Standing Balance Ability Poor Dynamic Standing Balance Ability Poor Device Used FWW M5 PT-IP Objective Assessments Start: 03/27/24 14:17 Freq: NEEDED Status: Active Protocol: Document 03/27/24 12:25 AB (Rec: 03/27/24 14:29 AB [id number]) Orientation Orientation/Cognition Level of Alertness Alert Orientation Name,Place,Situation Safety Awareness Decreased Safety Awareness Memory Description No Deficits Noted Gross Range of Motion Lower Extremity ROM Assessment Within Functional Limits Strength Lower Extremity Strength Assessment Right Impaired Hip 3-/5 Knee 3+/5 Coordination Assessment Gross Coordination Gross Coordination WNL Muscle Tone Muscle Tone WNL Yes M6 PT-IP Treatment Start: 03/27/24 14:17 Freq: NEEDED Status: Active Protocol: Document 03/28/24 12:12 TS (Rec: 03/28/24 12:26 [id number]) Physical Therapy Treatment Education Education Provided Precautions,Weight Bearing Status,Post-Op Packet,Safety M7 PT-IP Assessment and Plan Start: 03/27/24 14:17 Freq: NEEDED Status: Active Protocol: Document 03/28/24 12:12 TS (Rec: 03/28/24 12:26 [id number]) PT Summary Assessment and Plan Potential Rehabilitation Potential Fair Summary Impairments Pain,ROM,Strength,Balance, Coordination,Sensation,Tone, Cognition,Bed Mobility, Transfers,Gait,Activity Tolerance Assessment Summary Tori continues to make slow progress with her mobility. She is MaxA for all bed mobility. She requires MaxA for STS with use of FWW. She performed stand pivot to chair with use of FWW and ModA. PT continues to recommend SNF. Goals Bed Mobility Goal Minimal Assistance Transfer Goal Minimal Assistance,Front Wheeled Walker Gait Goal Minimal Assistance,Front Wheel Walker Gait Distance 50 Other Goals improve bed mobility, transfers, ambulation using FWW ~ 150 ft SBA up/down 3 steps R rail ascending SBA Days to Meet Goals 10 Weight Bearing Status Weight Bearing Status Weight Bear as Tolerated Allowed Weight Bearing Amount (enter % RLE WBAT or #) (%) Recommendations To Nursing Amount of Assist Needed 1 Person Assist Discharge Recommendations PT Discharge Recommendations SNF Rehab Transportation Needs at Discharge Private Vehicle
--- NOTE | 2024-03-28 13:46 | PC.NURSE ---
Pt discharged to [facility] at 1337, escorted off floor in wheelchair accompanied by transport staff. IV removed, discharge packet given to transport staff, report called to Danisha ([phone]) at [phone]. Patient left the floor with all belongings.
== END 2024-03-28 13:50 | DRG 482 ==
LOC: ED 17:43 → AC 18:05
PROVIDERS: Anesthesiology; Orthopaedic Surgery Foot and Ankle Surgery; Admitting Provider Hospitalist; Emergency Provider Emergency Medicine; PCP Physician Assistant; Referring Provider Emergency Medicine; Visit Provider Hospitalist
PROC: 0QS606Z Reposition Right Upper Femur with Intramedullary Internal Fixation Device, Open Approach (ICD-10-PCS; CPT 27245; principal; 2024-03-26 15:30)
DX: M80.051A Age-related osteoporosis with current pathological fracture, right femur, initial encounter for fracture (principal); E11.9 Type 2 diabetes mellitus without complications; I10 Essential (primary) hypertension; E78.5 Hyperlipidemia, unspecified; F32.A Depression, unspecified; Z79.84 Long term (current) use of oral hypoglycemic drugs; Z79.4 Long term (current) use of insulin
CPT/HCPCS: 36415; 73502; 76000; 80048; 80053; 82962; 85025; 85610; 85730; 86850; 86900; 86901; 87635; 97162; 97166; 97530; 97535; 99284; 99285; C9290; J0171; J0690; J1100; J1170; J1644; J1650; J1815; J2405; J2704; J3010

== ENCOUNTER 2024-04-08 13:07 | Inpatient (IN) | payer MEDICARE, SELFPAY ==
[2024-03-25 19:59] VITALS: BMI 30.2
[2024-04-08] VITALS (9 sets, daily range): BP systolic 107–139; BP diastolic 55–79; PULSE 87–99; RESP 13–22; TEMP 36.7–37.5; O2SAT 91–100; BMI 30.6
--- NOTE | 2024-04-08 13:19 | ED_ITS ---
HPI - General Adult General Chief complaint: Altered Mental Status Stated complaint: AMS Time Seen by Provider: 04/08/24 13:10 Source: patient and EMS Mode of arrival: EMS Limitations: altered mental status History of Present Illness HPI narrative: Patient is a 73-year-old female who arrives by EMS from the assisted facility where she has been since she is fallen and had a right hip fracture. He was reported that has a this morning she was more confused than normal and was unable to stand up and walk around. Here in the emergency department the patient is obviously confused. She knows that she was in the hospital but is very tangential with describing where she lives and why she was here. She denies chest pain and shortness of breath and urinary symptoms or abdominal pain but his unable to provide much more HPI than that. Related Data Home Medications Medication Instructions Recorded Confirmed amlodipine 5 mg tablet 5 mg PO DAILY 05/11/18 04/08/24 aspirin 81 mg tablet,delayed 81 mg PO QPM 05/11/18 04/08/24 release metformin 1,000 mg tablet 1 tab PO BID 05/11/18 04/08/24 rosuvastatin 20 mg tablet 20 mg PO DAILY 08/08/23 04/08/24 bupropion HCl 300 mg 24 hr tablet, 300 mg PO QAM 03/25/24 04/08/24 extended release duloxetine 60 mg capsule,delayed 60 mg PO DAILY 03/25/24 04/08/24 release insulin glargine 100 unit/mL (3 27 unit SUBCUT DAILY 03/25/24 04/08/24 mL) subcutaneous pen (Lantus Solostar U-100 Insulin) losartan 100 1 tab PO DAILY 03/25/24 04/08/24 mg-hydrochlorothiazide 12.5 mg tablet metoprolol succinate 50 mg 50 mg PO DAILY 03/25/24 04/08/24 tablet,extended release 24 hr Previous Rx's Medication Instructions Recorded enoxaparin 40 mg/0.4 mL 40 mg (0.4 mL) SUBCUT DAILY #28 mL 03/28/24 subcutaneous syringe (Lovenox) hydromorphone 2 mg tablet 4 mg (2 x 2 mg) PO Q3H PRN Pain, 03/28/24 Severe (7-10) #20 tabs Allergies Allergy/AdvReac Type Severity Reaction Status Date / Time No Known Drug Allergies Allergy Verified 12/07/21 15:37 Review of Systems Review of Systems Narrative: See HPI, very limited given her altered mental status Patient History Medical History Melanoma (~2019) Depression (~2015) Osteoporosis (~2018) Foot pain (~2019) Carpal tunnel syndrome (~2013) Measles Chicken pox Vertigo Retinal detachment (~2017) Cataracts, bilateral (~2018) Diabetes mellitus (~1989) Healthy adult Surgical History Anesthesia History of removal of cyst (~1978) History of carpal tunnel release (~2013) History of partial thyroidectomy (~1979) History of eye surgery (~2017) History of cataract removal with insertion of prosthetic lens (~2020) Family History Father Cancer Mother Diabetes mellitus Hypertension Brother Diabetes mellitus Brother Diabetes mellitus Family/Other Diabetes mellitus Hypertension Social History household members: none Smoking Status: Never smoker alcohol intake: current Smoking Status: Never smoker alcohol intake frequency: holidays/special occasions only Substance Use Type: does not use Exam Initial Vital Signs Initial Vital Signs: Vital Signs Pulse Rate 92 H 04/08/24 13:14 Respiratory Rate 21 04/08/24 13:14 Pulse Oximetry 93 04/08/24 13:14 Oxygen Delivery Method Room Air 04/08/24 13:14 Const General: cooperative, comfortable and No ill appearing HENMT Head: normal to inspection and normocephalic Resp Effort & Inspection: normal respiratory effort Auscultation: clear to auscultation bilaterally Cardio Rate: regular rate Rhythm: regular rhythm GI Inspection: normal to inspection Neuro General: patient alert, patient awake and moves all extremities Extrem Other: Discomfort palpation of the right hemipelvis Scores GCS Sunol coma scale eye opening: Spontaneous Sunol coma scale verbal response: Confused Marbin coma scale motor response: Obey commands Sunol coma scale total score: 14 Course Orders Ordered: ED Orders 04/08/24 13:12 Complete Blood Count AUTO DIFF Stat Comprehensive Metabolic Panel Stat Ethanol (ETOH) Stat Lipase Stat Magnesium Stat Troponin & CK Cardiac Panel Stat 04/08/24 13:19 XR hip w pel if done RT 2V Stat 04/08/24 13:20 CT head/brain wo con Stat 04/08/24 14:20 Urine Culture Stat Urine Microscopic Stat 04/08/24 15:25 Blood Culture Stat Acetaminophen (Acetaminophen 325 Mg Tablet) 650 mg PO Q6H PRN PRN Reason: Fever/Mild Pain (1-3) Last Admin: 04/08/24 16:26 Dose: 650 mg Documented By: GABRIELA Amlodipine Besylate (Amlodipine 5 Mg Tablet) 5 mg PO DAILY [facility] Aspirin (Aspirin Ec 81 Mg Tablet) 81 mg PO QPM [facility] Atorvastatin Calcium (Atorvastatin 20 Mg Tablet) 40 mg PO DAILY [facility] Bupropion HCl (Bupropion Xl 150 Mg Tab) 300 mg PO DAILY [facility] Last Admin: 04/08/24 17:39 Dose: 300 mg Documented By: PROSPER Calcium Carbonate (Calcium Carbonate 500 Mg Tab) 1,000 mg PO Q4HR PRN PRN Reason: Dyspepsia Docusate Sodium (Docusate 100 Mg Capsule) 100 mg PO BID [facility] Duloxetine HCl (Duloxetine 30 Mg Capsule) 60 mg PO DAILY [facility] Enoxaparin Sodium (Enoxaparin 40 Mg/0.4 Ml Syringe) 40 mg SUBCUT DAILY [facility] Hydrochlorothiazide (Hydrochlorothiazide 25 Mg Tablet) 12.5 mg PO DAILY [facility] Hydromorphone HCl (Hydromorphone 2 Mg Tablet) 4 mg PO Q3H PRN PRN Reason: Pain, Severe (7-10) Sodium Chloride (Normal Saline 0.45%) 1,000 mls @ 100 mls/hr IV CONT [facility] Last Admin: 04/08/24 16:26 Dose: 100 mls/hr Documented By: GABREILA Ceftriaxone Sodium 1,000 mg/ (Sodium Chloride) 100 mls @ 200 mls/hr IV Q24H [facility] Stop: 04/12/24 10:00 Dextrose (D10w) 100 mls @ 999 mls/hr IV PRN PRN PRN Reason: Hypoglycemia Insulin Glargine (Insulin Glargine 100 Unit/Ml 3ml Pen) 27 unit SUBCUT DAILY [facility] Insulin Human Lispro (Insulin Lispro 100 Unit/Ml 3ml Vial) 0 unit SUBCUT ACHS [facility]; Protocol Last Admin: 04/08/24 17:39 Dose: 1 unit Documented By: PROSPER Co-signed By: MORIAH Losartan Potassium (Losartan 50 Mg Tablet) 100 mg PO DAILY [facility] Metoprolol Succinate (Metoprolol Er 50 Mg Tablet) 50 mg PO DAILY [facility] Naloxone HCl (Naloxone 0.4 Mg/Ml Vial) 0.2 mg IV Q2MIN PRN PRN Reason: Opiate Reversal Ondansetron HCl (Ondansetron 4 Mg/2 Ml Inj) 4 mg IV Q8HR PRN PRN Reason: Nausea And Vomiting Oxycodone HCl (Oxycodone Ir 5 Mg Tablet) 5 mg PO Q3H PRN PRN Reason: Pain, Moderate (4-6) Last Admin: 04/08/24 16:26 Dose: 5 mg Documented By: TLS Discontinued Medications Sodium Chloride (Normal Saline 0.9%) 1,000 mls @ 1,000 mls/hr IV BOLUS ONE Stop: 04/08/24 14:18 Last Infusion: 04/08/24 15:35 Dose: Infused Documented By: Admin: 04/08/24 13:58 Dose: 1,000 mls/hr Documented By: LAMONT Ceftriaxone Sodium 1,000 mg/ (Sodium Chloride) 100 mls @ 200 mls/hr IV NOW ONE Stop: 04/08/24 14:57 Last Infusion: 04/08/24 15:36 Dose: Infused Documented By: Admin: 04/08/24 15:22 Dose: 200 mls/hr Documented By: LAMONT Vital Signs Vital signs: Vital Signs - 8 hr 04/08/24 13:14 04/08/24 13:15 04/08/24 13:15 Temperature Pulse Rate 92 H 91 H Respiratory Rate 21 22 Blood Pressure 121/59 L Pulse Oximetry 93 93 Oxygen Delivery Method Room Air 04/08/24 13:17 04/08/24 13:51 04/08/24 13:53 Temperature 99.4 F Pulse Rate 92 H 91 H 90 Respiratory Rate 18 13 Blood Pressure 121/59 L Pulse Oximetry 93 94 Oxygen Delivery Method Room Air 04/08/24 13:53 04/08/24 14:00 04/08/24 14:00 Temperature Pulse Rate 87 Respiratory Rate 16 Blood Pressure 117/55 L 107/55 L Pulse Oximetry 93 Oxygen Delivery Method Medical Decision Making Lab Data Lab results reviewed: Yes I reviewed the patient's lab results. 04/08/24 13:12 04/08/24 13:12 Labs: Lab Results 04/08/24 04/08/24 Range/Units 13:12 14:20 WBC 12.9 H (4.5-11.0) X10^3/uL RBC 2.97 L (4.0-5.2) X10^6/uL Hgb 7.7 L (12.0-16.0) g/dL Hct 24.3 L (36-46) % MCV 81.6 (80-100) fL MCH 26.1 (26-34) PG MCHC 31.9 (30-36) % RDW 16.1 H (11.6-14.8) % Plt Count 691 H (150-400) X10^3/uL Neut % (Auto) 86.2 H (50-75) % Lymph % (Auto) 4.9 L (25-40) % Antelope % (Auto) 8.1 (3-14) % Eos % (Auto) 0.4 L (2-4) % Baso % (Auto) 0.4 (0-2) % Neut # (Auto) 27423 H (4499-6540) /uL Lymph # (Auto) 600 L (0821-5583) /uL Antelope # (Auto) 1000 H (0-900) /uL Eos # (Auto) 100 (0-450) /uL Baso # (Auto) 0 (0-100) /uL Sodium 134 L (137-145) mmol/L Potassium 3.6 (3.4-5.1) mmol/L Chloride 98 (98-107) mmol/L Carbon Dioxide 30 (22-32) mmol/L BUN 22 H (7-17) mg/dL Creatinine 0.99 (0.52-1.04) mg/dL Estimated GFR > 60 (>60) mL/min BUN/Creatinine Ratio 22.2 H (6-22) Glucose 138 H (80-110) mg/dL Calcium 9.2 (8.4-10.2) mg/dL Magnesium 1.4 L (1.6-2.3) mg/dL Total Bilirubin 0.7 (0.2-1.3) mg/dL AST 20 (14-36) IU/L ALT 13 (<35) IU/L Alkaline Phosphatase 110 (38-126) U/L Total Creatine Kinase 127 (30-135) U/L Troponin I < 0.012 (0.01-0.034) ng/mL Total Protein 6.9 (6.3-8.2) g/dL Albumin 3.4 L (3.5-5.0) g/dL Globulin 3.5 (1.7-4.1) g/dL Albumin/Globulin Ratio 1.0 (1.0-2.8) Lipase 85 (23-300) U/L Urine RBC None seen (0-5/HPF) Urine WBC 10-30/hpf H (0-5/HPF) Ur Squamous Epith Cells 1-5 /hpf (0-5/HPF) Urine Bacteria Many (>30) H (None) Vol Urine Centrifuged 10ml (spun) Ethyl Alcohol < 10 ( - 10) mg/dL Urine Dip Bedside Urine Glucose Negative Bedside Urine Bilirubin - Negative Bedside Urine Ketone - Negative Urine Specific [place] 1.015 Bedside Urine Occult Blood +/- Bedside Urine pH 6.0 Bedside Urine Protein +/- 15 Bedside Urine Urobilinogen - Negative Bedside Urine Nitrite + Positive Bedside Urine Leukocytes +/- 15 Esterase Point of care testing: Urine Dip Bedside Urine Glucose Negative Bedside Urine Bilirubin - Negative Bedside Urine Ketone - Negative Urine Specific [place] 1.015 Bedside Urine Occult Blood +/- Bedside Urine pH 6.0 Bedside Urine Protein +/- 15 Bedside Urine Urobilinogen - Negative Bedside Urine Nitrite + Positive Bedside Urine Leukocytes +/- 15 Esterase Imaging Data Extremity x-ray #1: Radiologist's Impression: PROCEDURE: XR HIP W PEL IF DONE RT 2V INDICATIONS: R hip pain TECHNIQUE: AP pelvis with lateral views of the right hip. COMPARISON: [facility], , XR HIP W PEL IF DONE RT 2V, 03/26/2024, 16:29. [facility], CR, XR HIP W PEL IF DONE RT 2V, 03/25/2024, 16:08. FINDINGS: Bones: Postsurgical changes are seen from recent right proximal femoral fracture fixation with a gamma nail type device. Osseous alignment is unchanged. Metal hardware appears intact. Lucent fracture line is partially visualized. A small chronic calcification again seen adjacent to the greater trochanter. No acute abnormality is seen in the remainder of the pelvis. Moderate bilateral hip osteoarthrosis. Soft tissues: The visualized bowel gas pattern is normal. No suspicious soft tissue calcifications. IMPRESSION: Postsurgical changes from right proximal femoral fracture fixation. No new osseous abnormality or acute hardware complication identified. CT scan - head: Radiologist's Impression: PROCEDURE: CT HEAD/BRAIN WO CON INDICATIONS: AMS TECHNIQUE: Noncontrast 4.5 mm thick angled axial sections acquired from the foramen magnum to the vertex, with coronal and sagittal reformats. For radiation dose reduction, the following was used: automated exposure control, adjustment of mA and/or kV according to patient size. COMPARISON: [facility], CT, CT HEAD/BRAIN WO CON, 08/08/2023, 13:15. [facility], CT, CT HEAD/BRAIN WO CON, 06/27/2022, 14:35. FINDINGS: Image quality: Diagnostic. CSF spaces: Basal cisterns are patent. No extra-axial fluid collections. The ventricles are symmetric in size and shape. Brain: No acute intracranial hemorrhage or mass effect. There is cerebral volume loss for age, with resultant ventricular and sulcal prominence. There are periventricular and deep white matter chronic small vessel ischemic changes. There is intracranial internal carotid artery atherosclerosis. Skull and face: Calvarium and visualized facial bones appear intact, without suspicious lesions. Sinuses: Visualized sinuses and mastoids are clear. IMPRESSION: No acute intracranial pathology. [facility] Narrative Medical decision making narrative: Patient is obviously confused about why she was here. She does have a nitrite positive urine with bacteria and white blood cells. Rest of her workup here in the emergency department is relatively unremarkable to include her head CT. Patient was given antibiotics. Blood cultures obtained. Discussed the case with Dr. Chavez hospitalist on-call who will admit for further evaluation and treatment. Discharge Plan Departure Patient Disposition: Admitted As Inpatient Clinical Impression: Urinary tract infection, Acute confusion Admit Date/Time: 04/08/24 14:57 Admit Provider: Rajinder Chavez
[2024-04-08 13:29] LABS: Add Manual Diff / Slide Review NO; Basophils Absolute Auto 0 /uL (0-100); Basophils Percent Auto 0.4 % (0-2); Eosinophils Absolute Auto 100 /uL (0-450); Eosinophils Percent Auto 0.4 % (2-4); Hematocrit 24.3 % (36-46); Hemoglobin 7.7 g/dL (12.0-16.0); Lymphocytes Absolute Auto 600 /uL (1100-4500); Lymphocytes Percent Auto 4.9 % (25-40); Mean Corpuscular HGB Conc 31.9 % (30-36); Mean Corpuscular Hemoglobin 26.1 PG (26-34); Mean Corpuscular Volume 81.6 fL (80-100); Monocytes Absolute Auto 1000 /uL (0-900); Monocytes Percent Auto 8.1 % (3-14); Neutrophils Absolute Auto 11100 /uL (1500-7000); Neutrophils Percent Auto 86.2 % (50-75); Platelet Count 691 X10^3/uL (150-400); Red Blood Cell Count 2.97 X10^6/uL (4.0-5.2); Red Cell Distribution Width 16.1 % (11.6-14.8); White Blood Cell Count 12.9 X10^3/uL (4.5-11.0)
[2024-04-08 13:35] LABS: Alanine Aminotransferase 13 IU/L (<35); Albumin 3.4 g/dL (3.5-5.0); Alkaline Phosphatase 110 U/L (38-126); Aspartate Aminotransferase 20 IU/L (14-36); BUN Creatinine Ratio 22.2 (6-22); Bilirubin Total 0.7 mg/dL (0.2-1.3); Blood Urea Nitrogen 22 mg/dL (7-17); Calcium 9.2 mg/dL (8.4-10.2); Carbon Dioxide 30 mmol/L (22-32); Chloride 98 mmol/L (98-107); Creatine Kinase 127 U/L (30-135); Estimated Glomerular Filt Rate > 60 mL/min (>60); Ethanol (ETOH) < 10 mg/dL; Globulin 3.5 g/dL (1.7-4.1); Glucose 138 mg/dL (80-110); HEMOLYSIS < 15 (0-50); Lipase 85 U/L (23-300); Magnesium 1.4 mg/dL (1.6-2.3); Potassium 3.6 mmol/L (3.4-5.1); Sodium 134 mmol/L (137-145); Total Protein 6.9 g/dL (6.3-8.2)
[2024-04-08 13:47] LABS: Troponin I < 0.012 ng/mL (0.01-0.034)
[2024-04-08] MEDS: SODIUM CHLORIDE 0.9% 1,000 ML 1000 ML IV (13:58)
[2024-04-08 14:49] LABS: Bacteria Urine Many (>30); RBC Urine None Seen (0-5/HPF); Squamous Epithelial Cell Urine 1-5 /HPF (0-5/HPF); Urine Volume 10mL (spun); WBC Urine 10-30/HPF (0-5/HPF)
[2024-04-08] MEDS: cefTRIAXone 1,000 MG in SODIUM CHLORIDE 0.9% 100 ML 200 MG IV (15:22)
--- NOTE | 2024-04-08 15:43 | PM.HP.1 ---
History of Present Illness History of Present Illness Date Patient Seen: 04/08/24 Time Patient Seen: 16:01 Chief complaint: AMS Narrative: The patient was a 73-year-old female who was discharged after a fall and hip fracture with subsequent repair. She was discharged to custodial facility on March 28. She has been doing well at [facility] view. Today she was noted to be confused. She was sent to the emergency department where she was found to have acute encephalopathy and evidence of urinary tract infection. She was a chronic history of diabetes 2, insulin dependent, hypertension, and hyperlipidemia. S: She reports hallucinating in the sharemilker hours. She also notes that her left knee has been quite painful for about 2 days without a specific injury or trauma. Her right hip has been improving. There is some drainage from the incisional wound. She denies fevers or chills. She has had frequent urination. She feels mentally fuzzy and does occasionally get off from trach. She denies any abdominal pain, nausea, or diarrhea. She has had a dry cough and sore throat. CT of the brain was negative and she had a mild leukocytosis and nitrites in her UA in the emergency department. Blood cultures are obtained and ceftriaxone was started IV. PENDING SALE TO [facility] Medical History Melanoma (~2019) Depression (~2015) Osteoporosis (~2018) Foot pain (~2019) Carpal tunnel syndrome (~2013) Measles Chicken pox Vertigo Retinal detachment (~2017) Cataracts, bilateral (~2018) Diabetes mellitus (~1989) Healthy adult Surgical History Anesthesia History of removal of cyst (~1978) History of carpal tunnel release (~2013) History of partial thyroidectomy (~1979) History of eye surgery (~2017) History of cataract removal with insertion of prosthetic lens (~2020) Family History Father Cancer Mother Diabetes mellitus Hypertension Brother Diabetes mellitus Brother Diabetes mellitus Family/Other Diabetes mellitus Hypertension Social History household members: none Smoking Status: Never smoker alcohol intake: current Meds Home Medications and Allergies Home Medications Medication Instructions Recorded Confirmed Type amlodipine 5 mg tablet 5 mg PO DAILY 05/11/18 04/08/24 History aspirin 81 mg tablet,delayed 81 mg PO QPM 05/11/18 04/08/24 History release metformin 1,000 mg tablet 1 tab PO BID 05/11/18 04/08/24 History rosuvastatin 20 mg tablet 20 mg PO DAILY 08/08/23 04/08/24 History bupropion HCl 300 mg 24 hr tablet, 300 mg PO QAM 03/25/24 04/08/24 History extended release duloxetine 60 mg capsule,delayed 60 mg PO DAILY 03/25/24 04/08/24 History release insulin glargine 100 unit/mL (3 27 unit SUBCUT DAILY 03/25/24 04/08/24 History mL) subcutaneous pen (Lantus Solostar U-100 Insulin) losartan 100 1 tab PO DAILY 03/25/24 04/08/24 History mg-hydrochlorothiazide 12.5 mg tablet metoprolol succinate 50 mg 50 mg PO DAILY 03/25/24 04/08/24 History tablet,extended release 24 hr enoxaparin 40 mg/0.4 mL 40 mg (0.4 mL) SUBCUT DAILY #28 mL 03/28/24 04/08/24 Rx subcutaneous syringe (Lovenox) hydromorphone 2 mg tablet 4 mg (2 x 2 mg) PO Q3H PRN Pain, 03/28/24 04/08/24 Rx Severe (7-10) #20 tabs Allergies Allergy/AdvReac Type Severity Reaction Status Date / Time No Known Drug Allergies Allergy Verified 12/07/21 15:37 Review of Systems Review of Systems Narrative: All else reviewed and otherwise unremarkable except as noted in the history and physical. Exam Vital Signs (past 8 hours): - 04/08/24 13:14 04/08/24 13:15 04/08/24 13:15 Temperature Pulse Rate 92 H 91 H Respiratory Rate 21 22 Blood Pressure 121/59 L Pulse Oximetry 93 93 Oxygen Delivery Method Room Air 04/08/24 13:17 04/08/24 13:51 04/08/24 13:53 Temperature 99.4 F Pulse Rate 92 H 91 H 90 Respiratory Rate 18 13 Blood Pressure 121/59 L Pulse Oximetry 93 94 Oxygen Delivery Method Room Air 04/08/24 13:53 04/08/24 14:00 04/08/24 14:00 Temperature Pulse Rate 87 Respiratory Rate 16 Blood Pressure 117/55 L 107/55 L Pulse Oximetry 93 Oxygen Delivery Method 04/08/24 15:39 Temperature 98.9 F Pulse Rate 99 H Respiratory Rate 18 Blood Pressure 121/56 L Pulse Oximetry 94 Oxygen Delivery Method Room Air Oxygen Delivery Method Room Air Narrative Exam Narrative: NAD, alert and oriented, fluent speech, calm. Alert and oriented to person, place, and year. She is slightly confused at times. Normocephalic skull, EOMI, anicteric sclera, symmetric pupils. Oropharynx unremarkable, no droop. Neck supple, midline trachea, no adenopathy. Lungs clear, normal rate and effort. Heart regular, no murmur gallop or rub. Abdomen is soft, non distended and non tender. Extremities are free of edema. Skin is free of rash or lesions. Joints are not swollen or deformed. Judgment appears to be normal. Motor strength is normal in arms and legs. There is no facial droop. EOMI. Speech is normal. There is some scant drainage from the inferior aspect of the right hip incisional wound. There is no wound breakdown. Objective Imaging CT scan - head: Radiologist's impression: No acute abnormalities. Labs 04/08/24 13:12 04/08/24 13:12 Labs: Laboratory Results - last 24 hr 04/08/24 04/08/24 13:12 14:20 WBC 12.9 H RBC 2.97 L Hgb 7.7 L Hct 24.3 L MCV 81.6 MCH 26.1 MCHC 31.9 RDW 16.1 H Plt Count 691 H Neut % (Auto) 86.2 H Lymph % (Auto) 4.9 L Wells % (Auto) 8.1 Eos % (Auto) 0.4 L Baso % (Auto) 0.4 Neut # (Auto) 62331 H Lymph # (Auto) 600 L [place] # (Auto) 1000 H Eos # (Auto) 100 Baso # (Auto) 0 Sodium 134 L Potassium 3.6 Chloride 98 Carbon Dioxide 30 BUN 22 H Creatinine 0.99 Estimated GFR > 60 BUN/Creatinine Ratio 22.2 H Glucose 138 H Calcium 9.2 Magnesium 1.4 L Total Bilirubin 0.7 AST 20 ALT 13 Alkaline Phosphatase 110 Total Creatine Kinase 127 Troponin I < 0.012 Total Protein 6.9 Albumin 3.4 L Globulin 3.5 Albumin/Globulin Ratio 1.0 Lipase 85 Urine RBC None seen Urine WBC 10-30/hpf H Ur Squamous Epith Cells 1-5 /hpf Urine Bacteria Many (>30) H Vol Urine Centrifuged 10ml (spun) Ethyl Alcohol < 10 Assessment & Plan Assessment & Plan narrative: 1. Septic encephalopathy, present on admission and active. 2. Acute urinary tract infection without hematuria, present on admission and active. 3. Right intertrochanteric hip fracture, present on admission and active. 4. DM 2, present on admission and active. 5. Essential hypertension, present on admission and active. 6. Hyperlipidemia, present on admission and active. PLAN: -IV antibiotics, ceftriaxone, and follow urine and blood cultures. -monitor mental status. -resume all usual medications for diabetes and blood pressure and monitor blood pressure and glucose. -physical therapy evaluation, focused on left knee. She may need additional imaging of the knee or duplex ultrasound. There is no edema. -we will swab drainage from the right inferior aspect of the wound associated with a right hip repair. She was admitted to inpatient status, anticipate a need for 2 midnights of hospital level care. She was full resuscitation. Proxy decision maker is her daughter. Time-Based Coding :: 40 min spent with patient and on the chart (including review of chart, obtaining history, exam, reviewing outside data, placing orders, documenting exam and treatment plan, and counseling patient) on 04/08. Quality MIPS - Admit I confirm the patient?s Advance Care Plan is present, Code status is documented, Surrogate decision maker is in patient?s record [If Yes, STOP here]: Yes MIPS - Meds 'Current medications' to include all prescriptions, [id number] products, herbals, cannabis/cannabidiol products, and vitamin/mineral/dietary (nutritional) supplements. I have utilized all available resources to obtain, update, or review the patient?s current medications. [If Yes, STOP here]: Yes
[2024-04-08] MEDS: OXYCODONE IR 5 MG TABLET PO (16:26)
[2024-04-08] MEDS: SODIUM CHLORIDE 0.45% 1,000 ML 100 ML IV (16:26)
[2024-04-08] MEDS: ACETAMINOPHEN 325 MG TABLET 650 MG PO (16:26)
--- NOTE | 2024-04-08 16:55 | DI.RAD.S_ITS ---
PROCEDURE: XR CHEST 1V INDICATIONS: confusion TECHNIQUE: One view of the chest was acquired. COMPARISON: [facility], CR, XR CHEST 1V, 08/08/2023, 13:11. [facility], CR, XR CHEST FOR PICC 1V, 08/08/2023, 16:46. FINDINGS: Surgical changes and devices: None. Lungs and pleura: On this semiupright portable chest examination, no large pneumothorax or large pleural effusions are seen. No focal infiltrates are seen. Low lung volumes are noted. This causes a crowded appearance to the lung markings and limits evaluation. Mediastinum: Mediastinal contours appear normal. Heart size is normal. Bones and chest wall: No suspicious bony lesions. Age-appropriate bony degenerative changes are seen. Overlying soft tissues appear unremarkable. IMPRESSION: Limited portable chest examination with low lung volumes, without a significant cardiopulmonary abnormality identified. Dictated by: Mart Davila M.D. on 04/08/2024 at 16:17 Approved by: Mart Davila M.D. on 04/08/2024 at 16:18
--- NOTE | 2024-04-08 17:12 | PC.NURSE ---
Pt arrived from ED at 1600, able to answer orientation questions but seems mildly confused. VSS on RA. c/o significant pain to L knee and R hip, meds provided per NOV, ice pack provided for L knee. Gauze and tape dressing to R hip loose. Lung sounds CTA, bowel sounds present, CMS+ bilaterally. Pt oriented to room and call light. Bed in low position, call light within reach.
[2024-04-08] MEDS: buPROPion XL 150 MG TAB 300 MG PO (17:39)
[2024-04-08] MEDS: INSULIN LISPRO 100 UNIT/ML 3ML VIAL SUBCUT ×2 (17:39→20:36)
[2024-04-08] MEDS: DOCUSATE 100 MG CAPSULE PO (20:36)
--- NOTE | 2024-04-09 00:06 | PC.NURSE ---
Patient is alert and oriented except to day of month. Breath sounds CTA with RA sat of 91%. HRR. Denied nausea. BT present and abdomen is soft; was incontinent of 2 liquid stools tonight. External catheter in place due to decreased mobility; denied dysuria. Is assisted to reposition q2h although is able to help. Incision to right lateral hip is intact although curling on distal end; no drainage on dressing. Noted to have non-intact blister on left inner buttock; allevyn dressing applied. Gait not assessed at this time. Complained on previous shift of left knee being very painful with any movement, but has denied pain on this shift. Agreeable to having calf SCD applied but only to right leg. Does have decreased ROM in right LE related to recent hip surgery. Fall risk score is high and bed alarm is activated.
[2024-04-09] MEDS: OXYCODONE IR 5 MG TABLET PO ×2 (01:31→06:30)
[2024-04-09] MEDS: SODIUM CHLORIDE 0.45% 1,000 ML 100 ML IV ×2 (01:32→11:46)
[2024-04-09 06:13] LABS: Add Manual Diff / Slide Review NO; Basophils Absolute Auto 0 /uL (0-100); Basophils Percent Auto 0.4 % (0-2); Eosinophils Absolute Auto 200 /uL (0-450); Eosinophils Percent Auto 1.8 % (2-4); Hematocrit 21.3 % (36-46); Lymphocytes Absolute Auto 1000 /uL (1100-4500); Lymphocytes Percent Auto 9.3 % (25-40); Mean Corpuscular HGB Conc 32.9 % (30-36); Mean Corpuscular Hemoglobin 26.7 PG (26-34); Mean Corpuscular Volume 81.1 fL (80-100); Monocytes Absolute Auto 1000 /uL (0-900); Monocytes Percent Auto 9.4 % (3-14); Neutrophils Absolute Auto 8300 /uL (1500-7000); Neutrophils Percent Auto 79.1 % (50-75); Platelet Count 656 X10^3/uL (150-400); Red Blood Cell Count 2.63 X10^6/uL (4.0-5.2); Red Cell Distribution Width 16.1 % (11.6-14.8); White Blood Cell Count 10.5 X10^3/uL (4.5-11.0)
[2024-04-09 06:29] LABS: BUN Creatinine Ratio 17.6 (6-22); Blood Urea Nitrogen 15 mg/dL (7-17); Calcium 8.7 mg/dL (8.4-10.2); Carbon Dioxide 28 mmol/L (22-32); Chloride 102 mmol/L (98-107); Estimated Glomerular Filt Rate > 60 mL/min (>60); Glucose 140 mg/dL (80-110); HEMOLYSIS < 15 (0-50); Potassium 3.1 mmol/L (3.4-5.1); Sodium 134 mmol/L (137-145)
[2024-04-09 07:00] VITALS: BP 115/83; PULSE 92; RESP 20; TEMP 36.4; O2SAT 97
--- NOTE | 2024-04-09 07:35 | P.PN_ITS ---
Subjective Subjective Interval history: She feels improved today. She was admitted for UTI and confusion. Her confusion is improving, she was still somewhat fuzzy. She has had 3 days of left posterior knee pain. She denies injury to the knee. Exam Vital Signs (past 8 hours): - 04/09/24 01:54 Oxygen Flow Rate 0 Oxygen Delivery Method Room Air Oxygen Flow Rate 0 Narrative Exam Narrative: NAD, alert and oriented. Fluent speech. Lungs are clear, normal rate and effort. Heart is regular, no murmur gallop or rub. Abdomen is soft, non distended. Extremities are free of edema. Left knee, no effusion. No focal tenderness except for in the posterior aspect. Objective Labs 04/09/24 05:35 04/09/24 05:35 Labs: Laboratory Results - last 24 hr 04/08/24 04/08/24 04/09/24 13:12 14:20 05:35 WBC 12.9 H 10.5 RBC 2.97 L 2.63 L Hgb 7.7 L 7.0 L Hct 24.3 L 21.3 L MCV 81.6 81.1 MCH 26.1 26.7 MCHC 31.9 32.9 RDW 16.1 H 16.1 H Plt Count 691 H 656 H Neut % (Auto) 86.2 H 79.1 H Lymph % (Auto) 4.9 L 9.3 L [place] % (Auto) 8.1 9.4 Eos % (Auto) 0.4 L 1.8 L Baso % (Auto) 0.4 0.4 Neut # (Auto) 64430 H 8300 H Lymph # (Auto) 600 L 1000 L [place] # (Auto) 1000 H 1000 H Eos # (Auto) 100 200 Baso # (Auto) 0 0 Sodium 134 L 134 L Potassium 3.6 3.1 L Chloride 98 102 Carbon Dioxide 30 28 BUN 22 H 15 Creatinine 0.99 0.85 Estimated GFR > 60 > 60 BUN/Creatinine Ratio 22.2 H 17.6 Glucose 138 H 140 H Calcium 9.2 8.7 Magnesium 1.4 L Total Bilirubin 0.7 AST 20 ALT 13 Alkaline Phosphatase 110 Total Creatine Kinase 127 Troponin I < 0.012 Total Protein 6.9 Albumin 3.4 L Globulin 3.5 Albumin/Globulin Ratio 1.0 Lipase 85 Urine RBC None seen Urine WBC 10-30/hpf H Ur Squamous Epith Cells 1-5 /hpf Urine Bacteria Many (>30) H Vol Urine Centrifuged 10ml (spun) Ethyl Alcohol < 10 PFSH Medical History Melanoma (~2019) Depression (~2015) Osteoporosis (~2018) Foot pain (~2019) Carpal tunnel syndrome (~2013) Measles Chicken pox Vertigo Retinal detachment (~2017) Cataracts, bilateral (~2018) Diabetes mellitus (~1989) Healthy adult Surgical History Anesthesia History of removal of cyst (~1978) History of carpal tunnel release (~2013) History of partial thyroidectomy (~1979) History of eye surgery (~2017) History of cataract removal with insertion of prosthetic lens (~2020) Family History Father Cancer Mother Diabetes mellitus Hypertension Brother Diabetes mellitus Brother Diabetes mellitus Family/Other Diabetes mellitus Hypertension Social History household members: none Smoking Status: Never smoker alcohol intake: current Assessment & Plan Assessment & Plan narrative: 1. Septic encephalopathy, present on admission and active. 2. Acute urinary tract infection without hematuria, present on admission and active. 3. Right intertrochanteric hip fracture, present on admission and active. 4. DM 2, present on admission and active. 5. Essential hypertension, present on admission and active. 6. Hyperlipidemia, present on admission and active. PLAN: -Continue IV antibiotics, ceftriaxone, and follow urine and blood cultures. -Urine culture with Gram-negative bacilli, blood cultures remained negative. -monitor mental status , it was improving. -resume all usual medications for diabetes and blood pressure and monitor blood pressure and glucose. -physical therapy evaluation, focused on left knee. She may need additional imaging of the knee or duplex ultrasound. There is no edema. -Duplex ultrasound left leg rule out DVT with her left knee pain. She was admitted to inpatient status, anticipate a need for 2 midnights of hospital level care. She was full resuscitation. Proxy decision maker is her daughter. DVT prophylaxis will be Enoxaparin. Estimated date of discharge, dispo: We will likely return to [facility] on April 10 with oral antibiotics for urinary tract infection. Time-Based Coding :: 30 min spent with patient and on the chart (including review of chart, obtaining history, exam, reviewing outside data, placing orders, documenting exam and treatment plan, and counseling patient) on 04/09. Quality VTE Deep Vein Thrombosis/Pulmonary Embolism Present on Admission: No
[2024-04-09] MEDS: INSULIN GLARGINE 100 UNIT/ML 3ML PEN 27 UNIT SUBCUT (08:30)
[2024-04-09] MEDS: INSULIN LISPRO 100 UNIT/ML 3ML VIAL SUBCUT ×3 (08:34→17:28)
[2024-04-09] MEDS: POTASSIUM CHLORIDE 20 MEQ TAB 40 MEQ PO (08:37)
[2024-04-09] MEDS: LOSARTAN 50 MG TABLET 100 MG PO (08:37)
[2024-04-09] MEDS: METOPROLOL ER 50 MG TABLET PO (08:37)
[2024-04-09] MEDS: ENOXAPARIN 40 MG/0.4 ML SYRINGE SUBCUT (08:37)
[2024-04-09] MEDS: AMLODIPINE 5 MG TABLET PO (08:37)
[2024-04-09] MEDS: buPROPion XL 150 MG TAB 300 MG PO (08:38)
[2024-04-09] MEDS: ATORVASTATIN 20 MG TABLET 40 MG PO (08:38)
[2024-04-09] MEDS: DULOXETINE 30 MG CAPSULE 60 MG PO (08:38)
[2024-04-09] MEDS: hydroCHLOROthiazide 25 MG TABLET 12.5 MG PO (08:38)
[2024-04-09] MEDS: cefTRIAXone 1,000 MG in SODIUM CHLORIDE 0.9% 100 ML 200 MG IV (11:46)
--- NOTE | 2024-04-09 12:03 | DI.US.S_ITS ---
PROCEDURE: US PERIPH VENOUS LOW EXTREM LT INDICATIONS: left knee pain TECHNIQUE: Real-time imaging, as well as color and pulse Doppler interrogation, were performed of the lower extremity deep veins from the inguinal ligament to the popliteal fossa, with documentation of the visualized calf veins. COMPARISON: None. FINDINGS: The common femoral, femoral, popliteal, and the visualized calf veins are normally compressible, and free of intraluminal thrombus. Color and pulse Doppler demonstrate normal phasic intraluminal flow. There is normal augmentation response to distal compression maneuver. Incidentally noted Rosenthal's cyst measuring 5 1 x 2.8 cm, with internal debris. Fluid is also seen superior to the left knee measuring 5 2 x 5 4 cm, also with debris. If there is high concern for further derangement, consider MRI evaluation. IMPRESSION: No findings of lower extremity deep venous thrombosis. Dictated by: Anmol Wolf M.D. on 04/11/2024 at 9:56 Approved by: Anmol Wolf M.D. on 04/11/2024 at 9:57
--- NOTE | 2024-04-09 12:12 | PT.IIE ---
Addendum entered and electronically signed by Alda Guevara PT 04/09/24 12:14: PT provides direct superv during SPT assessment Original Note: Current Diagnoses Urinary tract infection, site not specified (04/08/24) Surgical History (Last Reviewed 04/09/24 @ 07:35 by Rajinder Chavez MD) Anesthesia History of carpal tunnel release (~2013) History of cataract removal with insertion of prosthetic lens (~2020) History of eye surgery (~2017) History of partial thyroidectomy (~1979) History of removal of cyst (~1978) Medical History (Last Reviewed 04/09/24 @ 07:35 by Rajinder Chavez MD) Carpal tunnel syndrome (~2013) Cataracts, bilateral (~2018) Chicken pox Depression (~2015) Diabetes mellitus (~1989) Foot pain (~2019) Healthy adult Measles Melanoma (~2019) Osteoporosis (~2018) Retinal detachment (~2017) Vertigo Physical Therapy Inpatient Evaluation/Re-Eval M1 PT/OT-IP Prior Functional Status Start: 04/09/24 09:38 Freq: NEEDED Status: Active Protocol: Document 04/09/24 10:35 JByron (Rec: 04/09/24 11:44 Stefan [id number]) Medical Review Prior Functional Status Medical History Reviewed Yes Communication WNL Mobility and Gait I around home with RW or wheelchair Activities of Daily Living and IADL's Requires assist from grandson for ADL's Social History Living Arrangements House Number of Floors (Floors) One Floor Number of Stairs To Enter/Railing? 3 with right rail ascend Home Environment Standard Height Toilet,Tub/ Shower Home Equipment Four Wheel Walker,Straight Cane,Manual Wheelchair,Grab Bars In Shower Employment Status Retired Additional Social History Comment Main entrance to home has one entrance with 3 steps with no railing and second entrance with breezway with 3 steps and R railing. Pt unsure which side she will use when she goes home M2 PT-IP Current Condition Start: 04/09/24 09:38 Freq: NEEDED Status: Active Protocol: Document 04/09/24 10:35 JByron (Rec: 04/09/24 11:44 Stefan [id number]) Physical Therapy Current Condition Current Condition Evaluation Date 04/09/24 Treatment Diagnosis Encephalopathy and UTI, recent right hip fracture M3 PT-IP Subjective Start: 04/09/24 09:38 Freq: NEEDED Status: Active Protocol: Document 04/09/24 10:35 JG (Rec: 04/09/24 11:44 J [id number]) Subjective Physical Therapy Visit Type Type Initial Evaluation Visit Start Time 10:35 Visit Stop Time 11:10 Number of APPLIED [employer]INE 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[employer] 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 Visits 0 Physical Therapy Visit Comments Patient Comments PT is agreeable to PT with some encouragment Therapy Pain Assessment Pain When Pain Assessed At Rest Pain Present Pain Present Pain Reported Location left knee Intensity 10 Scale Used Numeric (0 - 10) Description Sharp,With Movement Pain Behaviors Calling Out,Guarding Pain Management Techniques Elevation,Modification of Treatment,Re-positioning, Timing of Activity with Medications M4 PT-IP Mobility and Gait Start: 04/09/24 09:38 Freq: NEEDED Status: Active Protocol: Document 04/09/24 10:35 JG (Rec: 04/09/24 11:44 J [id number]) PT-Bed Mobility Assessment Supine to Sit Supine to Sit Maximum Assistance,1 Person Assistance,Head of Bed Elevated,Bedrails Scooting Scooting to Edge of Bed Maximum Assistance PT-Transfer Assessment Sit to and From Stand Sit to and from Stand Maximum Assistance,2 Person Assistance,Use of Upper Extremities Equipment Transfer Assistive Device Gait Belt,Front Wheeled Walker Orthotic/Prosthetic Devices or Brace: No Transfers Transfer Destination Chair Transfer Technique Stepping Transfer Ability Level of Assist Maximum Assistance,2 Person Assistance,Use of Upper Extremities Comments Mobility Comments Pt complained of pain in L knee with palpation posterior joint and with flexion when sitting EOB and requires lower bed handle to help move to EOB. Pt complained of R foot slipage upon initial staning and needs v/c/tactile cueing in order to keep weight distributed evenly. Pt was unable to turn FWW and body without PT assistance and pt sits before square with chair. Gait Assessment Gait Gait Assistance Required: Maximum Assistance,2 Person Assist Distance (Feet) 1 Able to Maintain Weight Bearing Status Yes During Gait Assistive Devices Assistive Device Gait Belt,Front Wheeled Walker Orthotic/Prosthetic Devices or Brace: No Gait Deviations General Gait Pattern Antalgic,Decreased Stride Length,Decreased Feet Clearance,Flexed Trunk Factors Limiting Gait Function Factors Limiting Gait Function Decreased Activity Tolerance, Decreased Sensation,Decreased Strength,Difficulty Following Directions,Incoordination, Limited Range of Motion,Pain, Poor Balance,Poor Safety Awareness Comments Gait Comments Poor stepping and moving of right leg/WB through right leg when up on feet and cues for stepping PT-Balance Assessment Sitting Balance and Reactions Static Sitting Balance Ability Fair Dynamic Sitting Balance Ability Fair Standing Balance and Reactions Static Standing Balance Ability Poor Dynamic Standing Balance Ability Poor Device Used FWW Comments Other Balance Tests/Deviations/Treatment Left hand support on handle at : bottom of bed for static sitting EOB and pt lies flat back uncontrollably once when EOB, trouble shifting weight and scooting and PT uses pad to assist, constant cueing for mobility M5 PT-IP Objective Assessments Start: 04/09/24 09:38 Freq: NEEDED Status: Active Protocol: Document 04/09/24 10:35 JG (Rec: 04/09/24 11:44 [id number]) Orientation Orientation/Cognition Level of Alertness Confusional State Orientation Name,Age,Birthday,Month,Year, Situation Language Function Ability Hard of Hearing Safety Awareness Decreased Safety Awareness Memory Description Short Term Impaired,Justice Professor Impaired Comments Pt incorrectly answered date ( 19 of april), day of week ( Tuesday), place ([facility]) Gross Range of Motion Upper Extremity ROM Assessment Within Functional Limits Lower Extremity ROM Assessment Bilaterally Impaired Impairments Self-limits right hip motion and left knee motion Strength Upper Extremity Strength Assessment Within Functional Limits Lower Extremity Strength Assessment Bilaterally Impaired Knee 3/5 B in available range Ankle 3/5 B in available range Comments Strength Comments Unable to perform MMT against gravity due to weakness: she extends both legs sitting EOB, functional ankle movement sitting EOB M6 PT-IP Treatment Start: 04/09/24 09:38 Freq: NEEDED Status: Active Protocol: Document 04/09/24 10:35 JG (Rec: 04/09/24 11:44 [id number]) Physical Therapy Treatment Exercises Exercises Ankle Pumps Education Education Provided Safety Other Treatments Other Treatment Performed LAQ M7 PT-IP Assessment and Plan Start: 04/09/24 09:38 Freq: NEEDED Status: Active Protocol: Document 04/09/24 10:35 JG (Rec: 04/09/24 11:44 [id number]) PT Summary Assessment and Plan Potential Rehabilitation Potential Fair Status of Condition at Evaluation Evolving Summary Impairments Pain,ROM,Strength,Balance, Coordination,Cognition,Bed Mobility,Transfers,Gait, Activity Tolerance Progress Towards Goals Progressing Toward Goals,Slow Progress due to Pain Assessment Summary Pt is a 73 y/o female that presents to inpatient with encephalopathy and UTI. Pt is pleasently confused and has slow response times. She requires about 20' to get to EOB. Pt complains of increased pain left knee with mobility and she also limits right hip motion. She currently requires heavy assistance for bed mobility, transfers and stepping. Goals Bed Mobility Goal Independent Transfer Goal Standby Assistance,Front Wheeled Walker Gait Goal Standby Assistance,Front Wheel Walker Gait Distance 50 Other Goals Pt will be able to ascend and desecnd 3 stairs with R railing and no more than CGA to allow safe home entrance. Days to Meet Goals 5 Frequency of Treatment Frequency Of Treatment Once a Day Treatment Plan Physical Therapy Treatment Plan Bed Mobility Training,Transfer Training,Gait Training, Therapeutic Exercise,Balance Retraining,Post Op Education, Discharge Planning,Hot or Cold Pack,Neuromuscular Re-ed, Coordination Retraining Other Recommendations and Next Treatment Focus on sitting tolerance, Focus scooting, AD education, transfers, standing tolerance, gait training, stairs Weight Bearing Status Weight Bearing Status Weight Bear as Tolerated Recommendations To Nursing Amount of Assist Needed Standby Assistance,Mechanical Lift Discharge Recommendations PT Discharge Recommendations SNF Rehab Transportation Needs at Discharge Wheelchair/Cabulance
--- NOTE | 2024-04-09 13:03 | PC.NURSE ---
Patient is sitting up in her chair after getting up with physical therapy. She had an ultrasound of her knee. Patient ate lunch and is waiting for her company to arrive.
--- NOTE | 2024-04-09 16:24 | CM.DANOTE ---
DCP Assessment Note Pt is a 73yo F here with UTI/confusion getting abx. PCP Beverley Albert Payer [employer] Medicare and Self pay TEST ENG reviewed EMR. Per chart, pt was here 03/25/24-03/28/24 after right hip fracture and OR to repair. discharged to [facility]. Per hospitalist in morning rounds, likely stable to return to [facility] tomorrow TEST ENG spoke with Charlee from , able to accept Tuesday, time pending. TEST ENG met with pt in room. in agreement with plan. no questions at this time. P: anticipate dc to [facility] Tuesday. time pending. likely no PASRR due to short admission. CM team will follow closely EZRA Grove Discharge Planning/Care Management Advanced directive,confirm from FACILITY Start: 04/08/24 16:07 Freq: Q24H Status: Active Protocol: Document 04/08/24 18:33 KL (Rec: 04/08/24 18:33 KL [id number]) Advance Directive, confirm on record Time 18:33 Person contacted [facility] Copy received No CM Discharge Assessment Start: 04/09/24 16:21 Freq: Status: Active Protocol: Document 04/09/24 16:21 SL (Rec: 04/09/24 16:24 SL [id number]) Discharge Planning Assessment Assigned Radiosonde Operator EZRA Montes DPOA/Assigned Designee Name edmond Yu Contact Information [phone] Advance Directives? No Advance Directives on File No History Provided By Patient,Family Member,Medical Record Prior Living Arrangements House Household Members none Facility Name Admitted From: [facility] Willing to Return to Facility? Yes Independent with ADL's No Is patient alert and oriented? Yes Patient/Family Preference Long-Term Facility Barriers to Discharge No Discharge Plan Long-Term Facility Transportation Arrangement facility Additional Comment [facility] able to accept back If patient plan is SNF: Has PASSR been not needed completed? Has Agency SNF been contacted Yes Review Status In Process Please Provide Date Initial DC 04/09/24 Assessment Was Performed Next Review Type Continued Stay Review
[2024-04-09] MEDS: ASPIRIN EC 81 MG TABLET PO (17:28)
[2024-04-09 20:25] VITALS: BP 116/65; PULSE 91; RESP 19; TEMP 36.8; O2SAT 92
--- NOTE | 2024-04-09 21:48 | PC.NURSE ---
Patient is alert and oriented tonight. Breath sounds CTA with RA sat of 92%. HRR. Denied nausea. BT present and has had no further liquid/incontinent stools since early this morning; Colace held tonight. Is incontinent of urine so wearing external catheter related to weakness and poor mobility. Is being repositioned q2h but is able to assist. Does have a non-intact blister on inner left buttock; allevyn dressing reapplied. Worked with PT today but reportedly did poorly and required use of Isha to get back into bed after sitting in chair for several hours. Aquacel dressing to right lateral hip are CDI. Bilateral calf SCD's applied at shift change. Denies pain tonight. Fall risk score is high and bed alarm is activated.
[2024-04-10] MEDS: SODIUM CHLORIDE 0.45% 1,000 ML 100 ML IV (05:04)
[2024-04-10 06:02] LABS: Add Manual Diff / Slide Review NO; Basophils Absolute Auto 100 /uL (0-100); Basophils Percent Auto 0.5 % (0-2); Eosinophils Absolute Auto 300 /uL (0-450); Eosinophils Percent Auto 2.5 % (2-4); Hematocrit 21.7 % (36-46); Hemoglobin 7.1 g/dL (12.0-16.0); Lymphocytes Absolute Auto 900 /uL (1100-4500); Lymphocytes Percent Auto 7.8 % (25-40); Mean Corpuscular HGB Conc 32.7 % (30-36); Mean Corpuscular Hemoglobin 26.6 PG (26-34); Mean Corpuscular Volume 81.6 fL (80-100); Monocytes Absolute Auto 900 /uL (0-900); Monocytes Percent Auto 7.8 % (3-14); Neutrophils Absolute Auto 9000 /uL (1500-7000); Neutrophils Percent Auto 81.4 % (50-75); Platelet Count 676 X10^3/uL (150-400); Red Blood Cell Count 2.65 X10^6/uL (4.0-5.2); Red Cell Distribution Width 16.4 % (11.6-14.8); White Blood Cell Count 11.1 X10^3/uL (4.5-11.0)
[2024-04-10 06:13] LABS: Blood Urea Nitrogen 9 mg/dL (7-17); Calcium 9.1 mg/dL (8.4-10.2); Carbon Dioxide 27 mmol/L (22-32); Chloride 104 mmol/L (98-107); Estimated Glomerular Filt Rate > 60 mL/min (>60); Glucose 149 mg/dL (80-110); HEMOLYSIS < 15 (0-50); Potassium 3.3 mmol/L (3.4-5.1); Sodium 135 mmol/L (137-145)
[2024-04-10] MEDS: INSULIN LISPRO 100 UNIT/ML 3ML VIAL SUBCUT ×2 (08:29→11:58)
[2024-04-10] MEDS: INSULIN GLARGINE 100 UNIT/ML 3ML PEN 27 UNIT SUBCUT (08:29)
[2024-04-10] MEDS: AMLODIPINE 5 MG TABLET PO (08:40)
[2024-04-10 08:41] VITALS: BP 152/71; BP 153/71
[2024-04-10] MEDS: LOSARTAN 50 MG TABLET 100 MG PO (08:41)
[2024-04-10] MEDS: hydroCHLOROthiazide 25 MG TABLET 12.5 MG PO (08:41)
[2024-04-10] MEDS: ATORVASTATIN 20 MG TABLET 40 MG PO (08:41)
[2024-04-10] MEDS: METOPROLOL ER 50 MG TABLET PO (08:41)
[2024-04-10] MEDS: DULOXETINE 30 MG CAPSULE 60 MG PO (08:41)
[2024-04-10] MEDS: ENOXAPARIN 40 MG/0.4 ML SYRINGE SUBCUT (08:42)
[2024-04-10] MEDS: buPROPion XL 150 MG TAB 300 MG PO (08:42)
--- NOTE | 2024-04-10 09:21 | CM.DPNOTE ---
Addendum entered by EZRA Grove 04/10/24 14:00: Got signed med list from provider. LORRI Olson sent clinicals to and placed in folder. From Debbie SCHULER in ED, no wallet to be found. From Charlee at , searched pt's room could not find wallet. PIN STICKER lvm with lost and found, no response. From pt, chance wallet could be in her suitcase in room. Pt discharged back to today at 1300. CM team will continue to follow as needed SL Original Note: DCP Note PIN STICKER reviewed EMR. Per Charlee at , got auth, able to accept pt today, transport 1300, no PASRR needed PIN STICKER gave RN report number. LORRI Olson updated RN HEART. Updated provider. PIN STICKER met with pt in room. Updated on plan. No questions at this time. Pt reports she's missing her blue wallet. Likely at in her drawer but she's not sure. PIN STICKER looked in chart, no record of pt's wallet this admission. PIN STICKER updated Charlee at of missing wallet situation. P: dc today to transport 1300. No PASRR needed. Signed meds needed. CM team will follow as needed EZRA Grove
[2024-04-10 09:30] VITALS: BP 152/71; PULSE 106; RESP 18; TEMP 36.9; O2SAT 96
--- NOTE | 2024-04-10 09:42 | P.DS_ITS ---
History of Present Illness History of Present Illness Chief complaint: AMS Narrative: The patient was a 73-year-old female who was discharged after a fall and hip fracture with subsequent repair. She was discharged to correction facility on March 28. She has been doing well at [facility]. Today she was noted to be confused. She was sent to the emergency department where she was found to have acute encephalopathy and evidence of urinary tract infection. She was a chronic history of diabetes 2, insulin dependent, hypertension, and hyperlipidemia. 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 She also notes that her left knee has been quite painful for about 2 days without a specific injury or trauma. Her right hip has been improving. There is some drainage from the incisional wound. She denies fevers or chills. She has had frequent urination. She feels mentally fuzzy and does occasionally get off from trach. She denies any abdominal pain, nausea, or diarrhea. She has had a dry cough and sore throat. CT of the brain was negative and she had a mild leukocytosis and nitrites in her UA in the emergency department. Blood cultures are obtained and ceftriaxone was started IV. Discharge Providers Provider Date of admission: 04/08/24 14:57 Discharge Date: 04/10/24 Primary care physician: Beverley Albert Consults: 04/08/24 15:42 Consult to Physical Therapy Evaluate & Treat Comment: Physician Instructions: Evaluate and Treat Discharge provider: Rajinder Chavez MD Summary Hospital Course Discharge Diagnosis: 1. Septic encephalopathy, present on admission and resolved. 2. Acute urinary tract infection without hematuria, present on admission and improved. 3. Right intertrochanteric hip fracture, present on admission and active. 4. DM 2, present on admission and active. 5. Essential hypertension, present on admission and active. 6. Hyperlipidemia, present on admission and active. 7. Hypokalemia, new and active. Hospital Course: Patient was a 73-year-old female recently discharged from hospital for hip fracture and ORIF to rehabilitation. She was sent back for altered mental status and found to have evidence of a urinary tract infection. Gram-negative bacilli are pending on culture, she responded to ceftriaxone. Her mental status normalized. She was felt to be stable for discharge on 04/10 on oral cephalexin q.i.d. for 5 additional days. Status at Discharge Cognitive/behavioral status at discharge: oriented Functional status at discharge: uses cane/walker Overall status at discharge: patient is progressing back to baseline Time Spent with Patient Time spent: Greater than 30 minutes Exam Vital Signs (past 8 hours): - 04/10/24 08:41 04/10/24 08:41 04/10/24 08:50 Temperature 98.5 F Pulse Rate 106 H Respiratory Rate 18 Blood Pressure 152/71 H 153/71 H 152/71 H Pulse Oximetry 96 Oxygen Flow Rate 0 Oxygen Delivery Method Room Air Oxygen Flow Rate 0 Narrative Exam Narrative: NAD, alert and oriented. Fluent speech. Lungs are clear, normal rate and effort. Heart is regular, no murmur gallop or rub. Abdomen is soft, non distended. Extremities are free of edema. Objective Imaging CT scan - head: Radiologist's impression: No acute abnormalities. Labs 04/10/24 05:50 04/10/24 05:50 Labs: Laboratory Results - last 24 hr 04/10/24 05:50 WBC 11.1 H RBC 2.65 L Hgb 7.1 L Hct 21.7 L MCV 81.6 MCH 26.6 MCHC 32.7 RDW 16.4 H Plt Count 676 H Neut % (Auto) 81.4 H Lymph % (Auto) 7.8 L [place] % (Auto) 7.8 Eos % (Auto) 2.5 Baso % (Auto) 0.5 Neut # (Auto) 9000 H Lymph # (Auto) 900 L [place] # (Auto) 900 Eos # (Auto) 300 Baso # (Auto) 100 Sodium 135 L Potassium 3.3 L Chloride 104 Carbon Dioxide 27 BUN 9 Creatinine 0.75 Estimated GFR > 60 BUN/Creatinine Ratio 12.0 Glucose 149 H Calcium 9.1 PFSH Medical History Melanoma (~2019) Depression (~2015) Osteoporosis (~2018) Foot pain (~2019) Carpal tunnel syndrome (~2013) Measles Chicken pox Vertigo Retinal detachment (~2017) Cataracts, bilateral (~2018) Diabetes mellitus (~1989) Healthy adult Surgical History Anesthesia History of removal of cyst (~1978) History of carpal tunnel release (~2013) History of partial thyroidectomy (~1979) History of eye surgery (~2017) History of cataract removal with insertion of prosthetic lens (~2020) Family History Father Cancer Mother Diabetes mellitus Hypertension Brother Diabetes mellitus Brother Diabetes mellitus Family/Other Diabetes mellitus Hypertension Social History household members: none Smoking Status: Never smoker alcohol intake: current Discharge Assessment & Plan Assessment and Plan Assessment: 1. Septic encephalopathy, present on admission and resolved. 2. Acute urinary tract infection without hematuria, present on admission and improved. 3. Right intertrochanteric hip fracture, present on admission and active. 4. DM 2, present on admission and active. 5. Essential hypertension, present on admission and active. 6. Hyperlipidemia, present on admission and active. 7. Hypokalemia, new and active. Plan of Treatment: Discharge to correction facility with 5 additional days of oral cephalexin 500 q.i.d.. Potassium replaced prior to discharge. Discharge Plan Discharge Plan Patient Disposition: SNF Under care of provider: Dr. Caruso. Provider Discharge Comment: Stable for discharge back to correction facility with oral antibiotics to complete course of therapy for urinary tract infection. Discharge orders & Medications Prescriptions: New cephalexin 500 mg capsule 500 mg PO QID Qty: 20 0RF Continued metoprolol succinate 50 mg tablet extended release 24 hr 50 mg PO DAILY bupropion HCl 300 mg tablet extended release 24 hr 300 mg PO QAM duloxetine 60 mg capsule,delayed release(DR/EC) 60 mg PO DAILY losartan-hydrochlorothiazide 100-12.5 mg tablet 1 tab PO DAILY insulin glargine [Lantus Solostar U-100 Insulin] 100 unit/mL (3 mL) insulin pen 27 unit SUBCUT DAILY enoxaparin [Lovenox] 40 mg/0.4 mL Syringe 40 mg SUBCUT DAILY Qty: 28 0RF Rx Instructions: should have compledted RX 04/08 hydromorphone 2 mg Tablet 4 mg PO Q3H PRN (Reason: Pain, Severe (7-10)) Qty: 20 0RF amlodipine 5 mg tablet 5 mg PO DAILY aspirin 81 mg tablet,delayed release (DR/EC) 81 mg PO QPM metformin 1,000 mg tablet 1 tab PO BID rosuvastatin 20 mg tablet 20 mg PO DAILY oxybutynin chloride 5 mg tablet 5 mg PO 3XD bupropion HCl 150 mg tablet extended release 24 hr 300 mg PO QAM Medication counseling provided by Pharmacist: No Follow up/Referrals: Beverley Albert PA-C [Primary Care Provider] - Discharge Health Status Multidrug resistant organism: No MDRO Diet/Activity/Treatments Diet: Diet as Tolerated, Regular and Carb-consistent/Diabetic Activity: Ad elio Skin/Wound/Dressing Care Report to your healthcare provider any signs of infection, such as:: chills, fever and increased pain Special Rehabilitation Services Reason for rehabilitation: Post-operative therapy Rehab type: Physical therapy and Occupational therapy Visit Report/Discharge Packet Instructions: DI for Urinary Tract Infection (UTI) Stand Alone Forms: Patient Portal/API Discharge Data Primary Care Provider: Beverley Albert Quality VTE Deep Vein Thrombosis/Pulmonary Embolism Present on Admission: No
[2024-04-10 10:06] LABS: Magnesium 1.4 mg/dL (1.6-2.3)
[2024-04-10] MEDS: cefTRIAXone 1,000 MG in SODIUM CHLORIDE 0.9% 100 ML 200 MG IV (10:18)
[2024-04-10] MEDS: POTASSIUM CHLORIDE 20 MEQ TAB 40 MEQ PO (10:18)
--- NOTE | 2024-04-10 11:49 | PT-IP ANOTE ---
Pt not appropriate for PT at this time, removing geovanny. Pt is to d/c at 13:00 today. Will check on pt later in afternoon if still in hospital.
[2024-04-10] MEDS: OXYCODONE IR 5 MG TABLET PO (11:58)
--- NOTE | 2024-04-10 13:01 | PC.NURSE ---
Pt is packed up and ready for discharge back to [facility]. Called report to Amber ARNOLD at [facility] and gave full Pt update. No further questions. Pt will d/c out via facility transport when they arrive and all belongings will go with her. Pt stated she thought her wallet was here but there no record of it on her admit assessment and nothing was placed in the safe or in her room. Cherie FOURNIER called over to [facility] to see if it is in her room over there but was told they said they did not have it. Suggested that Pt call her daughter to see if she possibly has it.
--- NOTE | 2024-04-10 13:05 | PT.IPTN ---
Current Diagnoses Urinary tract infection, site not specified (04/08/24) Physical Therapy Treatment Note M2 PT-IP Current Condition Start: 04/09/24 09:38 Freq: NEEDED Status: Discharge Protocol: Document 04/09/24 10:35 JG (Rec: 04/09/24 11:44 JG [id number]) Physical Therapy Current Condition Current Condition Evaluation Date 04/09/24 Treatment Diagnosis Encephalopathy and UTI, recent right hip fracture M3 PT-IP Subjective Start: 04/09/24 09:38 Freq: NEEDED Status: Discharge Protocol: Document 04/10/24 13:05 AB (Rec: 04/10/24 13:32 AB [id number]) Subjective Physical Therapy Visit Type Type Treatment Note Visit Start Time 13:05 Visit Stop Time 13:25 Number of WELLNESS AMBASSADOR Visits 0 M4 PT-IP Mobility and Gait Start: 04/09/24 09:38 Freq: NEEDED Status: Discharge Protocol: Document 04/10/24 13:05 AB (Rec: 04/10/24 13:32 AB [id number]) PT-Bed Mobility Assessment Supine to Sit Supine to Sit Maximum Assistance,1 Person Assistance,Head of Bed Elevated,Bedrails Scooting Scooting to Edge of Bed Maximum Assistance PT-Transfer Assessment Sit to and From Stand Sit to and from Stand Maximum Assistance,2 Person Assistance,Use of Upper Extremities Equipment Transfer Assistive Device Gait Belt,Front Wheeled Walker Orthotic/Prosthetic Devices or Brace: No Transfers Transfer Destination Wheelchair Transfer Technique Stand Step Pivot Transfer Ability Level of Assist Maximum Assistance,2 Person Assistance,Use of Upper Extremities Comments Mobility Comments Nurse needing assistance to transfer pt. pt about to d/c back to SNF. pt in bed and completed supine to sit max A and max cues. HOB elevated. pt requiring max A x 1-2 for scooting to EOB. completed sit to stand max A x 2 and max cues and needed assistance with brief management requiring max A x -2 for standing balance using fWW ans assisted with brief. pt completed step transfer to w/c using FWW max A x 2 and max cues. pt presents with increase guarding and retrolean requiring max A x 2 for standing balance. positioned pt on w/c. left pt with nurse. M5 PT-IP Objective Assessments Start: 04/09/24 09:38 Freq: NEEDED Status: Discharge Protocol: Document 04/09/24 10:35 JByron (Rec: 04/09/24 11:44 J [id number]) Orientation Orientation/Cognition Level of Alertness Confusional State Orientation Name,Age,Birthday,Month,Year, Situation Language Function Ability Hard of Hearing Safety Awareness Decreased Safety Awareness Memory Description Short Term Impaired,[employer] Impaired Comments Pt incorrectly answered date ( 19 of april), day of week ( Tuesday), place ([facility]) Gross Range of Motion Upper Extremity ROM Assessment Within Functional Limits Lower Extremity ROM Assessment Bilaterally Impaired Impairments Self-limits right hip motion and left knee motion Strength Upper Extremity Strength Assessment Within Functional Limits Lower Extremity Strength Assessment Bilaterally Impaired Knee 3/5 B in available range Ankle 3/5 B in available range Comments Strength Comments Unable to perform MMT against gravity due to weakness: she extends both legs sitting EOB, functional ankle movement sitting EOB M6 PT-IP Treatment Start: 04/09/24 09:38 Freq: NEEDED Status: Discharge Protocol: Document 04/10/24 13:05 AB (Rec: 04/10/24 13:32 AB [id number]) Physical Therapy Treatment Education Education Provided Safety M7 PT-IP Assessment and Plan Start: 04/09/24 09:38 Freq: NEEDED Status: Discharge Protocol: Document 04/10/24 13:05 AB (Rec: 04/10/24 13:32 AB [id number]) PT Summary Assessment and Plan Potential Rehabilitation Potential Fair Summary Impairments Pain,ROM,Strength,Balance, Coordination,Sensation,Tone, Cognition,Bed Mobility, Transfers,Gait,Activity Tolerance Progress Towards Goals Slow Progress due to Activity Tolerance,Slow Progress - Other Assessment Summary pt continues to require max A x 2 for transfers using FWW. pt to go back go SNF Goals Bed Mobility Goal Independent Transfer Goal Standby Assistance,Front Wheeled Walker Gait Goal Standby Assistance,Front Wheel Walker Gait Distance 50 Other Goals Pt will be able to ascend and desecnd 3 stairs with R railing and no more than CGA to allow safe home entrance. Days to Meet Goals 5 Frequency of Treatment Frequency Of Treatment Once a Day Treatment Plan Physical Therapy Treatment Plan Bed Mobility Training,Transfer Training,Gait Training, Therapeutic Exercise,Balance Retraining,Post Op Education, Discharge Planning,Hot or Cold Pack,Neuromuscular Re-ed, Coordination Retraining Weight Bearing Status Weight Bearing Status Weight Bear as Tolerated Recommendations To Nursing Amount of Assist Needed Mechanical Lift Discharge Recommendations PT Discharge Recommendations SNF Rehab Transportation Needs at Discharge Wheelchair/Cabulance
--- NOTE | 2024-04-10 13:26 | PC.NURSE ---
Pt out via w/c by [facility] transfer with packet and all belongings.
== END 2024-04-10 13:26 | DRG 689 ==
LOC: ED 14:57 → AC 14:57
PROVIDERS: Admitting Provider Hospitalist; Emergency Provider Emergency Medicine; PCP Physician Assistant; Referring Provider Emergency Medicine; Visit Provider Hospitalist
DX: N39.0 Urinary tract infection, site not specified (principal); G93.41 Metabolic encephalopathy; E11.9 Type 2 diabetes mellitus without complications; I10 Essential (primary) hypertension; E78.5 Hyperlipidemia, unspecified; E87.6 Hypokalemia; F32.A Depression, unspecified; Z79.4 Long term (current) use of insulin; Z87.81 Personal history of (healed) traumatic fracture; Z79.84 Long term (current) use of oral hypoglycemic drugs; Z98.890 Other specified postprocedural states
CPT/HCPCS: 36415; 70450; 71045; 73502; 80048; 80053; 80320; 81003; 81015; 82550; 82962; 83690; 83735; 84484; 85025; 87040; 87077; 87086; 87186; 93971; 96374; 97162; 97530; 99284; J0696; J1650; J1815; J7050

== ENCOUNTER → 2024-04-14 14:59 | Outpatient (ROUT) | payer MEDICARE, SELFPAY ==
[2024-04-08 14:59] VITALS: BMI 30.6
[2024-04-14 15:14] LABS: Add Manual Diff / Slide Review NO; BUN Creatinine Ratio 17.3 (6-22); Basophils Absolute Auto 100 /uL (0-100); Basophils Percent Auto 0.7 % (0-2); Blood Urea Nitrogen 19 mg/dL (7-17); Calcium 9.6 mg/dL (8.4-10.2); Carbon Dioxide 25 mmol/L (22-32); Chloride 103 mmol/L (98-107); Eosinophils Absolute Auto 400 /uL (0-450); Eosinophils Percent Auto 3.5 % (2-4); Estimated Glomerular Filt Rate 54 mL/min (>60); Glucose 126 mg/dL (80-110); HEMOLYSIS < 15 (0-50); Hematocrit 25.6 % (36-46); Hemoglobin 8.2 g/dL (12.0-16.0); Lymphocytes Absolute Auto 1300 /uL (1100-4500); Lymphocytes Percent Auto 10.8 % (25-40); Mean Corpuscular HGB Conc 32.1 % (30-36); Mean Corpuscular Hemoglobin 26.5 PG (26-34); Mean Corpuscular Volume 82.6 fL (80-100); Monocytes Absolute Auto 900 /uL (0-900); Monocytes Percent Auto 7.3 % (3-14); Neutrophils Absolute Auto 9500 /uL (1500-7000); Neutrophils Percent Auto 77.7 % (50-75); Platelet Count 797 X10^3/uL (150-400); Potassium 3.8 mmol/L (3.4-5.1); Red Blood Cell Count 3.11 X10^6/uL (4.0-5.2); Red Cell Distribution Width 16.7 % (11.6-14.8); Sodium 140 mmol/L (137-145); White Blood Cell Count 12.2 X10^3/uL (4.5-11.0)
[2024-04-14 15:16] LABS: RBC Morphology Normal Morphology
== END ==
PROVIDERS: PCP Physician Assistant; Visit Provider Radiology Diagnostic Radiology
DX: N39.0 Urinary tract infection, site not specified (principal); R41.82 Altered mental status, unspecified
CPT/HCPCS: 80048; 85025

== ENCOUNTER 2024-04-15 00:51 | Emergency (ER) | payer MEDICARE, SELFPAY ==
[2024-04-08 14:59] VITALS: BMI 30.6
[2024-04-15 00:56] VITALS: BP 164/80; PULSE 82; RESP 18; TEMP 36.8; O2SAT 98
--- NOTE | 2024-04-15 01:08 | PC.NURSE ---
Nurse at [facility] states that pt was appearing more confused this afternoon and responding to to internal stimuli. She appears to be hallucinating and has states there are dogs, cats, and ferrest running around her room.
--- NOTE | 2024-04-15 01:35 | DI.CT.S_ITS ---
PROCEDURE: CT HEAD/BRAIN WO CON INDICATIONS: alt MSE TECHNIQUE: Noncontrast 4.5 mm thick angled axial sections acquired from the foramen magnum to the vertex, with coronal and sagittal reformats. For radiation dose reduction, the following was used: automated exposure control, adjustment of mA and/or kV according to patient size. COMPARISON: [facility], CT, CT HEAD/BRAIN WO CON, 04/08/2024, 13:46. FINDINGS: Image quality: Diagnostic. CSF spaces: Basal cisterns are patent. No extra-axial fluid collections. Ventricles are normal in size and shape. Brain: No midline shift. No intracranial masses or hemorrhage. Maloney-white matter interface is normal. Skull and face: Calvarium and visualized facial bones are intact, without suspicious lesions. Sinuses: Visualized sinuses and mastoids are clear. IMPRESSION: No acute intracranial pathology. Findings are concordant with preliminary interpretation provided by [facility]. Approved by: Alison Ramirez M.D.,Ph.D. on 04/15/2024 at 7:52
--- NOTE | 2024-04-15 01:36 | ED.AMS ---
HPI - Altered Mental Status General Chief Complaint: Altered Mental Status Stated Complaint: Altered mental status Time Seen by Provider: 04/15/24 01:31 Source: patient Mode of arrival: EMS History of Present Illness HPI narrative: 73-year-old female with recent right hip fracture 03/26/2024 repair of the next day, discharged to [facility] rehab facility, subsequent admission 04/08/2024 here with altered mental status found to have Klebsiella urinary tract infection, discharged on antibiotics which she believes she has completed, noted by rehab facility staff to seem confused through the day today. She denies cough, chest pain, trouble breathing. She denies painful urination or frequency of urination, also denies back or flank pain. She denies nausea vomiting diarrhea. She believes her right hip is healing well, no new injury, no new leg pain. She has no pain and swelling to her calves or legs. Related Data Home Medications Medication Instructions Recorded Confirmed amlodipine 5 mg tablet 5 mg PO DAILY 05/11/18 04/08/24 aspirin 81 mg tablet,delayed 81 mg PO QPM 05/11/18 04/08/24 release metformin 1,000 mg tablet 1 tab PO BID 05/11/18 04/08/24 rosuvastatin 20 mg tablet 20 mg PO DAILY 08/08/23 04/08/24 bupropion HCl 300 mg 24 hr tablet, 300 mg PO QAM 03/25/24 04/08/24 extended release duloxetine 60 mg capsule,delayed 60 mg PO DAILY 03/25/24 04/08/24 release insulin glargine 100 unit/mL (3 27 unit SUBCUT DAILY 03/25/24 04/08/24 mL) subcutaneous pen (Lantus Solostar U-100 Insulin) losartan 100 1 tab PO DAILY 03/25/24 04/08/24 mg-hydrochlorothiazide 12.5 mg tablet metoprolol succinate 50 mg 50 mg PO DAILY 03/25/24 04/08/24 tablet,extended release 24 hr Previous Rx's Medication Instructions Recorded enoxaparin 40 mg/0.4 mL 40 mg (0.4 mL) SUBCUT DAILY #28 mL 03/28/24 subcutaneous syringe (Lovenox) cephalexin 500 mg capsule 500 mg PO QID #20 caps 04/10/24 hydromorphone 2 mg tablet 4 mg (2 x 2 mg) PO Q3H PRN Pain, 04/10/24 Severe (7-10) #20 tabs Allergies Allergy/AdvReac Type Severity Reaction Status Date / Time No Known Drug Allergies Allergy Verified 12/07/21 15:37 Review of Systems Review of Systems Narrative: per HPI Patient History Medical History Melanoma (~2019) Depression (~2015) Osteoporosis (~2018) Foot pain (~2019) Carpal tunnel syndrome (~2013) Measles Chicken pox Vertigo Retinal detachment (~2017) Cataracts, bilateral (~2018) Diabetes mellitus (~1989) Healthy adult Surgical History Anesthesia History of removal of cyst (~1978) History of carpal tunnel release (~2013) History of partial thyroidectomy (~1979) History of eye surgery (~2017) History of cataract removal with insertion of prosthetic lens (~2020) Family History Father Cancer Mother Diabetes mellitus Hypertension Brother Diabetes mellitus Brother Diabetes mellitus Family/Other Diabetes mellitus Hypertension Social History household members: none Smoking Status: Never smoker alcohol intake: current Smoking Status: Never smoker alcohol intake frequency: holidays/special occasions only Substance Use Type: does not use Exam Narrative Exam Narrative: GENERAL: Well-developed patient, in mild distress. HEAD: Atraumatic. Normocephalic. EYES: Pupils equal round and reactive. Extraocular motions intact. No scleral icterus. No injection or drainage. ENT: Nose without bleeding, purulent drainage. Throat without erythema, tonsillar hypertrophy or exudate. Airway patent. NECK: Trachea midline. Non tender CARDIOVASCULAR: Regular rate and rhythm without murmurs, gallops, or rubs. RESPIRATORY: Clear to auscultation. Breath sounds equal bilaterally. No wheezes, rales, or rhonchi. GASTROINTESTINAL: Abdomen soft, non-tender, nondistended. EXTREMITIES: No edema or joint tenderness. Right hip with lateral trochanteric bandage in place, underlying recent hip replacement scar healing well, no discharge erythema. BACK: Nontender without deformity or crepitance. No flank tenderness. NEURO: AOx3. Grossly normal motor exam, clear speech, not obviously confused. SKIN: No rash or erythema of visible areas Initial Vital Signs Initial Vital Signs: Vital Signs Temperature 98.2 F 04/15/24 00:56 Pulse Rate 82 04/15/24 00:56 Respiratory Rate 18 04/15/24 00:56 Blood Pressure 164/80 H 04/15/24 00:56 Pulse Oximetry 98 04/15/24 00:56 Oxygen Delivery Method Room Air 04/15/24 00:56 Course Orders Ordered: ED Orders 04/15/24 01:35 CT head/brain wo con Stat 04/15/24 01:50 Ammonia (NH3) Stat Complete Blood Count AUTO DIFF Stat Comprehensive Metabolic Panel Stat Ethanol (ETOH) Stat Lactate (Lactic Acid) Stat PTT Partial Thromboplastin Braulio Stat Prothrombin Time INR Stat Trop I [Troponin I] Stat Urinalysis and Microscopic Stat Urine Culture Stat Urine Drug Screen, Rapid Stat Discontinued Medications Sodium Chloride (Normal Saline 0.9%) 1,000 mls @ 150 mls/hr IV CONT MONTRELL Last Admin: 04/15/24 05:29 Dose: Not Given Documented By: Potassium Chloride (Potassium Chloride 20 Meq/15 Ml Udc) 20 meq PO NOW ONE Stop: 04/15/24 03:18 Last Admin: 04/15/24 03:28 Dose: 20 meq Documented By: Vital Signs Vital signs: Vital Signs - 8 hr 04/15/24 00:56 04/15/24 06:11 Temperature 98.2 F 98.4 F Pulse Rate 82 78 Respiratory Rate 18 18 Blood Pressure 164/80 H 135/78 Pulse Oximetry 98 97 Oxygen Delivery Method Room Air Room Air MDM - Altered Mental Status Medical Records Attestation: I reviewed the patient's medical records. Lab Data Attestation: I reviewed the patient's lab results. 04/15/24 01:50 04/15/24 01:50 Labs: Lab Results 04/15/24 04/15/24 Range/Units 01:50 01:50 WBC 9.8 (4.5-11.0) X10^3/uL RBC 3.01 L (4.0-5.2) X10^6/uL Hgb 8.1 L (12.0-16.0) g/dL Hct 24.5 L (36-46) % MCV 81.6 (80-100) fL MCH 27.0 (26-34) PG MCHC 33.1 (30-36) % RDW 17.1 H (11.6-14.8) % Plt Count 776 H (150-400) X10^3/uL Neut % (Auto) 82.8 H (50-75) % Lymph % (Auto) 6.5 L (25-40) % [place] % (Auto) 4.2 (3-14) % Eos % (Auto) 4.3 H (2-4) % Baso % (Auto) 2.2 H (0-2) % Neut # (Auto) 8100 H (1353-8008) /uL Lymph # (Auto) 600 L (3217-2837) /uL [place] # (Auto) 400 (0-900) /uL Eos # (Auto) 400 (0-450) /uL Baso # (Auto) 200 H (0-100) /uL Platelet Estimate Increased on smear RBC Morphology See below Anisocytosis 1+ H PT 12.8 H (9.4-12.5) SECONDS INR 1.1 (0.9-1.3) APTT 35 (25.1-36.5) SECONDS Sodium 139 (137-145) mmol/L Potassium 3.3 L (3.4-5.1) mmol/L Chloride 103 (98-107) mmol/L Carbon Dioxide 26 (22-32) mmol/L BUN 18 H (7-17) mg/dL Creatinine 1.01 (0.52-1.04) mg/dL Estimated GFR 60 (>60) mL/min BUN/Creatinine Ratio 17.8 (6-22) Glucose 117 H (80-110) mg/dL Lactate 0.8 (0.7-2.1) mmol/L Calcium 9.6 (8.4-10.2) mg/dL Total Bilirubin 0.5 (0.2-1.3) mg/dL AST 25 (14-36) IU/L ALT 14 (<35) IU/L Alkaline Phosphatase 122 (38-126) U/L Ammonia < 9 L (9-30) umol/L Troponin I < 0.012 (0.01-0.034) ng/mL Total Protein 6.6 (6.3-8.2) g/dL Albumin 3.7 (3.5-5.0) g/dL Globulin 2.9 (1.7-4.1) g/dL Albumin/Globulin Ratio 1.3 (1.0-2.8) Urine Color Yellow Urine Appearance Clear Urine pH 5.5 Normal (4.5-8.0) Ur Specific [place] <=1.005 (1.000-1.035) Urine Protein Negative (Negative) Urine Glucose (UA) Negative (Negative) g/dL Urine Ketones Negative (NEGATIVE) Urine Occult Blood Negative (Negative) Urine Nitrate Negative (Negative) Urine Bilirubin Negative (NEGATIVE) Urine Urobilinogen 0.2 (0.2) E.U./dL Ur Leukocyte Esterase Negative (NEGATIVE) Urine RBC 1-5/hpf (0-5/HPF) Urine WBC 1-5/hpf (0-5/HPF) Ur Squamous Epith Cells 0-1 /hpf (0-5/HPF) Urine Bacteria Occasional (0-1) (None) Vol Urine Centrifuged 10ml (spun) U Opiates 300ng/mL cut Negative (Negative) Ur Oxycodone Screen Negative (Negative) Urine Methadone Screen Negative (Negative) Ur Barbiturates Screen Negative (Negative) U Tricyclic Antidepress Negative (Negative) Ur Phencyclidine Scrn Negative (Negative) Ur Amphetamines Screen Negative (Negative) U Methamphetamines Scrn Negative (Negative) Ur MDMA Scrn (Ecstasy) Negative (Negative) U Benzodiazepines Scrn Negative (Negative) Urine Cocaine Screen Negative (Negative) U Marijuana (THC) Screen Negative (Negative) Urine Specific [place] Normal (Normal) Ethyl Alcohol < 10 ( - 10) mg/dL Ur Creatinine Normal (Normal) Point of Care Testing Glucose POC 115 MDM Narrative Medical decision making narrative: 73-year-old female with recent hospitalization for UTI, at rehab center since 03/27/2024 right hip fracture surgery, noted at rehab center to have some confusion overnight. Afebrile, sirs screen negative. No injuries obvious on exam, wound site right hip seems good. We will send repeat cath urine specimen, other labs also pending including lactate. CT head requested. CT head noncontrast. Impressions: ?No CT evidence of acute intracranial abnormality. Cerebral volume loss, intracranial atherosclerotic disease and mild sequelae of chronic small-vessel ischemic disease. See radiology report Labs show mildly low potassium level, oral potassium dose given. Should not be cause of any reported confusion. Records review, microbiology, recent urine culture results from 04/08/2024. Greater than 100,000 colonies Klebsiella pneumoniae. Sensitive to Augmentin, Unasyn, cefazolin, cefepime, ceftazidime, ceftriaxone, ciprofloxacin, ertapenem, gentamicin, imipenem, levofloxacin, tobramycin, Septra, Zosyn. Resistant to ampicillin. Intermediate to nitrofurantoin. UA negative today. Patient feels better, wants to return to [facility] rehab facility. The facility was contacted, transportation arranged with family assistance. Back to [facility], follow up with Orthopedic surgery as planned. Discharge Plan Departure Patient Disposition: Home Clinical Impression: Confusion, Hypokalemia Instructions: DI for Altered Mental Status Activity Restrictions/Additional Instructions: Confusion per staff at [facility] [place], and apparently also family members. Extensive workup in the emergency department including CT head, EKG, blood tests, urine tests, without any inciting findings. You seemed to feel well, wanted to go home, discharged [facility] [place]. Follow up with Orthopedic surgery regarding your recent right hip fracture, which seems to be healing well. Low potassium 3.3 noted, this should not necessarily cause confusion, oral dose given. Consider recheck potassium level in follow up. Consider recheck with your regular provider early next week, return to this/nearest emergency department for any change worsening symptoms or any concerns prior Prescriptions: No Action metoprolol succinate 50 mg tablet extended release 24 hr 50 mg PO DAILY bupropion HCl 300 mg tablet extended release 24 hr 300 mg PO QAM duloxetine 60 mg capsule,delayed release(DR/EC) 60 mg PO DAILY losartan-hydrochlorothiazide 100-12.5 mg tablet 1 tab PO DAILY insulin glargine [Lantus Solostar U-100 Insulin] 100 unit/mL (3 mL) insulin pen 27 unit SUBCUT DAILY enoxaparin [Lovenox] 40 mg/0.4 mL Syringe 40 mg SUBCUT DAILY Qty: 28 0RF Rx Instructions: should have compledted RX 04/08 amlodipine 5 mg tablet 5 mg PO DAILY aspirin 81 mg tablet,delayed release (DR/EC) 81 mg PO QPM metformin 1,000 mg tablet 1 tab PO BID rosuvastatin 20 mg tablet 20 mg PO DAILY cephalexin 500 mg capsule 500 mg PO QID Qty: 20 0RF hydromorphone 2 mg Tablet 4 mg PO Q3H PRN (Reason: Pain, Severe (7-10)) Qty: 20 0RF Referrals: Beverley Albert PA-C [Primary Care Provider] - Stand Alone Forms: Patient Portal/API
[2024-04-15 02:06] LABS: Appearance Urine UA CLEAR; Bilirubin Urine UA NEGATIVE (NEGATIVE); Color Urine UA YELLOW; Glucose Urine UA NEGATIVE (Negative); Ketones Urine UA NEGATIVE (NEGATIVE); Leukocyte Esterase Urine UA NEGATIVE (NEGATIVE); Nitrite Urine UA NEGATIVE (Negative); Occult Blood Urine UA NEGATIVE (Negative); Protein Urine UA NEGATIVE (Negative); Specific Gravity Urine UA <=1.005 (1.000-1.035); Urobilinogen Urine UA 0.2 E.U./dL (0.2)
[2024-04-15 02:08] LABS: Add Manual Diff / Slide Review NO; Basophils Absolute Auto 200 /uL (0-100); Basophils Percent Auto 2.2 % (0-2); Eosinophils Absolute Auto 400 /uL (0-450); Eosinophils Percent Auto 4.3 % (2-4); Hematocrit 24.5 % (36-46); Hemoglobin 8.1 g/dL (12.0-16.0); Lymphocytes Absolute Auto 600 /uL (1100-4500); Lymphocytes Percent Auto 6.5 % (25-40); Mean Corpuscular HGB Conc 33.1 % (30-36); Mean Corpuscular Volume 81.6 fL (80-100); Monocytes Absolute Auto 400 /uL (0-900); Monocytes Percent Auto 4.2 % (3-14); Neutrophils Absolute Auto 8100 /uL (1500-7000); Neutrophils Percent Auto 82.8 % (50-75); Platelet Count 776 X10^3/uL (150-400); Red Blood Cell Count 3.01 X10^6/uL (4.0-5.2); Red Cell Distribution Width 17.1 % (11.6-14.8); White Blood Cell Count 9.8 X10^3/uL (4.5-11.0)
[2024-04-15 02:12] LABS: Bacteria Urine Occasional (0-1); RBC Urine 1-5/HPF (0-5/HPF); Squamous Epithelial Cell Urine 0-1 /HPF (0-5/HPF); Urine Volume 10mL (spun); WBC Urine 1-5/HPF (0-5/HPF); pH Urine UA 5.5 (4.5-8.0)
[2024-04-15 02:13] LABS: INR 1.1 (0.9-1.3); Prothrombin Time 12.8 SECONDS (9.4-12.5); UR Morphine/Opiate cutoff 300 Negative (Negative); Ur Creatinine Normal (Normal); Ur Specific Gravity Normal (Normal); Urine Amphetamines Negative (Negative); Urine Barbiturates Negative (Negative); Urine Benzodiazepines Negative (Negative); Urine Cocaine Negative (Negative); Urine MDMA Negative (Negative); Urine Methadone Negative (Negative); Urine Methamphetamines Negative (Negative); Urine Oxycodone Negative (Negative); Urine Phencyclidine Negative (Negative); Urine Tetrahydrocannabinol Negative (Negative); Urine Tricyclic Antidepressant Negative (Negative); Urine pH Normal (Normal)
[2024-04-15 02:16] LABS: PTT Partial Thromboplastin Tim 35 SECONDS (25.1-36.5)
[2024-04-15 02:18] LABS: Alanine Aminotransferase 14 IU/L (<35); Albumin 3.7 g/dL (3.5-5.0); Albumin Globulin Ratio 1.3 (1.0-2.8); Alkaline Phosphatase 122 U/L (38-126); Aspartate Aminotransferase 25 IU/L (14-36); BUN Creatinine Ratio 17.8 (6-22); Bilirubin Total 0.5 mg/dL (0.2-1.3); Blood Urea Nitrogen 18 mg/dL (7-17); Calcium 9.6 mg/dL (8.4-10.2); Carbon Dioxide 26 mmol/L (22-32); Chloride 103 mmol/L (98-107); Estimated Glomerular Filt Rate 60 mL/min (>60); Ethanol (ETOH) < 10 mg/dL; Globulin 2.9 g/dL (1.7-4.1); Glucose 117 mg/dL (80-110); HEMOLYSIS < 15 (0-50); Potassium 3.3 mmol/L (3.4-5.1); Sodium 139 mmol/L (137-145); Total Protein 6.6 g/dL (6.3-8.2)
[2024-04-15 02:19] LABS: Lactate (Lactic Acid) 0.8 mmol/L (0.7-2.1)
[2024-04-15 02:23] LABS: Ammonia (NH3) < 9 umol/L (9-30)
[2024-04-15 02:30] LABS: Troponin I < 0.012 ng/mL (0.01-0.034)
[2024-04-15 02:32] LABS: Anisocytosis 1+; Platelet Estimate Increased on smear
[2024-04-15] MEDS: POTASSIUM CHLORIDE 20 MEQ/15 ML UDC PO (03:28)
--- NOTE | 2024-04-15 04:37 | PC.NURSE ---
Pt up to BR using WC and two person assist. Assisted back to room. Food brought to room.
[2024-04-15 06:11] VITALS: BP 135/78; PULSE 78; RESP 18; TEMP 36.9; O2SAT 97
== END 2024-04-15 06:25 | disposition home or self-care (01) ==
PROVIDERS: Emergency Provider Emergency Medicine; PCP Physician Assistant
DX: R41.0 Disorientation, unspecified (principal); E87.6 Hypokalemia; Z79.899 Other long term (current) drug therapy
CPT/HCPCS: 70450; 80053; 80305; 80320; 81001; 82140; 82962; 83605; 84484; 85025; 85610; 85730; 87086; 99284

== ENCOUNTER 2024-05-03 18:48 | Observation (INO) | payer MEDICARE, SELFPAY ==
[2024-04-08 14:59] VITALS: BMI 30.6
[2024-05-03] VITALS (12 sets, daily range): BP systolic 150–168; BP diastolic 67–79; PULSE 118–130; RESP 18–24; TEMP 38.1–39.3; O2SAT 92–100; BMI 29.4; BMI 30.7
--- NOTE | 2024-05-03 19:08 | DI.RAD.S_ITS ---
PROCEDURE: XR CHEST 1V INDICATIONS: suspected sepsis TECHNIQUE: One view of the chest was acquired. COMPARISON: [facility], MAY, XR CHEST 1V, 04/08/2024, 16:55. [facility], CR, XR CHEST FOR PICC 1V, 08/08/2023, 16:46. FINDINGS: Surgical changes and devices: None. Lungs and pleura: Lungs are clear. No pleural effusions or pneumothorax. Mediastinum: Mediastinal contours appear normal. Heart size is normal. Bones and chest wall: No suspicious bony lesions. Overlying soft tissues appear unremarkable. IMPRESSION: No acute cardiopulmonary abnormality is seen. Dictated by: Liam Norris M.D. on 05/03/2024 at 20:44 Approved by: Liam Norris M.D. on 05/03/2024 at 20:44
[2024-05-03] MEDS: SODIUM CHLORIDE 0.9% 1,000 ML 1000 ML IV ×3 (19:16→22:28)
[2024-05-03 19:31] LABS: Add Manual Diff / Slide Review NO; Basophils Absolute Auto 0 /uL (0-100); Basophils Percent Auto 0.3 % (0-2); Eosinophils Absolute Auto 0 /uL (0-450); Eosinophils Percent Auto 0.1 % (2-4); Hemoglobin 10.4 g/dL (12.0-16.0); Lymphocytes Absolute Auto 1100 /uL (1100-4500); Mean Corpuscular HGB Conc 32.6 % (30-36); Mean Corpuscular Hemoglobin 27.3 PG (26-34); Mean Corpuscular Volume 83.9 fL (80-100); Monocytes Absolute Auto 1600 /uL (0-900); Monocytes Percent Auto 11.4 % (3-14); Neutrophils Absolute Auto 11500 /uL (1500-7000); Neutrophils Percent Auto 80.2 % (50-75); Platelet Count 348 X10^3/uL (150-400); Red Blood Cell Count 3.81 X10^6/uL (4.0-5.2); Red Cell Distribution Width 18.8 % (11.6-14.8); White Blood Cell Count 14.3 X10^3/uL (4.5-11.0)
[2024-05-03 19:48] LABS: INR 1.1 (0.9-1.3); Prothrombin Time 12.8 SECONDS (9.4-12.5)
[2024-05-03 19:51] LABS: PTT Partial Thromboplastin Tim 26 SECONDS (25.1-36.5)
[2024-05-03 19:53] LABS: Lactate (Lactic Acid) 1.3 mmol/L (0.7-2.1)
[2024-05-03 19:55] LABS: Alanine Aminotransferase 22 IU/L (<35); Albumin 3.9 g/dL (3.5-5.0); Albumin Globulin Ratio 1.4 (1.0-2.8); Alkaline Phosphatase 89 U/L (38-126); Aspartate Aminotransferase 19 IU/L (14-36); BUN Creatinine Ratio 26.4 (6-22); Bilirubin Total 0.7 mg/dL (0.2-1.3); Blood Urea Nitrogen 19 mg/dL (7-17); Calcium 9.1 mg/dL (8.4-10.2); Carbon Dioxide 23 mmol/L (22-32); Chloride 99 mmol/L (98-107); Estimated Glomerular Filt Rate > 60 mL/min (>60); Globulin 2.8 g/dL (1.7-4.1); Glucose 191 mg/dL (80-110); HEMOLYSIS 20 (0-50); Lipase 117 U/L (23-300); Potassium 3.5 mmol/L (3.4-5.1); Sodium 134 mmol/L (137-145); Total Protein 6.7 g/dL (6.3-8.2)
[2024-05-03 20:06] LABS: Appearance Urine UA CLEAR; Bilirubin Urine UA NEGATIVE (NEGATIVE); Color Urine UA YELLOW; Glucose Urine UA NEGATIVE (Negative); Ketones Urine UA 2+ (NEGATIVE); Leukocyte Esterase Urine UA 2+ (NEGATIVE); Nitrite Urine UA POSITIVE (Negative); Occult Blood Urine UA 1+ (Negative); Protein Urine UA 2+ (Negative); Urobilinogen Urine UA 0.2 E.U./dL (0.2)
[2024-05-03 20:10] LABS: Procalcitonin 0.162 ng/mL (<0.5)
--- NOTE | 2024-05-03 20:20 | ED.AMS ---
HPI - Altered Mental Status General Chief Complaint: Altered Mental Status Stated Complaint: AMS Time Seen by Provider: 05/03/24 18:50 Source: patient, family and EMS Mode of arrival: EMS History of Present Illness HPI narrative: 74-year-old female arrived by ambulance with decreased mental status from most recent baseline, 911 might have been called by home health aides, patient is now a proximally 5 weeks status post surgery for right hip fracture repair, postoperatively was a resident at [facility] in [place], discharged home on Tuesday, treated for urinary tract infection about 2 weeks ago, no longer on any antibiotics, does not usually have a Ulrich in place, recent couple of days noted to have urinary incontinence at home, and decreased mental status by family member noted today, also apparently might have been evaluated by home health, 911 was called, arrival by EMS. No new falls or trauma known. No focal weakness. Patient is not usually on oxygen. No recent coughing chest pain or shortness of breath Related Data Home Medications Medication Instructions Recorded Confirmed amlodipine 5 mg tablet 5 mg PO DAILY 05/11/18 04/08/24 aspirin 81 mg tablet,delayed 81 mg PO QPM 05/11/18 05/04/24 release metformin 1,000 mg tablet 1 tab PO BID 05/11/18 05/04/24 rosuvastatin 20 mg tablet 20 mg PO QPM 08/08/23 05/04/24 duloxetine 60 mg capsule,delayed 60 mg PO DAILY 03/25/24 04/08/24 release insulin glargine 100 unit/mL (3 27 unit SUBCUT DAILY 03/25/24 05/04/24 mL) subcutaneous pen (Lantus Solostar U-100 Insulin) losartan 100 1 tab PO DAILY 03/25/24 05/04/24 mg-hydrochlorothiazide 12.5 mg tablet metoprolol succinate 50 mg 50 mg PO DAILY 03/25/24 05/04/24 tablet,extended release 24 hr amlodipine 5 mg tablet 5 mg PO DAILY 05/03/24 05/04/24 Previous Rx's Medication Instructions Recorded hydromorphone 2 mg tablet 4 mg (2 x 2 mg) PO Q3H PRN Pain, 04/10/24 Severe (7-10) #20 tabs Allergies Allergy/AdvReac Type Severity Reaction Status Date / Time No Known Drug Allergies Allergy Verified 12/07/21 15:37 Review of Systems Review of Systems Narrative: see HPI Patient History Medical History Melanoma (~2019) Depression (~2015) Osteoporosis (~2018) Foot pain (~2019) Carpal tunnel syndrome (~2013) Measles Chicken pox Vertigo Retinal detachment (~2017) Cataracts, bilateral (~2018) Diabetes mellitus (~1989) Healthy adult Surgical History Anesthesia History of removal of cyst (~1978) History of carpal tunnel release (~2013) History of partial thyroidectomy (~1979) History of eye surgery (~2017) History of cataract removal with insertion of prosthetic lens (~2020) Family History Father Cancer Mother Diabetes mellitus Hypertension Brother Diabetes mellitus Brother Diabetes mellitus Family/Other Diabetes mellitus Hypertension Social History household members: none Smoking Status: Never smoker alcohol intake: current Smoking Status: Never smoker alcohol intake frequency: holidays/special occasions only Substance Use Type: does not use Exam Narrative Exam Narrative: GENERAL: Well-developed patient, in mild distress. HEAD: Atraumatic. Normocephalic. EYES: Pupils equal round and reactive. Extraocular motions intact. No scleral icterus. No injection or drainage. ENT: Nose without bleeding, purulent drainage. Throat without erythema, tonsillar hypertrophy or exudate. Airway patent. NECK: Trachea midline. Non tender CARDIOVASCULAR: Regular rate and rhythm without murmurs, gallops, or rubs. RESPIRATORY: Clear to auscultation. Breath sounds equal bilaterally. No wheezes, rales, or rhonchi. GASTROINTESTINAL: Abdomen soft, non-tender, nondistended. : Ulrich catheter in place that was placed here in the emergency department this visit, slight cloudiness noted, no pink/red color, no clots in tubing EXTREMITIES: No edema or joint tenderness. BACK: Nontender without deformity or crepitance. No flank tenderness. NEURO: AOx3. Nonfocal neuro exam SKIN: No rash or erythema of visible areas Initial Vital Signs Initial Vital Signs: Vital Signs Pulse Rate 130 H 05/03/24 18:53 Blood Pressure 150/76 H 05/03/24 18:53 Pulse Oximetry 95 05/03/24 18:53 Course Orders Ordered: ED Orders 05/03/24 19:08 XR chest 1V Stat EKG-12 Lead Stat RT Consult Eval and Treat NOW 05/03/24 19:20 Complete Blood Count AUTO DIFF Stat Comprehensive Metabolic Panel Stat Lactate (Lactic Acid) Stat Lipase Stat PTT Partial Thromboplastin Braulio Stat Procalcitonin Stat Prothrombin Time INR Stat 05/03/24 19:26 Blood Culture Stat 05/03/24 19:58 Urinalysis and Microscopic Stat Urine Culture Stat 05/03/24 20:28 EKG-12 Lead Stat 05/03/24 20:38 Respiratory Panel (Film Array) Stat 05/03/24 20:58 CT angio chest PE protocol Stat Acetaminophen (Acetaminophen 325 Mg Tablet) 650 mg PO Q6H PRN PRN Reason: Fever/Mild Pain (1-3) Al Hydrox/Mg Hydrox/Simethicone (Mag Hydrox/Alum/Simeth 30 Ml Udc) 30 ml PO Q6HR PRN PRN Reason: Dyspepsia Aspirin (Aspirin Ec 81 Mg Tablet) 81 mg PO QPM [facility] Atorvastatin Calcium (Atorvastatin 20 Mg Tablet) 40 mg PO BEDTIME [facility] Bisacodyl (Bisacodyl 5 Mg Tablet) 10 mg PO DAILY PRN PRN Reason: Constipation Duloxetine HCl (Duloxetine 30 Mg Capsule) 60 mg PO DAILY [facility] Enoxaparin Sodium (Enoxaparin 40 Mg/0.4 Ml Syringe) 40 mg SUBCUT DAILY [facility] Hydromorphone HCl (Hydromorphone 2 Mg Tablet) 4 mg PO Q3H PRN PRN Reason: Pain, Severe (7-10) Ceftriaxone Sodium 2,000 mg/ (Sodium Chloride) 100 mls @ 200 mls/hr IV Q24H [facility] Insulin Glargine (Insulin Glargine 100 Unit/Ml 3ml Pen) 27 unit SUBCUT DAILY [facility] Metformin HCl (Metformin Hcl 500 Mg Tablet) 1,000 mg PO BIDWM [facility] Metoprolol Succinate (Metoprolol Er 50 Mg Tablet) 50 mg PO DAILY [facility] Naloxone HCl (Naloxone 0.4 Mg/Ml Vial) 0.2 mg IV Q2MIN PRN PRN Reason: Opiate Reversal Ondansetron HCl (Ondansetron 4 Mg/2 Ml Inj) 4 mg IV NOW PRN PRN Reason: Nausea And Vomiting Ondansetron HCl (Ondansetron 4 Mg Odt) 4 mg SL NOW PRN PRN Reason: Nausea And Vomiting Ondansetron HCl (Ondansetron 4 Mg Odt) 4 mg PO Q8HR PRN PRN Reason: Nausea And Vomiting Sennosides (Sennosides 8.6 Mg Tablet) 17.2 mg PO BEDTIME [facility] Discontinued Medications Acetaminophen (Acetaminophen 325 Mg Tablet) 650 mg PO NOW ONE Stop: 05/03/24 22:09 Last Admin: 05/03/24 22:17 Dose: 650 mg Documented By: FUNMI Sodium Chloride (Normal Saline 0.9%) 1,000 mls @ 1,000 mls/hr IV BOLUS ONE Stop: 05/03/24 20:07 Last Infusion: 05/03/24 20:17 Dose: Infused Documented By: Admin: 05/03/24 19:16 Dose: 1,000 mls/hr Documented By: FUNMI Sodium Chloride (Normal Saline 0.9%) 1,000 mls @ 1,000 mls/hr IV BOLUS ONE Stop: 05/03/24 21:18 Last Infusion: 05/03/24 21:16 Dose: Infused Documented By: Admin: 05/03/24 20:37 Dose: 1,000 mls/hr Documented By: FUNMI Ceftriaxone Sodium 2,000 mg/ (Sodium Chloride) 100 mls @ 200 mls/hr IV NOW ONE Stop: 05/03/24 20:24 Last Infusion: 05/03/24 21:14 Dose: Infused Documented By: Admin: 05/03/24 20:37 Dose: 200 mls/hr Documented By: FUNMI Sodium Chloride (Normal Saline 0.9%) 1,000 mls @ 1,000 mls/hr IV BOLUS ONE Stop: 05/03/24 23:21 Last Infusion: 05/03/24 22:56 Dose: Infused Documented By: Admin: 05/03/24 22:28 Dose: 1,000 mls/hr Documented By: FUNMI Vital Signs Vital signs: Vital Signs - 8 hr 05/03/24 19:59 05/03/24 20:00 05/03/24 20:00 Temperature 102.7 F H Pulse Rate 125 H Respiratory Rate 20 Blood Pressure 159/75 H Pulse Oximetry 95 Oxygen Delivery Method Oxygen Flow Rate 05/03/24 20:30 05/03/24 20:30 05/03/24 21:00 Temperature Pulse Rate 125 H 118 H Respiratory Rate 24 22 Blood Pressure 151/67 H Pulse Oximetry 93 92 Oxygen Delivery Method Room Air Nasal Cannula Oxygen Flow Rate 3 05/03/24 21:00 05/03/24 21:37 Temperature Pulse Rate 124 H Respiratory Rate 21 Blood Pressure 154/68 H Pulse Oximetry 93 Oxygen Delivery Method Nasal Cannula Oxygen Flow Rate 3 MDM - Altered Mental Status Lab Data Attestation: I reviewed the patient's lab results. 05/03/24 19:20 05/03/24 19:20 Labs: Lab Results 05/03/24 05/03/24 05/03/24 Range/Units 19:20 19:58 20:38 WBC 14.3 H (4.5-11.0) X10^3/uL RBC 3.81 L (4.0-5.2) X10^6/uL Hgb 10.4 L (12.0-16.0) g/dL Hct 32.0 L (36-46) % MCV 83.9 (80-100) fL MCH 27.3 (26-34) PG MCHC 32.6 (30-36) % RDW 18.8 H (11.6-14.8) % Plt Count 348 (150-400) X10^3/uL Neut % (Auto) 80.2 H (50-75) % Lymph % (Auto) 8.0 L (25-40) % [place] % (Auto) 11.4 (3-14) % Eos % (Auto) 0.1 L (2-4) % Baso % (Auto) 0.3 (0-2) % Neut # (Auto) 26919 H (2412-2045) /uL Lymph # (Auto) 1100 (6969-7491) /uL [place] # (Auto) 1600 H (0-900) /uL Eos # (Auto) 0 (0-450) /uL Baso # (Auto) 0 (0-100) /uL PT 12.8 H (9.4-12.5) SECONDS INR 1.1 (0.9-1.3) APTT 26 (25.1-36.5) SECONDS Sodium 134 L (137-145) mmol/L Potassium 3.5 (3.4-5.1) mmol/L Chloride 99 (98-107) mmol/L Carbon Dioxide 23 (22-32) mmol/L BUN 19 H (7-17) mg/dL Creatinine 0.72 (0.52-1.04) mg/dL Estimated GFR > 60 (>60) mL/min BUN/Creatinine Ratio 26.4 H (6-22) Glucose 191 H (80-110) mg/dL Lactate 1.3 (0.7-2.1) mmol/L Calcium 9.1 (8.4-10.2) mg/dL Total Bilirubin 0.7 (0.2-1.3) mg/dL AST 19 (14-36) IU/L ALT 22 (<35) IU/L Alkaline Phosphatase 89 (38-126) U/L Total Protein 6.7 (6.3-8.2) g/dL Albumin 3.9 (3.5-5.0) g/dL Globulin 2.8 (1.7-4.1) g/dL Albumin/Globulin Ratio 1.4 (1.0-2.8) Lipase 117 (23-300) U/L Procalcitonin 0.162 (<0.5) ng/mL Urine Color Yellow Urine Appearance Clear Urine pH 6.0 (4.5-8.0) Ur Specific [place] 1.020 (1.000-1.035) Urine Protein 2+ H (Negative) Urine Glucose (UA) Negative (Negative) g/dL Urine Ketones 2+ H (NEGATIVE) Urine Occult Blood 1+ H (Negative) Urine Nitrate Positive H (Negative) Urine Bilirubin Negative (NEGATIVE) Urine Urobilinogen 0.2 (0.2) E.U./dL Ur Leukocyte Esterase 2+ H (NEGATIVE) Urine RBC 1-5/hpf (0-5/HPF) Urine WBC 5-10/hpf H (0-5/HPF) Ur Squamous Epith Cells 0-1 /hpf (0-5/HPF) Amorphous Sediment 1+ Urine Bacteria Many (>30) H (None) Ur Culture Indicated? Specimen cultured Vol Urine Centrifuged 10ml (spun) Chlamy pneumoniae PCR Not detected (Not Detect) Adenovirus (PCR) Not detected (Not Detect) B.parapertussis DNA PCR Not detected (Not Detecte) Coronavirus OC43 (PCR) Not detected (Not Detect) Coronavirus HKU1 (PCR) Not detected (Not Detect) Coronavirus 229E (PCR) Not detected (Not Detect) SARS-CoV-2 (PCR) Not detected (Not Detecte) Coronavirus NL63 (PCR) Not detected (Not Detect) Human Metapneumovir PCR Not detected (Not Detect) Influenza Type A (PCR) Not detected (Not Detect) Influenza Type B (PCR) Not detected (Not Detect) M. pneumoniae (PCR) Not detected (Not Detect) Parainfluenza 1 (PCR) Not detected (Not Detect) Parainfluenza 2 (PCR) Not detected (Not Detect) Parainfluenza 3 (PCR) Not detected (Not Detect) Parainfluenza 4 (PCR) Not detected (Not Detect) RSV (PCR) Not detected (Not Detect) Entero/Rhino (PCR) Not detected (Not Detect) Imaging Data CT Angiogram Lungs: Radiologist's Impression: [address] [address] XRay Report Signed Patient: Spring Wilder MR#: [id number] : 01/16/1983 Acct:[id number] Age/Sex: 41 / F Date of Service: 05/03/24 Loc: ED Accession Number: [id number] Procedure: XR chest 1V Ordering Provider: Chano Irvin MD PROCEDURE: XR CHEST 1V INDICATIONS: chest pain TECHNIQUE: One view of the chest was acquired. COMPARISON: [facility], , XR CHEST 1V, 07/06/2022, 3:18. FINDINGS: Surgical changes and devices: None. Lungs and pleura: Lungs are clear. No pleural effusions or pneumothorax. Mediastinum: Mediastinal contours appear normal. Heart size is normal. Bones and chest wall: No suspicious bony lesions. Overlying soft tissues appear unremarkable. IMPRESSION: No acute cardiopulmonary abnormality is seen. Dictated by: Liam Norris M.D. on 05/03/2024 at 20:45 Approved by: Liam Norris M.D. on 05/03/2024 at 20:45 Chest x-ray: Radiologist's Impression: [address] [address] XRay Report Signed Patient: Tori Cohen Tk MR#: [id number] : 1950 Acct:[id number] Age/Sex: 74 / F Date of Service: 05/03/24 Loc: ED Accession Number: [id number] Procedure: XR chest 1V Ordering Provider: Chano Irvin MD PROCEDURE: XR CHEST 1V INDICATIONS: suspected sepsis TECHNIQUE: One view of the chest was acquired. COMPARISON: [facility], CR, XR CHEST 1V, 04/08/2024, 16:55. [facility], CR, XR CHEST FOR PICC 1V, 08/08/2023, 16:46. FINDINGS: Surgical changes and devices: None. Lungs and pleura: Lungs are clear. No pleural effusions or pneumothorax. Mediastinum: Mediastinal contours appear normal. Heart size is normal. Bones and chest wall: No suspicious bony lesions. Overlying soft tissues appear unremarkable. IMPRESSION: No acute cardiopulmonary abnormality is seen. Dictated by: Liam Norris M.D. on 05/03/2024 at 20:44 Approved by: Liam Norris M.D. on 05/03/2024 at 20:44 MDM Narrative Medical decision making narrative: 74-year-old female [facility] after right hip fracture surgery, urinary tract infection 2 weeks ago, noted to have decreased mental status at home either by family and/or home health nurse today, recent urinary incontinence last day or 2, increased heart rate noted, Ulrich placed in ED this visit, cloudy urine. Blood cultures sent, IV fluids initiated, urine culture has been requested, urinalysis still pending, we will initiate IV ceftriaxone for possible urosepsis. She has not usually on oxygen, new hypoxia noted. Chest x-ray without obvious infiltrate or fluid overload, my wet read. Respiratory panel also requested, no wheeze or crackles on exam. Urinalysis shows many bacteria, urine culture requested, IV ceftriaxone ordered for UTI coverage prior. Chest x-ray also negative on radiologist's reading. CT angiogram chest ordered. CTA chest negative for pulmonary embolus, infiltrate, fluid overload changes. Case discussed with hospitalist Dr. Lamar, accepts patient for admission Critical Care Time Critical Care Time Critical Care Time: Yes Total Critical Care Time: 35 Attestation: The high probability of a clinically significant, sudden or life threatening deterioration of the [cardiopulmonary, genitourinary, gastrointestinal] system(s) required my full and direct attention, intervention and personal management. The aggregate critical care time was [35] minutes. This time is in addition to time spent performing reported procedures but includes the following: [x] Data Review and interpretation [x] Patient assessment and monitoring of vital signs [x] Documentation [x] Medication orders and management Discharge Plan Departure Patient Disposition: Admitted As Inpatient Clinical Impression: Confusion, Urinary tract infection, Hypoxia Admit Date/Time: 05/03/24 21:52 Admit Provider: Luis Pappas
[2024-05-03 20:31] LABS: Amorphous Sediment Urine 1+; Bacteria Urine Many (>30); Culture Indicated Urine Specimen Cultured; RBC Urine 1-5/HPF (0-5/HPF); Squamous Epithelial Cell Urine 0-1 /HPF (0-5/HPF); Urine Volume 10mL (spun); WBC Urine 5-10/HPF (0-5/HPF)
[2024-05-03] MEDS: cefTRIAXone 2,000 MG in SODIUM CHLORIDE 0.9% 100 ML 200 MG IV (20:37)
--- NOTE | 2024-05-03 20:54 | PC.NURSE ---
2039- patient started to fall asleep and her sats dropped to 88%, placed NC to 4.5L to maintain her saturation at 91%, reminded patient to take deep breaths through their nose
--- NOTE | 2024-05-03 20:58 | DI.CT.S_ITS ---
PROCEDURE: CT ANGIO CHEST PE PROTOCOL INDICATIONS: new hypoxia, recent hip fx, eval for PE TECHNIQUE: After the administration of intravenous contrast, 2 mm thick sections acquired from the pulmonary apices to the posterior costophrenic angles. 3-dimensional maximum intensity projection (MIP) coronal and sagittal reformats were then acquired through the thorax. For radiation dose reduction, the following was used: automated exposure control, adjustment of mA and/or kV according to patient size. COMPARISON: [facility], CR, XR CHEST 1V, 05/03/2024, 19:55. [facility], CR, XR CHEST 1V, 04/08/2024, 16:55. FINDINGS: Image quality: Diagnostic. Pulmonary arteries: Pulmonary arteries are normal in size, and demonstrate no intraluminal filling defects to suggest central pulmonary embolism. Lower Neck: No enlarged lymph nodes. Thyroid: Subcentimeter thyroid nodules. Right thyroid gland is atrophic or absent. Axillae: No enlarged lymph nodes. Chest Wall: Unremarkable. Bones: No suspicious osseous lesion. Lungs and Pleura: No pneumothorax or pleural effusions. No consolidation or suspicious nodules. Heart: Heart size is normal. No pericardial effusion. Thoracic Vessels: No aortic aneurysm. 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 No aortic dissection. Mediastinum and [place]: No enlarged lymph nodes. Esophagus: No wall thickening. Small hiatal hernia. Upper Abdomen: Visualized upper abdomen solid organs and bowel loops appear normal. Left kidney stones. IMPRESSION: No pulmonary embolus. No acute cardiopulmonary process. Dictated by: Liam Norris M.D. on 05/03/2024 at 22:21 Approved by: Liam Norris M.D. on 05/03/2024 at 22:29
[2024-05-03 21:41] LABS: Adenovirus Not Detected (Not Detect); B. parapertussis Not Detected (Not Detecte); Bordetella pertussis Not Detected (Not Detect); Chlamydophila pneumoniae Not Detected (Not Detect); Coronavirus 229E Not Detected (Not Detect); Coronavirus HKU1 Not Detected (Not Detect); Coronavirus NL 63 Not Detected (Not Detect); Coronavirus OC43 Not Detected (Not Detect); Human Metapneumovirus Not Detected (Not Detect); Human Rhinovirus/Enterovirus Not Detected (Not Detect); Influenza A Not Detected (Not Detect); Influenza B Not Detected (Not Detect); Mycoplasma pneumoniae Not Detected (Not Detect); Parainfluenza Virus 1 Not Detected (Not Detect); Parainfluenza Virus 2 Not Detected (Not Detect); Parainfluenza Virus 3 Not Detected (Not Detect); Parainfluenza Virus 4 Not Detected (Not Detect); Respiratory Syncytial Virus Not Detected (Not Detect); SARS- CoV-2 Not Detected (Not Detecte)
[2024-05-03] MEDS: ACETAMINOPHEN 325 MG TABLET 650 MG PO (22:17)
--- NOTE | 2024-05-03 22:17 | PC.NURSE ---
0585-patient has a temperature of 102.7, notified the provider and he ordered tylenol, see MAR trialed the patient off of oxygen and the patient is maintaining her sats above 92%
[2024-05-04] VITALS (7 sets, daily range): BP systolic 131–152; BP diastolic 65–83; PULSE 85–94; RESP 16–20; TEMP 36.3–37; O2SAT 96–100
--- NOTE | 2024-05-04 00:31 | PM.HP.1 ---
History of Present Illness History of Present Illness Date Patient Seen: 05/03/24 Chief complaint: AMS Narrative: From the ED: 74-year-old female arrived by ambulance with decreased mental status from most recent baseline, 911 might have been called by home health aides, patient is now a proximally 5 weeks status post surgery for right hip fracture repair, postoperatively was a resident at [facility] in [place], discharged home on Tuesday, treated for urinary tract infection about 2 weeks ago, no longer on any antibiotics, does not usually have a Ulrich in place, recent couple of days noted to have urinary incontinence at home, and decreased mental status by family member [facility] Medical History Melanoma (~2019) Depression (~2015) Osteoporosis (~2018) Foot pain (~2019) Carpal tunnel syndrome (~2013) Measles Chicken pox Vertigo Retinal detachment (~2017) Cataracts, bilateral (~2018) Diabetes mellitus (~1989) Healthy adult Surgical History Anesthesia History of removal of cyst (~1978) History of carpal tunnel release (~2013) History of partial thyroidectomy (~1979) History of eye surgery (~2017) History of cataract removal with insertion of prosthetic lens (~2020) Family History Father Cancer Mother Diabetes mellitus Hypertension Brother Diabetes mellitus Brother Diabetes mellitus Family/Other Diabetes mellitus Hypertension Social History household members: none Smoking Status: Never smoker alcohol intake: current Meds Home Medications and Allergies Home Medications Medication Instructions Recorded Confirmed Type amlodipine 5 mg tablet 5 mg PO DAILY 05/11/18 04/08/24 History aspirin 81 mg tablet,delayed 81 mg PO QPM 05/11/18 05/04/24 History release metformin 1,000 mg tablet 1 tab PO BID 05/11/18 05/04/24 History rosuvastatin 20 mg tablet 20 mg PO QPM 08/08/23 05/04/24 History duloxetine 60 mg capsule,delayed 60 mg PO DAILY 03/25/24 04/08/24 History release insulin glargine 100 unit/mL (3 27 unit SUBCUT DAILY 03/25/24 05/04/24 History mL) subcutaneous pen (Lantus Solostar U-100 Insulin) losartan 100 1 tab PO DAILY 03/25/24 05/04/24 History mg-hydrochlorothiazide 12.5 mg tablet metoprolol succinate 50 mg 50 mg PO DAILY 03/25/24 05/04/24 History tablet,extended release 24 hr hydromorphone 2 mg tablet 4 mg (2 x 2 mg) PO Q3H PRN Pain, 04/10/24 05/04/24 Rx Severe (7-10) #20 tabs amlodipine 5 mg tablet 5 mg PO DAILY 05/03/24 05/04/24 History Allergies Allergy/AdvReac Type Severity Reaction Status Date / Time No Known Drug Allergies Allergy Verified 12/07/21 15:37 Review of Systems Cardiovascular Comments: w/o chest pain Respiratory Comments: w/o shortness of breath Gastrointestinal Comments: w/o pain Genitourinary Comments: incontinent Musculoskeletal Comments: tender operated hip with walking Exam Vital Signs (past 8 hours): - 05/03/24 18:53 05/03/24 18:53 05/03/24 19:00 Temperature Pulse Rate 130 H 130 H Respiratory Rate Blood Pressure 150/76 H Pulse Oximetry 95 96 Oxygen Delivery Method Oxygen Flow Rate 05/03/24 19:00 05/03/24 19:01 05/03/24 19:30 Temperature 100.6 F H Pulse Rate 128 H Respiratory Rate 18 Blood Pressure 168/79 H 150/76 H 152/68 H Pulse Oximetry 96 Oxygen Delivery Method Room Air Oxygen Flow Rate 05/03/24 19:30 05/03/24 19:59 05/03/24 20:00 Temperature 102.7 F H Pulse Rate 121 H 125 H Respiratory Rate 20 20 Blood Pressure Pulse Oximetry 95 95 Oxygen Delivery Method Oxygen Flow Rate 05/03/24 20:00 05/03/24 20:30 05/03/24 20:30 Temperature Pulse Rate 125 H Respiratory Rate 24 Blood Pressure 159/75 H 151/67 H Pulse Oximetry 93 Oxygen Delivery Method Room Air Oxygen Flow Rate 05/03/24 21:00 05/03/24 21:00 05/03/24 21:37 Temperature Pulse Rate 118 H 124 H Respiratory Rate 22 21 Blood Pressure 154/68 H Pulse Oximetry 92 93 Oxygen Delivery Method Nasal Cannula Nasal Cannula Oxygen Flow Rate 3 3 05/03/24 22:00 05/03/24 22:17 05/03/24 22:45 Temperature 102.7 F H 102.5 F H Pulse Rate 119 H Respiratory Rate 24 Blood Pressure Pulse Oximetry 100 Oxygen Delivery Method Nasal Cannula Oxygen Flow Rate 3 Oxygen Delivery Method Nasal Cannula Oxygen Flow Rate 3 Const Other: in no distress HENMT Other: normocephalic Neck Other: supple Resp Other: tachypneic Cardio Other: RRR Skin Other: w/o rashes Neuro Other: w/o focal deficits encephalopathic Extrem Other: w/o deformities Objective Labs 05/03/24 19:20 05/03/24 19:20 Labs: Laboratory Results - last 24 hr 05/03/24 05/03/24 05/03/24 19:20 19:58 20:38 WBC 14.3 H RBC 3.81 L Hgb 10.4 L Hct 32.0 L MCV 83.9 MCH 27.3 MCHC 32.6 RDW 18.8 H Plt Count 348 Neut % (Auto) 80.2 H Lymph % (Auto) 8.0 L [place] % (Auto) 11.4 Eos % (Auto) 0.1 L Baso % (Auto) 0.3 Neut # (Auto) 06923 H Lymph # (Auto) 1100 [place] # (Auto) 1600 H Eos # (Auto) 0 Baso # (Auto) 0 PT 12.8 H INR 1.1 APTT 26 Sodium 134 L Potassium 3.5 Chloride 99 Carbon Dioxide 23 BUN 19 H Creatinine 0.72 Estimated GFR > 60 BUN/Creatinine Ratio 26.4 H Glucose 191 H Lactate 1.3 Calcium 9.1 Total Bilirubin 0.7 AST 19 ALT 22 Alkaline Phosphatase 89 Total Protein 6.7 Albumin 3.9 Globulin 2.8 Albumin/Globulin Ratio 1.4 Lipase 117 Procalcitonin 0.162 Urine Color Yellow Urine Appearance Clear Urine pH 6.0 Ur Specific [place] 1.020 Urine Protein 2+ H Urine Glucose (UA) Negative Urine Ketones 2+ H Urine Occult Blood 1+ H Urine Nitrate Positive H Urine Bilirubin Negative Urine Urobilinogen 0.2 Ur Leukocyte Esterase 2+ H Urine RBC 1-5/hpf Urine WBC 5-10/hpf H Ur Squamous Epith Cells 0-1 /hpf Amorphous Sediment 1+ Urine Bacteria Many (>30) H Ur Culture Indicated? Specimen cultured Vol Urine Centrifuged 10ml (spun) Chlamy pneumoniae PCR Not detected Adenovirus (PCR) Not detected B.parapertussis DNA PCR Not detected Coronavirus OC43 (PCR) Not detected Coronavirus HKU1 (PCR) Not detected Coronavirus 229E (PCR) Not detected SARS-CoV-2 (PCR) Not detected Coronavirus NL63 (PCR) Not detected Human Metapneumovir PCR Not detected Influenza Type A (PCR) Not detected Influenza Type B (PCR) Not detected M. pneumoniae (PCR) Not detected Parainfluenza 1 (PCR) Not detected Parainfluenza 2 (PCR) Not detected Parainfluenza 3 (PCR) Not detected Parainfluenza 4 (PCR) Not detected RSV (PCR) Not detected Entero/Rhino (PCR) Not detected Assessment & Plan Assessment and plan (1) Urinary tract infection: Status: Acute (2) Acute metabolic encephalopathy: Status: Acute (3) Diabetes mellitus: Status: Acute (4) Depression: Status: Acute (5) Mixed stress and urge urinary incontinence: Status: Acute (6) Impaired mobility and activities of daily living: Status: Acute Assessment & Plan narrative: UTI / Sepsis / Acute Metabolic Encephalopathy - BCs, UC pending - recurrent UTI - empiric Rocephin, IVFs DM - metformin, Lantus, SS, CCD HTN - home Norvasc, Losartan/HCTZ on hold - continue Toprol XL Depression - Duloxetine Impaired mobility and ADLs - Rt hip Sx 5 weeks ago - soon after DC from SNF presents with sepsis and UTI - ambulates with a walker - PT eval. DVT prophylaxis - Lovenox Time-Based Coding :: [TOTAL MINUTES] spent with patient and on the chart (including review of chart, obtaining history, exam, reviewing outside data, placing orders, documenting exam and treatment plan, and counseling patient) on [DATE].
--- NOTE | 2024-05-04 03:16 | PC.ADMIT ---
[email or web address] Admission Note: Admitted to ACU @ 22:45 from ED. Alert and oriented x 4, cooperative, sleepy. Tachycardic and febrile upon arrival. Temp 102.5 upon admit. Applied cool wash cloths and ice packs to groin and underarms. Tylenol was administered in the ED prior to arrival. Rechecked temp after one hour, t- 98.3. 2L oxygen via nasal cannula. Pt oriented to room and call light, bed low and locked, call light within reach. The patient,Tori Cohen,74 y/o, was given written information regarding hospital policies, unit procedures and contact persons. Patient's smoking status: Never smoker. Vital Signs - 8 hr 05/03/24 19:30 05/03/24 19:30 05/03/24 19:59 Temperature 102.7 F H Pulse Rate 121 H Respiratory Rate 20 Blood Pressure 152/68 H Pulse Oximetry 95 Oxygen Delivery Method Oxygen Flow Rate 05/03/24 20:00 05/03/24 20:00 05/03/24 20:30 Temperature Pulse Rate 125 H 125 H Respiratory Rate 20 24 Blood Pressure 159/75 H Pulse Oximetry 95 93 Oxygen Delivery Method Room Air Oxygen Flow Rate 05/03/24 20:30 05/03/24 21:00 05/03/24 21:00 Temperature Pulse Rate 118 H Respiratory Rate 22 Blood Pressure 151/67 H 154/68 H Pulse Oximetry 92 Oxygen Delivery Method Nasal Cannula Oxygen Flow Rate 3 05/03/24 21:37 05/03/24 22:00 05/03/24 22:08 Temperature Pulse Rate 124 H 119 H Respiratory Rate 21 24 Blood Pressure Pulse Oximetry 93 100 Oxygen Delivery Method Nasal Cannula Nasal Cannula Nasal Cannula Oxygen Flow Rate 3 3 05/03/24 22:17 05/03/24 22:45 05/04/24 02:59 Temperature 102.7 F H 102.5 F H 97.4 F L Pulse Rate 90 Respiratory Rate 20 Blood Pressure 149/78 H Pulse Oximetry 100 Oxygen Delivery Method Oxygen Flow Rate 05/04/24 03:00 Temperature 97.4 F L Pulse Rate 90 Respiratory Rate 20 Blood Pressure 149/78 H Pulse Oximetry 100 Oxygen Delivery Method Oxygen Flow Rate
[2024-05-04 06:24] LABS: Add Manual Diff / Slide Review NO; Basophils Absolute Auto 100 /uL (0-100); Basophils Percent Auto 0.5 % (0-2); Eosinophils Absolute Auto 0 /uL (0-450); Eosinophils Percent Auto 0.2 % (2-4); Hematocrit 31.8 % (36-46); Hemoglobin 10.2 g/dL (12.0-16.0); Lymphocytes Absolute Auto 1100 /uL (1100-4500); Lymphocytes Percent Auto 9.7 % (25-40); Mean Corpuscular HGB Conc 32.2 % (30-36); Mean Corpuscular Volume 83.9 fL (80-100); Monocytes Absolute Auto 1700 /uL (0-900); Monocytes Percent Auto 15.9 % (3-14); Neutrophils Absolute Auto 8000 /uL (1500-7000); Neutrophils Percent Auto 73.7 % (50-75); Platelet Count 327 X10^3/uL (150-400); Red Blood Cell Count 3.78 X10^6/uL (4.0-5.2); Red Cell Distribution Width 18.4 % (11.6-14.8); White Blood Cell Count 10.9 X10^3/uL (4.5-11.0)
[2024-05-04 06:45] LABS: BUN Creatinine Ratio 18.3 (6-22); Blood Urea Nitrogen 13 mg/dL (7-17); Calcium 8.6 mg/dL (8.4-10.2); Carbon Dioxide 24 mmol/L (22-32); Chloride 105 mmol/L (98-107); Estimated Glomerular Filt Rate > 60 mL/min (>60); Glucose 180 mg/dL (80-110); HEMOLYSIS < 15 (0-50); Potassium 3.2 mmol/L (3.4-5.1); Sodium 137 mmol/L (137-145)
--- NOTE | 2024-05-04 07:17 | P.HP_ITS ---
History of Present Illness History of Present Illness Date Patient Seen: 05/04/24 Time Patient Seen: 10:14 Chief complaint: AMS Narrative: From the ED: 74-year-old female arrived by ambulance with decreased mental status from most recent baseline, 911 might have been called by home health aides, patient is now a proximally 5 weeks status post surgery for right hip fracture repair, postoperatively was a resident at [facility] in [place], discharged home on Tuesday, treated for urinary tract infection about 2 weeks ago, no longer on any antibiotics, does not usually have a Ulrich in place, recent couple of days noted to have urinary incontinence at home, and decreased mental status by family member Interval history: Patient is sitting up, alert, feeling much better. She is interacting with staff. She is hoping for return to her care facility. [facility] Medical History Melanoma (~2019) Depression (~2015) Osteoporosis (~2018) Foot pain (~2019) Carpal tunnel syndrome (~2013) Measles Chicken pox Vertigo Retinal detachment (~2017) Cataracts, bilateral (~2018) Diabetes mellitus (~1989) Healthy adult Surgical History Anesthesia History of removal of cyst (~1978) History of carpal tunnel release (~2013) History of partial thyroidectomy (~1979) History of eye surgery (~2017) History of cataract removal with insertion of prosthetic lens (~2020) Family History Father Cancer Mother Diabetes mellitus Hypertension Brother Diabetes mellitus Brother Diabetes mellitus Family/Other Diabetes mellitus Hypertension Social History household members: none Smoking Status: Never smoker alcohol intake: current Meds Home Medications and Allergies Home Medications Medication Instructions Recorded Confirmed Type amlodipine 5 mg tablet 5 mg PO DAILY 05/11/18 04/08/24 History aspirin 81 mg tablet,delayed 81 mg PO QPM 05/11/18 05/04/24 History release metformin 1,000 mg tablet 1 tab PO BID 05/11/18 05/04/24 History rosuvastatin 20 mg tablet 20 mg PO QPM 08/08/23 05/04/24 History duloxetine 60 mg capsule,delayed 60 mg PO DAILY 03/25/24 04/08/24 History release insulin glargine 100 unit/mL (3 27 unit SUBCUT DAILY 03/25/24 05/04/24 History mL) subcutaneous pen (Lantus Solostar U-100 Insulin) losartan 100 1 tab PO DAILY 03/25/24 05/04/24 History mg-hydrochlorothiazide 12.5 mg tablet metoprolol succinate 50 mg 50 mg PO DAILY 03/25/24 05/04/24 History tablet,extended release 24 hr hydromorphone 2 mg tablet 4 mg (2 x 2 mg) PO Q3H PRN Pain, 04/10/24 05/04/24 Rx Severe (7-10) #20 tabs amlodipine 5 mg tablet 5 mg PO DAILY 05/03/24 05/04/24 History Allergies Allergy/AdvReac Type Severity Reaction Status Date / Time No Known Drug Allergies Allergy Verified 12/07/21 15:37 Review of Systems Review of Systems ROS: Yes All systems reviewed with the patient and are negative except as otherwise documented Exam Vital Signs (past 8 hours): - 05/04/24 02:59 05/04/24 03:00 Temperature 97.4 F L 97.4 F L Pulse Rate 90 90 Respiratory Rate 20 20 Blood Pressure 149/78 H 149/78 H Pulse Oximetry 100 100 Oxygen Flow Rate 2 Oxygen Delivery Method Nasal Cannula Oxygen Flow Rate 2 Narrative Exam Narrative: GENERAL: This is a well-nourished, well-developed patient, in no apparent distress. EYES: Pupils equal round and reactive. Extraocular motions intact. No scleral icterus. No injection or drainage. ENT: Mucous membranes pink and moist. NECK: Supple, nontender, no meningeal signs. CARDIOVASCULAR: Regular rate and rhythm without murmurs, gallops, or rubs. RESPIRATORY: Clear to auscultation. GASTROINTESTINAL: Abdomen soft, non-tender, nondistended. EXTREMITIES: No clubbing, cyanosis, or edema. NEUROLOGIC: Alert, oriented, speech fluent, full upper and lower motor strength, no focal deficits evident. DERMATOLOGIC: No rashes or skin lesions. Objective Imaging Chest CTA 05/03/2024:: Radiologist's impression: No pulmonary embolus. No acute cardiopulmonary process. Chest xray 05/03/2024:: Radiologist's impression: No acute cardiopulmonary abnormality is seen. Labs 05/04/24 05:48 05/04/24 05:48 Labs: Laboratory Results - last 24 hr 05/03/24 05/03/24 05/03/24 19:20 19:58 20:38 WBC 14.3 H RBC 3.81 L Hgb 10.4 L Hct 32.0 L MCV 83.9 MCH 27.3 MCHC 32.6 RDW 18.8 H Plt Count 348 Neut % (Auto) 80.2 H Lymph % (Auto) 8.0 L [place] % (Auto) 11.4 Eos % (Auto) 0.1 L Baso % (Auto) 0.3 Neut # (Auto) 74263 H Lymph # (Auto) 1100 [place] # (Auto) 1600 H Eos # (Auto) 0 Baso # (Auto) 0 PT 12.8 H INR 1.1 APTT 26 Sodium 134 L Potassium 3.5 Chloride 99 Carbon Dioxide 23 BUN 19 H Creatinine 0.72 Estimated GFR > 60 BUN/Creatinine Ratio 26.4 H Glucose 191 H Lactate 1.3 Calcium 9.1 Total Bilirubin 0.7 AST 19 ALT 22 Alkaline Phosphatase 89 Total Protein 6.7 Albumin 3.9 Globulin 2.8 Albumin/Globulin Ratio 1.4 Lipase 117 Procalcitonin 0.162 Urine Color Yellow Urine Appearance Clear Urine pH 6.0 Ur Specific [place] 1.020 Urine Protein 2+ H Urine Glucose (UA) Negative Urine Ketones 2+ H Urine Occult Blood 1+ H Urine Nitrate Positive H Urine Bilirubin Negative Urine Urobilinogen 0.2 Ur Leukocyte Esterase 2+ H Urine RBC 1-5/hpf Urine WBC 5-10/hpf H Ur Squamous Epith Cells 0-1 /hpf Amorphous Sediment 1+ Urine Bacteria Many (>30) H Ur Culture Indicated? Specimen cultured Vol Urine Centrifuged 10ml (spun) Chlamy pneumoniae PCR Not detected Adenovirus (PCR) Not detected B.parapertussis DNA PCR Not detected Coronavirus OC43 (PCR) Not detected Coronavirus HKU1 (PCR) Not detected Coronavirus 229E (PCR) Not detected SARS-CoV-2 (PCR) Not detected Coronavirus NL63 (PCR) Not detected Human Metapneumovir PCR Not detected Influenza Type A (PCR) Not detected Influenza Type B (PCR) Not detected M. pneumoniae (PCR) Not detected Parainfluenza 1 (PCR) Not detected Parainfluenza 2 (PCR) Not detected Parainfluenza 3 (PCR) Not detected Parainfluenza 4 (PCR) Not detected RSV (PCR) Not detected Entero/Rhino (PCR) Not detected 05/04/24 05:48 WBC 10.9 RBC 3.78 L Hgb 10.2 L Hct 31.8 L MCV 83.9 MCH 27.0 MCHC 32.2 RDW 18.4 H Plt Count 327 Neut % (Auto) 73.7 Lymph % (Auto) 9.7 L [place] % (Auto) 15.9 H Eos % (Auto) 0.2 L Baso % (Auto) 0.5 Neut # (Auto) 8000 H Lymph # (Auto) 1100 [place] # (Auto) 1700 H Eos # (Auto) 0 Baso # (Auto) 100 PT INR APTT Sodium 137 Potassium 3.2 L Chloride 105 Carbon Dioxide 24 BUN 13 Creatinine 0.71 Estimated GFR > 60 BUN/Creatinine Ratio 18.3 Glucose 180 H Lactate Calcium 8.6 Total Bilirubin AST ALT Alkaline Phosphatase Total Protein Albumin Globulin Albumin/Globulin Ratio Lipase Procalcitonin Urine Color Urine Appearance Urine pH Ur Specific [place] Urine Protein Urine Glucose (UA) Urine Ketones Urine Occult Blood Urine Nitrate Urine Bilirubin Urine Urobilinogen Ur Leukocyte Esterase Urine RBC Urine WBC Ur Squamous Epith Cells Amorphous Sediment Urine Bacteria Ur Culture Indicated? Vol Urine Centrifuged Chlamy pneumoniae PCR Adenovirus (PCR) B.parapertussis DNA PCR Coronavirus OC43 (PCR) Coronavirus HKU1 (PCR) Coronavirus 229E (PCR) SARS-CoV-2 (PCR) Coronavirus NL63 (PCR) Human Metapneumovir PCR Influenza Type A (PCR) Influenza Type B (PCR) M. pneumoniae (PCR) Parainfluenza 1 (PCR) Parainfluenza 2 (PCR) Parainfluenza 3 (PCR) Parainfluenza 4 (PCR) RSV (PCR) Entero/Rhino (PCR) Assessment & Plan Assessment and plan (1) Urinary tract infection: Qualifiers: Urinary tract infection type: acute cystitis Hematuria presence: w ithout hematuria Qualified Code(s): N30.00 - Acute cystitis without hematuria Status: Acute (2) Acute metabolic encephalopathy: Status: Acute (3) Diabetes mellitus: Qualifiers: Diabetes mellitus type: type 2 Diabetes mellitus [facility] insulin use: with [facility] use Diabetes mellitus complication status: with other specified complication Qualified Code(s): E11.69 - Type 2 diabetes mellitus with other specified complication; Z79.4 - half-way (current) use of insulin Status: Acute (4) Depression: Qualifiers: Depression Type: unspecified Qualified Code(s): F32.A - Depression, unspecified Status: Acute (5) Mixed stress and urge urinary incontinence: Status: Acute (6) Impaired mobility and activities of daily living: Status: Acute Assessment & Plan narrative: UTI / Sepsis / Acute Metabolic Encephalopathy - improved with mental status back to baseline today - BCs, UC pending - recurrent UTI - empiric Rocephin, IVFs DM - metformin, Lantus, SS, CCD HTN - home Norvasc, Losartan/HCTZ on hold - continue Toprol XL Depression - Duloxetine Impaired mobility and ADLs - Rt hip Sx 5 weeks ago - soon after DC from SNF presents with sepsis and UTI - ambulates with a walker - PT eval. DVT prophylaxis - Lovenox Disposition - observation status, possible discharge back to SNF tomorrow Time-Based Coding :: [TOTAL MINUTES] spent with patient and on the chart (including review of chart, obtaining history, exam, reviewing outside data, placing orders, documenting exam and treatment plan, and counseling patient) on [DATE]. Quality MIPS - Admit I confirm the patient?s Advance Care Plan is present, Code status is documented, Surrogate decision maker is in patient?s record [If Yes, STOP here]: Yes MIPS - Meds 'Current medications' to include all prescriptions, [id number] products, herbals, cannabis/cannabidiol products, and vitamin/mineral/dietary (nutritional) supplements. I have utilized all available resources to obtain, update, or review the patient?s current medications. [If Yes, STOP here]: Yes PROFEE Charge Codes Initial inpatient/observation care: 27559
[2024-05-04] MEDS: INSULIN GLARGINE 100 UNIT/ML 3ML PEN 27 UNIT SUBCUT (08:37)
[2024-05-04] MEDS: METOPROLOL ER 50 MG TABLET PO (09:31)
[2024-05-04] MEDS: METFORMIN HCL 500 MG TABLET 1000 MG PO ×2 (09:31→17:10)
[2024-05-04] MEDS: DULOXETINE 30 MG CAPSULE 60 MG PO (09:31)
[2024-05-04] MEDS: ENOXAPARIN 40 MG/0.4 ML SYRINGE SUBCUT (09:32)
[2024-05-04] MEDS: HYDROMORPHONE 2 MG TABLET 4 MG PO (09:40)
[2024-05-04] MEDS: POTASSIUM CHLORIDE 20 MEQ TAB 40 MEQ PO (09:41)
--- NOTE | 2024-05-04 10:25 | PT.IIE ---
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 (05/03/24) Surgical History (Last Reviewed 05/04/24 @ 11:16 by Alejandro Ashley MD) Anesthesia History of carpal tunnel release (~2013) History of cataract removal with insertion of prosthetic lens (~2020) History of eye surgery (~2017) History of partial thyroidectomy (~1979) History of removal of cyst (~1978) Medical History (Last Reviewed 05/04/24 @ 11:16 by Alejandro Ashley MD) Carpal tunnel syndrome (~2013) Cataracts, bilateral (~2018) Chicken pox Depression (~2015) Diabetes mellitus (~1989) Foot pain (~2019) Healthy adult Measles Melanoma (~2019) Osteoporosis (~2018) Retinal detachment (~2017) Vertigo Physical Therapy Inpatient Evaluation/Re-Eval M1 PT/OT-IP Prior Functional Status Start: 05/04/24 12:21 Freq: NEEDED Status: Active Protocol: Document 05/04/24 10:25 AB (Rec: 05/04/24 12:32 AB [id number]) Medical Review Prior Functional Status Medical History Reviewed Yes Communication able to make needs known Mobility and Gait pt stated that she was just home for 3 days after coming back from [facility]. stated that her niece assists her with bed mobility and sit to stand but once up, she was able to ambulate using her 4WW . Social History Household Members other Living Arrangements House Number of Floors (Floors) One Floor Number of Stairs To Enter/Railing? 3 steps B rails to enter Home Environment Standard Height Toilet,Tub/ Shower Home Equipment Front Wheel Walker,Four Wheel Walker,Straight Cane,Manual Wheelchair,Raised Toilet Seat w/Armrests,Shower Seat with Backrest,Hand Held Shower,Grab Bars In Shower Additional Social History Comment pt stated that he niece lives with her at this time and assists her at home M2 PT-IP Current Condition Start: 05/04/24 12:21 Freq: NEEDED Status: Active Protocol: Document 05/04/24 10:25 AB (Rec: 05/04/24 12:32 AB [id number]) Physical Therapy Current Condition Current Condition Evaluation Date 05/04/24 Treatment Diagnosis UTI; difficulty in walking Onset Date 05/03/24 M3 PT-IP Subjective Start: 05/04/24 12:21 Freq: NEEDED Status: Active Protocol: Document 05/04/24 10:25 AB (Rec: 05/04/24 12:32 AB [id number]) Subjective Physical Therapy Visit Type Type Initial Evaluation Visit Start Time 10:25 Visit Stop Time 11:10 Number of DAY WORKER Visits 0 Physical Therapy Visit Comments Patient Comments agreeable to do PT Therapy Pain Assessment Pain When Pain Assessed At Rest Pain Present Pain Present Pain Reported Location left knee Intensity 7 Scale Used Numeric (0 - 10) Pain Management Techniques Apply Cold,Distraction, Modification of Treatment,Re- positioning,Timing of Activity with Medications M4 PT-IP Mobility and Gait Start: 05/04/24 12:21 Freq: NEEDED Status: Active Protocol: Document 05/04/24 10:25 AB (Rec: 05/04/24 12:32 AB [id number]) PT-Bed Mobility Assessment Supine to Sit Supine to Sit Maximum Assistance,1 Person Assistance,2 Person Assistance ,Head of Bed Elevated,Bedrails Scooting Scooting to Edge of Bed Maximum Assistance PT-Transfer Assessment Sit to and From Stand Sit to and from Stand Maximum Assistance,2 Person Assistance,Use of Upper Extremities Equipment Transfer Assistive Device Gait Belt,Front Wheeled Walker Orthotic/Prosthetic Devices or Brace: No Transfers Transfer Destination Chair Transfer Technique Stand Step Pivot Transfer Ability Level of Assist Maximum Assistance,1 Person Assistance,2 Person Assistance ,Use of Upper Extremities Comments Mobility Comments pt supine in bed and agreeable to do PT. obtained PLOF and home set up. BP: 146/72 pt completed supine to sit max A x 1-2 and max cues with HOB elevated. pt c/o L knee pain: (+) swelling with lateral cyst-like nodule. nurse aware. pt able to sit on EOB CGA. no c/o dizziness. max A for scooting to EOB. completed sit to stand max A x 2 and max cues and step transfer to chair using fWW max A x 1-2 and max cues. required max A for maneuvering FWW and weight shifting to move LE. positioned pt on the chair. call light and table placed within reach. Gait Assessment Comments Gait Comments unable at this time PT-Balance Assessment Sitting Balance and Reactions Static Sitting Balance Ability Good Dynamic Sitting Balance Ability Fair Standing Balance and Reactions Static Standing Balance Ability Poor Dynamic Standing Balance Ability Poor Device Used FWW M5 PT-IP Objective Assessments Start: 05/04/24 12:21 Freq: NEEDED Status: Active Protocol: Document 05/04/24 10:25 AB (Rec: 05/04/24 12:32 AB [id number]) Orientation Orientation/Cognition Level of Alertness Alert Orientation Name,Place,Situation Language Function Ability No Deficits Noted Safety Awareness Decreased Safety Awareness Gross Range of Motion Lower Extremity ROM Assessment Left Impaired Impairments pain limiting movement Strength Lower Extremity Strength Assessment Left Impaired Comments Strength Comments pain limiting movement Muscle Tone Muscle Tone WNL Yes M6 PT-IP Treatment Start: 05/04/24 12:21 Freq: NEEDED Status: Active Protocol: Document 05/04/24 10:25 AB (Rec: 05/04/24 12:32 AB [id number]) Physical Therapy Treatment Education Education Provided Safety M7 PT-IP Assessment and Plan Start: 05/04/24 12:21 Freq: NEEDED Status: Active Protocol: Document 05/04/24 10:25 AB (Rec: 05/04/24 12:32 AB [id number]) PT Summary Assessment and Plan Potential Rehabilitation Potential Fair Status of Condition at Evaluation Evolving Summary Impairments Pain,ROM,Strength,Balance, Coordination,Sensation,Tone, Cognition,Bed Mobility, Transfers,Gait,Activity Tolerance Assessment Summary pt is a 74 y/o F who is admitted for UTI. pt with h/o R hip fx s/p ORIF last march. pt is WBAT. pt currently requiring max A x 2 for mobility using fWW and will require SNF rehab. will continue to assess progress. Goals Bed Mobility Goal Minimal Assistance Transfer Goal Minimal Assistance,Front Wheeled Walker Gait Goal Minimal Assistance,Front Wheel Walker Gait Distance 50 Other Goals improve bed mobiltiy, transfers, ambulation using FWW ~ 100 ft SBA up/down 3 steps B rails SBA Days to Meet Goals 10 Frequency of Treatment Frequency Of Treatment Once a Day Treatment Plan Physical Therapy Treatment Plan Bed Mobility Training,Transfer Training,Gait Training, Therapeutic Exercise,Balance Retraining,Discharge Planning, Hot or Cold Pack,Neuromuscular Re-ed,Coordination Retraining ,Manual Therapy Precautions Other Precautions falls Recommendations To Nursing Amount of Assist Needed 2 Person Assist Discharge Recommendations PT Discharge Recommendations SNF Rehab Transportation Needs at Discharge Wheelchair/Cabulance
--- NOTE | 2024-05-04 12:41 | DI.RAD.S_ITS ---
PROCEDURE: XR KNEE LT 1TO2V INDICATIONS: left knee pain TECHNIQUE: 2 views of the knee were acquired. COMPARISON: None. FINDINGS: Bones: No fractures or dislocations. Moderate medial and mild lateral and patellofemoral compartment joint space narrowing and juxta-articular osteophytosis. No suspicious bony lesions. Soft tissues: Large joint effusion. No suspicious soft tissue calcifications. IMPRESSION: 1. No acute osseous abnormality; however, there is a large joint effusion. If there is high clinical suspicion for a radiographically occult fracture and/or internal derangement Recommend cross-sectional imaging for further evaluation. 2. Chondrocalcinosis in the medial and lateral compartments. 3. 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 Dictated by: Gato Askew M.D. on 05/04/2024 at 13:18 Approved by: Gato Askew M.D. on 05/04/2024 at 13:19
--- NOTE | 2024-05-04 12:45 | CM.DANOTE ---
Initial DCP Assessment Note Pt is a 74 yo female, resident of [place], patient had been living independently with her daughter living across the street. Patient had a GLF at home resulting in hip fx with repair. Patient with multiple hospital visits recently, INPT 03/25, INPT 04/08, ER 04/15, OBS 8 PCP: Beverley Albert Payer: [facility] Reviewed chart, met w/patient to introduce self and role. Patient A+Ox4 this morning, reports feeling tired. Discussed dispo options if patient is not at PLOF and cannot safely return home, patient requests discharge to [facility]. Discussed referral with Charlee at [facility]. Patient likely okay for admission although [facility] auth will need to be obtained. Charlee will follow closely for therapy notes. PT/OT orders in and pending. Hospital exempt PASRR completed, needs provider signature. CM team will plan to follow clinical course closely for coordination efforts. Patient remains OBS. EZRA Steen Discharge Planning/Care Management CM Discharge Assessment Start: 05/04/24 12:32 Freq: Status: Active Protocol: Document 05/04/24 12:32 LACEY (Rec: 05/04/24 12:45 LACEY [id number]) Discharge Planning Assessment Assigned Phone Specialist EZRA Mcclure DPOA/Assigned Designee Name Aimee Schaefer, vinny Contact Information [phone] Advance Directives? No Advance Directives on File No History Provided By Patient,Medical Record Has Patient been admitted in last 30 Yes days? Comment INPT 03/25, INPT 04/08, ER 04/15, [place] OBS 05/03 Prior Living Arrangements House Household Members none Type of transporation used prior to Relies on Others admit Independent with ADL's Yes: Had been indp before hip fx repair early March Is patient alert and oriented? Yes Patient/Family Preference Nursing Home Facility Barriers to Discharge Yes Comment Assist is limited at home, patient discharged from [facility] H+R Tuesday. Discharge Plan Nursing Home Facility Transportation Arrangement facility Additional Comment [facility] able to accept back, need to get a new insurance auth through [facility] If patient plan is SNF: Has PASSR been not needed completed? SNF/HH Preference [facility] Has Agency SNF been contacted Yes
[2024-05-04] MEDS: KETOROLAC 30 MG/ML VIAL IV (13:30)
--- NOTE | 2024-05-04 15:40 | OT.IP.EVAL ---
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 (05/03/24) Past Medical History (Last Reviewed 05/04/24 @ 11:16 by Alejandro Ashley MD) Carpal tunnel syndrome (~2013) Cataracts, bilateral (~2018) Chicken pox Depression (~2015) Diabetes mellitus (~1989) Foot pain (~2019) Healthy adult Measles Melanoma (~2019) Osteoporosis (~2018) Retinal detachment (~2017) Vertigo Surgical History (Last Reviewed 05/04/24 @ 11:16 by Alejandro Ashley MD) Anesthesia History of carpal tunnel release (~2013) History of cataract removal with insertion of prosthetic lens (~2020) History of eye surgery (~2017) History of partial thyroidectomy (~1979) History of removal of cyst (~1978) Occupational Therapy Inpatient Evaluation/Re-Eval M1 PT/OT-IP Prior Functional Status Start: 05/04/24 12:21 Freq: NEEDED Status: Active Protocol: Document 05/04/24 16:29 [facility] (Rec: 05/04/24 16:39 [facility] [id number]) Medical Review Prior Functional Status Medical History Reviewed Yes Communication able to make needs known Mobility and Gait pt stated that she was just home for 3 days after coming back from [facility]. stated that her niece assists her with bed mobility and sit to stand but once up, she was able to ambulate using her 4WW . Activities of Daily Living and IADL's Pt able to do ADL needs Social History Household Members none Living Arrangements House Number of Floors (Floors) One Floor Number of Stairs To Enter/Railing? 3 steps B rails to enter Home Environment Standard Height Toilet,Tub/ Shower Home Equipment Front Wheel Walker,Four Wheel Walker,Straight Cane,Manual Wheelchair,Raised Toilet Seat w/Armrests,Shower Seat with Backrest,Hand Held Shower,Grab Bars In Shower Additional Social History Comment pt stated that he niece lives with her at this time and assists her at home M2 OT-IP Current Condition Start: 05/04/24 16:29 Freq: Status: Active Protocol: Document 05/04/24 16:29 [facility] (Rec: 05/04/24 16:39 [facility] [id number]) Occupational Therapy Current Condition Current Condition Evaluation Date 05/04/24 Treatment Diagnosis UTI Diagnosis Onset Date 05/03/24 M3 OT- IP Subjective and Pain Start: 05/04/24 16:29 Freq: Status: Active Protocol: Document 05/04/24 16:29 [facility] (Rec: 05/04/24 16:39 [facility] [id number]) OT- Subjective Occupational Therapy Visit Type Type Initial Evaluation Visit Start Time 15:00 Visit Stop Time 15:40 Occupational Therapy Visit Comments Patient Comments Pt needing lot of encouragement and then agreed to get up. Patient/Caregiver Goals TO go back to SNF. OT Pain Assessment Pain When Pain Assessed During Mobility Pain Present Pain Present Pain Reported Location left knee Intensity 4 Scale Used Numeric (0 - 10) M4 OT- IP ADL's Start: 05/04/24 16:29 Freq: Status: Active Protocol: Document 05/04/24 16:29 [facility] (Rec: 05/04/24 16:39 [facility] [id number]) OT [id number] General Evaluation Self-Feeding Ability Independent OT ADL-Grooming Comments OT Grooming Comments Not performed. OT ADL-Oral Care Comments Oral Care Comments Not performed OT ADL-Dressing General Eval Lower Body Dressing Ability Minimal Assistance Areas Needing Assistance Underpants/Brief,Socks Comments OT Dressing Comments Assist to get her socks over her feet and brief over her left foot. OT ADL-Toileting General Evaluation Toileting Ability Minimal Assistance Areas Needing Assistance Manage Clothing OT ADL-Bathing Comments OT Bathing Comments Pt will benefit from assist. M5 OT- IP IADL's Start: 05/04/24 16:29 Freq: Status: Active Protocol: Document 05/04/24 16:29 [facility] (Rec: 05/04/24 16:39 [facility] [id number]) OT-Instrumental Activities of Daily Living Deficits IADL Deficits Identified Deficits Home Safety Awareness Awareness of Need for Assistance at Home Good Awareness Home Safety Comments Pt's niece has been with the pt and assist with her needs. M6 OT- IP Functional Cognition Start: 05/04/24 16:29 Freq: Status: Active Protocol: Document 05/04/24 16:29 [facility] (Rec: 05/04/24 16:39 [facility] [id number]) Cognitive Factors Limiting Selfcare Function Cognitive Ability Level of Alertness Alert Patient Orientation Name,Age,Birthday,Month,Year, Place,Situation Attention Span Ability Capable of Focused Attention, Capable of Sustained Attention Ability to Follow Commands Able to Follow One Step Commands Cognitive Comments Cognitive Assessment Comments Pt able to follow commands for ADl and mobility needs. Pt needing encouragement to initiate and to push up from surfaces with her hands. OT- Vision and Hearing OT- Hearing Assessment OT- Hearing Assessment WFL OT- Vision Assessment Visual Acuity Glasses For Reading Visual Attentiveness WFL Occular Pursuits WFL M7 OT- IP Mobility and Balance Start: 05/04/24 16:29 Freq: Status: Active Protocol: Document 05/04/24 16:29 [facility] (Rec: 05/04/24 16:39 [facility] [id number]) OT-Transfer Assessment Sit to and From Stand Sit to and from Stand Moderate Assistance,Maximum Assistance Transfers Transfer Ability Minimal Assistance Technique Transfer Destination Chair,Toilet Devices Transfer Assistive Devices Gait Belt,Front Wheeled Walker Comments Mobility Comments MAX X 1 to stand from the recliner and MIN/MODA for lower surfaces to the FWW. Once on her feet DIMITRIOS and then CGA with FWW. OT- Balance Assessment Sitting Balance and Reactions Static Sitting Balance Ability Good Dynamic Sitting Balance Ability Good Standing Balance and Reactions Static Standing Balance Ability Fair Dynamic Standing Balance Ability Fair M8 OT- IP Objective Assessments Start: 05/04/24 16:29 Freq: Status: Active Protocol: Document 05/04/24 16:29 [facility] (Rec: 05/04/24 16:39 [facility] [id number]) OT Gross Range of Motion Upper Extremity Range of Motion Assessment Within Functional Limits OT Strength Upper Extremity Strength Assessment Within Functional Limits M9 OT- IP Assessment and Plan Start: 05/04/24 16:29 Freq: Status: Active Protocol: Document 05/04/24 16:29 [facility] (Rec: 05/04/24 16:39 [facility] [id number]) OT Summary Assessment and Plan Potential Rehabilitation Potential Good Analytic Complexity at Evaluation Moderate Summary OT Impairments Pain,Strength,Balance, Functional Cognition, Functional Mobility,Dressing, Toileting,Bathing,Toilet Transfers,Shower Transfers, Activity Tolerance Progress Towards Goals Progressing Toward Goals Assessment Summary Pt MOD complexity with main barrier of pain to left knee, needing encouragement to participate, and now needing more assist for ADL and mobility needs. Pt will benefit from skilled rehab. Goals Grooming Goal Independent Dressing Goal Independent Toileting Goal Independent Bathing Goal Standby Assistance Toilet Transfer Goal Independent Shower Transfer Goal Standby Assistance Days to Meet Goals 15 Frequency of Treatment Other frequency 5x/week Treatment Plan OT Treatment Plan ADL Training,Functional Mobility,Patient/Family Education,Discharge Planning Discharge Recommendations OT Discharge Recommendations SNF Rehab Transportation Needs at Discharge Wheelchair/Cabulance
[2024-05-04] MEDS: ASPIRIN EC 81 MG TABLET PO (17:12)
[2024-05-04] MEDS: ATORVASTATIN 20 MG TABLET 40 MG PO (20:45)
[2024-05-04] MEDS: SENNOSIDES 8.6 MG TABLET 17.2 MG PO (20:45)
[2024-05-04] MEDS: cefTRIAXone 2,000 MG in SODIUM CHLORIDE 0.9% 100 ML 200 MG IV (20:46)
[2024-05-05] VITALS (8 sets, daily range): BP systolic 143–159; BP diastolic 75–84; PULSE 84–98; RESP 16; TEMP 36.6–37.9; O2SAT 93–96
[2024-05-05 06:28] LABS: Add Manual Diff / Slide Review NO; Basophils Absolute Auto 100 /uL (0-100); Basophils Percent Auto 0.6 % (0-2); Eosinophils Absolute Auto 200 /uL (0-450); Eosinophils Percent Auto 2.7 % (2-4); Hematocrit 26.3 % (36-46); Hemoglobin 8.7 g/dL (12.0-16.0); Lymphocytes Absolute Auto 1300 /uL (1100-4500); Lymphocytes Percent Auto 14.1 % (25-40); Mean Corpuscular HGB Conc 33.2 % (30-36); Mean Corpuscular Hemoglobin 27.5 PG (26-34); Mean Corpuscular Volume 82.9 fL (80-100); Monocytes Absolute Auto 900 /uL (0-900); Monocytes Percent Auto 9.8 % (3-14); Neutrophils Absolute Auto 6500 /uL (1500-7000); Neutrophils Percent Auto 72.8 % (50-75); Platelet Count 310 X10^3/uL (150-400); Red Blood Cell Count 3.17 X10^6/uL (4.0-5.2); Red Cell Distribution Width 18.4 % (11.6-14.8)
[2024-05-05 06:49] LABS: BUN Creatinine Ratio 24.6 (6-22); Blood Urea Nitrogen 17 mg/dL (7-17); Calcium 8.9 mg/dL (8.4-10.2); Carbon Dioxide 26 mmol/L (22-32); Chloride 107 mmol/L (98-107); Estimated Glomerular Filt Rate > 60 mL/min (>60); Glucose 112 mg/dL (80-110); HEMOLYSIS < 15 (0-50); Potassium 3.7 mmol/L (3.4-5.1); Sodium 137 mmol/L (137-145); Uric Acid 4.7 mg/dL (2.5-6.2)
[2024-05-05] MEDS: DULOXETINE 30 MG CAPSULE 60 MG PO (08:22)
[2024-05-05] MEDS: METOPROLOL ER 50 MG TABLET PO (08:22)
[2024-05-05] MEDS: METFORMIN HCL 500 MG TABLET 1000 MG PO ×2 (08:22→17:08)
[2024-05-05] MEDS: ENOXAPARIN 40 MG/0.4 ML SYRINGE SUBCUT (08:25)
--- NOTE | 2024-05-05 09:39 | PM.DS.1 ---
History of Present Illness History of Present Illness Date Patient Seen: 05/05/24 Time Patient Seen: 09:15 Date of Onset of Symptoms: 05/05/24 Chief complaint: AMS Narrative: From the ED: 74-year-old female arrived by ambulance with decreased mental status from most recent baseline, 911 might have been called by home health aides, patient is now a proximally 5 weeks status post surgery for right hip fracture repair, postoperatively was a resident at [facility] in [place], discharged home on Tuesday, treated for urinary tract infection about 2 weeks ago, no longer on any antibiotics, does not usually have a Ulrich in place, recent couple of days noted to have urinary incontinence at home, and decreased mental status by family member Patient is sitting up, alert, feeling much better. She is interacting with staff. She is hoping for return to her care facility. Discharge Providers Provider Date of admission: 05/03/24 21:52 Discharge Date: 05/05/24 Primary care physician: Beverley Albert Consults: 05/04/24 03:42 Consult to Physical Therapy Evaluate & Treat Comment: Physician Instructions: Evaluate and Treat 05/04/24 10:26 Consult to Occupational Therapy Evaluate & Treat Comment: Physician Instructions: Evaluate and treat Discharge provider: Alejandro Ashley MD Summary Hospital Course Discharge Diagnosis: 1. Urinary tract infection due to Klebsiella pneumonia 2. Acute metabolic encephalopathy due to 1. 3. Left knee pseudogout flare 4. Recent right hip fracture, status post repair 5. Diabetes mellitus, type 2 the 6. Depression 7. Impaired mobility Hospital Course: The patient was admitted to the hospital and blood and urine cultures obtained. She was started on broad-spectrum IV antibiotics. Urine culture returned showing cephalosporin sensitive Klebsiella pneumonia. She also developed left knee pain, progressed over the past few weeks, but increased over 1-2 days with swelling. X-ray showed findings consistent with pseudogout. She was started on IV Toradol, transition to oral meloxicam at discharge. She is feeling significantly better but in need of ongoing rehabilitation before returning home. Arrangements were made through Case Management to return to [facility] before ultimately returning home. Status at Discharge Cognitive/behavioral status at discharge: oriented Functional status at discharge: uses cane/walker Overall status at discharge: patient is not back to baseline Time Spent with Patient Time spent: Greater than 30 minutes Exam Vital Signs (past 8 hours): - 05/05/24 04:12 05/05/24 07:48 05/05/24 08:22 Temperature 99.2 F 98.8 F Pulse Rate 94 H 96 H 96 H Respiratory Rate 16 16 Blood Pressure 151/78 H 159/84 H 159/84 H Pulse Oximetry 95 96 Oxygen Flow Rate 0 Oxygen Delivery Method Room Air Oxygen Flow Rate 0 Narrative Exam Narrative: GENERAL: This is a well-nourished, well-developed patient, in no apparent distress. EYES: Pupils equal round and reactive. Extraocular motions intact. No scleral icterus. No injection or drainage. ENT: Mucous membranes pink and moist. NECK: Supple, nontender, no meningeal signs. CARDIOVASCULAR: Regular rate and rhythm without murmurs, gallops, or rubs. RESPIRATORY: Clear to auscultation. GASTROINTESTINAL: Abdomen soft, non-tender, nondistended. EXTREMITIES: No clubbing, cyanosis, or edema. NEUROLOGIC: Alert, oriented, speech fluent, full upper and lower motor strength, no focal deficits evident. DERMATOLOGIC: No rashes or skin lesions. Objective Labs 05/05/24 05:47 05/05/24 05:47 Labs: Laboratory Results - last 24 hr 05/05/24 05:47 WBC 9.0 RBC 3.17 L Hgb 8.7 L Hct 26.3 L MCV 82.9 MCH 27.5 MCHC 33.2 RDW 18.4 H Plt Count 310 Neut % (Auto) 72.8 Lymph % (Auto) 14.1 L [place] % (Auto) 9.8 Eos % (Auto) 2.7 Baso % (Auto) 0.6 Neut # (Auto) 6500 Lymph # (Auto) 1300 [place] # (Auto) 900 Eos # (Auto) 200 Baso # (Auto) 100 Sodium 137 Potassium 3.7 Chloride 107 Carbon Dioxide 26 BUN 17 Creatinine 0.69 Estimated GFR > 60 BUN/Creatinine Ratio 24.6 H Glucose 112 H Uric Acid 4.7 Calcium 8.9 [facility] Medical History Melanoma (~2019) Depression (~2015) Osteoporosis (~2018) Foot pain (~2019) Carpal tunnel syndrome (~2013) Measles Chicken pox Vertigo Retinal detachment (~2017) Cataracts, bilateral (~2018) Diabetes mellitus (~1989) Healthy adult Surgical History Anesthesia History of removal of cyst (~1978) History of carpal tunnel release (~2013) History of partial thyroidectomy (~1979) History of eye surgery (~2017) History of cataract removal with insertion of prosthetic lens (~2020) Family History Father Cancer Mother Diabetes mellitus Hypertension Brother Diabetes mellitus Brother Diabetes mellitus Family/Other Diabetes mellitus Hypertension Social History household members: none Smoking Status: Never smoker alcohol intake: current Discharge Plan Discharge Plan Patient Disposition: SNF Transfer to: [facility] Transportation: Wheelchair Consult as needed: Dental, Hearing, Mental health, Podiatry and Vision I certify the postop hospital senior care care is medically necessary on a continuing basis for any conditions for which he/ she received care during this hospitalization.: Yes The receiving facility has agreed to accept transfer and provide medical treatment.: Yes Discharge orders & Medications Prescriptions: New cephalexin 500 mg capsule 500 mg PO TID Qty: 27 0RF meloxicam 15 mg tablet 15 mg PO DAILY PRN (Reason: pain) Qty: 30 0RF Continued metoprolol succinate 50 mg tablet extended release 24 hr 50 mg PO DAILY duloxetine 60 mg capsule,delayed release(DR/EC) 60 mg PO DAILY losartan-hydrochlorothiazide 100-12.5 mg tablet 1 tab PO DAILY insulin glargine [Lantus Solostar U-100 Insulin] 100 unit/mL (3 mL) insulin pen 27 unit SUBCUT DAILY aspirin 81 mg tablet,delayed release (DR/EC) 81 mg PO QPM metformin 1,000 mg tablet 1 tab PO BID rosuvastatin 20 mg tablet 20 mg PO QPM amlodipine 5 mg tablet 5 mg PO DAILY Discontinued hydromorphone 2 mg Tablet 4 mg PO Q3H PRN (Reason: Pain, Severe (7-10)) Qty: 20 0RF Patient Comments: do not take it very often only when the pain in my legs get bad Follow up/Referrals: Beverley Albert PA-C [Primary Care Provider] - Visit Report/Discharge Packet Stand Alone Forms: Patient Portal/API, Stroke Signs & Symptoms Discharge Data Primary Care Provider: Beverley Albert Attending Provider: Luis Pappas Admperlita Date/Time: 05/03/24 21:52
[2024-05-05] MEDS: AMLODIPINE 5 MG TABLET PO (09:54)
[2024-05-05] MEDS: hydroCHLOROthiazide 25 MG TABLET 12.5 MG PO (09:54)
[2024-05-05] MEDS: LOSARTAN 50 MG TABLET 100 MG PO (09:54)
[2024-05-05] MEDS: MAG HYDROX/ALUM/SIMETH 30 ML UDC PO (11:33)
--- NOTE | 2024-05-05 12:13 | CM.DPC ---
DCP SNF planning: Per MD, pt is medically stable to discharge once SNF auth obtained and discharge plan updated in EMR. SW spoke to [facility] admissions and they confirm that [employer] auth submitted but some concern that insurance might deny or need Peer to Peer with Physician since pt was recently approved for SNF and then discharged home. Still waiting for determination from [employer] but [facility] also does not have admission staff to accept today Sat but can accept tomorrow Sun. SW met bedside with pt and explained role and updated her on the potential that insurance could deny SNF auth. Pt confirms she lives at home and her grandson lives in the house with her, he has autism, but works 2 days a week for a few hours and then is strong and able to physically assist pt if needed. Pt had grab bars placed for her 3 steps to enter the home and feels she could manage stairs to get into the home if needed. Pt's Dtr also lives in a converted apt in their garage and therefore is just across the driveway from patient's home. Pt discharged from [facility] to home on Mon earlier this week and she was needing some assist with sit to stand and getting around the house, HH had been set up but pt was only home a couple days before readmitting to the hospital and therefore HH was not able to start yet. Pt aware that if SNF is denied by her insurance, pt would need to discharge home with family assist and HH and feels she could manage this but it would be a challenge. GANGA updated RN and MD. Plan: SW to follow closely for insurance auth to detemine if approved or denied for plan of discharge tomorrow Sun to [facility] vs home with family assist and HH if SNF auth denied. EZRA Leyva
--- NOTE | 2024-05-05 13:30 | PT.IPTN ---
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) Physical Therapy Treatment Note M2 PT-IP Current Condition Start: 05/04/24 12:21 Freq: NEEDED Status: Active Protocol: Document 05/04/24 10:25 AB (Rec: 05/04/24 12:32 AB [id number]) Physical Therapy Current Condition Current Condition Evaluation Date 05/04/24 Treatment Diagnosis UTI; difficulty in walking Onset Date 05/03/24 M3 PT-IP Subjective Start: 05/04/24 12:21 Freq: NEEDED Status: Active Protocol: Document 05/05/24 13:30 AB (Rec: 05/05/24 15:18 AB [id number]) Subjective Physical Therapy Visit Type Type Treatment Note Visit Start Time 13:30 Visit Stop Time 14:00 Number of FUR STYLIST Visits 0 Therapy Pain Assessment Pain When Pain Assessed During Mobility Pain Present Pain Present Pain Reported Location left knee Scale Used pain scale not stated Pain Management Techniques Distraction,Modification of Treatment,Re-positioning, Timing of Activity with Medications M4 PT-IP Mobility and Gait Start: 05/04/24 12:21 Freq: NEEDED Status: Active Protocol: Document 05/05/24 13:30 AB (Rec: 05/05/24 15:18 AB [id number]) PT-Bed Mobility Assessment Supine to Sit Supine to Sit Moderate Assistance,1 Person Assistance,Head of Bed Elevated,Bedrails PT-Transfer Assessment Sit to and From Stand Sit to and from Stand Minimal Assistance,1 Person Assistance,Use of Upper Extremities Equipment Transfer Assistive Device Gait Belt,Front Wheeled Walker Orthotic/Prosthetic Devices or Brace: No Transfers Transfer Destination Toilet Transfer Technique ambulated Transfer Ability Level of Assist Minimal Assistance,1 Person Assistance,Use of Upper Extremities Comments Mobility Comments pt agreeable to do PT. pt completed supine to sit mod A and cues. pt requesting to use the toilet. completed sit to stand min A and ambulated to the toilet using FWW min A and cues. pt required assist with brief management. completed sit to stand from the toilet min A and cues using grab bar. pt ambulated in room using FWW ~ 40 ft min A and cues. pt requires increase time to complete all tasks. pt refused to do stair climbing. pt agreed to sit up on the chair. positioned pt on the chair. call light and table placed within reach. Gait Assessment Gait Gait Assistance Required: Minimum Assistance Distance (Feet) 40 Able to Maintain Weight Bearing Status Yes During Gait Assistive Devices Assistive Device Gait Belt,Front Wheeled Walker Orthotic/Prosthetic Devices or Brace: No Gait Deviations General Gait Pattern Antalgic,Decreased Stride Length,Decreased Feet Clearance,Step-to Gait Factors Limiting Gait Function Factors Limiting Gait Function Decreased Activity Tolerance, Decreased Strength,Limited Range of Motion,Pain,Poor Balance,Poor Safety Awareness M5 PT-IP Objective Assessments Start: 05/04/24 12:21 Freq: NEEDED Status: Active Protocol: Document 05/04/24 10:25 AB (Rec: 05/04/24 12:32 AB [id number]) Orientation Orientation/Cognition Level of Alertness Alert Orientation Name,Place,Situation Language Function Ability No Deficits Noted Safety Awareness Decreased Safety Awareness Gross Range of Motion Lower Extremity ROM Assessment Left Impaired Impairments pain limiting movement Strength Lower Extremity Strength Assessment Left Impaired Comments Strength Comments pain limiting movement Muscle Tone Muscle Tone WNL Yes M6 PT-IP Treatment Start: 05/04/24 12:21 Freq: NEEDED Status: Active Protocol: Document 05/05/24 13:30 AB (Rec: 05/05/24 15:18 AB [id number]) Physical Therapy Treatment Education Education Provided Safety M7 PT-IP Assessment and Plan Start: 05/04/24 12:21 Freq: NEEDED Status: Active Protocol: Document 05/05/24 13:30 AB (Rec: 05/05/24 15:18 AB [id number]) PT Summary Assessment and Plan Potential Rehabilitation Potential Fair Summary Impairments Pain,ROM,Strength,Balance, Coordination,Sensation,Tone, Cognition,Bed Mobility, Transfers,Gait,Activity Tolerance Progress Towards Goals Slow Progress due to Pain,Slow Progress due to Activity Tolerance Assessment Summary pt progressing slowly with mobility and requiring min A for transfers and ambulation using FWW. pt needing increase time to complete all tasks and cues for safety. pt will require 14/7 assist at home and will benefit from SNF rehab. will continue to assess. Goals Bed Mobility Goal Minimal Assistance Transfer Goal Minimal Assistance,Front Wheeled Walker Gait Goal Minimal Assistance,Front Wheel Walker Gait Distance 50 Other Goals improve bed mobiltiy, transfers, ambulation using FWW ~ 100 ft SBA up/down 3 steps B rails SBA Days to Meet Goals 10 Frequency of Treatment Frequency Of Treatment Once a Day Treatment Plan Physical Therapy Treatment Plan Bed Mobility Training,Transfer Training,Gait Training, Therapeutic Exercise,Balance Retraining,Discharge Planning, Hot or Cold Pack,Neuromuscular Re-ed,Coordination Retraining ,Manual Therapy Precautions Other Precautions falls Recommendations To Nursing Amount of Assist Needed 1 Person Assist Discharge Recommendations PT Discharge Recommendations Home with 24/7 Assist Available,Home Health,SNF Rehab,Home vs SNF Transportation Needs at Discharge Private Vehicle,Wheelchair/ Cabulance
[2024-05-05] MEDS: KETOROLAC 30 MG/ML VIAL IV (16:20)
[2024-05-05] MEDS: ASPIRIN EC 81 MG TABLET PO (17:08)
[2024-05-05] MEDS: SENNOSIDES 8.6 MG TABLET 17.2 MG PO (20:37)
[2024-05-05] MEDS: ATORVASTATIN 20 MG TABLET 40 MG PO (20:37)
[2024-05-05] MEDS: cefTRIAXone 2,000 MG in SODIUM CHLORIDE 0.9% 100 ML 200 MG IV (20:38)
[2024-05-05] MEDS: INSULIN GLARGINE 100 UNIT/ML 3ML PEN 27 UNIT SUBCUT (20:42)
[2024-05-06] VITALS: BP 140/80; PULSE 76; RESP 16; TEMP 36.2; O2SAT 95
[2024-05-06 04:00] VITALS: BP 149/84; PULSE 77; RESP 16; TEMP 36.3; O2SAT 98
[2024-05-06] MEDS: METFORMIN HCL 500 MG TABLET 1000 MG PO (07:59)
[2024-05-06 08:00] VITALS: BP 142/78; PULSE 91; RESP 16; TEMP 36.9; O2SAT 98
[2024-05-06] MEDS: hydroCHLOROthiazide 25 MG TABLET 12.5 MG PO (08:30)
[2024-05-06 08:31] VITALS: BP 142/78; PULSE 91
[2024-05-06] MEDS: LOSARTAN 50 MG TABLET 100 MG PO (08:31)
[2024-05-06] MEDS: METOPROLOL ER 50 MG TABLET PO (08:31)
[2024-05-06] MEDS: DULOXETINE 30 MG CAPSULE 60 MG PO (08:31)
[2024-05-06] MEDS: AMLODIPINE 5 MG TABLET PO (08:31)
[2024-05-06] MEDS: ENOXAPARIN 40 MG/0.4 ML SYRINGE SUBCUT (08:32)
--- NOTE | 2024-05-06 10:26 | P.PN_ITS ---
Subjective Subjective Date Patient Seen: 05/06/24 Time Patient Seen: 08:30 Interval history: The patient is awaiting insurance authorization for [facility] today. She remains medically stable otherwise with no new issues. Exam Vital Signs (past 8 hours): - 05/06/24 04:00 05/06/24 07:00 05/06/24 08:00 Temperature 97.4 F L 98.4 F Pulse Rate 77 91 H Respiratory Rate 16 16 Blood Pressure 149/84 H 142/78 H Pulse Oximetry 98 98 Oxygen Delivery Method Room Air Oxygen Flow Rate 0 05/06/24 08:31 05/06/24 08:31 Temperature Pulse Rate 91 H 91 H Respiratory Rate Blood Pressure 142/78 H 142/78 H Pulse Oximetry Oxygen Delivery Method Oxygen Flow Rate Oxygen Delivery Method Room Air Oxygen Flow Rate 0 Narrative Exam Narrative: Appears comfortable, pleasant, cheerful. Left knee with mild effusion, much improved, without pain. Objective Labs 05/05/24 05:47 05/05/24 05:47 [facility] Medical History Melanoma (~2019) Depression (~2015) Osteoporosis (~2018) Foot pain (~2019) Carpal tunnel syndrome (~2013) Measles Chicken pox Vertigo Retinal detachment (~2017) Cataracts, bilateral (~2018) Diabetes mellitus (~1989) Healthy adult Surgical History Anesthesia History of removal of cyst (~1978) History of carpal tunnel release (~2013) History of partial thyroidectomy (~1979) History of eye surgery (~2017) History of cataract removal with insertion of prosthetic lens (~2020) Family History Father Cancer Mother Diabetes mellitus Hypertension Brother Diabetes mellitus Brother Diabetes mellitus Family/Other Diabetes mellitus Hypertension Social History household members: none Smoking Status: Never smoker alcohol intake: current Assessment & Plan Assessment & Plan narrative: Discharge Diagnosis: 1. Urinary tract infection due to Klebsiella pneumonia 2. Acute metabolic encephalopathy due to 1. 3. Left knee pseudogout flare 4. Recent right hip fracture, status post repair 5. Diabetes mellitus, type 2 the 6. Depression 7. Impaired mobility Plan: SNF pending insurance authorization for ongoing rehabilitation before returning home. See discharge summary yesterday. Time-Based Coding :: [TOTAL MINUTES] spent with patient and on the chart (including review of chart, obtaining history, exam, reviewing outside data, placing orders, documenting exam and treatment plan, and counseling patient) on [DATE]. PROFEE Charge codes Subsequent inpatient/observation care: [id number]
--- NOTE | 2024-05-06 11:28 | CM.DPC ---
DCP Cont. Reviewed EMR and team rounds for status updates. Received call from [employer], they are still waiting on the [employer] auth, likely will come through on Tuesday. Monitoring closely for d/c date/time.
--- NOTE | 2024-05-06 11:35 | CM.DPC ---
DCP Cont. Reviewed EMR and team rounds for status updates. Received call from [employer], they are planning to rent a c-pap for pt to use while they wait for the [employer] auth for the permanent once. 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
[2024-05-06 12:00] VITALS: BP 124/69; PULSE 83; RESP 16; TEMP 36.7; O2SAT 95
--- NOTE | 2024-05-06 12:46 | PT.IPTN ---
Current Diagnoses Type 2 diabetes mellitus with other specified complication (05/03/24) Type 2 diabetes mellitus without complications (05/03/24) Depression, unspecified (05/03/24) Metabolic encephalopathy (05/03/24) Acute cystitis without hematuria (05/03/24) Urinary tract infection, site not specified (05/03/24) Mixed incontinence (05/03/24) Other reduced mobility (05/03/24) Other specified health status (05/03/24) senior care (current) use of insulin (05/03/24) Physical Therapy Treatment Note M2 PT-IP Current Condition Start: 05/04/24 12:21 Freq: NEEDED Status: Active Protocol: Document 05/04/24 10:25 AB (Rec: 05/04/24 12:32 AB [id number]) Physical Therapy Current Condition Current Condition Evaluation Date 05/04/24 Treatment Diagnosis UTI; difficulty in walking Onset Date 05/03/24 M3 PT-IP Subjective Start: 05/04/24 12:21 Freq: NEEDED Status: Active Protocol: Document 05/06/24 12:12 MB (Rec: 05/06/24 12:46 MB [id number]) Subjective Physical Therapy Visit Type Type Treatment Note Visit Start Time 12:12 Visit Stop Time 12:[address] MECHANIC Visits 0 Physical Therapy Visit Comments Patient Comments Pt is agreeable to PT. Pt states that she is doing a lot better the past couple of days. Therapy Pain Assessment Pain When Pain Assessed During Mobility Pain Present Pain Present Denied Pain M4 PT-IP Mobility and Gait Start: 05/04/24 12:21 Freq: NEEDED Status: Active Protocol: Document 05/06/24 12:12 MB (Rec: 05/06/24 12:46 MB [id number]) PT-Transfer Assessment Sit to and From Stand Sit to and from Stand Standby Assistance,1 Person Assistance,Use of Upper Extremities Equipment Transfer Assistive Device Gait Belt,Front Wheeled Walker Orthotic/Prosthetic Devices or Brace: No Transfers Transfer Destination Chair Transfer Technique Ambulation Transfer Ability Level of Assist Standby Assistance,1 Person Assistance,Use of Upper Extremities Comments Mobility Comments Pt appears to be mobilizing better today and she does require heavy UE support for STS to and from chair Gait Assessment Gait Gait Assistance Required: Standby Assistance Distance (Feet) 100 Able to Maintain Weight Bearing Status Yes During Gait Assistive Devices Assistive Device Gait Belt,Front Wheeled Walker Orthotic/Prosthetic Devices or Brace: No Gait Deviations General Gait Pattern Antalgic,Decreased Stride Length,Decreased Feet Clearance,Step-to Gait Factors Limiting Gait Function Factors Limiting Gait Function Decreased Activity Tolerance, Decreased Strength,Difficulty Following Directions, Incoordination,Poor Balance, Poor Safety Awareness Comments Gait Comments Pt's gait is magnetic in nature and step-through. RLE does have some erythema and edema. Ongoing cues from PT to step bigger and to clear her feet with gait and she can correct for a few steps. 100' x2 today Stair Climbing Assessment Evaluation Level of Assist On Stairs Standby Assistance Devices Stair Climbing Assistive Devices Left Railing,Right Railing Technique/Endurance Stair Climbing Direction Ascend and Descend Stair Climbing Technique Step to Step Number of Steps Climbed 3 Stair Climbing Set # Repetitions (reps) 1 Comments Stair Climbing Comments Decreased foot clearance, toe push off B PT-Balance Assessment Sitting Balance and Reactions Static Sitting Balance Ability Good Dynamic Sitting Balance Ability Good Standing Balance and Reactions Static Standing Balance Ability Good Dynamic Standing Balance Ability Fair Device Used RW M5 PT-IP Objective Assessments Start: 05/04/24 12:21 Freq: NEEDED Status: Active Protocol: Document 05/04/24 10:25 AB (Rec: 05/04/24 12:32 AB [id number]) Orientation Orientation/Cognition Level of Alertness Alert Orientation Name,Place,Situation Language Function Ability No Deficits Noted Safety Awareness Decreased Safety Awareness Gross Range of Motion Lower Extremity ROM Assessment Left Impaired Impairments pain limiting movement Strength Lower Extremity Strength Assessment Left Impaired Comments Strength Comments pain limiting movement Muscle Tone Muscle Tone WNL Yes M6 PT-IP Treatment Start: 05/04/24 12:21 Freq: NEEDED Status: Active Protocol: Document 05/06/24 12:12 MB (Rec: 05/06/24 12:46 MB [id number]) Physical Therapy Treatment Education Education Provided Safety M7 PT-IP Assessment and Plan Start: 05/04/24 12:21 Freq: NEEDED Status: Active Protocol: Document 05/06/24 12:12 MB (Rec: 05/06/24 12:46 MB [id number]) PT Summary Assessment and Plan Potential Rehabilitation Potential Good Status of Condition at Evaluation Evolving Summary Impairments Pain,ROM,Strength,Balance, Coordination,Sensation,Tone, Bed Mobility,Transfers,Gait, Activity Tolerance Progress Towards Goals Progressing Toward Goals Assessment Summary Pt appears to be moving better today and she gait trains 100 'x2 in hallway with RW. She does frequently slow down and have to correct direction of RW. She performs steps with SBA today. Goals Bed Mobility Goal Independent Transfer Goal Independent,Front Wheeled Walker,Four Wheeled Walker Gait Goal Independent,Front Wheel Walker ,Four Wheel Walker Gait Distance 150 Other Goals Ascend and descend 3 steps with rails and I. Frequency of Treatment Frequency Of Treatment Once a Day Treatment Plan Physical Therapy Treatment Plan Bed Mobility Training,Transfer Training,Gait Training, Therapeutic Exercise,Balance Retraining,Discharge Planning, Hot or Cold Pack,Neuromuscular Re-ed,Coordination Retraining ,Manual Therapy Precautions Other Precautions Falls Recommendations To Nursing Amount of Assist Needed 1 Person Assist Discharge Recommendations PT Discharge Recommendations Home with Assistance,Home Health Transportation Needs at Discharge Private Vehicle
--- NOTE | 2024-05-06 13:45 | CM.DPC ---
DCP Cont: Patient worked with P.T, at this time, she wants to go home, versus [facility]. Met with patient, introduced self and role, discussed home health services, brought in Medicare choice list. She indicated, she thinks she used [facility] before, chose [facility]. Gave her brochure, and left a message with [facility] to let them know about referral, and also sent referral, ordered P.T, RN, O.T. Faxed over face sheet, orders, face to face, DC Summary. In the message to [facility], wanted to ensure they can accept patient and take her insurance. Christy Aaron, [employer]/Hvac Engineer
== END 2024-05-06 16:37 | disposition home or self-care (01) ==
LOC: ED 20:10 → AC 22:10
PROVIDERS: Internal Medicine; Admitting Provider Internal Medicine; Emergency Provider Emergency Medicine; PCP Physician Assistant; Referring Provider Emergency Medicine; Visit Provider Internal Medicine
DX: N39.0 Urinary tract infection, site not specified (principal); B96.1 Klebsiella pneumoniae [K. pneumoniae] as the cause of diseases classified elsewhere; G93.41 Metabolic encephalopathy; E11.69 Type 2 diabetes mellitus with other specified complication; N39.46 Mixed incontinence; Z78.9 Other specified health status; Z74.09 Other reduced mobility; Z79.4 Long term (current) use of insulin; Z11.52 Encounter for screening for COVID-19
CPT/HCPCS: 36415; 71045; 71275; 73560; 80048; 80053; 81001; 82962; 83605; 83690; 84145; 84550; 85025; 85610; 85730; 87040; 87077; 87086; 87186; 87633; 94762; 96361; 96365; 96366; 96372; 96375; 96376; 97116; 97162; 97166; 97530; 97535; 99285; G0378; J0696; J1650; J1885; Q9967

== ENCOUNTER 2025-09-04 14:09 | Inpatient (IN) | payer MEDICARE, SELFPAY ==
[2024-05-03 22:08] VITALS: BMI 30.7
[2025-09-04] VITALS (11 sets, daily range): BP systolic 124–161; BP diastolic 62–82; PULSE 109–133; RESP 16–20; TEMP 37.2–39.4; O2SAT 92–96
--- NOTE | 2025-09-04 14:55 | PC.NURSE ---
Code Sepsis called.
--- NOTE | 2025-09-04 14:56 | DI.RAD.S_ITS ---
PROCEDURE: XR CHEST 1V INDICATIONS: suspected sepsis TECHNIQUE: One view of the chest was acquired. COMPARISON: [facility], CR, XR CHEST 1V, 05/03/2024, 19:55. FINDINGS: Surgical changes and devices: None. Lungs and pleura: Lungs are clear. No pleural effusions or pneumothorax. Mediastinum: Mediastinal contours appear normal. Heart size is normal. Unchanged appearance of right hemidiaphragm elevation. Bones and chest wall: No suspicious bony lesions. Overlying soft tissues appear unremarkable. IMPRESSION: No acute pulmonary process. Dictated by: Ragini Rollins M.D. on 09/04/2025 at 15:19 Approved by: Ragini Rollins M.D. on 09/04/2025 at 15:20
--- NOTE | 2025-09-04 15:00 | EKG_ITS ---
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
--- NOTE | 2025-09-04 15:08 | ED.GENADULT ---
HPI - General Adult <Yolanda Castle MD - Last Filed: 09/10/25 02:07> General Chief complaint: Fever Stated complaint: weakness, 4-days, hard to walk Time Seen by Provider: 09/04/25 15:03 Source: patient Mode of arrival: Ambulatory History of Present Illness HPI narrative: 75-year-old woman with a history of diabetes started on monitor no 3 weeks ago, hypertension, hyperlipidemia brought in by her neighbor with concerns that she is unable to walk, she has not been eating this week she is increasingly lethargic not making sense. Symptoms have been progressive over the week. In triage she was found to be significantly tachycardic and febrile. Patient says that she does not feel well but isn't able to give much additional history. She thinks that she might have a urinary tract infection but has no dysuria or abdominal pain. She states she does hurt but can not describe where the pain is suggests maybe she has a headache. Unable to obtain much more of review of systems given her altered mental status. Related Data Home Medications ?Medication ?Instructions ?Recorded ?Confirmed aspirin 81 mg tablet,delayed 81 mg PO QPM 05/11/18 09/05/25 release metformin 1,000 mg tablet 1 tab PO BID 05/11/18 09/05/25 rosuvastatin 20 mg tablet 20 mg PO QPM 08/08/23 09/05/25 duloxetine 60 mg capsule,delayed 60 mg PO DAILY 03/25/24 09/05/25 release insulin glargine 100 unit/mL (3 27 unit SUBCUT DAILY 03/25/24 09/05/25 mL) subcutaneous pen (Lantus Solostar U-100 Insulin) losartan 100 1 tab PO DAILY 03/25/24 09/05/25 mg-hydrochlorothiazide 12.5 mg tablet metoprolol succinate 50 mg 50 mg PO DAILY 03/25/24 09/05/25 tablet,extended release 24 hr amlodipine 5 mg tablet 5 mg PO DAILY 05/03/24 09/05/25 Previous Rx's ?Medication ?Instructions ?Recorded meloxicam 15 mg tablet 15 mg PO DAILY #30 tabs 05/06/24 cephalexin 500 mg capsule 500 mg PO Q12H #10 caps 09/06/25 Allergies Allergy/AdvReac Type Severity Reaction Status Date / Time No Known Drug Allergies Allergy Verified 09/04/25 14:46 Patient History <Yolanda Castle MD - Last Filed: 09/10/25 02:07> Medical History Melanoma (~2019) Depression (~2015) Osteoporosis (~2018) Foot pain (~2019) Carpal tunnel syndrome (~2013) Measles Chicken pox Vertigo Retinal detachment (~2017) Cataracts, bilateral (~2018) Diabetes mellitus (~1989) Healthy adult Surgical History Anesthesia History of removal of cyst (~1978) History of carpal tunnel release (~2013) History of partial thyroidectomy (~1979) History of eye surgery (~2017) History of cataract removal with insertion of prosthetic lens (~2020) Family History Father Cancer Mother Diabetes mellitus Hypertension Brother Diabetes mellitus Brother Diabetes mellitus Family/Other Diabetes mellitus Hypertension Social History household members: other Smoking Status: Never smoker alcohol intake: current Smoking Status: Never smoker alcohol intake frequency: holidays/special occasions only Exam <Yolanda Castle MD - Last Filed: 09/10/25 02:07> Initial Vital Signs Initial Vital Signs: Vital Signs Temperature 102.9 F H 09/04/25 14:44 Pulse Rate 133 H 09/04/25 14:44 Respiratory Rate 18 09/04/25 14:44 Blood Pressure 124/62 09/04/25 14:44 Pulse Oximetry 96 09/04/25 14:44 Oxygen Delivery Method Room Air 09/04/25 14:44 <Chano Irvin MD - Last Filed: 09/05/25 05:08> Narrative Exam Narrative: GENERAL: Well-developed patient, in mild distress. HEAD: Atraumatic. Normocephalic. EYES: Pupils equal round and reactive. Extraocular motions intact. No scleral icterus. No injection or drainage. ENT: Nose without bleeding, purulent drainage. Throat without erythema, tonsillar hypertrophy or exudate. Airway patent. NECK: Trachea midline. Non tender CARDIOVASCULAR: Regular rate and rhythm without murmurs, gallops, or rubs. RESPIRATORY: Clear to auscultation. Breath sounds equal bilaterally. No wheezes, rales, or rhonchi. GASTROINTESTINAL: Abdomen soft, non-tender, nondistended. EXTREMITIES: No edema or joint tenderness. BACK: Nontender without deformity or crepitance. No flank tenderness. NEURO: AOx3. Motor functions grossly nonfocal. SKIN: No rash or erythema of visible areas Initial Vital Signs Initial Vital Signs: Vital Signs Temperature 102.9 F H 09/04/25 14:44 Pulse Rate 133 H 09/04/25 14:44 Respiratory Rate 18 09/04/25 14:44 Blood Pressure 124/62 09/04/25 14:44 Pulse Oximetry 96 09/04/25 14:44 Oxygen Delivery Method Room Air 09/04/25 14:44 Course <Yolanda Castle MD - Last Filed: 09/10/25 02:07> Orders Ordered: Discontinued Medications Amlodipine Besylate (Amlodipine 5 Mg Tablet) 5 mg PO DAILY [facility] Aspirin (Aspirin Ec 81 Mg Tablet) 81 mg PO QPM [facility] Atorvastatin Calcium (Atorvastatin 20 Mg Tablet) 40 mg PO BEDTIME [facility] Last Admin: 09/05/25 21:15 Dose: 40 mg Documented By: NATASHA Bisacodyl (Bisacodyl 10 Mg Supp) 10 mg ND DAILY PRN PRN Reason: Constipation Fentanyl (Fentanyl 100 Mcg/2 Ml Inj) 25 mcg IV Q5MIN PRN PRN Reason: Pain, Moderate (4-6) Sodium Chloride (Normal Saline 0.9%) 1,000 mls @ 1,000 mls/hr IV BOLUS ONE Stop: 09/04/25 15:55 Last Admin: 09/04/25 15:41 Dose: Not Given Documented By: FUNMI Sodium Chloride (Normal Saline 0.9%) 2,041.17 mls @ 1,360.78 mls/hr 30 ml/kg infuse over 90 min (2041.17 ml) IV NOW ONE Stop: 09/04/25 16:39 Last Infusion: 09/04/25 17:58 Dose: Infused Documented By: Admin: 09/04/25 15:25 Dose: 1,360.78 mls/hr Documented By: FUNMI Ceftriaxone Sodium 2,000 mg/ (Sodium Chloride) 100 mls @ 200 mls/hr IV STAT ONE Stop: 09/04/25 15:11 Last Infusion: 09/04/25 16:33 Dose: Infused Documented By: Admin: 09/04/25 15:39 Dose: 200 mls/hr Documented By: FUNMI Dextrose/Sodium Chloride (Dextrose 5%-0.45% Ns) 1,000 mls @ 100 mls/hr IV CONT [facility] Last Infusion: 09/05/25 21:10 Dose: Infused Documented By: Admin: 09/05/25 10:16 Dose: 100 mls/hr Documented By: Infusion: 09/05/25 09:00 Dose: Infused Documented By: Admin: 09/04/25 23:00 Dose: 100 mls/hr Documented By: FUNMI Acetaminophen (Ofirmev) 1,000 mg in 100 mls @ 400 mls/hr IV Q6H PRN PRN Reason: Fever/Mild Pain (1-3) Last Infusion: 09/05/25 14:49 Dose: Infused Documented By: Admin: 09/05/25 14:44 Dose: 400 mls/hr Documented By: Infusion: 09/05/25 04:01 Dose: Infused Documented By: Admin: 09/05/25 02:15 Dose: 400 mls/hr Documented By: ELIZABETH Dextrose (D10w) 100 mls @ 1,200 mls/hr IV PRN PRN PRN Reason: Hypoglycemia Ceftriaxone Sodium 1,000 mg/ (Sodium Chloride) 100 mls @ 200 mls/hr IV Q24H [facility] Last Admin: 09/05/25 21:08 Dose: Not Given Documented By: NATASHA POTASSIUM CHLORIDE IN WATER (Potassium Cl 10 Meq/100 Ml Haleigh) 10 meq in 100 mls @ 100 mls/hr IV Q1H [facility] Stop: 09/05/25 14:59 Last Admin: 09/05/25 21:03 Dose: Not Given Documented By: Admin: 09/05/25 21:03 Dose: Not Given Documented By: Infusion: 09/05/25 14:53 Dose: Infused Documented By: Admin: 09/05/25 12:57 Dose: 100 mls/hr Documented By: Infusion: 09/05/25 12:48 Dose: Infused Documented By: Admin: 09/05/25 11:48 Dose: 100 mls/hr Documented By: SHANTANU Lactated Ringer's (Lactated Ringers) 1,000 mls @ 42 mls/hr IV CONT [facility] Last Infusion: 09/05/25 21:05 Dose: Infused Documented By: Admin: 09/05/25 14:53 Dose: 42 mls/hr Documented By: HAJA Ceftriaxone Sodium 1,000 mg/ (Sodium Chloride) 100 mls @ 200 mls/hr IV Q24H [facility] Insulin Glargine (Insulin Glargine 100 Unit/Ml 3ml Pen) 27 unit SUBCUT DAILY [facility] Insulin Human Lispro (Insulin Lispro 100 Unit/Ml 3ml Vial) 0 unit SUBCUT Q6H [facility]; Protocol Last Admin: 09/05/25 04:16 Dose: Not Given Documented By: Admin: 09/04/25 21:46 Dose: Not Given Documented By: FUNMI Insulin Human Lispro (Insulin Lispro 100 Unit/Ml 3ml Vial) 0 unit SUBCUT Q6H [facility]; Protocol Last Admin: 09/05/25 21:11 Dose: Not Given Documented By: Admin: 09/05/25 10:20 Dose: Not Given Documented By: Admin: 09/05/25 04:35 Dose: 1 unit Documented By: ELIZABETH Co-signed By: DADA Insulin Human Lispro (Insulin Lispro 100 Unit/Ml 3ml Vial) 0 unit SUBCUT ACHS [facility]; Protocol Last Admin: 09/05/25 21:16 Dose: Not Given Documented By: NATASHA Iopamidol (Iopamidol 30 Ml Vial) 30 ml INJ NOW ONE Stop: 09/05/25 17:06 Last Admin: 09/05/25 17:05 Dose: 5 ml Documented By: TITUS Metoprolol Succinate (Metoprolol Er 50 Mg Tablet) 50 mg PO DAILY [facility] Naloxone HCl (Naloxone 0.4 Mg/Ml Vial) 0.2 mg IV Q2MIN PRN PRN Reason: Opiate Reversal Non-Formulary Medication (Rosuvastatin) 20 mg PO QPM [facility] Ondansetron HCl (Ondansetron 4 Mg/2 Ml Inj) 4 mg IV NOW PRN PRN Reason: Nausea And Vomiting Ondansetron HCl (Ondansetron 4 Mg Odt) 4 mg PO NOW PRN PRN Reason: Nausea And Vomiting Ondansetron HCl (Ondansetron 4 Mg/2 Ml Inj) 4 mg IV Q8HR PRN PRN Reason: Nausea And Vomiting Ondansetron HCl (Ondansetron 4 Mg/2 Ml Inj) 4 mg IV Q15MIN PRN PRN Reason: Nausea And Vomiting Oxycodone HCl (Oxycodone Ir 5 Mg Tablet) 5 mg PO NOW ONE Stop: 09/05/25 17:16 Last Admin: 09/05/25 21:10 Dose: Not Given Documented By: NATASHA Potassium Chloride (Potassium Chloride 20 Meq Tab) 40 meq PO NOW ONE Stop: 09/05/25 15:01 Last Admin: 09/05/25 21:11 Dose: Not Given Documented By: MM Vital Signs Vital signs: Vital Signs - 8 hr 09/04/25 14:44 09/04/25 15:30 09/04/25 16:30 Temperature 102.9 F H 101 F H Pulse Rate 133 H 125 H 113 H Respiratory Rate 18 18 18 Blood Pressure 124/62 143/82 H 147/68 H Pulse Oximetry 96 92 93 Oxygen Delivery Method Room Air Room Air Room Air 09/04/25 17:00 09/04/25 18:00 09/04/25 18:30 Temperature 99.0 F Pulse Rate 118 H 109 H Respiratory Rate 18 16 Blood Pressure 144/82 H 161/74 H 157/76 H Pulse Oximetry 94 95 Oxygen Delivery Method Room Air Room Air <Chano Irvin MD - Last Filed: 09/05/25 05:08> Orders Ordered: Discontinued Medications Amlodipine Besylate (Amlodipine 5 Mg Tablet) 5 mg PO DAILY [facility] Aspirin (Aspirin Ec 81 Mg Tablet) 81 mg PO QPM [facility] Atorvastatin Calcium (Atorvastatin 20 Mg Tablet) 40 mg PO BEDTIME [facility] Last Admin: 09/05/25 21:15 Dose: 40 mg Documented By: NATASHA Bisacodyl (Bisacodyl 10 Mg Supp) 10 mg ND DAILY PRN PRN Reason: Constipation Fentanyl (Fentanyl 100 Mcg/2 Ml Inj) 25 mcg IV Q5MIN PRN PRN Reason: Pain, Moderate (4-6) Sodium Chloride (Normal Saline 0.9%) 1,000 mls @ 1,000 mls/hr IV BOLUS ONE Stop: 09/04/25 15:55 Last Admin: 09/04/25 15:41 Dose: Not Given Documented By: FUNMI Sodium Chloride (Normal Saline 0.9%) 2,041.17 mls @ 1,360.78 mls/hr 30 ml/kg infuse over 90 min (2041.17 ml) IV NOW ONE Stop: 09/04/25 16:39 Last Infusion: 09/04/25 17:58 Dose: Infused Documented By: Admin: 09/04/25 15:25 Dose: 1,360.78 mls/hr Documented By: FUNMI Ceftriaxone Sodium 2,000 mg/ (Sodium Chloride) 100 mls @ 200 mls/hr IV STAT ONE Stop: 09/04/25 15:11 Last Infusion: 09/04/25 16:33 Dose: Infused Documented By: Admin: 09/04/25 15:39 Dose: 200 mls/hr Documented By: FUNMI Dextrose/Sodium Chloride (Dextrose 5%-0.45% Ns) 1,000 mls @ 100 mls/hr IV CONT [facility] Last Infusion: 09/05/25 21:10 Dose: Infused Documented By: Admin: 09/05/25 10:16 Dose: 100 mls/hr Documented By: Infusion: 09/05/25 09:00 Dose: Infused Documented By: Admin: 09/04/25 23:00 Dose: 100 mls/hr Documented By: FUNMI Acetaminophen (Ofirmev) 1,000 mg in 100 mls @ 400 mls/hr IV Q6H PRN PRN Reason: Fever/Mild Pain (1-3) Last Infusion: 09/05/25 14:49 Dose: Infused Documented By: Admin: 09/05/25 14:44 Dose: 400 mls/hr Documented By: Infusion: 09/05/25 04:01 Dose: Infused Documented By: Admin: 09/05/25 02:15 Dose: 400 mls/hr Documented By: ELIZABETH Dextrose (D10w) 100 mls @ 1,200 mls/hr IV PRN PRN PRN Reason: Hypoglycemia Ceftriaxone Sodium 1,000 mg/ (Sodium Chloride) 100 mls @ 200 mls/hr IV Q24H [facility] Last Admin: 09/05/25 21:08 Dose: Not Given Documented By: NATASHA POTASSIUM CHLORIDE IN WATER (Potassium Cl 10 Meq/100 Ml Haleigh) 10 meq in 100 mls @ 100 mls/hr IV Q1H [facility] Stop: 09/05/25 14:59 Last Admin: 09/05/25 21:03 Dose: Not Given Documented By: Admin: 09/05/25 21:03 Dose: Not Given Documented By: Infusion: 09/05/25 14:53 Dose: Infused Documented By: Admin: 09/05/25 12:57 Dose: 100 mls/hr Documented By: Infusion: 09/05/25 12:48 Dose: Infused Documented By: Admin: 09/05/25 11:48 Dose: 100 mls/hr Documented By: SHANTANU Lactated Ringer's (Lactated Ringers) 1,000 mls @ 42 mls/hr IV CONT [facility] Last Infusion: 09/05/25 21:05 Dose: Infused Documented By: Admin: 09/05/25 14:53 Dose: 42 mls/hr Documented By: HAJA Ceftriaxone Sodium 1,000 mg/ (Sodium Chloride) 100 mls @ 200 mls/hr IV Q24H [facility] Insulin Glargine (Insulin Glargine 100 Unit/Ml 3ml Pen) 27 unit SUBCUT DAILY [facility] Insulin Human Lispro (Insulin Lispro 100 Unit/Ml 3ml Vial) 0 unit SUBCUT Q6H [facility]; Protocol Last Admin: 09/05/25 04:16 Dose: Not Given Documented By: Admin: 09/04/25 21:46 Dose: Not Given Documented By: FUNMI Insulin Human Lispro (Insulin Lispro 100 Unit/Ml 3ml Vial) 0 unit SUBCUT Q6H [facility]; Protocol Last Admin: 09/05/25 21:11 Dose: Not Given Documented By: Admin: 09/05/25 10:20 Dose: Not Given Documented By: Admin: 09/05/25 04:35 Dose: 1 unit Documented By: ELIZABETH Co-signed By: DADA Insulin Human Lispro (Insulin Lispro 100 Unit/Ml 3ml Vial) 0 unit SUBCUT ACHS [facility]; Protocol Last Admin: 09/05/25 21:16 Dose: Not Given Documented By: NATASHA Iopamidol (Iopamidol 30 Ml Vial) 30 ml INJ NOW ONE Stop: 09/05/25 17:06 Last Admin: 09/05/25 17:05 Dose: 5 ml Documented By: TITUS Metoprolol Succinate (Metoprolol Er 50 Mg Tablet) 50 mg PO DAILY [facility] Naloxone HCl (Naloxone 0.4 Mg/Ml Vial) 0.2 mg IV Q2MIN PRN PRN Reason: Opiate Reversal Non-Formulary Medication (Rosuvastatin) 20 mg PO QPM [facility] Ondansetron HCl (Ondansetron 4 Mg/2 Ml Inj) 4 mg IV NOW PRN PRN Reason: Nausea And Vomiting Ondansetron HCl (Ondansetron 4 Mg Odt) 4 mg PO NOW PRN PRN Reason: Nausea And Vomiting Ondansetron HCl (Ondansetron 4 Mg/2 Ml Inj) 4 mg IV Q8HR PRN PRN Reason: Nausea And Vomiting Ondansetron HCl (Ondansetron 4 Mg/2 Ml Inj) 4 mg IV Q15MIN PRN PRN Reason: Nausea And Vomiting Oxycodone HCl (Oxycodone Ir 5 Mg Tablet) 5 mg PO NOW ONE Stop: 09/05/25 17:16 Last Admin: 09/05/25 21:10 Dose: Not Given Documented By: MM Potassium Chloride (Potassium Chloride 20 Meq Tab) 40 meq PO NOW ONE Stop: 09/05/25 15:01 Last Admin: 09/05/25 21:11 Dose: Not Given Documented By: MM Vital Signs Vital signs: Vital Signs - 8 hr 09/04/25 14:44 09/04/25 15:30 09/04/25 16:30 Temperature 102.9 F H 101 F H Pulse Rate 133 H 125 H 113 H Respiratory Rate 18 18 18 Blood Pressure 124/62 143/82 H 147/68 H Pulse Oximetry 96 92 93 Oxygen Delivery Method Room Air Room Air Room Air 09/04/25 17:00 09/04/25 18:00 09/04/25 18:30 Temperature 99.0 F Pulse Rate 118 H 109 H Respiratory Rate 18 16 Blood Pressure 144/82 H 161/74 H 157/76 H Pulse Oximetry 94 95 Oxygen Delivery Method Room Air Room Air Medical Decision Making <Yolanda Castle MD - Last Filed: 09/10/25 02:07> Lab Data 09/05/25 08:10 09/06/25 05:27 Labs: Lab Results 09/04/25 09/04/25 Range/Units 15:08 15:21 WBC 21.4 H (4.5-11.0) X10^3/uL RBC 4.83 (4.0-5.2) X10^6/uL Hgb 12.4 (12.0-16.0) g/dL Hct 38.0 (36-46) % MCV 78.7 L (80-100) fL MCH 25.6 L (26-34) PG MCHC 32.6 (30-36) % RDW 16.0 H (11.6-14.8) % Plt Count 295 (150-400) X10^3/uL Neut % (Auto) 86.7 H (50-75) % Lymph % (Auto) 3.9 L (25-40) % King % (Auto) 8.8 (3-14) % Eos % (Auto) 0.0 L (2-4) % Baso % (Auto) 0.6 (0-2) % Neut # (Auto) 31864 H (4939-0905) /uL Lymph # (Auto) 800 L (1933-4030) /uL King # (Auto) 1900 H (0-900) /uL Eos # (Auto) 0 (0-450) /uL Baso # (Auto) 100 (0-100) /uL PT 12.9 H (9.4-12.5) SECONDS INR 1.1 (0.9-1.3) APTT 27 (25.1-36.5) SECONDS Sodium 137 (137-145) mmol/L Potassium 3.5 (3.4-5.1) mmol/L Chloride 101 (98-107) mmol/L Carbon Dioxide 24 (22-32) mmol/L BUN 34 H (7-17) mg/dL Creatinine 1.00 (0.52-1.04) mg/dL Estimated GFR 59 L (>60) mL/min BUN/Creatinine Ratio 34.0 H (6-22) Glucose 254 H (70-99) mg/dL Lactate 1.8 (0.7-2.1) mmol/L Calcium 9.5 (8.4-10.2) mg/dL Total Bilirubin 0.5 (0.2-1.3) mg/dL AST 22 (14-36) IU/L ALT 23 (<35) IU/L Alkaline Phosphatase 87 (38-126) U/L Total Protein 7.5 (6.3-8.2) g/dL Albumin 4.3 (3.5-5.0) g/dL Globulin 3.2 (1.7-4.1) g/dL Albumin/Globulin Ratio 1.3 (1.0-2.8) Lipase 189 (23-300) U/L Procalcitonin 0.187 (<0.5) ng/mL Urine Color Yellow Urine Appearance Cloudy Urine pH 6.5 (4.5-8.0) Ur Specific Stevinson 1.020 (1.000-1.035) Urine Protein 3+ H (Negative) Urine Glucose (UA) Negative (Negative) g/dL Urine Ketones 1+ H (NEGATIVE) Urine Occult Blood 3+ H (Negative) Urine Nitrate Negative (Negative) Urine Bilirubin Negative (NEGATIVE) Urine Urobilinogen 0.2 (0.2) E.U./dL Ur Leukocyte Esterase 2+ H (NEGATIVE) Urine RBC None seen (0-5/HPF) Urine WBC >100/hpf H (0-5/HPF) Ur Squamous Epith Cells 5-10 /hpf H (0-5/HPF) Ur Transition Epith Cell 0-1/hpf (0-5/HPF) Urine Bacteria Moderate (10-30) H (None) Ur Culture Indicated? Specimen cultured Vol Urine Centrifuged 10ml (spun) <Chano Irvin MD - Last Filed: 09/05/25 05:08> Lab Data Lab results reviewed: Yes I reviewed the patient's lab results. Lab results narrative: White blood cell count 65663, hemoglobin 12.4, platelets adequate. Glucose 254. BUN 34 with creatinine 1.0, normal serum CO2, normal electrolytes. Liver functions and lipase normal. Procalcitonin 0.187 not elevated. Lactate 1.8 not elevated. Urinalysis with laboratory cells and bacteria, not obviously contaminated, suspicious for UTI, urine culture triggered. Labs: Lab Results 09/04/25 09/04/25 Range/Units 15:08 15:21 WBC 21.4 H (4.5-11.0) X10^3/uL RBC 4.83 (4.0-5.2) X10^6/uL Hgb 12.4 (12.0-16.0) g/dL Hct 38.0 (36-46) % MCV 78.7 L (80-100) fL MCH 25.6 L (26-34) PG MCHC 32.6 (30-36) % RDW 16.0 H (11.6-14.8) % Plt Count 295 (150-400) X10^3/uL Neut % (Auto) 86.7 H (50-75) % Lymph % (Auto) 3.9 L (25-40) % King % (Auto) 8.8 (3-14) % Eos % (Auto) 0.0 L (2-4) % Baso % (Auto) 0.6 (0-2) % Neut # (Auto) 15572 H (3265-3138) /uL Lymph # (Auto) 800 L (8561-1222) /uL King # (Auto) 1900 H (0-900) /uL Eos # (Auto) 0 (0-450) /uL Baso # (Auto) 100 (0-100) /uL PT 12.9 H (9.4-12.5) SECONDS INR 1.1 (0.9-1.3) APTT 27 (25.1-36.5) SECONDS Sodium 137 (137-145) mmol/L Potassium 3.5 (3.4-5.1) mmol/L Chloride 101 (98-107) mmol/L Carbon Dioxide 24 (22-32) mmol/L BUN 34 H (7-17) mg/dL Creatinine 1.00 (0.52-1.04) mg/dL Estimated GFR 59 L (>60) mL/min BUN/Creatinine Ratio 34.0 H (6-22) Glucose 254 H (70-99) mg/dL Lactate 1.8 (0.7-2.1) mmol/L Calcium 9.5 (8.4-10.2) mg/dL Total Bilirubin 0.5 (0.2-1.3) mg/dL AST 22 (14-36) IU/L ALT 23 (<35) IU/L Alkaline Phosphatase 87 (38-126) U/L Total Protein 7.5 (6.3-8.2) g/dL Albumin 4.3 (3.5-5.0) g/dL Globulin 3.2 (1.7-4.1) g/dL Albumin/Globulin Ratio 1.3 (1.0-2.8) Lipase 189 (23-300) U/L Procalcitonin 0.187 (<0.5) ng/mL Urine Color Yellow Urine Appearance Cloudy Urine pH 6.5 (4.5-8.0) Ur Specific Stevinson 1.020 (1.000-1.035) Urine Protein 3+ H (Negative) Urine Glucose (UA) Negative (Negative) g/dL Urine Ketones 1+ H (NEGATIVE) Urine Occult Blood 3+ H (Negative) Urine Nitrate Negative (Negative) Urine Bilirubin Negative (NEGATIVE) Urine Urobilinogen 0.2 (0.2) E.U./dL Ur Leukocyte Esterase 2+ H (NEGATIVE) Urine RBC None seen (0-5/HPF) Urine WBC >100/hpf H (0-5/HPF) Ur Squamous Epith Cells 5-10 /hpf H (0-5/HPF) Ur Transition Epith Cell 0-1/hpf (0-5/HPF) Urine Bacteria Moderate (10-30) H (None) Ur Culture Indicated? Specimen cultured Vol Urine Centrifuged 10ml (spun) Imaging Data Chest x-ray: Radiologist's Impression: [address] [address] XRay Report Signed Patient: Tori Cohen MR#: [id number] : 1950 Acct:[id number] Age/Sex: 75 / F Date of Service: 09/04/25 Loc: ED Accession Number: [id number] Procedure: XR chest 1V Ordering Provider: Yolanda Castle MD PROCEDURE: XR CHEST 1V INDICATIONS: suspected sepsis TECHNIQUE: One view of the chest was acquired. COMPARISON: [facility], , XR CHEST 1V, 05/03/2024, 19:55. FINDINGS: Surgical changes and devices: None. Lungs and pleura: Lungs are clear. No pleural effusions or pneumothorax. Mediastinum: Mediastinal contours appear normal. Heart size is normal. Unchanged appearance of right hemidiaphragm elevation. Bones and chest wall: No suspicious bony lesions. Overlying soft tissues appear unremarkable. IMPRESSION: No acute pulmonary process. Dictated by: Ragini Rollins M.D. on 09/04/2025 at 15:19 Approved by: Ragini Rollins M.D. on 09/04/2025 at 15:20 CT scan - abdomen/pelvis: Radiologist's Impression: [address] [address] [address] Scan Report Signed Patient: Tori Cohen MR#: [id number] : 1950 Acct:[id number] Age/Sex: 75 / F Date of Service: 09/04/25 Loc: ED Accession Number: [id number] Procedure: CT abdomen pelvis wo con Ordering Provider: Chano Irvin MD PROCEDURE: CT ABDOMEN PELVIS WO CON INDICATIONS: sepsis, UTI, hx kidney stones TECHNIQUE: CT of the abdomen and pelvis was obtained without intravenous contrast. Coronal and sagittal reformats were performed. For radiation dose reduction, the following was used: automated exposure control, adjustment of mA and/or kV according to patient size. COMPARISON: [facility], CT, CT ABDOMEN PELVIS W CON, 08/08/2023, 13:15. FINDINGS: Image quality: Diagnostic. Lower Chest: No significant findings. ABDOMEN: Liver: No contour-deforming mass. Gallbladder: No radiopaque gallstones or wall thickening. Biliary ducts: No biliary dilation. Pancreas: No ductal dilation. Spleen: Size is within normal limits. Adrenal Glands: No adrenal nodules. Kidneys and Ureters: Branching calculus is seen at the superior pole of the left kidney measuring up to 16 mm in craniocaudal dimension. Additional 5 mm left renal calculus. 2 mm nonobstructing right renal calculus at the interpolar region. There is a 2 mm calculus in the right proximal ureter. Moderate right hydronephrosis with periureteral and perinephric fat stranding. No contour-deforming mass. Stomach and Bowel: Moderate hiatal hernia. Scattered diverticula in the colon without signs of acute diverticulitis. Moderate to large volume of stool in the colon. Small bowel loops are unremarkable. Peritoneum: No abnormal intraperitoneal fluid. No free air. Ventral Wall: No significant hernia. Abdominal Nodes: No retroperitoneal or mesenteric adenopathy by size criteria. Vessels: Aorta and inferior vena cava are normal in size. PELVIS: Pelvic Organs: A calcified uterine fibroid is present. Bladder: Gas is seen in the nondependent portion of the bladder. Pelvic Nodes: No enlarged lymph nodes. Miscellaneous: No inguinal hernias are seen. Bones: No aggressive osseous abnormality. 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 Right proximal femoral fixation hardware is present. IMPRESSION: 1. Small 2 mm calculus in the right proximal ureter with moderate proximal hydroureteronephrosis as well as periureteral and perinephric fat stranding. 2. Bilateral nonobstructing calculi including a branching staghorn calculus at the superior pole of the left kidney. No left hydronephrosis. 3. Gas in the nondependent portion of the bladder may be related to recent instrumentation versus infection with a gas-forming organism. 4. Colonic diverticulosis. Moderate hiatal hernia. Approved by: Ciro Lau M.D. on 09/04/2025 at 20:11 ECG Data Attestation: I personally reviewed and interpreted this ECG as follows: Interpretation: 1500, Sinus tachycardia with a rate of 132, no obvious ST segment elevation or depression changes. ND 154, QRS 90, QTC 441. MDM Narrative Medical decision making narrative: See initial history/HPI by Dr. Castle. Exam by me, no tenderness abdomen seems alert after IV fluids given prior, patient feels improved, family at bedside feel that patient seems improved. Patient does admit to history of UTI, also has had kidney stones in the past. Denies flank pain. Some headache, some dry cough. 75-year-old female with confusion, concerned that she might have UTI. No obvious trauma. Some altered mental status. Chest x-ray, labs including urinalysis pending. History of UTI in the past, given IV fluids, blood cultures, IV ceftriaxone for possible UTI coverage, urine culture has been requested. Fever with tachycardia, sepsis sirs screen positive, IV antibiotics and fluids initiated. Chest x-ray, no acute process. See radiology report. Lab data: White blood cell count 43340, hemoglobin 12.4, platelets adequate. Glucose 254. BUN 34 with creatinine 1.0, normal serum CO2, normal electrolytes. Liver functions and lipase normal. Procalcitonin 0.187 not elevated. Lactate 1.8 not elevated. Urinalysis with laboratory cells and bacteria, not obviously contaminated, suspicious for UTI, urine culture triggered. Urine suspicious for UTI, IV ceftriaxone and fluids given prior. White blood cell count elevated, but normal lactate and procalcitonin, sinus tachycardia without hypotension. Sepsis but not severe sepsis so far. History of diabetes on insulin. History of prior urinary calculi, we will obtain CT abdomen and pelvis to evaluate for obstructing ureteral stone. Patient agreeable. Symptomatically improved after IV fluids, see sepsis tab protocol, seems to be better perfused due to improvement of mental status. CT abdomen and pelvis pending. CT abdomen and pelvis. IMPRESSION: 1. Small 2 mm calculus in the right proximal ureter with moderate proximal hydroureteronephrosis as well as periureteral and perinephric fat stranding. 2. Bilateral nonobstructing calculi including a branching staghorn calculus at the superior pole of the left kidney. No left hydronephrosis. 3. Gas in the nondependent portion of the bladder may be related to recent instrumentation versus infection with a gas-forming organism. 4. Colonic diverticulosis. Moderate hiatal hernia. See radiology report. Small obstructing right proximal ureteral stone, in context of UTI, possible urosepsis, normotensive with tachycardia. Will consult Urology. She has urologist at [facility], but currently there is atmospheric river significant [facility] regional rainfall, recent land slide related road closure tonight near [facility] bridge on [place] between our two hospital facilities, can not transfer there for continuity of Urology care. Patient aware. Will contact our urologist on-call. 2019, case discussed with Urology Dr. Milligan, can admit here, keep NPO for possible ureteral stenting tomorrow. Admit to hospitalist service, he will consult. Will contact hospitalist. 2029, case discussed with hospitalist Dr. Louise who accepts patient for admission Critical Care Time <Chano Irvin MD - Last Filed: 09/05/25 05:08> Critical Care Time Critical Care Time: Yes Total Critical Care Time: 35 Attestation: The high probability of a clinically significant, sudden or life threatening deterioration of the [genitourinary, metabolic] system(s) required my full and direct attention, intervention and personal management. The aggregate critical care time was [35] minutes. This time is in addition to time spent performing reported procedures but includes the following: [x] Data Review and interpretation [x] Patient assessment and monitoring of vital signs [x] Documentation [x] Medication orders and management Discharge Plan Departure Patient Disposition: Admitted As Inpatient Clinical Impression: Right ureteral calculus, Sepsis, History of diabetes mellitus, Acute confusion Urinary tract infection Qualifiers: Urinary tract infection type: site unspecified Hematuria presence: without hematuria Qualified Code(s): N39.0 - Urinary tract infection, site not specified Admit Date/Time: 09/04/25 20:30 Admit Provider: Luis Pappas Sepsis Evaluation (ED) <Chano Irvin MD - Last Filed: 09/05/25 05:08> Level 1 - Infection Sepsis Infection Criteria Present: Suspected New Infection Level 2 - SIRS Sepsis SIRS Criteria Present: Temperature > 101.0 or < 96.8 F and WBC < 4k or > 12k or Bands > 10% Level 3 - Organ Dysfunction Sepsis Organ Dysfunction Criteria Present: New/Unexplained Change in Mental Status Response It is my opinion that this patient have a likely infectious etiology for meeting sepsis criteria: Does Fluid calculation based on 30 mL/kg within 1hr of criteria: ABW used Antibiotics initiated within 1 hr of Sepis dx: Yes Tissue Perfusion Reassessed within 6 hrs of infusion start time: Yes Date of Tissue Perfusion Reassessment completed: 09/04/25 Time Tissue Perfusion Reassessment completed: 18:44 (Improved mental status per patient and family members at bedside, after fluid bolus.)
[2025-09-04] MEDS: SODIUM CHLORIDE 0.9% 2,041.17 ML 1360.78 ML IV (15:25)
[2025-09-04 15:30] LABS: Add Manual Diff / Slide Review NO; Hematocrit 38.0 % (36-46); Hemoglobin 12.4 g/dL (12.0-16.0); Lymphocytes Absolute Auto 800 /uL (1100-4500); Mean Corpuscular HGB Conc 32.6 % (30-36); Mean Corpuscular Hemoglobin 25.6 PG (26-34); Mean Corpuscular Volume 78.7 fL (80-100); Platelet Count 295 X10^3/uL (150-400)
[2025-09-04 15:37] LABS: INR 1.1 (0.9-1.3); Prothrombin Time 12.9 SECONDS (9.4-12.5)
[2025-09-04] MEDS: cefTRIAXone 2,000 MG in SODIUM CHLORIDE 0.9% 100 ML 200 MG IV (15:39)
[2025-09-04 15:40] LABS: Lactate (Lactic Acid) 1.8 mmol/L (0.7-2.1); PTT Partial Thromboplastin Tim 27 SECONDS (25.1-36.5)
[2025-09-04 15:41] LABS: Alanine Aminotransferase 23 IU/L (<35); Albumin 4.3 g/dL (3.5-5.0); Albumin Globulin Ratio 1.3 (1.0-2.8); Alkaline Phosphatase 87 U/L (38-126); Blood Urea Nitrogen 34 mg/dL (7-17); Calcium 9.5 mg/dL (8.4-10.2); Carbon Dioxide 24 mmol/L (22-32); Chloride 101 mmol/L (98-107); Estimated Glomerular Filt Rate 59 mL/min (>60); Globulin 3.2 g/dL (1.7-4.1); Glucose 254 mg/dL (70-99); HEMOLYSIS < 15 (0-50); Lipase 189 U/L (23-300); Potassium 3.5 mmol/L (3.4-5.1); Sodium 137 mmol/L (137-145); Total Protein 7.5 g/dL (6.3-8.2)
[2025-09-04 15:58] LABS: Bilirubin Urine UA NEGATIVE (NEGATIVE); Color Urine UA YELLOW; Glucose Urine UA NEGATIVE (Negative); Ketones Urine UA 1+ (NEGATIVE); Leukocyte Esterase Urine UA 2+ (NEGATIVE); Nitrite Urine UA NEGATIVE (Negative); Occult Blood Urine UA 3+ (Negative); Protein Urine UA 3+ (Negative); Specific Gravity Urine UA 1.020 (1.000-1.035); Urobilinogen Urine UA 0.2 E.U./dL (0.2)
[2025-09-04 15:58] LABS: Procalcitonin 0.187 ng/mL (<0.5)
[2025-09-04 16:04] LABS: Appearance Urine UA CLOUDY; pH Urine UA 6.5 (4.5-8.0)
[2025-09-04 16:14] LABS: Culture Indicated Urine Specimen Cultured
--- NOTE | 2025-09-04 18:40 | DI.CT.S_ITS ---
PROCEDURE: CT ABDOMEN PELVIS WO CON INDICATIONS: sepsis, UTI, hx kidney stones TECHNIQUE: CT of the abdomen and pelvis was obtained without intravenous contrast. Coronal and sagittal reformats were performed. For radiation dose reduction, the following was used: automated exposure control, adjustment of mA and/or kV according to patient size. COMPARISON: [facility], CT, CT ABDOMEN PELVIS W CON, 08/08/2023, 13:15. FINDINGS: Image quality: Diagnostic. Lower Chest: No significant findings. ABDOMEN: Liver: No contour-deforming mass. Gallbladder: No radiopaque gallstones or wall thickening. Biliary ducts: No biliary dilation. Pancreas: No ductal dilation. Spleen: Size is within normal limits. Adrenal Glands: No adrenal nodules. Kidneys and Ureters: Branching calculus is seen at the superior pole of the left kidney measuring up to 16 mm in craniocaudal dimension. Additional 5 mm left renal calculus. 2 mm nonobstructing right renal calculus at the interpolar region. There is a 2 mm calculus in the right proximal ureter. Moderate right hydronephrosis with periureteral and perinephric fat stranding. No contour-deforming mass. Stomach and Bowel: Moderate hiatal hernia. Scattered diverticula in the colon without signs of acute diverticulitis. Moderate to large volume of stool in the colon. Small bowel loops are unremarkable. Peritoneum: No abnormal intraperitoneal fluid. No free air. Ventral Wall: No significant hernia. Abdominal Nodes: No retroperitoneal or mesenteric adenopathy by size criteria. Vessels: Aorta and inferior vena cava are normal in size. PELVIS: Pelvic Organs: A calcified uterine fibroid is present. Bladder: Gas is seen in the nondependent portion of the bladder. Pelvic Nodes: No enlarged lymph nodes. Miscellaneous: No inguinal hernias are seen. Bones: No aggressive osseous abnormality. 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 Right proximal femoral fixation hardware is present. IMPRESSION: 1. Small 2 mm calculus in the right proximal ureter with moderate proximal hydroureteronephrosis as well as periureteral and perinephric fat stranding. 2. Bilateral nonobstructing calculi including a branching staghorn calculus at the superior pole of the left kidney. No left hydronephrosis. 3. Gas in the nondependent portion of the bladder may be related to recent instrumentation versus infection with a gas-forming organism. 4. Colonic diverticulosis. Moderate hiatal hernia. Approved by: Ciro Lau M.D. on 09/04/2025 at 20:11
--- NOTE | 2025-09-04 20:54 | PM.HP.1 ---
History of Present Illness History of Present Illness Chief complaint: weakness, 4-days, hard to walk Narrative: 75 y/o with PMH of kidney stones, lithotripsy, recurrent UTIs, presented with obstructive ureteral stone and moderate hydronephrosis. Denies fever, chills, flank or abdominal pain, dysuria or renal colic. In the ED tachycardic, febrile, with leukocytosis, not hypotensive, received empiric Rocephin, IVFs. Admitted for urology procedure in the morning, NPO. [facility] Medical History Melanoma (~2019) Depression (~2015) Osteoporosis (~2018) Foot pain (~2019) Carpal tunnel syndrome (~2013) Measles Chicken pox Vertigo Retinal detachment (~2017) Cataracts, bilateral (~2018) Diabetes mellitus (~1989) Healthy adult Surgical History Anesthesia History of removal of cyst (~1978) History of carpal tunnel release (~2013) History of partial thyroidectomy (~1979) History of eye surgery (~2017) History of cataract removal with insertion of prosthetic lens (~2020) Family History Father Cancer Mother Diabetes mellitus Hypertension Brother Diabetes mellitus Brother Diabetes mellitus Family/Other Diabetes mellitus Hypertension Social History household members: none Smoking Status: Never smoker alcohol intake: current Meds Home Medications and Allergies Home Medications ?Medication ?Instructions ?Recorded ?Confirmed ?Type aspirin 81 mg tablet,delayed 81 mg PO QPM 05/11/18 05/04/24 History release metformin 1,000 mg tablet 1 tab PO BID 05/11/18 05/04/24 History rosuvastatin 20 mg tablet 20 mg PO QPM 08/08/23 05/04/24 History duloxetine 60 mg capsule,delayed 60 mg PO DAILY 03/25/24 05/05/24 History release insulin glargine 100 unit/mL (3 27 unit SUBCUT DAILY 03/25/24 05/04/24 History mL) subcutaneous pen (Lantus Solostar U-100 Insulin) losartan 100 1 tab PO DAILY 03/25/24 05/04/24 History mg-hydrochlorothiazide 12.5 mg tablet metoprolol succinate 50 mg 50 mg PO DAILY 03/25/24 05/04/24 History tablet,extended release 24 hr amlodipine 5 mg tablet 5 mg PO DAILY 05/03/24 05/04/24 History cephalexin 500 mg capsule 500 mg PO TID #27 caps 05/06/24 Rx meloxicam 15 mg tablet 15 mg PO DAILY #30 tabs 05/06/24 Rx Allergies Allergy/AdvReac Type Severity Reaction Status Date / Time No Known Drug Allergies Allergy Verified 09/04/25 14:46 Review of Systems Review of Systems Narrative: General - w/o fever, chills, sweats UG - w/o flank pain or dysuria, w/o hematuria CVS - w/o chest pain RS - w/o shortness of breath ABD - w/o abdominal pain Exam Vital Signs (past 8 hours): - 09/04/25 14:44 09/04/25 15:30 09/04/25 16:30 Temperature 102.9 F H 101 F H Pulse Rate 133 H 125 H 113 H Respiratory Rate 18 18 18 Blood Pressure 124/62 143/82 H 147/68 H Pulse Oximetry 96 92 93 Oxygen Delivery Method Room Air Room Air Room Air 09/04/25 17:00 09/04/25 18:00 09/04/25 18:30 Temperature 99.0 F Pulse Rate 118 H 109 H Respiratory Rate 18 16 Blood Pressure 144/82 H 161/74 H 157/76 H Pulse Oximetry 94 95 Oxygen Delivery Method Room Air Room Air Oxygen Delivery Method Room Air Narrative Exam Narrative: General - in no distress HEENT - normocephalic RS - normal respiratory effort CVS - tachycardic ABD - not tender Neuro - lucid, w/o deficits Objective ECG Impression: Sinus tachycardia [address] scan - abdomen: Radiologist's impression: 1. Small 2 mm calculus in the right proximal ureter with moderate proximal hydroureteronephrosis as well as periureteral and perinephric fat stranding. 2. Bilateral nonobstructing calculi including a branching staghorn calculus at the superior pole of the left kidney. No left hydronephrosis. 3. Gas in the nondependent portion of the bladder may be related to recent instrumentation versus infection with a gas-forming organism. 4. Colonic diverticulosis. Moderate hiatal hernia. Labs 09/04/25 15:08 09/04/25 15:08 Labs: Laboratory Results - last 24 hr 09/04/25 09/04/25 15:08 15:21 WBC 21.4 H RBC 4.83 Hgb 12.4 Hct 38.0 MCV 78.7 L MCH 25.6 L MCHC 32.6 RDW 16.0 H Plt Count 295 Neut % (Auto) 86.7 H Lymph % (Auto) 3.9 L [place] % (Auto) 8.8 Eos % (Auto) 0.0 L Baso % (Auto) 0.6 Neut # (Auto) 27641 H Lymph # (Auto) 800 L [place] # (Auto) 1900 H Eos # (Auto) 0 Baso # (Auto) 100 PT 12.9 H INR 1.1 APTT 27 Sodium 137 Potassium 3.5 Chloride 101 Carbon Dioxide 24 BUN 34 H Creatinine 1.00 Estimated GFR 59 L BUN/Creatinine Ratio 34.0 H Glucose 254 H Lactate 1.8 Calcium 9.5 Total Bilirubin 0.5 AST 22 ALT 23 Alkaline Phosphatase 87 Total Protein 7.5 Albumin 4.3 Globulin 3.2 Albumin/Globulin Ratio 1.3 Lipase 189 Procalcitonin 0.187 Urine Color Yellow Urine Appearance Cloudy Urine pH 6.5 Ur Specific [place] 1.020 Urine Protein 3+ H Urine Glucose (UA) Negative Urine Ketones 1+ H Urine Occult Blood 3+ H Urine Nitrate Negative Urine Bilirubin Negative Urine Urobilinogen 0.2 Ur Leukocyte Esterase 2+ H Urine RBC None seen Urine WBC >100/hpf H Ur Squamous Epith Cells 5-10 /hpf H Ur Transition Epith Cell 0-1/hpf Urine Bacteria Moderate (10-30) H Ur Culture Indicated? 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 insulin use: with prison use Diabetes mellitus complication status: with other specified complication Qualified Code(s): E11.69 - Type 2 diabetes mellitus with other specified complication; Z79.4 - director of field coordination (current) use of insulin Status: Acute (4) Depression: Qualifiers: Depression Type: unspecified Qualified Code(s): F32.A - Depression, unspecified Status: Acute (5) HTN (hypertension): Status: Acute (6) HLD (hyperlipidemia): Status: Acute Assessment & Plan narrative: Obstructing Rt ureteral stone / Rt pyelonephritis - NPO - IVFs - urology will see in AM - Rocephin IDDM - SS q 6 h - D51/2NS while NPO - home metformine, Lantus on hold HTN - home losartan / HCTZ, amlodipine and metoprolol on hold HLD - home statin held Depression - home duloxetine held DVT prophylaxis - SCDs Patient consented to telemedicine, audio-visual encounter with RN assisting during the exam. Patient located at [place], [place], provider located in [place]. Time-Based Coding :: [TOTAL MINUTES] spent with patient and on the chart (including review of chart, obtaining history, exam, reviewing outside data, placing orders, documenting exam and treatment plan, and counseling patient) on [DATE].
[2025-09-04] MEDS: DEXTROSE 5%-0.45% NS 1,000 ML 100 ML IV (23:00)
[2025-09-05] VITALS (11 sets, daily range): BP systolic 101–162; BP diastolic 56–88; PULSE 70–114; RESP 14–21; TEMP 35.9–38.2; O2SAT 92–98
--- NOTE | 2025-09-05 | DI.RAD.S_ITS ---
PROCEDURE: XR ABDOMEN MIN 2V INDICATIONS: RIGHT STENT PLACEMENT TECHNIQUE: 2 intraoperative fluoroscopic views of the abdomen were acquired. COMPARISON: [facility], CR, XR ABDOMEN 1V, 01/24/2023, 17:48. FINDINGS: Intraoperative fluoroscopic images shows contrast opacification of right renal collecting system and placement of a right-sided ureteral stent. IMPRESSION: Fluoro guidance was provided intraoperatively for right-sided ureteral stent placement performed by ordering physician. Dictated by: Zi Souza M.D. on 09/05/2025 at 17:29 Approved by: Zi Souza M.D. on 09/05/2025 at 17:29
[2025-09-05] MEDS: ACETAMINOPHEN IV 1,000 MG/100 ML VIAL 400 MG IV ×2 (02:15→14:44)
[2025-09-05] MEDS: INSULIN LISPRO 100 UNIT/ML 3ML VIAL SUBCUT (04:35)
--- NOTE | 2025-09-05 07:38 | P.CONS_ITS ---
History of Present Illness Consult details Date Patient Seen: 09/05/25 Time Patient Seen: 07:38 Chief complaint: weakness, 4-days, hard to walk Reason for consult: Right ureteral calculus, UTI Narrative: 75 y/o F brought into ER for evaluation of inability to walk, confusion and increasing lethargy as observed by her neighbor. Her symptoms were progressing throughout the week. She was unable to provide much history during her intake. Her evaluation was notable for a WBC of 21.4, sCr of 1.0 and a UA concerning for a UTI. Her CT KUB was notable for a 2mm right proximal ureterolith with resultant upstream moderate hydronephrosis and perinephric fat stranding (of note, also has a 2mm right midpole calyx as well as a 16mm left upper pole calculus). She was admitted for IVF and antibiotics and Urology was consulted regarding stone management. Briefly, she admits to a history of kidney stones in the past. Has never passed one on her own. Required ESWL x 1 in the past. She also admits to a history of Zora's, however, has not had one in years. Meds Home Medications and Allergies Home Medications ?Medication ?Instructions ?Recorded ?Confirmed ?Type aspirin 81 mg tablet,delayed 81 mg PO QPM 05/11/1806/19 History release metformin 1,000 mg tablet 1 tab PO BID 05/11/18 History rosuvastatin 20 mg tablet 20 mg PO QPM 08/08/23 History duloxetine 60 mg capsule,delayed 60 mg PO DAILY 05/05/24 History release insulin glargine 100 unit/mL (3 27 unit SUBCUT DAILY 0 03/25/24 05/04/24 History mL) subcutaneous pen (Lantus Solostar U-100 Insulin) losartan 100 1 tab PO DAILY 03/25/24 08/06/19 History mg-hydrochlorothiazide 12.5 mg tablet metoprolol succinate 50 mg 50 mg PO DAILY 03/25/2406/19 History tablet,extended release 24 hr amlodipine 5 mg tablet 5 mg PO DAILY 05/03/2405/04 History cephalexin 500 mg capsule 500 mg PO TID #27 caps 05/06 Rx meloxicam 15 mg tablet 15 mg PO DAILY #30 tabs 04/26 10/19 Rx Allergies Allergy/AdvReac Type Severity Reaction Status Date / Time No Known Drug Allergies Allergy Verified 09/04/25 14:46 Review of Systems Review of Systems Narrative: A complete ROS was completed with all pertinent positives and negatives documented in HPI. All other systems were reviewed and are negative. Exam Vital Signs (past 8 hours): - 09/05/25 01:15 09/05/25 01:54 09/05/25 02:15 Temperature 100.7 F H 100.3 F H Pulse Rate 114 H Respiratory Rate 15 Blood Pressure 101/56 L Pulse Oximetry 92 Oxygen Delivery Method Room Air 09/05/25 02:45 Temperature 97.5 F L Pulse Rate Respiratory Rate Blood Pressure Pulse Oximetry Oxygen Delivery Method Oxygen Delivery Method Room Air Narrative Exam Narrative: GEN: Alert and oriented X3. No acute distress. Well-nourished. EYES: PERRLA, EOMI. HENT: Moist mucus membranes, no scleral icterus, normal neck ROM. RESP: Unlabored breathing, equal rise and fall of chest bilaterally, no cyanosis appreciated. CV: No peripheral edema, unremarkable heart rate. ABD: Soft, non-tender, non-distended, no palpable masses. EXT: No edema, clubbing or cyanosis. SKIN: No rashes or lesions. NEURO: No focal neurologic deficits, CN II-XII grossly intact. PSYCH: Cooperative, appropriate mood and affect. Objective Labs 09/04/25 15:08 09/04/25 15:08 Labs: Laboratory Results - last 24 hr 09/04/25 09/04/25 09/04/25 15:08 15:21 21:44 WBC 21.4 H RBC 4.83 Hgb 12.4 Hct 38.0 MCV 78.7 L MCH 25.6 L MCHC 32.6 RDW 16.0 H Plt Count 295 Neut % (Auto) 86.7 H Lymph % (Auto) 3.9 L [place] % (Auto) 8.8 Eos % (Auto) 0.0 L Baso % (Auto) 0.6 Neut # (Auto) 01336 H Lymph # (Auto) 800 L [place] # (Auto) 1900 H Eos # (Auto) 0 Baso # (Auto) 100 PT 12.9 H INR 1.1 APTT 27 Sodium 137 Potassium 3.5 Chloride 101 Carbon Dioxide 24 BUN 34 H Creatinine 1.00 Estimated GFR 59 L BUN/Creatinine Ratio 34.0 H Glucose 254 H POC Whole Bld Glucose 186 H Lactate 1.8 Calcium 9.5 Total Bilirubin 0.5 AST 22 ALT 23 Alkaline Phosphatase 87 Total Protein 7.5 Albumin 4.3 Globulin 3.2 Albumin/Globulin Ratio 1.3 Lipase 189 Procalcitonin 0.187 Urine Color Yellow Urine Appearance Cloudy Urine pH 6.5 Ur Specific [place] 1.020 Urine Protein 3+ H Urine Glucose (UA) Negative Urine Ketones 1+ H Urine Occult Blood 3+ H Urine Nitrate Negative Urine Bilirubin Negative Urine Urobilinogen 0.2 Ur Leukocyte Esterase 2+ H Urine RBC None seen Urine WBC >100/hpf H Ur Squamous Epith Cells 5-10 /hpf H Ur Transition Epith Cell 0-1/hpf Urine Bacteria Moderate (10-30) H Ur Culture Indicated? Specimen cultured Vol Urine Centrifuged 10ml (spun) 09/05/25 04:07 WBC RBC Hgb Hct MCV MCH MCHC RDW Plt Count Neut % (Auto) Lymph % (Auto) [place] % (Auto) Eos % (Auto) Baso % (Auto) Neut # (Auto) Lymph # (Auto) [place] # (Auto) Eos # (Auto) Baso # (Auto) PT INR APTT Sodium Potassium Chloride Carbon Dioxide BUN Creatinine Estimated GFR BUN/Creatinine Ratio Glucose POC Whole Bld Glucose 203 H Lactate Calcium Total Bilirubin AST ALT Alkaline Phosphatase Total Protein Albumin Globulin Albumin/Globulin Ratio Lipase Procalcitonin Urine Color Urine Appearance Urine pH Ur Specific [place] Urine Protein Urine Glucose (UA) Urine Ketones Urine Occult Blood Urine Nitrate Urine Bilirubin Urine Urobilinogen Ur Leukocyte Esterase Urine RBC Urine WBC Ur Squamous Epith Cells Ur Transition Epith Cell Urine Bacteria Ur Culture Indicated? Vol Urine Centrifuged [facility] Medical History Melanoma (~2019) Depression (~2015) Osteoporosis (~2018) Foot pain (~2019) Carpal tunnel syndrome (~2013) Measles Chicken pox Vertigo Retinal detachment (~2017) Cataracts, bilateral (~2018) Diabetes mellitus (~1989) Healthy adult Surgical History Anesthesia History of removal of cyst (~1978) History of carpal tunnel release (~2013) History of partial thyroidectomy (~1979) History of eye surgery (~2018) History of cataract removal with insertion of prosthetic lens (~2020) Family History Father Cancer Mother Diabetes mellitus Hypertension Brother Diabetes mellitus Brother Diabetes mellitus Family/Other Diabetes mellitus Hypertension Social History household members: other Tobacco & Substance Use Smoking Status: Never smoker alcohol intake: current Assessment & Plan Assessment and plan (1) Right ureteral calculus: Status: Acute Plan: 75 y/o F brought into ER for evaluation of inability to walk, confusion and increasing lethargy as observed by her neighbor. Her symptoms were progressing throughout the week. She was unable to provide much history during her intake. Her evaluation was notable for a WBC of 21.4, sCr of 1.0 and a UA concerning for a UTI. Her CT KUB was notable for a 2mm right proximal ureterolith with resultant upstream moderate hydronephrosis and perinephric fat stranding (of note, also has a 2mm right midpole calyx as well as a 16mm left upper pole calculus). She was admitted for IVF and antibiotics and Urology was consulted regarding stone management. Discussed the need for an urgent cystoscopy with right ureteral stent placement. Discussed risks of the procedure to include but not limited to pain, bleeding, infection, injury to urethra/bladder/ureter, inability to access the ureter requiring discussion with Interventional Radiology regarding a possible ureteral stent placement in an antegrade fashion vs a possible nephroureteral stent and/or percutaneous nephrostomy tube, urinary tract infection, need for emergent open repair of bladder and/or ureter. She indicated understanding and will undergo a cystoscopy with right ureteral stent placement later today. - Appreciate assistance of hospitalist team in management of this patient - Will coordinate outpatient follow-up to address her right ureteral stone and discuss management of her large left nephrolith (2) Urinary tract infection: Qualifiers: Urinary tract infection type: site unspecified Hematuria presence: w ithout hematuria Qualified Code(s): N39.0 - Urinary tract infection, site not specified Status: Acute Plan: Please see plan above. Time-Based Coding :: [TOTAL MINUTES] spent with patient and on the chart (including review of chart, obtaining history, exam, reviewing outside data, placing orders, documenting exam and treatment plan, and counseling patient) on [DATE]. PROFEE Charge Codes Inpatient or Observation consultation: [id number]
[2025-09-05 08:29] LABS: Add Manual Diff / Slide Review NO; Hematocrit 33.2 % (36-46); Hemoglobin 10.8 g/dL (12.0-16.0); Lymphocytes Absolute Auto 1000 /uL (1100-4500); Mean Corpuscular HGB Conc 32.6 % (30-36); Mean Corpuscular Hemoglobin 25.9 PG (26-34); Mean Corpuscular Volume 79.4 fL (80-100); Platelet Count 235 X10^3/uL (150-400)
[2025-09-05 08:52] LABS: Blood Urea Nitrogen 20 mg/dL (7-17); Calcium 8.5 mg/dL (8.4-10.2); Carbon Dioxide 25 mmol/L (22-32); Chloride 109 mmol/L (98-107); Estimated Glomerular Filt Rate > 60 mL/min (>60); Glucose 169 mg/dL (70-99); HEMOLYSIS < 15 (0-50); Potassium 3.0 mmol/L (3.4-5.1); Sodium 142 mmol/L (137-145)
[2025-09-05] MEDS: DEXTROSE 5%-0.45% NS 1,000 ML 100 ML IV (10:16)
[2025-09-05] MEDS: POTASSIUM CHLORIDE IN WATER 10 MEQ/100 ML PIGGYBACK 100 MEQ IV ×2 (11:48→12:57)
--- NOTE | 2025-09-05 12:29 | CM.DANOTE ---
Initial DCP Assessment Note. Review EMR and PT Interview. Met with patient at bedside to discuss discharge needs.PT is alert x 4 sitting up in bed. No acute distress. Independent with walk. Drives. Lives with adult grandson. Grnadson does not drive. Payor:??[employer] PCP: MANE Sanchez in [place] Summary & Plan:?75 y/o female arrived to ED via POV c/o weakness. Admitted Inpt. Dx. Obstructive Ureteral Stone. Plan: OR and IV abx. Discharge Planning/Care Management Advanced directive,confirm from FACILITY Start: 09/05/25 01:40 Freq: Q24H Status: Active Protocol: Document 09/05/25 01:40 MW (Rec: 09/05/25 04:18 MW [id number]) Advance Directive, confirm on record Time 01:30 Person contacted patient Copy received No CM Discharge Assessment Start: 09/05/25 01:15 Freq: Status: Active Protocol: Document 09/05/25 12:27 SM (Rec: 09/05/25 12:29 SM [id number]) Discharge Planning Assessment Assigned Discharge Amber Mack RN CM Parent Aide Provider MANE Sanchez in [place] Insurance AARP [facility] Advance Directives? No Advance Directives No on File History Provided By Patient,Medical Record Has Patient been No admitted in last 30 days? Prior Living House Arrangements Comment grandchild Household Members other Type of Drives own vehicle transporation used prior to admit Independent with ADL Yes 's Is patient alert and Yes oriented? Caregiver for No Another DME Already Rented / FWW / Walker,Cane Owned Comment TBD Barriers to No Discharge Comment Friend or family can supervisor picking crew If patient plan is not needed SNF: Has PASSR been completed? Review Status In Process Please Provide Date 09/05/25 Initial DC Assessment Was Performed Next Review Type Continued Stay Review
--- NOTE | 2025-09-05 13:41 | PC.NURSE ---
Pt to OR via w/c-for surgery. Belongings-purse, clothing, 4 wheel walker, phone, and jewelry with Pt. 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
--- NOTE | 2025-09-05 14:28 | PM.PN.1 ---
Subjective Subjective Interval history: Subjective 75 y/o with PMH of kidney stones, lithotripsy, recurrent UTIs, presented with obstructive ureteral stone and moderate hydronephrosis. Denies fever, chills, flank or abdominal pain, dysuria or renal colic. In the ED tachycardic, febrile, with leukocytosis, not hypotensive, received empiric Rocephin, IVFs. Admitted for urology procedure Objective Vitals reviewed and notable for temperature 100.2?, BP 162/81 Alert and oriented, well-nourished, well-developed, ill-appearing Oropharynx dry Regular rate and rhythm, no murmurs Clear to auscultation bilaterally Soft, nontender, nondistended, positive bowel sounds, no flank pain Pleasant and cooperative Labs -leukocytosis resolved with WBCs decreased from 21.4-10.2, neutrophilia [place] [address], lymphopenia improving, potassium 3, UA notable for 3+ protein, 1+ ketones, 3+ blood, 2+ leukocyte esterase, greater than 100 white blood cells, moderate bacteria. Urine culture with 2 species of Gram-negative bacilli. Review of prior urine culture showed that the patient has grown Klebsiella, E coli and Staph hominis Imaging-abdominopelvic CT with a small 2 mm calculus in the right proximal ureter with moderate prominent proximal hydroureteronephrosis and periureteral and perinephric fat stranding. There were also bilateral nonobstructing calculi including a branching staghorn calculus at the superior pole of left kidney without left hydronephrosis. A&P Obstructing Rt ureteral stone / Rt pyelonephritis Left Staghorn Calculus without evidence obstruction - NPO - IVFs - Urology to take to OR later today for intervention - Rocephin Gram-negative bacilli UTI -continue Rocephin -follow-up culture and sensitivity IDDM - SS q 6 h - D51/2NS while NPO - home metformin -Resume lantus HTN - home losartan / HCTZ, amlodipine and metoprolol on hold HLD - home statin held Depression - home duloxetine held Exam Vital Signs (past 8 hours): - 09/05/25 08:05 09/05/25 12:00 09/05/25 14:24 Temperature 97.4 F L 98.1 F 100.2 F H Pulse Rate 78 82 94 H Respiratory Rate 14 15 21 Blood Pressure 146/73 H 144/77 H 162/81 H Pulse Oximetry 94 97 97 Oxygen Delivery Method Room Air Oxygen Flow Rate 0 0 Oxygen Delivery Method Room Air Oxygen Flow Rate 0 Objective Labs 09/05/25 08:10 09/05/25 08:10 Labs: Laboratory Results - last 24 hr 09/04/25 09/04/25 09/04/25 15:08 15:21 21:44 WBC 21.4 H RBC 4.83 Hgb 12.4 Hct 38.0 MCV 78.7 L MCH 25.6 L MCHC 32.6 RDW 16.0 H Plt Count 295 Neut % (Auto) 86.7 H Lymph % (Auto) 3.[address] [place] % (Auto) 8.8 Eos % (Auto) 0.0 L Baso % (Auto) 0.6 Neut # (Auto) 85449 H Lymph # (Auto) [address] [place] # (Auto) 1900 H Eos # (Auto) 0 Baso # (Auto) 100 PT 12.9 H INR 1.1 APTT 27 Sodium 137 Potassium 3.5 Chloride 101 Carbon Dioxide 24 BUN 34 H Creatinine 1.00 Estimated GFR 59 L BUN/Creatinine Ratio 34.0 H Glucose 254 H POC Whole Bld Glucose 186 H Lactate 1.8 Calcium 9.5 Total Bilirubin 0.5 AST 22 ALT 23 Alkaline Phosphatase 87 Total Protein 7.5 Albumin 4.3 Globulin 3.2 Albumin/Globulin Ratio 1.3 Lipase 189 Procalcitonin 0.187 Urine Color Yellow Urine Appearance Cloudy Urine pH 6.5 Ur Specific [place] 1.020 Urine Protein 3+ H Urine Glucose (UA) Negative Urine Ketones 1+ H Urine Occult Blood 3+ H Urine Nitrate Negative Urine Bilirubin Negative Urine Urobilinogen 0.2 Ur Leukocyte Esterase 2+ H Urine RBC None seen Urine WBC >100/hpf H Ur Squamous Epith Cells 5-10 /hpf H Ur Transition Epith Cell 0-1/hpf Urine Bacteria Moderate (10-30) H Ur Culture Indicated? Specimen cultured Vol Urine Centrifuged 10ml (spun) 09/05/25 09/05/25 09/05/25 04:07 08:10 10:04 WBC 10.2 D RBC 4.18 Hgb 10.8 L Hct 33.2 L MCV 79.4 L MCH 25.9 L MCHC 32.6 RDW 16.1 H Plt Count 235 Neut % (Auto) 72.4 Lymph % (Auto) 9.[address] [place] % (Auto) 15.9 H Eos % (Auto) 1.4 L Baso % (Auto) 0.6 Neut # (Auto) 7400 H Lymph # (Auto) [address] [place] # (Auto) 1600 H Eos # (Auto) 100 Baso # (Auto) 100 PT INR APTT Sodium 142 Potassium 3.0 L Chloride 109 H Carbon Dioxide 25 BUN 20 H Creatinine 0.85 Estimated GFR > 60 BUN/Creatinine Ratio 23.5 H Glucose 169 H POC Whole Bld Glucose 203 H 177 H Lactate Calcium 8.5 Total Bilirubin AST ALT Alkaline Phosphatase Total Protein Albumin Globulin Albumin/Globulin Ratio Lipase Procalcitonin Urine Color Urine Appearance Urine pH Ur Specific [place] Urine Protein Urine Glucose (UA) Urine Ketones Urine Occult Blood Urine Nitrate Urine Bilirubin Urine Urobilinogen Ur Leukocyte Esterase Urine RBC Urine WBC Ur Squamous Epith Cells Ur Transition Epith Cell Urine Bacteria Ur Culture Indicated? Vol Urine Centrifuged [facility] Medical History Melanoma (~2019) Depression (~2015) Osteoporosis (~2018) Foot pain (~2019) Carpal tunnel syndrome (~2013) Measles Chicken pox Vertigo Retinal detachment (~2017) Cataracts, bilateral (~2018) Diabetes mellitus (~1989) Healthy adult Surgical History Anesthesia History of removal of cyst (~1978) History of carpal tunnel release (~2013) History of partial thyroidectomy (~1979) History of eye surgery (~2017) History of cataract removal with insertion of prosthetic lens (~2020) Family History Father Cancer Mother Diabetes mellitus Hypertension Brother Diabetes mellitus Brother Diabetes mellitus Family/Other Diabetes mellitus Hypertension Social History household members: other Smoking Status: Never smoker alcohol intake: current Assessment & Plan Time-Based Coding :: 40 Minutes spent with patient and on the chart (including review of chart, obtaining history, exam, reviewing outside data, placing orders, documenting exam and treatment plan, and counseling patient) on [DATE].
[2025-09-05] MEDS: LACTATED RINGERS 1,000 ML 42 ML IV (14:53)
--- NOTE | 2025-09-05 17:00 | SUR.OPER ---
Lithotomy on padded OR bed, head on pillow, arms secured on padded arm boards at <90 degrees abduction. Legs secured in padded yellow fins stirrups. All pressure points padded and protected. Discontinued purewick upon arrival to OR, prior to prep.
--- NOTE | 2025-09-05 17:08 | P.OP_ITS ---
Operative Date/Time/Diagnoses Date of procedure: 09/05/25 Time of procedure: 16:50 Pre-op diagnosis: Right ureteral calculus, urinary tract infection Post-op diagnosis: same Procedure & Clinicians Procedure: Cystoscopy Right retrograde ureteropyelogram Right ureteral stent placement Intraoperative interpretation of fluoroscopic images, total time < 1 hour Same procedure(s) as scheduled: Yes Indications: 75 y/o F brought into ER for evaluation of inability to walk, confusion and increasing lethargy as observed by her neighbor. Her symptoms were progressing throughout the week. She was unable to provide much history during her intake. Her evaluation was notable for a WBC of 21.4, sCr of 1.0 and a UA concerning for a UTI. Her CT KUB was notable for a 2mm right proximal ureterolith with resultant upstream moderate hydronephrosis and perinephric fat stranding (of note, also has a 2mm right midpole calyx as well as a 16mm left upper pole calculus). She was admitted for IVF and antibiotics and Urology was consulted regarding stone management. Discussed the need for an urgent cystoscopy with right ureteral stent placement. Discussed risks of the procedure to include but not limited to pain, bleeding, infection, injury to urethra/bladder/ureter, inability to access the ureter requiring discussion with Interventional Radi ology regarding a possible ureteral stent placement in an antegrade fashion vs a possible nephroureteral stent and/or percutaneous nephrostomy tube, urinary tract infection, need for emergent open repair of bladder and/or ureter. Surgeon: Eliot Milligan Assisted?: No Anesthesia Type: General Operative Notes Findings: White debris within bladder consistent with active urinary tract infection, mild to moderate right hydronephrosis Closure Type: not applicable Specimen(s): none sent Applied: none Estimated Blood Loss (mL): 2 Blood products transfused: none Procedure in detail: Patient was identified in the preoperative holding area and consent confirmed. She was then brought to the operating room where general anesthesia was induced.? She was then placed in the low lithotomy position. She was then prepped and draped in the usual sterile fashion. A surgical timeout was conducted and all were in agreement. Access to the bladder was obtained via a 21Fr cystoscope.? Cloudy urine was immediately noted within the bladder.? The right ureteral orifice was easily visualized and a 0.035 sensor tip ureteral guidewire was advanced through the 5Fr ureteral catheter and into the right renal collecting system.? The ureteral guidewire was removed and a retrograde pyelogram was performed which noted mild to moderate right hydronephrosis.? The ureteral guidewire was readvanced through the ureteral catheter and into the right renal pelvis.? The ureteral catheter was then removed.? A 6Fr multi-length JJ ureteral stent without strings was then advanced over the ureteral guidewire and into the right renal collecting system.? Upon removal of the ureteral guidewire, a good curl was appreciated within the right renal pelvis upon fluoroscopy and visually within the bladder.? The bladder was then drained and the cystoscope was removed.? Anesthesia was reversed, she was extubated in the OR and transferred to the PACU in stable condition for recovery. Complications: none Post-operative Condition: stable Disposition: Acute Care Plan for aftercare: Will transfer back to Acute Care. Will return to OR in 2-12 weeks for a cystoscopy, right ureteroscopy, laser lithotripsy, right ureteral stent exchange.
[2025-09-05] MEDS: ATORVASTATIN 20 MG TABLET 40 MG PO (21:15)
[2025-09-06] VITALS: BP 146/84; PULSE 93; RESP 18; TEMP 36.4; O2SAT 94
[2025-09-06 05:51] LABS: Blood Urea Nitrogen 11 mg/dL (7-17); Calcium 8.9 mg/dL (8.4-10.2); Carbon Dioxide 27 mmol/L (22-32); Chloride 109 mmol/L (98-107); Estimated Glomerular Filt Rate > 60 mL/min (>60); Glucose 157 mg/dL (70-99); HEMOLYSIS < 15 (0-50); Potassium 3.6 mmol/L (3.4-5.1); Sodium 142 mmol/L (137-145)
[2025-09-06 08:51] VITALS: BP 151/69; PULSE 94; RESP 14; TEMP 36.6; O2SAT 91
--- NOTE | 2025-09-06 08:54 | PM.DS.1 ---
History of Present Illness History of Present Illness Chief complaint: weakness, 4-days, hard to walk Narrative: Summary 75 y/o with PMH of kidney stones, lithotripsy, recurrent UTIs, presented with obstructive ureteral stone and moderate hydronephrosis. Denied fever, chills, flank or abdominal pain, dysuria or renal colic. In the ED, she was tachycardic, febrile, with leukocytosis, not hypotensive, received empiric Rocephin, IVFs. Evaluation notable for renal stones (see below. She was admitted for urology procedure and is 1 say s/p cystoscopy with right retrograde ureteral pyelogram, right ureteral stent placement and intraoperative interpretation of fluoroscopic images. Objective Vitals reviewed and notable for BP 151/69 Alert and oriented, well-nourished, well-developed, NAD Regular rate and rhythm, no murmurs Clear to auscultation bilaterally Soft, nontender, nondistended, positive bowel sounds, no flank pain Pleasant and cooperative Labs -leukocytosis resolved with WBCs decreased from 21.4-10.2, neutrophilia also [place] [address], lymphopenia improving, potassium 3, UA notable for 3+ protein, 1+ ketones, 3+ blood, 2+ leukocyte esterase, greater than 100 white blood cells, moderate bacteria. Urine culture with Klebsiella resistant to ampicillin and Proteus resistant to Cipro, nitrofurantoin, tetracycline, and trimethoprim/sulfamethoxazole. Review of prior urine culture showed that the patient has grown Klebsiella, E coli and Staph hominis Imaging-abdominopelvic CT with a small 2 mm calculus in the right proximal ureter with moderate prominent proximal hydroureteronephrosis and periureteral and perinephric fat stranding. There were also bilateral nonobstructing calculi including a branching staghorn calculus at the superior pole of left kidney without left hydronephrosis. Hospital course Obstructing Rt ureteral stone / Rt pyelonephritis Left Staghorn Calculus without evidence obstruction The patient was admitted and placed on ceftriaxone and IV fluids. She underwent urologic evaluation and intervention as detailed above. She tolerated the procedure well and has had no postprocedure complications. She feels well today and is stable for discharge to home. She will discharge on an oral cephalosporin for an additional 5 days. Urology will arrange follow-up in the clinic and stent removal. UTI secondary to Klebsiella and Proteus Sensitivities detailed above under lab. Patient will discharge on oral cephalosporin for an additional 5 days. IDDM Clinically stable inpatient to resume home meds at discharge. She was covered with lispro SSI while hospitalized. HTN Clinically stable and the patient will discharge on her prior medications including losartan / HCTZ, amlodipine and metoprolol. HLD Clinically stable, continue statin Depression Clinically stable, continue duloxetine Discharge Providers Provider Date of admission: 09/04/25 20:30 Discharge Date: 09/07/25 Primary care physician: Beverley Albert Consults: 09/04/25 20:22 Consult to Urology Stat Comment: Consulting Provider: Eliot Milligan Reason for consultation: admit UTI, prox 2mm ureteral stone and L staghorn Has provider been notified: Yes 09/05/25 01:40 Consult to Dietitian, Adult Routine Comment: Reason For Exam: reports severe decrease in appetite Discharge provider: Laurel Campbell MD Exam Vital Signs (past 8 hours): - 09/06/25 08:51 Temperature 97.8 F Pulse Rate 94 H Respiratory Rate 14 Blood Pressure 151/69 H Pulse Oximetry 91 Oxygen Flow Rate 0 Oxygen Delivery Method Room Air Oxygen Flow Rate 0 Objective Labs 09/05/25 08:10 09/06/25 05:27 Labs: Laboratory Results - last 24 hr 09/05/25 09/05/25 09/05/25 10:04 14:11 16:49 Sodium Potassium Chloride Carbon Dioxide BUN Creatinine Estimated GFR BUN/Creatinine Ratio Glucose POC Whole Bld Glucose 177 H 177 H 130 H Calcium 09/05/25 09/06/25 09/06/25 20:54 05:27 07:31 Sodium 142 Potassium 3.6 Chloride 109 H Carbon Dioxide 27 BUN 11 Creatinine 0.79 Estimated GFR > 60 BUN/Creatinine Ratio 13.9 Glucose 157 H POC Whole Bld Glucose 185 H 160 H Calcium 8.9 PFSH Medical History Melanoma (~2019) Depression (~2015) Osteoporosis (~2018) Foot pain (~2019) Carpal tunnel syndrome (~2013) Measles Chicken pox Vertigo Retinal detachment (~2017) Cataracts, bilateral (~2018) Diabetes mellitus (~1989) Healthy adult Surgical History Anesthesia History of removal of cyst (~1978) History of carpal tunnel release (~2013) History of partial thyroidectomy (~1979) History of eye surgery (~2017) History of cataract removal with insertion of prosthetic lens (~2020) Family History Father Cancer Mother Diabetes mellitus Hypertension Brother Diabetes mellitus Brother Diabetes mellitus Family/Other Diabetes mellitus Hypertension Social History household members: other Smoking Status: Never smoker alcohol intake: current Discharge Plan Discharge Plan Patient Disposition: Home Discharge orders & Medications Prescriptions: New cephalexin 500 mg capsule 500 mg PO Q12H Qty: 10 0RF Continued metoprolol succinate 50 mg tablet extended release 24 hr 50 mg PO DAILY Patient Comments: took on 09/03 duloxetine 60 mg capsule,delayed release(DR/EC) 60 mg PO DAILY losartan-hydrochlorothiazide 100-12.5 mg tablet 1 tab PO DAILY insulin glargine [Lantus Solostar U-100 Insulin] 100 unit/mL (3 mL) insulin pen 27 unit SUBCUT DAILY Patient Comments: Takes 25 units in am. currently NPO or surgery this evening. aspirin 81 mg tablet,delayed release (DR/EC) 81 mg PO QPM Patient Comments: took on 09/03 metformin 1,000 mg tablet 1 tab PO BID Patient Comments: taken on 09/03 rosuvastatin 20 mg tablet 20 mg PO QPM Patient Comments: took on 09/03 amlodipine 5 mg tablet 5 mg PO DAILY Patient Comments: took on 09/03 meloxicam 15 mg tablet 15 mg PO DAILY Qty: 30 0RF Patient Comments: took on 09/03 Follow up/Referrals: Beverley Albert PA-C [Primary Care Provider, Medical] Activity Restrictions/Additional Instructions: Dr. Milligan office will call you to arrange the follow up appointment. Please do not stop your antibiotics early. Discharge Health Status Multidrug resistant organism: No MDRO Diet/Activity/Treatments Diet: Diet as Tolerated Activity: Activity as tolerated. Skin/Wound/Dressing Care Report to your healthcare provider any signs of infection, such as:: chills, fever, night sweats and increased pain Visit Report/Discharge Packet Stand Alone Forms: Patient Portal/API, Stroke Signs & Symptoms, Surgery Discharge Discharge Data Primary Care Provider: Beverley Albert
--- NOTE | 2025-09-06 11:23 | PC.NURSE ---
Pt independent in room. Denies discomfort. Orders for D/C received. SL D/C intact. Home instructions given w/ understanding. Pt ride here, D/C'd, escorted via W\C by staff to waiting vehicle, D/C in stable status.
== END 2025-09-06 11:15 | disposition home or self-care (01) | DRG 854 ==
LOC: ED 17:56 → AC 20:51 → LABOR 09-05 07:28 → AC 09-05 14:48
PROVIDERS: Emergency Medicine; Internal Medicine Infectious Disease; Urology; Admitting Provider Internal Medicine; Emergency Provider Emergency Medicine; PCP Physician Assistant; Referring Provider Emergency Medicine; Visit Provider Internal Medicine
PROC: 0T768DZ Dilation of Right Ureter with Intraluminal Device, Via Natural or Artificial Opening Endoscopic (ICD-10-PCS; principal; 2025-09-05 16:30)
DX: A41.9 Sepsis, unspecified organism (principal); Z16.11 Resistance to penicillins; E11.9 Type 2 diabetes mellitus without complications; F32.A Depression, unspecified; I10 Essential (primary) hypertension; E78.5 Hyperlipidemia, unspecified; B96.1 Klebsiella pneumoniae [K. pneumoniae] as the cause of diseases classified elsewhere; B96.4 Proteus (mirabilis) (morganii) as the cause of diseases classified elsewhere; Z87.442 Personal history of urinary calculi; Z79.4 Long term (current) use of insulin; Z87.440 Personal history of urinary (tract) infections; Z79.84 Long term (current) use of oral hypoglycemic drugs
CPT/HCPCS: 36415; 71045; 74019; 74176; 76000; 80048; 80053; 81001; 82962; 83605; 83690; 84145; 85025; 85610; 85730; 87040; 87077; 87086; 87186; 93005; 96361; 96365; 99284; 99291; C2617; J0131; J0696; J1815; J2405; J2704; J7030; J7050; J7120; Q9967

== ENCOUNTER 2025-09-18 10:20 | Inpatient (IN) | payer MEDICARE, SELFPAY ==
[2025-09-18] VITALS (25 sets, daily range): BP systolic 110–194; BP diastolic 57–88; PULSE 104–144; RESP 17–26; TEMP 36.2–39.7; O2SAT 87–98; BMI 31.4
--- NOTE | 2025-09-18 10:31 | EKG_ITS ---
[address] [address] Test Date: 2025-09-18 Pat Name: Tori Cohen Department: Room: Gender: Female Tribal Council Member: GILMAR : 1950 Requested By: Order Number: [id number] Reading MD: Madhav Baumann MD Measurements Intervals [place] Rate: 116 P: 46 WV: 194 QRS: 64 QRSD: 94 T: 28 QT: 318 QTc: 442 Interpretive Statements Sinus tachycardia Nonspecific T wave abnormality Electronically Signed On 09-20-2025 8:11:02 PST by Madhav Baumann MD
--- OUTSIDE RECORDS SUMMARY | 2025-09-18 10:33 | XMS_ITS | Clinical Summary ---
Author Organization [facility] Address [address] [address] Care Team Providers Care Axle And Frame Mechanic Name Role Phone Beverley Albert Primary Care Provider [phone] Allergies No known active allergies Medications metFORMIN (GLUCOPHAGE) 1000 MG tablet Take 1,000 mg by mouth 2 (two) times daily with meals Active telmisartan-hydr ochlorothiazide (MICARDIS HCT) 80-25 mg per tablet Take 1 tablet by mouth daily Active simvastatin (ZOCOR) 40 MG tablet Take 40 mg by mouth every evening Active loratadine (CLARITIN) 10 mg tablet Take 10 mg by mouth daily Active meloxicam (MOBIC) 15 MG tablet Take 15 mg by mouth every morning Active metoprolol succinate (TOPROL-XL) 50 MG 24 hr tablet Take 50 mg by mouth daily Active NIFEdipine (PROCARDIA-XL) 60 MG (OSM) 24 hr tablet Take 60 mg by mouth daily Active insulin glargine (LANTUS) 100 unit/mL injection Inject 32-34 Units into the skin nightly Active aspirin 81 MG enteric coated tablet Take 81 mg by mouth daily Active amLODIPine (NORVASC) 5 MG tablet Take 5 mg by mouth daily Active alendronate (FOSAMAX) 70 MG tablet Take 70 mg by mouth every 7 days Take on empty stomach. Do not lie down for 30 minutes. 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, stage 3 06/01/2018 Encounters Date Type Department Care Team Description 09/11/2025 Documentation [facility] Scanned, Document from Last 3 Months Social History Tobacco Use Types Packs/Day Years Used Date Smoking Tobacco: Never Passive Smoke Exposure: Never Smokeless Tobacco: Never Tobacco Cessation:Counseling Given: Not Answered Alcohol Use Standard Drinks/Week Comments Yes 4 (1 standard drink = 0.6 oz pur e alcohol) Comments No Sex and Gender Information Value Date Recorded Sex Assigned at Not on file Legal Sex Female 3:14 PM PDT Gender Identity Not on file Sexual Orientation Not on file Last Filed Vital Signs Vital Sign Reading Time Taken Comments Blood Pressure 130/78 10/19/2023 1:39 PM PST Pulse 85 10/19/2023 1:39 PM PST Temperature 36.6 C (97.9 F) 06/01/2018 4:50 PM PDT Respiratory Rate 16 10/19/2023 1:39 PM PST Oxygen Saturation 95% 10/19/2023 1:39 PM PST Inhaled Oxygen Concentration - - Weight 83.4 kg (183 lb 14.4 oz) 10/19/2023 1:39 PM PST Height 158.8 cm (5' 2.5) 10/19/2023 1:39 PM PST Body Mass Index 33.1 10/19/2023 1:39 PM PST Plan of Treatment Health Maintenance Due Date Last Done Comments Disability Screening 1950 Hepatitis C Screening 1950 Lipid Panel (Cholesterol Screening) 1970 DTaP/Tdap/Td Vaccine (1 - Tdap) 1971 Breast Cancer Screening 1992 FIT (FOBT) 1997 Pneumococcal 50+ Years (1 of 1 - PCV) 2002 Zoster (1 of 2) 2002 Osteoporosis Screening 2017 Medicare Initial Annual Well ness Visit [id number] 09/26/2022 FIT-DNA (COLOGUARD) 10/16/2022 10/16/2019 Drug, Alcohol, and Depression Screening 09/26/2024 SOGIE 09/26/2024 CT Colonography 10/16/2024 10/16/2019 Colonoscopy 10/16/2024 10/16/2019 Colorectal Cancer Screening 10/16/2024 Sigmoidoscopy 10/16/2024 10/16/2019 Covid-19 Vaccine (2024- season) 2025 Influenza Vaccine (#1) 2025 10/04/2017, 2016 RSV Vaccines (1 - 1-dose 75+ series) 2027 Procedures Procedure Name Priority Date/Time Associated Diagnosis Comments COLONOSCOPY EXTERNAL ENTRY Routine 10/16/2019 from Last 3 Months or Most Recently Relevant to Health Maintenance Results * Colonoscopy External Entry (10/16/2019) Narrative Sofia Morrison RN - 10/16/2019 3. Repeat colonoscopy in 5 years for screening. See Care Everywhere us Historical Provider PROCEDURE/MINOR SURGICAL ORDERABLES Final Result from Last 3 Months or Most Recently Relevant to Health Maintenance Insurance AARP MEDICARE [facility] Advance Directives Documents on File Type Date Recorded Patient Punchboard Inserter Expl anation Advance Directives and Livin g Will 06/01/2018 1:00 AM * Full Code (Latest Code Status on File) Date Activated Date Inactivated Comments 06/01/2018 2:23 PM 06/01/2018 9:49 PM Care Teams Axle And Frame Mechanic Relationship Specialty Start Date End Date Beverley Albert PA [address], [place] [id number] PCP - General Physician Host/Hostess Restaurant 08/14/23
--- NOTE | 2025-09-18 10:40 | DI.RAD.S_ITS ---
PROCEDURE: XR CHEST 1V INDICATIONS: suspected sepsis TECHNIQUE: One view of the chest was acquired. COMPARISON: [facility], CR, XR CHEST 1V, 09/04/2025, 14:52. [facility], CR, XR CHEST 1V, 05/03/2024, 19:55. FINDINGS: Surgical changes and devices: Low lung volumes bilaterally with bibasilar atelectasis. Lungs and pleura: Lungs are clear. No pleural effusions or pneumothorax. Mediastinum: Mediastinal contours appear normal. Heart size is normal. Bones and chest wall: No suspicious bony lesions. Overlying soft tissues appear unremarkable. IMPRESSION: No acute cardiopulmonary abnormality is seen. Approved by: Ciro Lau M.D. on 09/18/2025 at 11:47
--- NOTE | 2025-09-18 10:40 | DI.CT.S_ITS ---
PROCEDURE: CT HEAD/BRAIN WO CON INDICATIONS: Altered mental status, fever, recent kidney stone. TECHNIQUE: Noncontrast 4.5 mm thick angled axial sections acquired from the foramen magnum to the vertex, with coronal and sagittal reformats. For radiation dose reduction, the following was used: automated exposure control, adjustment of mA and/or kV according to patient size. COMPARISON: [facility], CT, CT HEAD/BRAIN WO CON, 04/15/2024, 2:00. [facility], CT, CT HEAD/BRAIN WO CON, 04/08/2024, 13:46. FINDINGS: Image quality: Diagnostic. CSF spaces: Basal cisterns are patent. No extra-axial fluid collections. The ventricles are symmetric in size and shape. Brain: No acute intracranial hemorrhage or mass effect. There is cerebral volume loss, with resultant ventricular and sulcal prominence. There are periventricular and deep white matter chronic small vessel ischemic changes. There is intracranial internal carotid artery atherosclerosis. Skull and face: Calvarium and visualized facial bones appear intact, without suspicious lesions. Sinuses: Visualized sinuses and mastoids are clear. IMPRESSION: 1. No acute intracranial pathology. 2. Stable chronic microvascular ischemic changes and generalized parenchymal volume loss. Approved by: Ciro Lau M.D. on 09/18/2025 at 12:28
--- NOTE | 2025-09-18 10:40 | DI.CT.S_ITS ---
PROCEDURE: CT KIDNEY URETER BLADDER (KUB) INDICATIONS: Altered mental status, fever, recent kidney stone. TECHNIQUE: CT of the abdomen and pelvis was obtained without intravenous contrast. Coronal and sagittal reformats were performed. For radiation dose reduction, the following was used: automated exposure control, adjustment of mA and/or kV according to patient size. COMPARISON: [facility], CT, CT ABDOMEN PELVIS WO CON, 09/04/2025, 18:55. FINDINGS: Image quality: Diagnostic. Lower Chest: No significant findings. ABDOMEN: Liver: No contour-deforming mass. Gallbladder: No radiopaque gallstones or wall thickening. Biliary ducts: No biliary dilation. Pancreas: No ductal dilation. Spleen: Size is within normal limits. Adrenal Glands: No adrenal nodules. Kidneys and Ureters: A right ureteral stent is present. No residual right hydronephrosis. Perinephric fat stranding his greater on the right than on the left. Nonobstructing left renal calculi are present as before. No left hydronephrosis. Benign-appearing left renal cyst. No hydronephrosis. No contour-deforming mass. Stomach and Bowel: Small hiatal hernia. Peritoneum: No abnormal intraperitoneal fluid. No free air. Ventral Wall: No significant hernia. Multiple diverticula are seen in the colon without signs of acute diverticulitis. Abdominal Nodes: No retroperitoneal or mesenteric adenopathy by size criteria. Vessels: Aorta and inferior vena cava are normal in size. PELVIS: Pelvic Organs: Calcified uterine fibroid is seen near the fundus.. Bladder: Bladder is decompressed by Ulrich catheter and contains air. No bladder calculus.. Pelvic Nodes: No enlarged lymph nodes. Miscellaneous: No inguinal hernias are seen. Bones: No aggressive osseous abnormality. Fracture fixation hardware in the right proximal femur. Bilateral spondylolysis of L5. Grade 1 anterolisthesis at L4-5 and L5-S1. Aaho-hv-[id number] multilevel degenerative changes in the lumbar spine. IMPRESSION: 1. Right ureteral stent is present. No residual right hydroureter. Right greater than left perinephric fat stranding is present that may be chronic although pyelonephritis is not excluded. 2. Gas in the bladder may be related to instrumentation or infection with a gas- forming organism. 3. Nonobstructing left renal calculi. No left hydronephrosis. 4. Colonic diverticulosis without signs of acute diverticulitis. 5. Small hiatal hernia. Approved by: Ciro Lau M.D. on 09/18/2025 at 12:40
--- NOTE | 2025-09-18 10:43 | ED_ITS ---
HPI - Altered Mental Status General Chief Complaint: Altered Mental Status Stated Complaint: Unwitnessed Fall Time Seen by Provider: 09/18/25 10:33 Source: patient, EMS, RN notes reviewed and old records reviewed Mode of arrival: EMS Limitations: no limitations History of Present Illness HPI narrative: 75-year-old female found in her living room by her neighbor. Patient was expected to go to [facility] he notes that she was confused but knew who he was, knew that they were supposed to go to [facility] today but has a day of the week wrong. He states she did not drink a large cup of water. He found her on her back between her coffee table in her couch. She was last seen yesterday by family and he is spoke with her on the phone yesterday states that she was acting normally and conversing normally. She has a recent kidney stone with sepsis has a ureteral stent placed. She has been on antibiotics he is not sure if she has completed them. He states she has had similar episodes in the past typically secondary to UTIs and/or kidney stone. He states she is not very consistent with her medications but that has on insulin she does have a monitor he states it was 212 when he arrived and glucose was 160 with EMS. He states she has been complaining of anything today. Patient we will open her eyes follows commands but is not answering questions for me. EMR notes she takes medication for hypertension, diabetes, dyslipidemia including insulin and an aspirin 81 mg daily. Patient appears to have had cystoscopy, right ureteral stent placed on 09/05/2025. No known drug allergies. No tobacco, occasional alcohol not regularly, no recreational drugs. Patient does have PCP, according to neighbor/friend. Patient's friend did call her sister who has a aware that she is here. Related Data Home Medications ?Medication ?Instructions ?Recorded ?Confirmed aspirin 81 mg tablet,delayed 81 mg PO QPM 05/11/18 release metformin 1,000 mg tablet 1 tab PO BID 05/11/18 rosuvastatin 20 mg tablet 20 mg PO QPM 08/08/23 duloxetine 60 mg capsule,delayed 60 mg PO DAILY 09/18/25 release insulin glargine 100 unit/mL (3 27 unit SUBCUT DAILY 0 03/25/24 09/18/25 mL) subcutaneous pen (Lantus Solostar U-100 Insulin) losartan 100 1 tab PO DAILY 03/25/24 12/ 4/25 mg-hydrochlorothiazide 12.5 mg tablet metoprolol succinate 50 mg 50 mg PO DAILY 03/25/24 tablet,extended release 24 hr amlodipine 5 mg tablet 5 mg PO DAILY 05/03/2409/18 Previous Rx's ?Medication ?Instructions ?Recorded meloxicam 15 mg tablet 15 mg PO DAILY #30 tabs 04/26 10/19 Allergies Allergy/AdvReac Type Severity Reaction Status Date / Time No Known Drug Allergies Allergy Verified 09/18/25 10:33 Review of Systems Review of Systems ROS Unobtainable: Unobtainable due to mental status/LOC Patient History Medical History Melanoma (~2019) Depression (~2015) Osteoporosis (~2018) Foot pain (~2019) Carpal tunnel syndrome (~2013) Measles Chicken pox Vertigo Retinal detachment (~2017) Cataracts, bilateral (~2018) Diabetes mellitus (~1989) Healthy adult Surgical History Anesthesia History of removal of cyst (~1978) History of carpal tunnel release (~2013) History of partial thyroidectomy (~1979) History of eye surgery (~2017) History of cataract removal with insertion of prosthetic lens (~2020) Family History Father Cancer Mother Diabetes mellitus Hypertension Brother Diabetes mellitus Brother Diabetes mellitus Family/Other Diabetes mellitus Hypertension Social History household members: other Smoking Status: Smoker, status unknown alcohol intake: current Smoking Status: Smoker, status unknown alcohol intake frequency: holidays/special occasions only Exam Narrative Exam Narrative: GEN: Elderly appearing female, patient responds to verbal stimuli, she will open her eyes, she squeezes on command, patient appears to be in moderate distress. Patient is warm to touch HEENT: Atraumatic, pupils are equal round reactive to light, extraocular movements are intact, nares are clear, TMs are clear with no fluid, there is no conjunctival pallor. Throat is clear without any exudates, erythema, tonsillar enlargement or uvular deviation, normal range of motion of the neck. HEART: Regular rate and rhythm without murmur, clicks, rubs. Pulses are equal in upper and lower extremities LUNGS:Lungs clear to auscultation, no wheezes, rales, crackles, chest moves symmetrically ABD:bowel sounds normal, soft, patient's seems to has a little bit more discomfort with palpation in the right, no guarding, rebound, rigidity, no masses noted, no hepatosplenomegaly :No CVA tenderness MSCL: Non-tender, no muscle atrophy, muscles strength 5/5 upper and lower extremities, full range of motion NEURO:CN 2-12 intact, sensation normal. Initial Vital Signs Initial Vital Signs: Vital Signs Pulse Rate 119 H 09/18/25 10:30 Respiratory Rate 22 09/18/25 10:30 Pulse Oximetry 93 09/18/25 10:30 Oxygen Delivery Method Room Air 09/18/25 10:30 Course Orders Ordered: ED Orders 09/18/25 10:40 CT head/brain wo con Stat CT kidney ureter bladder (KUB) Stat XR chest 1V Stat EKG-12 Lead Stat RT Consult Eval and Treat NOW 09/18/25 11:00 Complete Blood Count AUTO DIFF Stat Comprehensive Metabolic Panel Stat Lactate (Lactic Acid) Stat Lipase Stat PTT Partial Thromboplastin Braulio Stat Procalcitonin Stat Prothrombin Time INR Stat 09/18/25 11:30 Blood Culture Stat 09/18/25 12:46 UA Complete [Urinalysis and Microscopic] Stat Acetaminophen (Acetaminophen 325 Mg Tablet) 650 mg PO Q6H PRN PRN Reason: Fever/Mild Pain (1-3) Hydrocodone Bitart/Acetaminophen (Hydrocodone/Acet 5/325 Tablet) 1 tab PO Q4H PRN PRN Reason: Pain, Moderate (4-6) Hydrocodone Bitart/Acetaminophen (Hydrocodone/Acet 5/325 Tablet) 2 tab PO Q4H PRN PRN Reason: Pain, Severe (7-10) Amlodipine Besylate (Amlodipine 5 Mg Tablet) 5 mg PO DAILY MONTRELL Aspirin (Aspirin Ec 81 Mg Tablet) 81 mg PO BEDTIME MONTRELL Atorvastatin Calcium (Atorvastatin 20 Mg Tablet) 40 mg PO BEDTIME MONTRELL Duloxetine HCl (Duloxetine 30 Mg Capsule.Dr) 60 mg PO DAILY MONTRELL Hydromorphone HCl (Hydromorphone Hcl 0.5 Mg/0.5 Ml Syringe) 1 mg IV Q2H PRN PRN Reason: Pain, Severe (7-10) Sodium Chloride (Normal Saline 0.45%) 1,000 mls @ 100 mls/hr IV CONT MONTRELL Last Admin: 09/18/25 14:34 Dose: 100 mls/hr Documented By: MÓNICA Piperacillin Sod/Tazobactam (Sod 3.375 gm/ Sodium Chloride) 100 mls @ 25 mls/hr IV Q8H MONTRELL Dextrose (D10w) 100 mls @ 1,200 mls/hr IV PRN PRN PRN Reason: Hypoglycemia Insulin Glargine (Insulin Glargine 100 Unit/Ml 3ml Pen) 27 unit SUBCUT DAILY MONTRELL Insulin Human Lispro (Insulin Lispro 100 Unit/Ml 3ml Vial) 0 unit SUBCUT ACHS MONTRELL; Protocol Metoprolol Succinate (Metoprolol Er 50 Mg Tablet) 50 mg PO DAILY MONTRELL Naloxone HCl (Naloxone 0.4 Mg/Ml Vial) 0.2 mg IV Q2MIN PRN PRN Reason: Opiate Reversal Naloxone HCl (Naloxone 0.4 Mg/Ml Vial) 0.2 mg IV Q2MIN PRN PRN Reason: Opiate Reversal Ondansetron HCl (Ondansetron 4 Mg/2 Ml Inj) 4 mg IV Q8HR PRN PRN Reason: Nausea And Vomiting Discontinued Medications Sodium Chloride (Normal Saline 0.9%) 1,000 mls @ 1,000 mls/hr IV BOLUS ONE Stop: 09/18/25 11:39 Last Infusion: 09/18/25 12:04 Dose: Infused Documented By: Admin: 09/18/25 11:00 Dose: 1,000 mls/hr Documented By: EBONI Piperacillin Sod/Tazobactam (Sod 4.5 gm/ Sodium Chloride) 100 mls @ 200 mls/hr IV NOW ONE Stop: 09/18/25 10:41 Last Infusion: 09/18/25 12:25 Dose: Infused Documented By: Admin: 09/18/25 11:45 Dose: 200 mls/hr Documented By: EBONI Acetaminophen (Ofirmev) 1,000 mg in 100 mls @ 400 mls/hr IV NOW ONE Stop: 09/18/25 10:54 Last Infusion: 09/18/25 11:41 Dose: Infused Documented By: Admin: 09/18/25 11:06 Dose: 400 mls/hr Documented By: YULISA Sodium Chloride (Normal Saline 0.9%) 1,503 mls @ 1,002 mls/hr 30 ml/kg infuse over 90 min (1503 ml) IV NOW ONE Stop: 09/18/25 13:36 Last Admin: 09/18/25 12:40 Dose: 999 mls/hr Documented By: RB Ibuprofen (Ibuprofen 400 Mg Tablet) 800 mg PO NOW ONE Stop: 09/18/25 12:47 Last Admin: 09/18/25 12:51 Dose: 800 mg Documented By: MARGARITA Vital Signs Vital signs: Vital Signs - 8 hr 09/18/25 10:30 09/18/25 10:33 09/18/25 11:00 Temperature 103.2 F H Pulse Rate 119 H 119 H 119 H Respiratory Rate 22 21 21 Blood Pressure 194/88 H Pulse Oximetry 93 93 90 L Oxygen Delivery Method Room Air Room Air Room Air Oxygen Flow Rate 09/18/25 11:06 09/18/25 11:06 09/18/25 11:06 Temperature 103.5 F H Pulse Rate 118 H Respiratory Rate 22 Blood Pressure 174/75 H Pulse Oximetry 87 L Oxygen Delivery Method Room Air Oxygen Flow Rate 09/18/25 11:30 09/18/25 11:30 09/18/25 11:50 Temperature 103.5 F H Pulse Rate 123 H Respiratory Rate 20 Blood Pressure 167/75 H 158/72 H Pulse Oximetry 91 Oxygen Delivery Method Nasal Cannula Oxygen Flow Rate 1 09/18/25 11:50 09/18/25 12:04 09/18/25 12:06 Temperature 103.1 F H 102.5 F H 102.9 F H Pulse Rate 120 H 119 H Respiratory Rate 21 Blood Pressure Pulse Oximetry 92 96 Oxygen Delivery Method Nasal Cannula Nasal Cannula Oxygen Flow Rate 1 1 09/18/25 12:08 09/18/25 12:08 09/18/25 12:10 Temperature 102.9 F H Pulse Rate 120 H Respiratory Rate 17 Blood Pressure 146/66 H 142/64 H Pulse Oximetry 96 Oxygen Delivery Method Nasal Cannula Oxygen Flow Rate 1 09/18/25 12:10 09/18/25 12:20 09/18/25 12:20 Temperature 102.9 F H 102.6 F H Pulse Rate 119 H 121 H Respiratory Rate 19 20 Blood Pressure 142/60 H Pulse Oximetry 95 97 Oxygen Delivery Method Nasal Cannula Nasal Cannula Oxygen Flow Rate 1 1 09/18/25 12:30 09/18/25 12:30 09/18/25 12:40 Temperature 102.4 F H Pulse Rate 120 H Respiratory Rate 22 Blood Pressure 133/63 138/64 Pulse Oximetry 96 Oxygen Delivery Method Nasal Cannula Oxygen Flow Rate 1 09/18/25 12:40 09/18/25 12:50 09/18/25 12:50 Temperature 102.0 F H 102.0 F H Pulse Rate 125 H 116 H Respiratory Rate 22 26 H Blood Pressure 132/71 Pulse Oximetry 98 97 Oxygen Delivery Method Nasal Cannula Nasal Cannula Oxygen Flow Rate 1 1 MDM - Altered Mental Status Lab Data 09/18/25 11:00 09/18/25 11:00 Labs: Lab Results 09/18/25 09/18/25 Range/Units 11:00 11:30 WBC 32.7 H* (4.5-11.0) X10^3/uL RBC 4.58 (4.0-5.2) X10^6/uL Hgb 11.5 L (12.0-16.0) g/dL Hct 36.9 (36-46) % MCV 80.6 (80-100) fL MCH 25.2 L (26-34) PG MCHC 31.2 (30-36) % RDW 16.1 H (11.6-14.8) % Plt Count 401 H (150-400) X10^3/uL Neut % (Auto) Not Reportable Lymph % (Auto) Not Reportable [place] % (Auto) Not Reportable Eos % (Auto) Not Reportable Baso % (Auto) Not Reportable Lymph # (Auto) Not Reportable [place] # (Auto) Not Reportable Baso # (Auto) Not Reportable Total Counted 100 Seg Neutrophils % 95.0 H (38-70) % Band Neutrophils % 3.0 (3-7) % Monocytes % (Manual) 2.0 (2-11) % Neutrophils # (Manual) 02970 H (1086-1858) /uL RBC Morphology Normal morphology PT 13.2 H (9.4-12.5) SECONDS INR 1.2 (0.9-1.3) APTT 27 (25.1-36.5) SECONDS Sodium 140 (137-145) mmol/L Potassium 3.4 (3.4-5.1) mmol/L Chloride 104 (98-107) mmol/L Carbon Dioxide 25 (22-32) mmol/L BUN 28 H (7-17) mg/dL Creatinine 0.94 (0.52-1.04) mg/dL Estimated GFR > 60 (>60) mL/min BUN/Creatinine Ratio 29.8 H (6-22) Glucose 217 H (70-99) mg/dL Lactate 2.0 (0.7-2.1) mmol/L Calcium 9.3 (8.4-10.2) mg/dL Total Bilirubin 0.5 (0.2-1.3) mg/dL AST 25 (14-36) IU/L ALT 18 (<35) IU/L Alkaline Phosphatase 76 (38-126) U/L Total Protein 7.0 (6.3-8.2) g/dL Albumin 4.0 (3.5-5.0) g/dL Globulin 3.0 (1.7-4.1) g/dL Albumin/Globulin Ratio 1.3 (1.0-2.8) Lipase 62 (23-300) U/L Procalcitonin 0.444 (<0.5) ng/mL A.calcoaceticus-baumannii cmplx PCR Cancelled Bacteroides fragilis Cancelled Mariama albicans (PCR) Cancelled Mariama auris (PCR) Cancelled C. glabrata (PCR) Cancelled C. krusei (PCR) Cancelled C. parapsilosis (PCR) Cancelled C. tropicalis (PCR) Cancelled C. neoform/gattii (PCR) Cancelled Enterobacterales (PCR) Cancelled E. cloacae complex PCR Cancelled Enterococc faecalis PCR Cancelled Enterococc faecium PCR Cancelled E. coli (PCR) Cancelled H. influenzae (PCR) Cancelled Klebsiella aerogenes (PCR) Cancelled Klebsiella oxytoca PCR Cancelled Klebsiella pneumoniae Cancelled List. monocytogenes PCR Cancelled N. meningitidis (PCR) Cancelled Proteus species (PCR) Cancelled Salmonella spp. (PCR) Cancelled Serratia marcescens PCR Cancelled Staphylococcus sp PCR Cancelled Staph aureus (PCR) Cancelled mecA/C & MREJ Resist Gene Cancelled mecA/C-Methicil Resis Gene Cancelled mcr-1 Colistin Res Gene PCR Cancelled Staph epidermidis (PCR) Cancelled Staph lugdunensis PCR Cancelled S. maltophilia (PCR) Cancelled Streptococcus sp PCR Cancelled Group A Strep (PCR) Cancelled Strep agalactiae (PCR) Cancelled Strep pneumoniae (PCR) Cancelled P. aeruginosa (PCR) Cancelled Meggan/B-Vanco Res Genes Cancelled blaIMP Car res Gene PCR Cancelled KPC-Carbap Res Gene PCR Cancelled blaNDM Car Res Gene PCR Cancelled OXA-48 Carbapenem Resis Gene (PCR) Cancelled blaVIM Car Res Gene PCR Cancelled CTX-M Gene Resistance (PCR) Cancelled MDM Narrative Medical decision making narrative: 75-year-old female meet septic criteria suspected to possibly have UTI with known recent ureteral stone in stent placement around July 05. Patient is febrile tachycardic she has not been hypotensive. Labs EKG shows sinus tachycardia rate of 116 MD 194 QRS of 94 QTC of 442, no acute ST-elevation depression noted. EKG from 09/04/2025 shows sinus tachycardia with a rate of [address] segments. Chest x-ray, no acute cardiopulmonary change. CT abdomen pelvis, urinary ureteral stent is present, no residual right hydroureter, right greater than left perinephric stranding present maybe chronic with a pyelonephritis not excluded, gas and bladder maybe related instrumentation or infection with gas-forming organism. Nonobstructing left renal calculi, no left hydronephrosis. Colonic diverticulosis signs of tick diverticulitis. Small hiatal hernia. Head CT shows no acute intracranial pathology, stable chronic microvascular ischemic changes generalized parenchymal volume loss. Urinalysis Patient received fluids, we will re-evaluate after a L bolus to see if appropriate for 30 cc/kilos bolus but big stone extremity of age concern for fluid overload, acetaminophen for fever. Patient was covered with Zosyn had recent urine culture that showed Klebsiella and Proteus on 09/04/2025 this is suspected source but we will look for other potential sources that is well. Patient received fluids, Zofran, acetaminophen Spoke with Dr. Milligan, urology @ [phone]: Treat with IV antibiotics. No additional surgical intervention at this time. Spoke with Dr. Anderson @ [phone]. With confirm with urology that they are available over the holiday. Critical Care Time Critical Care Time Critical Care Time: Yes Total Critical Care Time: 30 Attestation: The high probability of a clinically significant, sudden or life threatening deterioration of the cardiac system(s) required my full and direct attention, intervention and personal management. The aggregate critical care time was [--] minutes. This time is in addition to time spent performing reported procedures but includes the following: [x] Data Review and interpretation [x] Patient assessment and monitoring of vital signs [x] Documentation [x] Medication orders and management Discharge Plan Departure Patient Disposition: Admitted As Inpatient Clinical Impression: Sepsis, Pyelonephritis, Stenosis of right ureter Admit Date/Time: 09/18/25 12:58 Admit Provider: Dennys Anderson Sepsis Evaluation (ED) Level 1 - Infection Sepsis Infection Criteria Present: Suspected New Infection Level 2 - SIRS Sepsis SIRS Criteria Present: Temperature > 101.0 or < 96.8 F, WBC < 4k or > 12k or Bands > 10% and Pulse > 90 bpm Level 3 - Organ Dysfunction Sepsis Organ Dysfunction Criteria Present: Blood Glucose > 140 mg/dl (no DM) Response It is my opinion that this patient have a likely infectious etiology for meeting sepsis criteria: Does Fluid calculation based on 30 mL/kg within 1hr of criteria: IBW used due to BMI>30 Antibiotics initiated within 1 hr of Sepis dx: Yes Tissue Perfusion Reassessed within 6 hrs of infusion start time: Yes Date of Tissue Perfusion Reassessment completed: 09/18/25 Time Tissue Perfusion Reassessment completed: 12:20
[2025-09-18] MEDS: SODIUM CHLORIDE 0.9% 1,000 ML 1000 ML IV ×2 (11:00→23:14)
[2025-09-18] MEDS: ACETAMINOPHEN IV 1,000 MG/100 ML VIAL 400 MG IV (11:06)
[2025-09-18 11:28] LABS: INR 1.2 (0.9-1.3); Prothrombin Time 13.2 SECONDS (9.4-12.5)
[2025-09-18 11:30] LABS: Hematocrit 36.9 % (36-46); Hemoglobin 11.5 g/dL (12.0-16.0); Mean Corpuscular HGB Conc 31.2 % (30-36); Mean Corpuscular Hemoglobin 25.2 PG (26-34); Mean Corpuscular Volume 80.6 fL (80-100); Platelet Count 401 X10^3/uL (150-400)
[2025-09-18 11:31] LABS: PTT Partial Thromboplastin Tim 27 SECONDS (25.1-36.5)
[2025-09-18 11:37] LABS: Lactate (Lactic Acid) 2.0 mmol/L (0.7-2.1)
[2025-09-18 11:38] LABS: Alanine Aminotransferase 18 IU/L (<35); Albumin 4.0 g/dL (3.5-5.0); Albumin Globulin Ratio 1.3 (1.0-2.8); Alkaline Phosphatase 76 U/L (38-126); Blood Urea Nitrogen 28 mg/dL (7-17); Calcium 9.3 mg/dL (8.4-10.2); Carbon Dioxide 25 mmol/L (22-32); Chloride 104 mmol/L (98-107); Estimated Glomerular Filt Rate > 60 mL/min (>60); Globulin 3.0 g/dL (1.7-4.1); Glucose 217 mg/dL (70-99); HEMOLYSIS 21 (0-50); Lipase 62 U/L (23-300); Potassium 3.4 mmol/L (3.4-5.1); Sodium 140 mmol/L (137-145); Total Protein 7.0 g/dL (6.3-8.2)
[2025-09-18 11:42] LABS: Add Manual Diff / Slide Review YES
[2025-09-18] MEDS: PIPERACILLIN/TAZO 4.5 GM in SODIUM CHLORIDE 0.9% 100 ML IV (11:45)
[2025-09-18 11:53] LABS: Procalcitonin 0.444 ng/mL (<0.5)
[2025-09-18 12:20] LABS: Band Neutrophils Percent 3.0 % (3-7); Monocytes Percent Manual 2.0 % (2-11); Neutrophils Absolute Manual 32046 /uL (3000-5900); RBC Morphology Normal Morphology; Segmented Neutrophils Percent 95.0 % (38-70); Total Cells Counted 100
[2025-09-18] MEDS: SODIUM CHLORIDE 0.9% 1,503 ML 999 ML IV (12:40)
--- NOTE | 2025-09-18 12:50 | PC.NURSE ---
Patient neighbor remains at patient bedside. Patient is now alert and oriented and able to have full conversations without any noted voice uneveness.
[2025-09-18] MEDS: IBUPROFEN 400 MG TABLET 800 MG PO (12:51)
[2025-09-18] MEDS: SODIUM CHLORIDE 0.45% 1,000 ML 100 ML IV (14:34)
--- NOTE | 2025-09-18 16:47 | PM.HP.1 ---
History of Present Illness History of Present Illness Date Patient Seen: 09/18/25 Chief complaint: Unwitnessed Fall secondary to sepsis from pyelonep Narrative: Chief complaint: Sepsis secondary to pyelonephritis with fall leukocytosis weakness with indwelling stent and nephrolithiasis History of present illness: 09/18: 75-year-old history of recurrent kidney stones managed by Urology Dr. Milligan with ureteral stent found in her living room by her neighbor. Patient was expected to go to [facility] he notes that she was confused but knew who he was, knew that they were supposed to go to [facility] today but has a day of the week wrong. He states she did not drink a large cup of water. He found her on her back between her coffee table in her couch. She was last seen yesterday by family and he is spoke with her on the phone yesterday states that she was acting normally and conversing normally. She has a recent kidney stone with sepsis has a ureteral stent placed. She has been on antibiotics he is not sure if she has completed them. He states she has had similar episodes in the past typically secondary to UTIs and/or kidney stone. He states she is not very consistent with her medications but that has on insulin she does have a monitor he states it was 212 when he arrived and glucose was 160 with EMS. He states she has been complaining of anything today. Patient we will open her eyes follows commands but is not answering questions for emergency provider. Case discussed with Dr. Milligan who has reviewed the imaging and felt that the stent is patent and there is no need for instrumentation for source control patient was admitted with IV antibiotics culture blood and urine. DR Milligan is available if any instrumentation is required but it is unlikely EMR notes she takes medication for hypertension, diabetes, dyslipidemia including insulin and an aspirin 81 mg daily. Patient appears to have had cystoscopy, right ureteral stent placed on 09/05/2025. No known drug allergies. No tobacco, occasional alcohol not regularly, no recreational drugs. Patient does have PCP, according to neighbor/friend. Patient's friend did call her sister who has a aware that she is here. CT stone protocol: 1. Right ureteral stent is present. No residual right hydroureter. Right greater than left perinephric fat stranding is present that may be chronic although pyelonephritis is not excluded. 2. Gas in the bladder may be related to instrumentation or infection with a gas-forming organism. 3. Nonobstructing left renal calculi. No left hydronephrosis. 4. Colonic diverticulosis without signs of acute diverticulitis. 5. Small hiatal hernia. Review of systems: No chest pain palpitations No nausea vomiting diarrhea No paresthesia paresis Physical exam: By the time of my examination patient was alert cogent and oriented HEENT unremarkable Heart rate and rhythm regular lungs clear Abdomen is nontender Extremities no edema Assessment and plan: Severe sepsis secondary to pyelonephritis UTI with polyp probable nidus of infection with nephrolithiasis and indwelling stent that was placed on 09/05 Intravenous fluid resuscitation and IV antibiotics Culture blood and urine Monitor urine output Insulin-dependent diabetes Resume home medications DVT prophylaxis: Subcutaneous heparin Code status: Full code blue Disposition: Inpatient expect 2-3 days of hospitalization longer if long-term IV antibiotics required Time based billin minutes were involved in evaluation of the patient including [id number] evaluation physical examination discussion with emergency provider and Urology review of objective laboratory findings and review of previous records [facility] Medical History Melanoma (~2019) Depression (~2015) Osteoporosis (~2018) Foot pain (~2019) Carpal tunnel syndrome (~2013) Measles Chicken pox Vertigo Retinal detachment (~2017) Cataracts, bilateral (~2018) Diabetes mellitus (~1989) Healthy adult Surgical History Anesthesia History of removal of cyst (~1978) History of carpal tunnel release (~2013) History of partial thyroidectomy (~1979) History of eye surgery (~2017) History of cataract removal with insertion of prosthetic lens (~2020) Family History Father Cancer Mother Diabetes mellitus Hypertension Brother Diabetes mellitus Brother Diabetes mellitus Family/Other Diabetes mellitus Hypertension Social History household members: other Smoking Status: Smoker, status unknown alcohol intake: current Meds Home Medications and Allergies Home Medications ?Medication ?Instructions ?Recorded ?Confirmed ?Type aspirin 81 mg tablet,delayed 81 mg PO QPM 05/11/18 09/18/25 History release metformin 1,000 mg tablet 1 tab PO BID 05/11/18 09/18/25 History rosuvastatin 20 mg tablet 20 mg PO QPM 08/08/23 09/18/25 History duloxetine 60 mg capsule,delayed 60 mg PO DAILY 03/25/24 09/18/25 History release insulin glargine 100 unit/mL (3 27 unit SUBCUT DAILY 03/25/24 09/18/25 History mL) subcutaneous pen (Lantus Solostar U-100 Insulin) losartan 100 1 tab PO DAILY 03/25/24 09/18/25 History mg-hydrochlorothiazide 12.5 mg tablet metoprolol succinate 50 mg 50 mg PO DAILY 03/25/24 09/18/25 History tablet,extended release 24 hr amlodipine 5 mg tablet 5 mg PO DAILY 05/03/24 09/18/25 History meloxicam 15 mg tablet 15 mg PO DAILY #30 tabs 05/06/24 09/18/25 Rx Allergies Allergy/AdvReac Type Severity Reaction Status Date / Time No Known Drug Allergies Allergy Verified 09/18/25 10:33 Exam Vital Signs (past 8 hours): - 09/18/25 10:30 09/18/25 10:33 09/18/25 11:00 Temperature 103.2 F H Pulse Rate 119 H 119 H 119 H Respiratory Rate 22 21 21 Blood Pressure 194/88 H Pulse Oximetry 93 93 90 L Oxygen Delivery Method Room Air Room Air Room Air Oxygen Flow Rate 09/18/25 11:06 09/18/25 11:06 09/18/25 11:06 Temperature 103.5 F H Pulse Rate 118 H Respiratory Rate 22 Blood Pressure 174/75 H Pulse Oximetry 87 L Oxygen Delivery Method Room Air Oxygen Flow Rate 09/18/25 11:30 09/18/25 11:30 09/18/25 11:50 Temperature 103.5 F H Pulse Rate 123 H Respiratory Rate 20 Blood Pressure 167/75 H 158/72 H Pulse Oximetry 91 Oxygen Delivery Method Nasal Cannula Oxygen Flow Rate 1 09/18/25 11:50 09/18/25 12:04 09/18/25 12:06 Temperature 103.1 F H 102.5 F H 102.9 F H Pulse Rate 120 H 119 H Respiratory Rate 21 Blood Pressure Pulse Oximetry 92 96 Oxygen Delivery Method Nasal Cannula Nasal Cannula Oxygen Flow Rate 1 1 09/18/25 12:08 09/18/25 12:08 09/18/25 12:10 Temperature 102.9 F H Pulse Rate 120 H Respiratory Rate 17 Blood Pressure 146/66 H 142/64 H Pulse Oximetry 96 Oxygen Delivery Method Nasal Cannula Oxygen Flow Rate 1 09/18/25 12:10 09/18/25 12:20 09/18/25 12:20 Temperature 102.9 F H 102.6 F H Pulse Rate 119 H 121 H Respiratory Rate 19 20 Blood Pressure 142/60 H Pulse Oximetry 95 97 Oxygen Delivery Method Nasal Cannula Nasal Cannula Oxygen Flow Rate 1 1 09/18/25 12:30 09/18/25 12:30 09/18/25 12:40 Temperature 102.4 F H Pulse Rate 120 H Respiratory Rate 22 Blood Pressure 133/63 138/64 Pulse Oximetry 96 Oxygen Delivery Method Nasal Cannula Oxygen Flow Rate 1 09/18/25 12:40 09/18/25 12:50 09/18/25 12:50 Temperature 102.0 F H 102.0 F H Pulse Rate 125 H 116 H Respiratory Rate 22 26 H Blood Pressure 132/71 Pulse Oximetry 98 97 Oxygen Delivery Method Nasal Cannula Nasal Cannula Oxygen Flow Rate 1 1 09/18/25 13:00 09/18/25 13:00 09/18/25 13:10 Temperature 101.8 F H Pulse Rate 114 H Respiratory Rate 20 Blood Pressure 129/69 133/67 Pulse Oximetry 98 Oxygen Delivery Method Nasal Cannula Oxygen Flow Rate 1 09/18/25 13:10 09/18/25 13:20 09/18/25 13:20 Temperature 101.7 F H 101.5 F H Pulse Rate 108 H 104 H Respiratory Rate 18 26 H Blood Pressure 132/62 Pulse Oximetry 95 97 Oxygen Delivery Method Nasal Cannula Nasal Cannula Oxygen Flow Rate 1 1 09/18/25 13:30 09/18/25 13:30 09/18/25 13:40 Temperature 101.5 F H Pulse Rate 110 H Respiratory Rate 24 Blood Pressure 129/62 123/57 L Pulse Oximetry 98 Oxygen Delivery Method Nasal Cannula Oxygen Flow Rate 1 09/18/25 13:40 09/18/25 14:11 Temperature 101.5 F H 100.1 F H Pulse Rate 106 H 108 H Respiratory Rate 20 19 Blood Pressure 110/63 Pulse Oximetry 96 90 L Oxygen Delivery Method Oxygen Flow Rate 2 Oxygen Delivery Method Nasal Cannula Oxygen Flow Rate 2 Objective Labs 09/18/25 11:00 09/18/25 11:00 Labs: Laboratory Results - last 24 hr 09/18/25 09/18/25 11:00 11:30 WBC 32.7 H* RBC 4.58 Hgb 11.5 L Hct 36.9 MCV 80.6 MCH 25.2 L MCHC 31.2 RDW 16.1 H Plt Count 401 H Neut % (Auto) Not Reportable Lymph % (Auto) Not Reportable [place] % (Auto) Not Reportable Eos % (Auto) Not Reportable Baso % (Auto) Not Reportable Lymph # (Auto) Not Reportable [place] # (Auto) Not Reportable Baso # (Auto) Not Reportable Total Counted 100 Seg Neutrophils % 95.0 H Band Neutrophils % 3.0 Monocytes % (Manual) 2.0 Neutrophils # (Manual) 48122 H RBC Morphology Normal morphology PT 13.2 H INR 1.2 APTT 27 Sodium 140 Potassium 3.4 Chloride 104 Carbon Dioxide 25 BUN 28 H Creatinine 0.94 Estimated GFR > 60 BUN/Creatinine Ratio 29.8 H Glucose 217 H Lactate 2.0 Calcium 9.3 Total Bilirubin 0.5 AST 25 ALT 18 Alkaline Phosphatase 76 Total Protein 7.0 Albumin 4.0 Globulin 3.0 Albumin/Globulin Ratio 1.3 Lipase 62 Procalcitonin 0.444 A.calcoaceticus-baumannii cmplx PCR Cancelled Bacteroides fragilis Cancelled Mariama albicans (PCR) Cancelled Mariama auris (PCR) Cancelled C. glabrata (PCR) Cancelled C. krusei (PCR) Cancelled C. parapsilosis (PCR) Cancelled C. tropicalis (PCR) Cancelled C. neoform/gattii (PCR) Cancelled Enterobacterales (PCR) Cancelled E. cloacae complex PCR Cancelled Enterococc faecalis PCR Cancelled Enterococc faecium PCR Cancelled E. coli (PCR) Cancelled H. influenzae (PCR) Cancelled Klebsiella aerogenes (PCR) Cancelled Klebsiella oxytoca PCR Cancelled Klebsiella pneumoniae Cancelled List. monocytogenes PCR Cancelled N. meningitidis (PCR) Cancelled Proteus species (PCR) Cancelled Salmonella spp. (PCR) Cancelled Serratia marcescens PCR Cancelled Staphylococcus sp PCR Cancelled Staph aureus (PCR) Cancelled mecA/C & MREJ Resist Gene Cancelled mecA/C-Methicil Resis Gene Cancelled mcr-1 [place]in Res Gene PCR Cancelled Staph epidermidis (PCR) Cancelled Staph lugdunensis PCR Cancelled S. maltophilia (PCR) Cancelled Streptococcus sp PCR Cancelled Group A Strep (PCR) Cancelled Strep agalactiae (PCR) Cancelled Strep pneumoniae (PCR) Cancelled P. aeruginosa (PCR) Cancelled Meggan/B-Vanco Res Genes Cancelled blaIMP Car res Gene PCR Cancelled KPC-Carbap Res Gene PCR Cancelled blaNDM Car Res Gene PCR Cancelled OXA-48 Carbapenem Resis Gene (PCR) Cancelled blaVIM Car Res Gene PCR Cancelled CTX-M Gene Resistance (PCR) Cancelled Assessment & Plan Time-Based Coding :: [TOTAL MINUTES] spent with patient and on the chart (including review of chart, obtaining history, exam, reviewing outside data, placing orders, documenting exam and treatment plan, and counseling patient) on [DATE].
[2025-09-18] MEDS: PIPERACILLIN/TAZO 3.375 GM in SODIUM CHLORIDE 0.9% 100 ML IV (20:38)
[2025-09-18] MEDS: ASPIRIN EC 81 MG TABLET PO (20:41)
[2025-09-18] MEDS: ATORVASTATIN 20 MG TABLET 40 MG PO (20:41)
[2025-09-18] MEDS: INSULIN LISPRO 100 UNIT/ML 3ML VIAL SUBCUT (21:00)
[2025-09-18] MEDS: ACETAMINOPHEN 325 MG TABLET 650 MG PO (21:04)
[2025-09-19] VITALS (10 sets, daily range): BP systolic 100–132; BP diastolic 52–71; PULSE 79–137; RESP 16–18; TEMP 36.2–39.4; O2SAT 94–97
[2025-09-19] MEDS: SODIUM CHLORIDE 0.45% 1,000 ML 100 ML IV (01:10)
[2025-09-19 01:33] LABS: Acinetobacter calcoa-baumannii Not Detected (Not Detect); Bacteroides fragilis Not Detected (Not Detect); CTX-M Resistance Not Detected (Not Detect); Candida auris Not Detected (Not Detect); Candida glabrata Not Detected (Not Detect); Cryptococcus neoformans/gatti Not Detected (Not Detect); Enterobacterales Detected (Not Detect); Enterococcus faecalis Not Detected (Not Detect); Enterococcus faecium Not Detected (Not Detect); IMP Resistance Not Detected (Not Detect); KPC Resistance Not Detected (Not Detect); Klebsiella aerogenes Not Detected (Not Detect); NDM Resistance Not Detected (Not Detect); OXA-48-like Resistance Not Detected (Not Detect); Proteus species Not Detected (Not Detect); Serratia marcescens Not Detected (Not Detect); Staphylococcus epidermidis Not Detected (Not Detect); Staphylococcus lugdunensis Not Detected (Not Detect); Staphylococcus species Not Detected (Not Detect); Stenotrophomonas maltophilia Not Detected (Not Detect); Streptococcus agalactiae (Gr B Not Detected (Not Detect); Streptococcus pneumonia Not Detected (Not Detect); Streptococcus pyogenes (Gr A) Not Detected (Not Detect); Streptococcus species Not Detected (Not Detect); VIM Resistance Not Detected (Not Detect); mcr-1 Resistance Not Detected (Not Detect)
[2025-09-19] MEDS: PIPERACILLIN/TAZO 3.375 GM in SODIUM CHLORIDE 0.9% 100 ML IV (04:00)
[2025-09-19] MEDS: ONDANSETRON 4 MG/2 ML INJ IV (05:46)
[2025-09-19 05:59] LABS: Blood Urea Nitrogen 28 mg/dL (7-17); Calcium 8.7 mg/dL (8.4-10.2); Carbon Dioxide 21 mmol/L (22-32); Chloride 107 mmol/L (98-107); Estimated Glomerular Filt Rate 44 mL/min (>60); Glucose 153 mg/dL (70-99); HEMOLYSIS < 15 (0-50); Potassium 3.6 mmol/L (3.4-5.1); Sodium 139 mmol/L (137-145)
[2025-09-19 07:31] LABS: Hematocrit 32.1 % (36-46); Hemoglobin 10.3 g/dL (12.0-16.0); Mean Corpuscular HGB Conc 32.2 % (30-36); Mean Corpuscular Hemoglobin 25.5 PG (26-34); Mean Corpuscular Volume 79.1 fL (80-100); Platelet Count 340 X10^3/uL (150-400)
[2025-09-19 07:34] LABS: Add Manual Diff / Slide Review YES
[2025-09-19 07:49] LABS: Band Neutrophils Percent 7.0 % (3-7); Lymphocytes Percent Manual 2.0 % (25-45); Monocytes Percent Manual 5.0 % (2-11); Neutrophils Absolute Manual 34224 /uL (3000-5900); Ovalocytes 1+; Segmented Neutrophils Percent 86.0 % (38-70); Total Cells Counted 100
[2025-09-19 07:50] LABS: Anisocytosis 1+
[2025-09-19] MEDS: ACETAMINOPHEN 325 MG TABLET 650 MG PO ×2 (08:07→16:43)
[2025-09-19] MEDS: INSULIN LISPRO 100 UNIT/ML 3ML VIAL SUBCUT ×5 (08:13→17:16)
--- NOTE | 2025-09-19 09:02 | CM.DANOTE ---
Initial DCP Assessment Visit Note Reviewed EMR and team rounds for pt's medical status and updates. Met with pt at bedside to introduce self and role, pt was found to be alert/oriented, resting quietly in bed. Pt resides modified independently in her own home in [place], she is currently from her spouse. She has a local dtr and friend available to transport home once she's medically cleared for home d/c, unless PT/OT recommends SNF rehab, pending. Payor: HENRY CORTES PCP: Beverley Roosevelt Pt is a 75 year-old F who presented to the ED via EMS after she was found down on the ground in her living room by a neighbor. She did have AMS, however was able to recognize her neighbor at the time. She was reportedly recently dx with a kidney stone, and had a ureter stent placed on 09/05/25. Urology was consulted, and the decision was made to admit for IV antibiotics, fluids, Zofran, and symptom management. DCP will continue to monitor for any further evolving needs, including SNF vs. home pending therapy evals and recs. Discharge Planning/Care Management Advanced directive, confirm from FAMILY Start: 09/18/25 16:07 Freq: Q24H Status: Active Protocol: Document 09/18/25 16:07 LW (Rec: 09/18/25 18:26 LW [id number]) Advance Directive, confirm on record Time 18:26 Person contacted pt and fam Copy received No CM Discharge Assessment Start: 09/18/25 13:46 Freq: Status: Active Protocol: Document 09/19/25 08:59 DPL (Rec: 09/19/25 09:02 DPL [id number]) Discharge Planning Assessment Assigned Discharge [employer] Provider Beverley Albert Insurance [facility] Advance Directives? No Advance Directives No on File History Provided By Patient,Medical Record Has Patient been No admitted in last 30 days? Prior Living House Arrangements Household Members other Type of Drives own vehicle transporation used prior to admit Independent with ADL No: modified independent with a cane or walker 's Is patient alert and Yes oriented? Caregiver for No Another Comment N/A DME Already Rented / Elevated Toilet Seat,FWW / Walker Owned Comment Pending post-surgical PT/OT assessments/recommendations . Barriers to No Discharge Comment Friend or family can picking tech if she doesn't go to a SNF for rehab. Additional Comment Pending If patient plan is not needed SNF: Has PASSR been completed? Whiteboard Updated Yes in Patient Room with name and ext. # of Customer Service Specialist Review Status In Process Please Provide Date 09/19/25 Initial DC Assessment Was Performed
[2025-09-19 09:54] LABS: Lactate (Lactic Acid) 4.0 mmol/L (0.7-2.1)
[2025-09-19] MEDS: METOPROLOL ER 50 MG TABLET PO (09:54)
[2025-09-19] MEDS: INSULIN GLARGINE 100 UNIT/ML 3ML PEN 27 UNIT SUBCUT (09:54)
[2025-09-19] MEDS: LACTATED RINGERS 1,000 ML 150 ML IV ×3 (10:29→23:26)
[2025-09-19 11:16] LABS: Reflexed Lactate in 2 Hours Y
[2025-09-19 11:35] LABS: Appearance Urine UA CLOUDY; Bilirubin Urine UA NEGATIVE (NEGATIVE); Color Urine UA YELLOW; Glucose Urine UA NEGATIVE (Negative); Ketones Urine UA TRACE (NEGATIVE); Leukocyte Esterase Urine UA 2+ (NEGATIVE); Nitrite Urine UA NEGATIVE (Negative); Occult Blood Urine UA 2+ (Negative); Protein Urine UA 2+ (Negative); Specific Gravity Urine UA 1.020 (1.000-1.035); Urobilinogen Urine UA 0.2 E.U./dL (0.2)
[2025-09-19 11:45] LABS: Lactate 2HR (Lactic Acid Rflx) 1.9 mmol/L (0.7-2.1)
[2025-09-19 11:49] LABS: Culture Indicated Urine Specimen Cultured; pH Urine UA 5.5 (4.5-8.0)
[2025-09-19] MEDS: MEROPENEM 1 GM in SODIUM CHLORIDE 0.9% 100 ML IV ×2 (12:15→23:26)
--- NOTE | 2025-09-19 12:40 | PM.PN.1 ---
Subjective Subjective Date Patient Seen: 09/19/25 Time Patient Seen: 08:30 Interval history: Chief complaint: Sepsis secondary to pyelonephritis with fall leukocytosis weakness with indwelling stent and nephrolithiasis History of present illness: 09/18: 75-year-old history of recurrent kidney stones managed by Urology Dr. Milligan with ureteral stent found in her living room by her neighbor. Patient was expected to go to [facility] he notes that she was confused but knew who he was, knew that they were supposed to go to [facility] today but has a day of the week wrong. He states she did not drink a large cup of water. He found her on her back between her coffee table in her couch. She was last seen yesterday by family and he is spoke with her on the phone yesterday states that she was acting normally and conversing normally. She has a recent kidney stone with sepsis has a ureteral stent placed. She has been on antibiotics he is not sure if she has completed them. He states she has had similar episodes in the past typically secondary to UTIs and/or kidney stone. He states she is not very consistent with her medications but that has on insulin she does have a monitor he states it was 212 when he arrived and glucose was 160 with EMS. He states she has been complaining of anything today. Patient we will open her eyes follows commands but is not answering questions for emergency provider. Case discussed with Dr. Milligan who has reviewed the imaging and felt that the stent is patent and there is no need for instrumentation for source control patient was admitted with IV antibiotics culture blood and urine. DR Milligan is available if any instrumentation is required but it is unlikely EMR notes she takes medication for hypertension, diabetes, dyslipidemia including insulin and an aspirin 81 mg daily. Patient appears to have had cystoscopy, right ureteral stent placed on 09/05/2025. No known drug allergies. No tobacco, occasional alcohol not regularly, no recreational drugs. Patient does have PCP, according to neighbor/friend. Patient's friend did call her sister who has a aware that she is here. CT stone protocol: 1. Right ureteral stent is present. No residual right hydroureter. Right greater than left perinephric fat stranding is present that may be chronic although pyelonephritis is not excluded. 2. Gas in the bladder may be related to instrumentation or infection with a gas-forming organism. 3. Nonobstructing left renal calculi. No left hydronephrosis. 4. Colonic diverticulosis without signs of acute diverticulitis. 5. Small hiatal hernia. Hospital course: 09/19: Temperature 103? overnight no chills overnight good urine output white blood cell count continues to escalate however patient does not appear very toxic at all leading to suspicion of an occult underlying myeloproliferative disorder at leukemoid reaction Review of systems: No chest pain palpitations No nausea vomiting diarrhea No paresthesia paresis Physical exam: By the time of my examination patient was alert cogent and oriented HEENT unremarkable Heart rate and rhythm regular lungs clear Abdomen is nontender Extremities no edema Assessment and plan: Severe sepsis secondary to pyelonephritis UTI with polyp probable nidus of infection with nephrolithiasis and indwelling stent that was placed on 09/05 Intravenous fluid resuscitation and IV antibiotics Culture blood and urine Monitor urine output Change antibiotics to meropenem 1 g q.12 per investigation with pharmacy and sensitivities Insulin-dependent diabetes Resume home medications DVT prophylaxis: Subcutaneous heparin Code status: Full code blue Disposition: Inpatient expect 2-3 days of hospitalization longer if long-term IV antibiotics required Time based billin minutes were involved in evaluation of the patient including [id number] evaluation physical examination discussion with emergency provider and Urology review of objective laboratory findings and review of previous records Exam Vital Signs (past 8 hours): - 09/19/25 07:00 09/19/25 08:07 09/19/25 08:23 Temperature 103 F H 103.0 F H Pulse Rate 137 H Respiratory Rate 16 Blood Pressure 132/71 Pulse Oximetry 95 97 Oxygen Delivery Method Nasal Cannula Oxygen Flow Rate 3 3 09/19/25 09:39 09/19/25 09:54 09/19/25 10:49 Temperature 100.0 F H Pulse Rate 137 H Respiratory Rate Blood Pressure 132/71 Pulse Oximetry 97 Oxygen Delivery Method Nasal Cannula Oxygen Flow Rate 3 09/19/25 12:14 Temperature Pulse Rate 82 Respiratory Rate Blood Pressure 100/52 L Pulse Oximetry Oxygen Delivery Method Oxygen Flow Rate Fraction of Inspired Oxygen 32 SaO2/FiO2 Ratio 293 Oxygen Delivery Method Nasal Cannula Oxygen Flow Rate 3 Objective Labs 09/19/25 07:18 09/19/25 04:50 Labs: Laboratory Results - last 24 hr 09/18/25 09/18/25 09/18/25 11:30 17:17 21:02 WBC RBC Hgb Hct MCV MCH MCHC RDW Plt Count Neut % (Auto) Lymph % (Auto) [place] % (Auto) Eos % (Auto) Baso % (Auto) Lymph # (Auto) [place] # (Auto) Baso # (Auto) Total Counted Seg Neutrophils % Band Neutrophils % Lymphocytes % (Manual) Monocytes % (Manual) Neutrophils # (Manual) RBC Morphology Anisocytosis Ovalocytes Sodium Potassium Chloride Carbon Dioxide BUN Creatinine Estimated GFR BUN/Creatinine Ratio Glucose POC Whole Bld Glucose 198 H 197 H Lactate Calcium Urine Color Urine Appearance Urine pH Ur Specific [place] Urine Protein Urine Glucose (UA) Urine Ketones Urine Occult Blood Urine Nitrate Urine Bilirubin Urine Urobilinogen Ur Leukocyte Esterase Urine RBC Urine WBC Ur Squamous Epith Cells Urine Bacteria Ur Culture Indicated? Vol Urine Centrifuged A.calcoaceticus-baumannii cmplx PCR Cancelled Bacteroides fragilis Cancelled Mariama albicans (PCR) Cancelled Mariama auris (PCR) Cancelled C. glabrata (PCR) Cancelled C. krusei (PCR) Cancelled C. parapsilosis (PCR) Cancelled C. tropicalis (PCR) Cancelled C. neoform/gattii (PCR) Cancelled Enterobacterales (PCR) Cancelled E. cloacae complex PCR Cancelled Enterococc faecalis PCR Cancelled Enterococc faecium PCR Cancelled E. coli (PCR) Cancelled H. influenzae (PCR) Cancelled Klebsiella aerogenes (PCR) Cancelled Klebsiella oxytoca PCR Cancelled Klebsiella pneumoniae Cancelled List. monocytogenes PCR Cancelled N. meningitidis (PCR) Cancelled Proteus species (PCR) Cancelled Salmonella spp. (PCR) Cancelled Serratia marcescens PCR Cancelled Staphylococcus sp PCR Cancelled Staph aureus (PCR) Cancelled mecA/C & MREJ Resist Gene Cancelled mecA/C-Methicil Resis Gene Cancelled mcr-1 Colistin Res Gene PCR Cancelled Staph epidermidis (PCR) Cancelled Staph lugdunensis PCR Cancelled S. maltophilia (PCR) Cancelled Streptococcus sp PCR Cancelled Group A Strep (PCR) Cancelled Strep agalactiae (PCR) Cancelled Strep pneumoniae (PCR) Cancelled P. aeruginosa (PCR) Cancelled Meggan/B-Vanco Res Genes Cancelled blaIMP Car res Gene PCR Cancelled KPC-Carbap Res Gene PCR Cancelled blaNDM Car Res Gene PCR Cancelled OXA-48 Carbapenem Resis Gene (PCR) Cancelled blaVIM Car Res Gene PCR Cancelled CTX-M Gene Resistance (PCR) Cancelled 09/19/25 09/19/25 09/19/25 00:18 04:50 07:18 WBC 36.8 H* RBC 4.06 Hgb 10.3 L Hct 32.1 L MCV 79.1 L MCH 25.5 L MCHC 32.2 RDW 16.4 H Plt Count 340 Neut % (Auto) Not Reportable Lymph % (Auto) Not Reportable [place] % (Auto) Not Reportable Eos % (Auto) Not Reportable Baso % (Auto) Not Reportable Lymph # (Auto) Not Reportable [place] # (Auto) Not Reportable Baso # (Auto) Not Reportable Total Counted 100 Seg Neutrophils % 86.0 H Band Neutrophils % 7.0 Lymphocytes % (Manual) 2.0 L Monocytes % (Manual) 5.0 Neutrophils # (Manual) 66299 H RBC Morphology See below Anisocytosis 1+ H Ovalocytes 1+ H Sodium 139 Potassium 3.6 Chloride 107 Carbon Dioxide 21 L BUN 28 H Creatinine 1.28 H Estimated GFR 44 L BUN/Creatinine Ratio 21.9 Glucose 153 H POC Whole Bld Glucose Lactate Calcium 8.7 Urine Color Urine Appearance Urine pH Ur Specific [place] Urine Protein Urine Glucose (UA) Urine Ketones Urine Occult Blood Urine Nitrate Urine Bilirubin Urine Urobilinogen Ur Leukocyte Esterase Urine RBC Urine WBC Ur Squamous Epith Cells Urine Bacteria Ur Culture Indicated? Vol Urine Centrifuged A.calcoaceticus-baumannii cmplx PCR Not detected Bacteroides fragilis Not detected Mariama albicans (PCR) Not detected Mariama auris (PCR) Not detected C. glabrata (PCR) Not detected C. krusei (PCR) Not detected C. parapsilosis (PCR) Not detected C. tropicalis (PCR) Not detected C. neoform/gattii (PCR) Not detected Enterobacterales (PCR) Detected E. cloacae complex PCR Not detected Enterococc faecalis PCR Not detected Enterococc faecium PCR Not detected E. coli (PCR) Not detected H. influenzae (PCR) Not detected Klebsiella aerogenes (PCR) Not detected Klebsiella oxytoca PCR Not detected Klebsiella pneumoniae Detected List. monocytogenes PCR Not detected N. meningitidis (PCR) Not detected Proteus species (PCR) Not detected Salmonella spp. (PCR) Not detected Serratia marcescens PCR Not detected Staphylococcus sp PCR Not detected Staph aureus (PCR) Not detected mecA/C & MREJ Resist Gene Not applicable mecA/C-Methicil Resis Gene Not applicable mcr-1 [place] Res Gene PCR Not detected Staph epidermidis (PCR) Not detected Staph lugdunensis PCR Not detected S. maltophilia (PCR) Not detected Streptococcus sp PCR Not detected Group A Strep (PCR) Not detected Strep agalactiae (PCR) Not detected Strep pneumoniae (PCR) Not detected P. aeruginosa (PCR) Not detected Meggan/B-Vanco Res Genes Not applicable blaIMP Car res Gene PCR Not detected KPC-Carbap Res Gene PCR Not detected blaNDM Car Res Gene PCR Not detected OXA-48 Carbapenem Resis Gene (PCR) Not detected blaVIM Car Res Gene PCR Not detected CTX-M Gene Resistance (PCR) Not detected 09/19/25 09/19/25 09/19/25 07:38 09:25 11:23 WBC RBC Hgb Hct MCV MCH MCHC RDW Plt Count Neut % (Auto) Lymph % (Auto) [place] % (Auto) Eos % (Auto) Baso % (Auto) Lymph # (Auto) [place] # (Auto) Baso # (Auto) Total Counted Seg Neutrophils % Band Neutrophils % Lymphocytes % (Manual) Monocytes % (Manual) Neutrophils # (Manual) RBC Morphology Anisocytosis Ovalocytes Sodium Potassium Chloride Carbon Dioxide BUN Creatinine Estimated GFR BUN/Creatinine Ratio Glucose POC Whole Bld Glucose 236 H Lactate 4.0 H 1.9 Calcium Urine Color Urine Appearance Urine pH Ur Specific [place] Urine Protein Urine Glucose (UA) Urine Ketones Urine Occult Blood Urine Nitrate Urine Bilirubin Urine Urobilinogen Ur Leukocyte Esterase Urine RBC Urine WBC Ur Squamous Epith Cells Urine Bacteria Ur Culture Indicated? Vol Urine Centrifuged A.calcoaceticus-baumannii cmplx PCR Bacteroides fragilis Mariama albicans (PCR) Mariama auris (PCR) C. glabrata (PCR) C. krusei (PCR) C. parapsilosis (PCR) C. tropicalis (PCR) C. neoform/gattii (PCR) Enterobacterales (PCR) E. cloacae complex PCR Enterococc faecalis PCR Enterococc faecium PCR E. coli (PCR) H. influenzae (PCR) Klebsiella aerogenes (PCR) Klebsiella oxytoca PCR Klebsiella pneumoniae List. monocytogenes PCR N. meningitidis (PCR) Proteus species (PCR) Salmonella spp. (PCR) Serratia marcescens PCR Staphylococcus sp PCR Staph aureus (PCR) mecA/C & MREJ Resist Gene mecA/C-Methicil Resis Gene mcr-1 Colistin Res Gene PCR Staph epidermidis (PCR) Staph lugdunensis PCR S. maltophilia (PCR) Streptococcus sp PCR Group A Strep (PCR) Strep agalactiae (PCR) Strep pneumoniae (PCR) P. aeruginosa (PCR) Meggan/B-Vanco Res Genes blaIMP Car res Gene PCR KPC-Carbap Res Gene PCR blaNDM Car Res Gene PCR OXA-48 Carbapenem Resis Gene (PCR) blaVIM Car Res Gene PCR CTX-M Gene Resistance (PCR) 09/19/25 09/19/25 11:24 11:48 WBC RBC Hgb Hct MCV MCH MCHC RDW Plt Count Neut % (Auto) Lymph % (Auto) [place] % (Auto) Eos % (Auto) Baso % (Auto) Lymph # (Auto) [place] # (Auto) Baso # (Auto) Total Counted Seg Neutrophils % Band Neutrophils % Lymphocytes % (Manual) Monocytes % (Manual) Neutrophils # (Manual) RBC Morphology Anisocytosis Ovalocytes Sodium Potassium Chloride Carbon Dioxide BUN Creatinine Estimated GFR BUN/Creatinine Ratio Glucose POC Whole Bld Glucose 236 H Lactate Calcium Urine Color Yellow Urine Appearance Cloudy Urine pH 5.5 Ur Specific [place] 1.020 Urine Protein 2+ H Urine Glucose (UA) Negative Urine Ketones Trace H Urine Occult Blood 2+ H Urine Nitrate Negative Urine Bilirubin Negative Urine Urobilinogen 0.2 Ur Leukocyte Esterase 2+ H Urine RBC None seen Urine WBC 30-100/hpf H Ur Squamous Epith Cells None seen Urine Bacteria Few (2-10) H Ur Culture Indicated? Specimen cultured Vol Urine Centrifuged 10ml (spun) A.calcoaceticus-baumannii cmplx PCR Bacteroides fragilis Mariama albicans (PCR) Mariama auris (PCR) C. glabrata (PCR) C. krusei (PCR) C. parapsilosis (PCR) C. tropicalis (PCR) C. neoform/gattii (PCR) Enterobacterales (PCR) E. cloacae complex PCR Enterococc faecalis PCR Enterococc faecium PCR E. coli (PCR) H. influenzae (PCR) Klebsiella aerogenes (PCR) Klebsiella oxytoca PCR Klebsiella pneumoniae List. monocytogenes PCR N. meningitidis (PCR) Proteus species (PCR) Salmonella spp. (PCR) Serratia marcescens PCR Staphylococcus sp PCR Staph aureus (PCR) mecA/C & MREJ Resist Gene mecA/C-Methicil Resis Gene mcr-1 Colistin Res Gene PCR Staph epidermidis (PCR) Staph lugdunensis PCR S. maltophilia (PCR) Streptococcus sp PCR Group A Strep (PCR) Strep agalactiae (PCR) Strep pneumoniae (PCR) P. aeruginosa (PCR) Meggan/B-Vanco Res Genes blaIMP Car res Gene PCR KPC-Carbap Res Gene PCR blaNDM Car Res Gene PCR OXA-48 Carbapenem Resis Gene (PCR) blaVIM Car Res Gene PCR CTX-M Gene Resistance (PCR) PFSH Medical History Melanoma (~2019) Depression (~2015) Osteoporosis (~2018) Foot pain (~2019) Carpal tunnel syndrome (~2013) Measles Chicken pox Vertigo Retinal detachment (~2017) Cataracts, bilateral (~2018) Diabetes mellitus (~1989) Healthy adult Surgical History Anesthesia History of removal of cyst (~1978) History of carpal tunnel release (~2013) History of partial thyroidectomy (~1979) History of eye surgery (~2017) History of cataract removal with insertion of prosthetic lens (~2020) Family History Father Cancer Mother Diabetes mellitus Hypertension Brother Diabetes mellitus Brother Diabetes mellitus Family/Other Diabetes mellitus Hypertension Social History household members: other Smoking Status: Smoker, status unknown alcohol intake: current Assessment & Plan Time-Based Coding :: [TOTAL MINUTES] spent with patient and on the chart (including review of chart, obtaining history, exam, reviewing outside data, placing orders, documenting exam and treatment plan, and counseling patient) on [DATE].
[2025-09-19] MEDS: ATORVASTATIN 20 MG TABLET 40 MG PO (20:31)
[2025-09-19] MEDS: ASPIRIN EC 81 MG TABLET PO (20:31)
[2025-09-19] MEDS: HEPARIN 5,000 UNIT/ML VIAL 5000 UNIT SUBCUT (20:31)
[2025-09-20 03:42] VITALS: BP 130/84; PULSE 91; RESP 16; TEMP 37.3; O2SAT 97
[2025-09-20 05:34] LABS: Add Manual Diff / Slide Review NO; Hematocrit 27.2 % (36-46); Hemoglobin 8.9 g/dL (12.0-16.0); Lymphocytes Absolute Auto 600 /uL (1100-4500); Mean Corpuscular HGB Conc 32.8 % (30-36); Mean Corpuscular Hemoglobin 25.8 PG (26-34); Mean Corpuscular Volume 78.7 fL (80-100); Platelet Count 267 X10^3/uL (150-400)
[2025-09-20 06:05] LABS: Hemoglobin A1C% w Est Avg Glu 6.4 % (4.0-6.0)
[2025-09-20 07:00] VITALS: O2SAT 97
[2025-09-20] MEDS: LACTATED RINGERS 1,000 ML 150 ML IV ×3 (07:45→20:59)
[2025-09-20 08:00] VITALS: BP 126/68; PULSE 81; RESP 16; TEMP 37.7; O2SAT 91
[2025-09-20] MEDS: HEPARIN 5,000 UNIT/ML VIAL 5000 UNIT SUBCUT ×2 (08:01→20:54)
[2025-09-20] MEDS: INSULIN LISPRO 100 UNIT/ML 3ML VIAL SUBCUT ×4 (08:01→17:12)
[2025-09-20 08:03] VITALS: BP 123/69; PULSE 77
[2025-09-20] MEDS: METOPROLOL ER 50 MG TABLET PO (08:03)
[2025-09-20] MEDS: INSULIN GLARGINE 100 UNIT/ML 3ML PEN 27 UNIT SUBCUT (08:04)
--- NOTE | 2025-09-20 08:47 | P.PN_ITS ---
Subjective Subjective Date Patient Seen: 09/20/25 Time Patient Seen: 08:48 Interval history: Chief complaint: Sepsis secondary to pyelonephritis with fall leukocytosis weakness with indwelling stent and nephrolithiasis History of present illness: 09/18: 75-year-old history of recurrent kidney stones managed by Urology Dr. Milligan with ureteral stent found in her living room by her neighbor. Patient was expected to go to [facility] he notes that she was confused but knew who he was, knew that they were supposed to go to [facility] today but has a day of the week wrong. He states she did not drink a large cup of water. He found her on her back between her coffee table in her couch. She was last seen yesterday by family and he is spoke with her on the phone yesterday states that she was acting normally and conversing normally. She has a recent kidney stone with sepsis has a ureteral stent placed. She has been on antibiotics he is not sure if she has completed them. He states she has had similar episodes in the past typically secondary to UTIs and/or kidney stone. He states she is not very consistent with her medications but that has on insulin she does have a monitor he states it was 212 when he arrived and glucose was 160 with EMS. He states she has been complaining of anything today. Patient we will open her eyes follows commands but is not answering questions for emergency provider. Case discussed with Dr. Milligan who has reviewed the imaging and felt that the stent is patent and there is no need for instrumentation for source control patient was admitted with IV antibiotics culture blood and urine. DR Milligan is available if any instrumentation is required but it is unlikely EMR notes she takes medication for hypertension, diabetes, dyslipidemia including insulin and an aspirin 81 mg daily. Patient appears to have had cystoscopy, right ureteral stent placed on 09/05/2025. No known drug allergies. No tobacco, occasional alcohol not regularly, no recreational drugs. Patient does have PCP, according to neighbor/friend. Patient's friend did call her sister who has a aware that she is here. CT stone protocol: 1. Right ureteral stent is present. No residual right hydroureter. Right greater than left perinephric fat stranding is present that may be chronic although pyelonephritis is not excluded. 2. Gas in the bladder may be related to instrumentation or infection with a gas- forming organism. 3. Nonobstructing left renal calculi. No left hydronephrosis. 4. Colonic diverticulosis without signs of acute diverticulitis. 5. Small hiatal hernia. Hospital course: 09/19: Temperature 103? overnight no chills overnight good urine output white blood cell count continues to escalate however patient does not appear very toxic at all leading to suspicion of an occult underlying myeloproliferative disorder at leukemoid reaction 09/20: Patient feeling better T-max 100? white count down to 22,000 slept well no complaints of abdominal pain or fatigue so far no growth and blood cultures but final is still pending urine cultures also no growth so far continuing went with IV Merrem for today consider getting PICC line and doing prolonged 7-10 days of IV Merrem Review of systems: No chest pain palpitations No nausea vomiting diarrhea No paresthesia paresis Physical exam: By the time of my examination patient was alert cogent and oriented HEENT unremarkable Heart rate and rhythm regular lungs clear Abdomen is nontender Extremities no edema Assessment and plan: Severe sepsis secondary to pyelonephritis UTI with polyp probable nidus of infection with nephrolithiasis and indwelling stent that was placed on 09/05 * Intravenous fluid resuscitation and IV antibiotics * Culture blood and urine * Monitor urine output * Change antibiotics to meropenem 1 g q.12 per investigation with pharmacy and sensitivities * consider getting PICC line and doing prolonged 7-10 days of IV Merrem * Await until blood cultures are finalized before placing a PICC line Insulin-dependent diabetes * Resume home medications DVT prophylaxis: * Subcutaneous heparin Code status: * Full code blue Disposition: * Inpatient expect 2-3 days of hospitalization longer if long-term IV antibiotics required * May need prolonged outpatient IV antibiotic Time based billing: * 35 minutes were involved in evaluation of the patient including [id number] evaluation physical examination discussion with emergency provider and Urology review of objective laboratory findings and review of previous records Exam Vital Signs (past 8 hours): - 09/20/25 03:42 09/20/25 08:00 09/20/25 08:03 Temperature 99.1 F 99.9 F H Pulse Rate 91 H 81 77 Respiratory Rate 16 16 Blood Pressure 130/84 126/68 123/69 Pulse Oximetry 97 91 Oxygen Flow Rate 3 0 Fraction of Inspired Oxygen 24 SaO2/FiO2 Ratio 293 Oxygen Delivery Method Nasal Cannula Oxygen Flow Rate 0 Objective Labs 09/20/25 05:03 09/19/25 04:50 Labs: Laboratory Results - last 24 hr 09/19/25 09/19/25 09/19/25 09:25 11:23 11:24 WBC RBC Hgb Hct MCV MCH MCHC RDW Plt Count Neut % (Auto) Lymph % (Auto) [place] % (Auto) Eos % (Auto) Baso % (Auto) Neut # (Auto) Lymph # (Auto) [place] # (Auto) Eos # (Auto) Baso # (Auto) POC Whole Bld Glucose Hemoglobin A1c Lactate 4.0 H 1.9 Urine Color Yellow Urine Appearance Cloudy Urine pH 5.5 Ur Specific [place] 1.020 Urine Protein 2+ H Urine Glucose (UA) Negative Urine Ketones Trace H Urine Occult Blood 2+ H Urine Nitrate Negative Urine Bilirubin Negative Urine Urobilinogen 0.2 Ur Leukocyte Esterase 2+ H Urine RBC None seen Urine WBC 30-100/hpf H Ur Squamous Epith Cells None seen Urine Bacteria Few (2-10) H Ur Culture Indicated? Specimen cultured Vol Urine Centrifuged 10ml (spun) 09/19/25 09/19/25 09/19/25 11:48 16:38 20:18 WBC RBC Hgb Hct MCV MCH MCHC RDW Plt Count Neut % (Auto) Lymph % (Auto) [place] % (Auto) Eos % (Auto) Baso % (Auto) Neut # (Auto) Lymph # (Auto) [place] # (Auto) Eos # (Auto) Baso # (Auto) POC Whole Bld Glucose 236 H 138 H 127 H Hemoglobin A1c Lactate Urine Color Urine Appearance Urine pH Ur Specific [place] Urine Protein Urine Glucose (UA) Urine Ketones Urine Occult Blood Urine Nitrate Urine Bilirubin Urine Urobilinogen Ur Leukocyte Esterase Urine RBC Urine WBC Ur Squamous Epith Cells Urine Bacteria Ur Culture Indicated? Vol Urine Centrifuged 09/20/25 09/20/25 05:03 07:52 WBC 22.5 H RBC 3.46 L Hgb 8.9 L Hct 27.2 L MCV 78.7 L MCH 25.8 L MCHC 32.8 RDW 16.3 H Plt Count 267 Neut % (Auto) 90.7 H Lymph % (Auto) 2.5 L [place] % (Auto) 6.1 Eos % (Auto) 0.6 L Baso % (Auto) 0.1 Neut # (Auto) 72992 H Lymph # (Auto) 600 L [place] # (Auto) 1400 H Eos # (Auto) 100 Baso # (Auto) 0 POC Whole Bld Glucose 113 H Hemoglobin A1c 6.4 H Lactate Urine Color Urine Appearance Urine pH Ur Specific [place] Urine Protein Urine Glucose (UA) Urine Ketones Urine Occult Blood Urine Nitrate Urine Bilirubin Urine Urobilinogen Ur Leukocyte Esterase Urine RBC Urine WBC Ur Squamous Epith Cells Urine Bacteria Ur Culture Indicated? Vol Urine Centrifuged PFS Medical History Melanoma (~2019) Depression (~2015) Osteoporosis (~2018) Foot pain (~2019) Carpal tunnel syndrome (~2013) Measles Chicken pox Vertigo Retinal detachment (~2017) Cataracts, bilateral (~2018) Diabetes mellitus (~1989) Healthy adult Surgical History Anesthesia History of removal of cyst (~1978) History of carpal tunnel release (~2013) History of partial thyroidectomy (~1979) History of eye surgery (~2017) History of cataract removal with insertion of prosthetic lens (~2020) Family History Father Cancer Mother Diabetes mellitus Hypertension Brother Diabetes mellitus Brother Diabetes mellitus Family/Other Diabetes mellitus Hypertension Social History household members: other Smoking Status: Smoker, status unknown alcohol intake: current Assessment & Plan Time-Based Coding :: [TOTAL MINUTES] spent with patient and on the chart (including review of chart, obtaining history, exam, reviewing outside data, placing orders, documenting exam and treatment plan, and counseling patient) on [DATE].
[2025-09-20 09:57] VITALS: BP 133/69; PULSE 86
[2025-09-20] MEDS: MEROPENEM 1 GM in SODIUM CHLORIDE 0.9% 100 ML IV (12:10)
--- NOTE | 2025-09-20 14:37 | PC.NURSE ---
Pt continuing to refuse to mobilize; educated pt on importance of mobilization. MD Anderson aware. Suggested PT consult; declined.
[2025-09-20 20:00] VITALS: BP 139/82; PULSE 79; RESP 20; TEMP 37.4; O2SAT 91
[2025-09-20] MEDS: ATORVASTATIN 20 MG TABLET 40 MG PO (20:54)
[2025-09-20] MEDS: ASPIRIN EC 81 MG TABLET PO (20:54)
[2025-09-20] MEDS: cefTRIAXone 2,000 MG in SODIUM CHLORIDE 0.9% 100 ML 200 MG IV (22:33)
[2025-09-21] MEDS: LACTATED RINGERS 1,000 ML 150 ML IV ×3 (04:31→18:51)
[2025-09-21 07:00] VITALS: O2SAT 95
[2025-09-21] MEDS: HEPARIN 5,000 UNIT/ML VIAL 5000 UNIT SUBCUT ×2 (07:57→20:58)
[2025-09-21] MEDS: INSULIN LISPRO 100 UNIT/ML 3ML VIAL SUBCUT ×6 (07:58→21:00)
[2025-09-21] MEDS: INSULIN GLARGINE 100 UNIT/ML 3ML PEN 27 UNIT SUBCUT (07:58)
[2025-09-21 08:01] VITALS: BP 145/82; PULSE 80
[2025-09-21] MEDS: METOPROLOL ER 50 MG TABLET PO (08:01)
[2025-09-21 08:41] LABS: Add Manual Diff / Slide Review NO; Hematocrit 28.2 % (36-46); Hemoglobin 9.2 g/dL (12.0-16.0); Lymphocytes Absolute Auto 1000 /uL (1100-4500); Mean Corpuscular HGB Conc 32.5 % (30-36); Mean Corpuscular Hemoglobin 25.7 PG (26-34); Mean Corpuscular Volume 79.0 fL (80-100); Platelet Count 295 X10^3/uL (150-400)
[2025-09-21 08:49] VITALS: BP 145/85; PULSE 74; RESP 15; TEMP 36.2; O2SAT 92
[2025-09-21 09:06] VITALS: BP 134/84; PULSE 74
--- NOTE | 2025-09-21 09:51 | PC.NURSE ---
Pt agreed to transfer from bed to chair; pt tolerated well with 1PA. Educated pt on importance of mobilization; pt stated understanding.
--- NOTE | 2025-09-21 16:35 | P.PN_ITS ---
Subjective Subjective Date Patient Seen: 09/21/25 Time Patient Seen: 08:30 Interval history: Chief complaint: Sepsis secondary to pyelonephritis with fall leukocytosis weakness with indwelling stent and nephrolithiasis History of present illness: 09/18: 75-year-old history of recurrent kidney stones managed by Urology Dr. Milligan with ureteral stent found in her living room by her neighbor. Patient was expected to go to [facility] he notes that she was confused but knew who he was, knew that they were supposed to go to [facility] today but has a day of the week wrong. He states she did not drink a large cup of water. He found her on her back between her coffee table in her couch. She was last seen yesterday by family and he is spoke with her on the phone yesterday states that she was acting normally and conversing normally. She has a recent kidney stone with sepsis has a ureteral stent placed. She has been on antibiotics he is not sure if she has completed them. He states she has had similar episodes in the past typically secondary to UTIs and/or kidney stone. He states she is not very consistent with her medications but that has on insulin she does have a monitor he states it was 212 when he arrived and glucose was 160 with EMS. He states she has been complaining of anything today. Patient we will open her eyes follows commands but is not answering questions for emergency provider. Case discussed with Dr. Milligan who has reviewed the imaging and felt that the stent is patent and there is no need for instrumentation for source control patient was admitted with IV antibiotics culture blood and urine. DR Milligan is available if any instrumentation is required but it is unlikely EMR notes she takes medication for hypertension, diabetes, dyslipidemia including insulin and an aspirin 81 mg daily. Patient appears to have had cystoscopy, right ureteral stent placed on 09/05/2025. No known drug allergies. No tobacco, occasional alcohol not regularly, no recreational drugs. Patient does have PCP, according to neighbor/friend. Patient's friend did call her sister who has a aware that she is here. CT stone protocol: 1. Right ureteral stent is present. No residual right hydroureter. Right greater than left perinephric fat stranding is present that may be chronic although pyelonephritis is not excluded. 2. Gas in the bladder may be related to instrumentation or infection with a gas- forming organism. 3. Nonobstructing left renal calculi. No left hydronephrosis. 4. Colonic diverticulosis without signs of acute diverticulitis. 5. Small hiatal hernia. Hospital course: 09/19: Temperature 103? overnight no chills overnight good urine output white blood cell count continues to escalate however patient does not appear very toxic at all leading to suspicion of an occult underlying myeloproliferative disorder at leukemoid reaction 09/20: Patient feeling better T-max 100? white count down to 22,000 slept well no complaints of abdominal pain or fatigue so far no growth and blood cultures but final is still pending urine cultures also no growth so far continuing went with IV Merrem for today consider getting PICC line and doing prolonged 7-10 days of IV Merrem 09/21: Antibiotics de-escalated to ceftriaxone so far 24 hours after blood culture drawn no growth continue IV antibiotics and plan discharge on Tuesday with PICC line and follow up with Urology for 10 days of IV antibiotics after discharge Review of systems: No chest pain palpitations No nausea vomiting diarrhea No paresthesia paresis Physical exam: By the time of my examination patient was alert cogent and oriented HEENT unremarkable Heart rate and rhythm regular lungs clear Abdomen is nontender Extremities no edema Assessment and plan: Severe sepsis secondary to pyelonephritis UTI with polyp probable nidus of infection with nephrolithiasis and indwelling stent that was placed on 09/05 * Intravenous fluid resuscitation and IV antibiotics * Culture blood and urine * Monitor urine output * Change antibiotics to meropenem 1 g q.12 per investigation with pharmacy and sensitivities * consider getting PICC line and doing prolonged 7-10 days of IV Merrem * Await until blood cultures are finalized before placing a PICC line Insulin-dependent diabetes * Resume home medications DVT prophylaxis: * Subcutaneous heparin Code status: * Full code blue Disposition: * Inpatient expect discharge Sunday 09/23 long-term IV ceftriaxone for 10 days Time based billing: * 35 minutes were involved in evaluation of the patient including [id number] evaluation physical examination discussion with emergency provider and Urology review of objective laboratory findings and review of previous records Exam Vital Signs (past 8 hours): - 09/21/25 08:49 09/21/25 09:06 Temperature 97.1 F L Pulse Rate 74 74 Respiratory Rate 15 Blood Pressure 145/85 H 134/84 Pulse Oximetry 92 Oxygen Flow Rate 0 Fraction of Inspired Oxygen 24 SaO2/FiO2 Ratio 293 Oxygen Delivery Method Room Air Oxygen Flow Rate 0 Objective Labs 09/21/25 08:33 09/19/25 04:50 Labs: Laboratory Results - last 24 hr 09/20/25 09/20/25 09/21/25 16:46 20:54 07:49 WBC RBC Hgb Hct MCV MCH MCHC RDW Plt Count Neut % (Auto) Lymph % (Auto) [place] % (Auto) Eos % (Auto) Baso % (Auto) Neut # (Auto) Lymph # (Auto) [place] # (Auto) Eos # (Auto) Baso # (Auto) POC Whole Bld Glucose 137 H 98 109 H 09/21/25 09/21/25 08:33 11:41 WBC 12.2 H RBC 3.57 L Hgb 9.2 L Hct 28.2 L MCV 79.0 L MCH 25.7 L MCHC 32.5 RDW 16.4 H Plt Count 295 Neut % (Auto) 82.2 H Lymph % (Auto) 8.2 L [place] % (Auto) 5.5 Eos % (Auto) 3.4 Baso % (Auto) 0.7 Neut # (Auto) 15035 H Lymph # (Auto) 1000 L [place] # (Auto) 700 Eos # (Auto) 400 Baso # (Auto) 100 POC Whole Bld Glucose 182 H [facility] Medical History Melanoma (~2019) Depression (~2015) Osteoporosis (~2018) Foot pain (~2019) Carpal tunnel syndrome (~2013) Measles Chicken pox Vertigo Retinal detachment (~2017) Cataracts, bilateral (~2018) Diabetes mellitus (~1989) Healthy adult Surgical History Anesthesia History of removal of cyst (~1978) History of carpal tunnel release (~2013) History of partial thyroidectomy (~1979) History of eye surgery (~2017) History of cataract removal with insertion of prosthetic lens (~2020) Family History Father Cancer Mother Diabetes mellitus Hypertension Brother Diabetes mellitus Brother Diabetes mellitus Family/Other Diabetes mellitus Hypertension Social History household members: other Smoking Status: Smoker, status unknown alcohol intake: current Assessment & Plan Time-Based Coding :: [TOTAL MINUTES] spent with patient and on the chart (including review of chart, obtaining history, exam, reviewing outside data, placing orders, documenting exam and treatment plan, and counseling patient) on [DATE].
[2025-09-21 20:00] VITALS: BP 120/86; PULSE 90; RESP 16; TEMP 37.1; O2SAT 92
[2025-09-21] MEDS: ATORVASTATIN 20 MG TABLET 40 MG PO (20:58)
[2025-09-21] MEDS: ASPIRIN EC 81 MG TABLET PO (20:58)
[2025-09-21] MEDS: cefTRIAXone 2,000 MG in SODIUM CHLORIDE 0.9% 100 ML 200 MG IV (23:58)
[2025-09-22] MEDS: LACTATED RINGERS 1,000 ML 150 ML IV ×2 (01:51→09:41)
[2025-09-22 04:30] VITALS: BP 149/84; PULSE 76; RESP 20; TEMP 36.4; O2SAT 93
[2025-09-22 08:00] VITALS: BP 156/87; PULSE 78; RESP 16; TEMP 36.6; O2SAT 94
[2025-09-22] MEDS: INSULIN LISPRO 100 UNIT/ML 3ML VIAL SUBCUT ×3 (09:05→16:55)
[2025-09-22] MEDS: INSULIN GLARGINE 100 UNIT/ML 3ML PEN 27 UNIT SUBCUT (09:18)
[2025-09-22 09:19] VITALS: BP 156/87; PULSE 78
[2025-09-22] MEDS: METOPROLOL ER 50 MG TABLET PO (09:19)
[2025-09-22] MEDS: HEPARIN 5,000 UNIT/ML VIAL 5000 UNIT SUBCUT ×2 (09:19→21:22)
--- NOTE | 2025-09-22 11:45 | PC.NURSE ---
pt sleeping after breakfast awake for meds, talkative no complaints at this time.
--- NOTE | 2025-09-22 12:11 | CM.DPC ---
DCP IV Abx Cont: Per , pt will need 10 days IV Ceftriaxone Q24 and will get PICC placed tomorrow Mon 09/23 and then could likely discharge if IV abx set up. SW met bedside with pt and explained role and she confirms she lives at home alone, does not typically drive much and has hx of Sepsis x4 but never needed IV abx after discharge. SW explained that since Q24 options are outpt infusion clinic where she would go once a day vs home infusion. Pt states she likely would prefer home infusion and agreeable to [facility] referral to confirm [facility] insurance coverage and if out of pocket cost then pt might want to do outpt infusion clinic at [facility]. Made [facility] referral and requested they run her insurance for coverage. No outpt infusion clinic referral made yet, waiting to hear back from [facility]. EZRA Leyva
--- NOTE | 2025-09-22 15:32 | PC.NURSE ---
pt up amb in room with sba and walker, steady to bathroom for BM. to chair call light within reach no c/o at this time
--- NOTE | 2025-09-22 15:40 | PC.NURSE ---
pt con't relaxed and unresponse, comfort measures ongoing, morphine gtt no change from 2mg/hr.
[2025-09-22 16:53] VITALS: BP 137/83; PULSE 81; RESP 16; TEMP 36.6; O2SAT 93
[2025-09-22 21:00] VITALS: BP 140/84; PULSE 76; RESP 18; TEMP 36.7; O2SAT 96
[2025-09-22] MEDS: ATORVASTATIN 20 MG TABLET 40 MG PO (21:22)
[2025-09-22] MEDS: ASPIRIN EC 81 MG TABLET PO (21:22)
[2025-09-22 21:23] VITALS: BP 140/84; PULSE 76
[2025-09-22] MEDS: cefTRIAXone 2,000 MG in SODIUM CHLORIDE 0.9% 100 ML 200 MG IV (23:28)
[2025-09-23 03:30] VITALS: BP 154/86; PULSE 83; RESP 20; TEMP 36.7; O2SAT 94
[2025-09-23 08:00] VITALS: BP 151/81; PULSE 92; RESP 14; TEMP 36.9; O2SAT 93
[2025-09-23 08:17] VITALS: BP 151/81; PULSE 92
[2025-09-23] MEDS: METOPROLOL ER 50 MG TABLET PO (08:17)
[2025-09-23] MEDS: HEPARIN 5,000 UNIT/ML VIAL 5000 UNIT SUBCUT ×2 (08:18→20:09)
[2025-09-23] MEDS: INSULIN GLARGINE 100 UNIT/ML 3ML PEN 27 UNIT SUBCUT (08:18)
[2025-09-23] MEDS: INSULIN LISPRO 100 UNIT/ML 3ML VIAL SUBCUT ×5 (08:19→16:59)
[2025-09-23] MEDS: SODIUM CHLORIDE 0.9% FLUSH 10 ML IV ×3 (08:20→23:07)
--- NOTE | 2025-09-23 09:08 | PM.DS.1 ---
History of Present Illness History of Present Illness Chief complaint: Unwitnessed Fall secondary to sepsis from pyelonep Narrative: Chief complaint: Sepsis secondary to pyelonephritis with fall leukocytosis weakness with indwelling stent and nephrolithiasis History of present illness: 09/18: 75-year-old history of recurrent kidney stones managed by Urology Dr. Milligan with ureteral stent found in her living room by her neighbor. Patient was expected to go to [facility] he notes that she was confused but knew who he was, knew that they were supposed to go to [facility] today but has a day of the week wrong. He states she did not drink a large cup of water. He found her on her back between her coffee table in her couch. She was last seen yesterday by family and he is spoke with her on the phone yesterday states that she was acting normally and conversing normally. She has a recent kidney stone with sepsis has a ureteral stent placed. She has been on antibiotics he is not sure if she has completed them. He states she has had similar episodes in the past typically secondary to UTIs and/or kidney stone. He states she is not very consistent with her medications but that has on insulin she does have a monitor he states it was 212 when he arrived and glucose was 160 with EMS. He states she has been complaining of anything today. Patient we will open her eyes follows commands but is not answering questions for emergency provider. Case discussed with Dr. Milligan who has reviewed the imaging and felt that the stent is patent and there is no need for instrumentation for source control patient was admitted with IV antibiotics culture blood and urine. DR Milligan is available if any instrumentation is required but it is unlikely EMR notes she takes medication for hypertension, diabetes, dyslipidemia including insulin and an aspirin 81 mg daily. Patient appears to have had cystoscopy, right ureteral stent placed on 09/05/2025. No known drug allergies. No tobacco, occasional alcohol not regularly, no recreational drugs. Patient does have PCP, according to neighbor/friend. Patient's friend did call her sister who has a aware that she is here. CT stone protocol: 1. Right ureteral stent is present. No residual right hydroureter. Right greater than left perinephric fat stranding is present that may be chronic although pyelonephritis is not excluded. 2. Gas in the bladder may be related to instrumentation or infection with a gas-forming organism. 3. Nonobstructing left renal calculi. No left hydronephrosis. 4. Colonic diverticulosis without signs of acute diverticulitis. 5. Small hiatal hernia. Hospital course: 09/19: Temperature 103? overnight no chills overnight good urine output white blood cell count continues to escalate however patient does not appear very toxic at all leading to suspicion of an occult underlying myeloproliferative disorder at leukemoid reaction 09/20: Patient feeling better T-max 100? white count down to 22,000 slept well no complaints of abdominal pain or fatigue so far no growth and blood cultures but final is still pending urine cultures also no growth so far continuing went with IV Merrem for today consider getting PICC line and doing prolonged 7-10 days of IV Merrem 09/21: Antibiotics de-escalated to ceftriaxone so far 24 hours after blood culture drawn no growth continue IV antibiotics and plan discharge on Tuesday with PICC line and follow up with Urology for 10 days of IV antibiotics after discharge 09/22: Patient no while ambulating difficulty 09/23: Patient with robust appetite ready for discharge home follow up with Urology the who has been contacted who will supervise her IV antibiotics and treatment Review of systems: No chest pain palpitations No nausea vomiting diarrhea No paresthesia paresis Physical exam: By the time of my examination patient was alert cogent and oriented HEENT unremarkable Heart rate and rhythm regular lungs clear Abdomen is nontender Extremities no edema Assessment and plan: Severe sepsis secondary to pyelonephritis UTI with polyp probable nidus of infection with nephrolithiasis and indwelling stent that was placed on 09/05 Intravenous fluid resuscitation and IV antibiotics Culture blood and urine Monitor urine output Change antibiotics to meropenem 1 g q.12 per investigation with pharmacy and sensitivities consider getting PICC line and doing prolonged 7-10 days of IV Merrem Await until blood cultures are finalized before placing a PICC line Insulin-dependent diabetes Resume home medications DVT prophylaxis: Subcutaneous heparin Code status: Full code blue Disposition: Inpatient expect discharge today 09/23 long-term IV ceftriaxone for [address] Milligan and will follow Time based billin minutes were involved in evaluation of the patient including [id number] evaluation physical examination discussion with emergency provider and Urology review of objective laboratory findings and review of previous records Discharge Providers Provider Date of admission: 09/18/25 12:58 Discharge Date: 09/23/25 Primary care physician: Beverley Albert Discharge provider: Dennys Anderson MD Exam Vital Signs (past 8 hours): - 09/23/25 03:30 09/23/25 08:00 09/23/25 08:17 Temperature 98.0 F 98.4 F Pulse Rate 83 92 H 92 H Respiratory Rate 20 14 Blood Pressure 154/86 H 151/81 H 151/81 H Pulse Oximetry 94 93 Oxygen Flow Rate 0 0 Fraction of Inspired Oxygen 24 SaO2/FiO2 Ratio 293 Oxygen Delivery Method Room Air Oxygen Flow Rate 0 Objective Labs 09/21/25 08:33 09/19/25 04:50 Labs: Laboratory Results - last 24 hr 09/22/25 09/22/25 09/23/25 12:12 16:37 07:35 POC Whole Bld Glucose 125 H 122 H 136 H PFSH Medical History Melanoma (~2019) Depression (~2015) Osteoporosis (~2018) Foot pain (~2019) Carpal tunnel syndrome (~2013) Measles Chicken pox Vertigo Retinal detachment (~2017) Cataracts, bilateral (~2018) Diabetes mellitus (~1989) Healthy adult Surgical History Anesthesia History of removal of cyst (~1978) History of carpal tunnel release (~2013) History of partial thyroidectomy (~1979) History of eye surgery (~2017) History of cataract removal with insertion of prosthetic lens (~2020) Family History Father Cancer Mother Diabetes mellitus Hypertension Brother Diabetes mellitus Brother Diabetes mellitus Family/Other Diabetes mellitus Hypertension Social History household members: other Smoking Status: Smoker, status unknown alcohol intake: current Discharge Plan Discharge Plan Patient Disposition: Home Discharge orders & Medications Prescriptions: New ceftriaxone in dextrose,iso-os 2 gram/50 mL piggyback 2 g IV Q24H ceftriaxone in dextrose,iso-os 2 gram/50 mL piggyback 2 g IV DAILY Continued metoprolol succinate 50 mg tablet extended release 24 hr 50 mg PO DAILY Patient Comments: took on 09/03 duloxetine 60 mg capsule,delayed release(DR/EC) 60 mg PO DAILY losartan-hydrochlorothiazide 100-12.5 mg tablet 1 tab PO DAILY insulin glargine [Lantus Solostar U-100 Insulin] 100 unit/mL (3 mL) insulin pen 27 unit SUBCUT DAILY Patient Comments: Takes 25 units in am. currently NPO or surgery this evening. aspirin 81 mg tablet,delayed release (DR/EC) 81 mg PO QPM Patient Comments: took on 09/03 metformin 1,000 mg tablet 1 tab PO BID Patient Comments: taken on 09/03 rosuvastatin 20 mg tablet 20 mg PO QPM Patient Comments: took on 09/03 amlodipine 5 mg tablet 5 mg PO DAILY Patient Comments: took on 09/03 meloxicam 15 mg tablet 15 mg PO DAILY Qty: 30 0RF Patient Comments: took on 09/03 Follow up/Referrals: Beverley Albert, PAV[facility]ianeC [Primary Care Provider, Medical] Visit Report/Discharge Packet Stand Alone Forms: [employer], Patient Portal/API, Stroke Signs & Symptoms, Influenza Vaccine Info, Notice of Privacy Practices, Inpatient vs Outpatient, Pneumococcal Vaccine Info, Pt. Rights & Responsibilities Discharge Data Primary Care Provider: Beverley Albert
--- NOTE | 2025-09-23 10:32 | DIET.CONS ---
Dietary Consultation Note Admission Date: 09/18/2025 12:58 Assessment: 75 y F admitted for sepsis from UTI. Dietitian screened for LOS. EMR reviewed. Lower PO intakes, majority 50%. Pt already receiving chocolate protein supplement 1-2x/day. Weight stable per EMR hx. A1c 6.4% on 09/20/25. Ht: 157.48 cm Wt: 77.8 kg BMI: 31.4 UBW: 77 kg on 09/05/15, hx of 77-78 kg in 2023 Last BM: 09/22/25 (09/22/25 15:00) MNA: 12 Yasir Score: 22 Diet: 09/19/25 Dinner Carbohydrate Consistent Diet Diet Modifications: Carbohydrate level: Medium (3 CHO) Reflex DM orders: No Food Texture: Level 7 - Regular Liquid Consistency: Level 0 - Thin Nutrition Percent Meal Consumed 100% 09/22/25 18:00 Percent Meal Consumed 10 09/21/25 18:00 Labs: RBC 3.57 X10^6/uL (4.0-5.2) L 09/21/25 08:33 Hgb 9.2 g/dL (12.0-16.0) L 09/21/25 08:33 Hct 28.2 % (36-46) L 09/21/25 08:33 Creatinine 1.28 mg/dL (0.52-1.04) H 09/19/25 04:50 Hemoglobin A1c 6.4 % (4.0-6.0) H 09/20/25 05:03 Lactate 1.9 mmol/L (0.7-2.1) 09/19/25 11:23 Nutrition Diagnosis: Inadequate oral intakes r/t reduced appetite aeb <50% avg PO intakes recorded while admitted Interventions: Ensure+ BID EER: 8936-2049 kcals (20 kcals/kg vs MSJ x1.3 per sepsis) 80-90 g protein (20% kcals vs 1.5 g/kg adjusted IBW per sepsis) Monitoring/Evaluations: PO intakes Electronically Signed by: Syl Hawthorne 09/23/25 10:32 Clinical Dietitian [address] [id number]
--- NOTE | 2025-09-23 10:50 | CM.DPC ---
Addendum entered by EZRA Leyva 09/23/25 13:54: ADD: PT eval sent to [facility] and they confirm auth was submitted. Met bedside with pt and primary contact/neighbor Adrian and updated on [facility] submitting for auth and if auth obtained plan of d/c to [facility] tomorrow. Provided Adrian with [employer] and earmarked CG agencies and encouraged him to let family know about this list for likely need after upcoming Urology procedure as considered outpt procedure and likely not remain in the hospital after or qualify for SNF. Adrian acknowledged understanding and will discuss with family members. Sister and niece arrived bedside with clothing for pt at SNF. PICC RN arrived to place PICC. BF Original Note: DCP IV Infusion Cont: Per MD and tub washer, orders placed for PICC today but unfortunately no staff in-house to complete and outside contracted agency contacted but medically stable to discharge with total of 10 days IV Ceftriaxone Q24 started on 09/20/25. Per MD, spoke to Urologist Dr. Milligan who is agreeable to follow for IV Abx and Dr. Milligan attempting to get pt in for procedure in the next week as outpt procedure. SW spoke to Adrian at [facility] and willing to quick run her insurance to determine coverage. SW received a call from pt's supportive neighbor Adrian Bon [phone] and pt confirms she is agreeable with him recieving information and helping with coordinating care. Adrian states he is concerned that pt will not be compliant at home and not eat and drink much and family has been discussing her terminologist care needs. GANGA discussed that pt is medically stable to d/c hospital level of care to a lower level of care and that unsure if MD could justify pt remaining in the hospital just for the course of IV abx as currently she is stable and not showing further concerning symptoms. GANGA discussed options of family to stay with pt for a few days, hiring private caregivers, or family attempting Respite Stay due to concerns. Adrian discussed preference for pt to remain in the hospital. Strongly encouraged that if he and family members have concerns about pt's ability to provide adequate care for herself then suggestion of having a family meeting with the patient to work on terminologist care supports. Primary concerns stated were adequate intake, taking medications consistently, and organizing/cleaning the home. GANGA discussed that these needs likely could be met by hiring a caregiver vs assisted living vs family checking on pt daily. Family and Adrian have already been considering [facility]. Met bedside with pt and she is aware of Adrian talking to staff today about his concerns and pt confirms she likely would have difficulty maintaining adequate intake once home but states she is working on developing better habits. Pt appears A&Ox4 and able to answer questions appropriately and provide historical information. Pt has hx of SNF at [facility] she states after a hip surgery and feels SNF a better option for IV Abx rather than home and preference is [facility]. Pt does state that she has local sister and they spend time together weekly but don't always get along and local niece who is a Caregiver and pt's Dtr a year ago from medical complications and therefore now pt's young adult grandson lives with her and has Autism but functioning but only able to provide some minimal assist to her. Pt working on her grief and medical challenges. SW inquired if pt is interested/willing to move into a facility and pt strongly states that is not something I am interested in at this time. Discussed hiring a caregiver and pt would be willing to consider especially to help her clean and organize her place. Made [facility] referral and they reviewed and likely can accept if [facility] SN[facility] and could accept by tomorrow 09/24. BHAVYA done. Updated Adrian at [facility] and he also spoke to pt who expressed interest in discharging to SNF. EZRA Leyva
--- NOTE | 2025-09-23 12:12 | PT.IIE ---
Current Diagnoses Sepsis, unspecified organism (09/18/25) Surgical History (Last Reviewed 09/18/25 @ 10:46 by Jackie Payne DO) Anesthesia History of carpal tunnel release (~2013) History of cataract removal with insertion of prosthetic lens (~2020) History of eye surgery (~2017) History of partial thyroidectomy (~1979) History of removal of cyst (~1978) Medical History (Last Reviewed 09/18/25 @ 10:46 by Jackie Payne DO) Carpal tunnel syndrome (~2013) Cataracts, bilateral (~2018) Chicken pox Depression (~2015) Diabetes mellitus (~1989) Foot pain (~2019) Healthy adult Measles Melanoma (~2019) Osteoporosis (~2018) Retinal detachment (~2017) Vertigo Physical Therapy Inpatient Evaluation/Re-Eval M1 PT IP Prior Functional Status Start: 09/23/25 12:25 Freq: Status: Active Protocol: Document 09/23/25 12:26 NW (Rec: 09/23/25 12:49 NW [id number]) Medical Review Prior Functional Status Communication Independent with vocalizing needs Mobility and Gait SPC for community, 4WW in home use. Has fallen x 1 within last month per report, neighbor states more. Activities of Daily Independent with dressing, bathing, getting groceries. Living and IADL's Prior Functional Lives with 23 yr old autistic grandson who does not Level (Other details need assistance. ) Social History Household Members other Living Arrangements House Number of Floors ( One Floor Floors) Number of Stairs To 2 steps to enter home, 3 steps once inside to enter Enter/Railing? main living area, bilateral hand rails Home Environment Standard Height Toilet,Tub/Shower Home Equipment Four Wheel Walker,Straight Cane,Grab Bars In Shower M2 PT-IP Current Condition Start: 09/23/25 12:25 Freq: Status: Active Protocol: Document 09/23/25 12:26 NW (Rec: 09/23/25 12:49 NW [id number]) Physical Therapy Current Condition Current Condition Evaluation Date 09/23/25 Treatment Diagnosis GLF, Sepsis, UTI Onset Date 09/18/25 M3 PT-IP Subjective Start: 09/23/25 12:25 Freq: Status: Active Protocol: Document 09/23/25 12:26 NW (Rec: 09/23/25 12:49 NW [id number]) Subjective Physical Therapy Visit Type Type Initial Evaluation Visit Start Time 11:46 Visit Stop Time 12:12 Number of AMBULANCE DRIVER PARAMEDIC Visits 0 Physical Therapy Visit Comments Patient Comments Pt is agreeable to participate with PT evaluation. Patient Goals To eventually go home. M4 PT-IP Mobility and Gait Start: 09/23/25 12:25 Freq: Status: Active Protocol: Document 09/23/25 12:26 NW (Rec: 09/23/25 12:49 NW [id number]) PT-Bed Mobility Assessment Supine to Sit Supine to Sit Standby Assistance,Head of Bed Elevated,Bedrails Scooting Scooting to Edge of Contact Guard Assistance Bed PT-Transfer Assessment Sit to and From Stand Sit to and from Contact Guard Assistance,1 Person Assistance,Use of Stand Upper Extremities Equipment Transfer Assistive Gait Belt,Front Wheeled Walker Device Transfers Transfer Destination Chair Transfer Technique Stand Step Pivot Transfer Ability Level of Assist Contact Guard Assistance Comments Mobility Comments Poor power production with LE, unable to assume stance without UE support. Requires WBOS to maintain balance once standing. Poor eccentric control. Gait Assessment Gait Gait Assistance Contact Guard Assist Required: Distance (Feet) 30 Assistive Devices Assistive Device Gait Belt,Front Wheeled Walker Gait Deviations General Gait Pattern Decreased Stride Length,Decreased Feet Clearance,Wide Based Gait Factors Limiting Gait Function Factors Limiting Decreased Strength,Poor Balance Gait Function Comments Gait Comments Good AD management, significant time and space required to make turns. No loss of balance with ambulation with notable decreased velocity and kirt. Stair Climbing Assessment Comments Stair Climbing DNT today Comments PT-Balance Assessment Sitting Balance and Reactions Static Sitting Normal Balance Ability Dynamic Sitting Normal Balance Ability Standing Balance and Reactions Static Standing Fair Balance Ability Dynamic Standing Poor Balance Ability Device Used FWW Functional Assessments Functional Tests 5 Times Sit to Stand 28 sec modified with UE use, indicative falls risk Other Functional Tests Singh 30/46 indicative of being a falls risk and Performed ambulating with AD M5 PT-IP Objective Assessments Start: 09/23/25 12:25 Freq: Status: Active Protocol: Document 09/23/25 12:26 NW (Rec: 09/23/25 12:49 NW [id number]) Orientation Orientation/Cognition Level of Alertness Alert Orientation Name,Age,Birthday,Month,Date,Year,Day of Week,Place, Situation Gross Range of Motion Upper Extremity ROM Assessment Within Functional Limits Lower Extremity ROM Assessment Within Functional Limits Strength Lower Extremity Strength Assessment Bilaterally Impaired Hip 3+/5 Knee 4/5 ext Sensation Assessment Sensation Gross Sensation WNL M6 PT-IP Treatment Start: 09/23/25 12:25 Freq: Status: Active Protocol: Document 09/23/25 12:26 NW (Rec: 09/23/25 12:49 NW [id number]) Physical Therapy Treatment Education Education Provided Safety Other Treatments Other Treatment Education with regards to being a falls risk with Performed objective measures. Education on continue use of FWW and participating in therapy to decrease AD assistance. M7 PT-IP Assessment and Plan Start: 09/23/25 12:25 Freq: Status: Active Protocol: Document 09/23/25 12:26 NW (Rec: 09/23/25 12:49 NW [id number]) PT Summary Assessment and Plan Potential Rehabilitation Good Potential Status of Condition Stable at Evaluation Summary Impairments Strength,Balance,Bed Mobility,Transfers,Gait,Activity Tolerance Progress Towards Progressing Toward Goals Goals Assessment Summary Tori is a 75 yr old female admitted after a GLF and found to have sepsis from a UTI. Pt at baseline lives in a 1 story home with 5 steps to get to main level for living with autistic grandson. Pt does not perform caregiving for grandson. She utilizes a SPC within the community and 4WW in home and reports only one recent fall in last 6 months. Pt is at CGA for bed mobility with head of bed elevated and use of bed rails, CGA for transfers and gait with FWW, but requires momentum to complete. Upon assessment pt takes 28 sec with UE use for 5 x STS and scores a 30/46 on the SINGH indicating pt is a falls risk and is likely able to ambulate with an AD. At this time pt would benefit from SNF for rehabilitation to assist with progressing mobility back to baseline and decrease risk of future falls. Goals Bed Mobility Goal Independent Transfer Goal Independent Gait Goal Independent Gait Distance 150 Other Goals Perform 5 steps with bilateral handrail assist. Days to Meet Goals 5 Frequency of Treatment Frequency Of Once a Day Treatment Treatment Plan Physical Therapy Bed Mobility Training,Transfer Training,Gait Training, Treatment Plan Therapeutic Exercise,Balance Retraining,Discharge Planning,Neuromuscular Re-ed Precautions Other Precautions falls risk, riojas Weight Bearing Status Weight Bearing Weight Bear as Tolerated Status Recommendations To Nursing Amount of Assist 1 Person Assist Needed Discharge Recommendations PT Discharge Home with Assistance,Home Health,SNF Rehab,Home vs SNF Recommendations Transportation Needs Private Vehicle,Wheelchair/Cabulance at Discharge - PT assist 1
[2025-09-23 12:13] VITALS: BP 125/83; PULSE 83
--- NOTE | 2025-09-23 14:36 | DI.RAD.S_ITS ---
PROCEDURE: XR CHEST FOR PICC 1V INDICATIONS: PICC line placement confirmation COMPARISON: [facility], , XR CHEST 1V, 09/18/2025, 11:24. FINDINGS: PICC was placed by the intravenous therapy team from the left side. Fluoroscopic spot film demonstrates the tip of PICC projecting to the area of SVC. IMPRESSION: Tip of PICC projects to the area of SVC. Dictated by: Zi Souza M.D. on 09/23/2025 at 14:57 Approved by: Zi Souza M.D. on 09/23/2025 at 14:57
[2025-09-23 18:00] VITALS: BP 140/67; PULSE 83; RESP 17; TEMP 36.8; O2SAT 95
[2025-09-23] MEDS: ATORVASTATIN 20 MG TABLET 40 MG PO (20:09)
[2025-09-23] MEDS: ASPIRIN EC 81 MG TABLET PO (20:09)
[2025-09-23 20:22] VITALS: BP 158/89; PULSE 81; RESP 20; TEMP 36.8; O2SAT 95
[2025-09-23] MEDS: cefTRIAXone 2,000 MG in SODIUM CHLORIDE 0.9% 100 ML 200 MG IV (23:06)
[2025-09-24] MEDS: SODIUM CHLORIDE 0.9% FLUSH 10 ML IV ×3 (00:04→08:35)
[2025-09-24 02:00] VITALS: BP 165/95; PULSE 77; RESP 16; TEMP 36.9; O2SAT 93
[2025-09-24 06:04] LABS: Add Manual Diff / Slide Review NO; Hematocrit 28.4 % (36-46); Hemoglobin 9.2 g/dL (12.0-16.0); Lymphocytes Absolute Auto 1100 /uL (1100-4500); Mean Corpuscular HGB Conc 32.4 % (30-36); Mean Corpuscular Hemoglobin 25.6 PG (26-34); Mean Corpuscular Volume 78.9 fL (80-100); Platelet Count 393 X10^3/uL (150-400)
[2025-09-24 06:19] LABS: Blood Urea Nitrogen 14 mg/dL (7-17); Calcium 9.1 mg/dL (8.4-10.2); Carbon Dioxide 31 mmol/L (22-32); Chloride 102 mmol/L (98-107); Estimated Glomerular Filt Rate > 60 mL/min (>60); Glucose 128 mg/dL (70-99); HEMOLYSIS < 15 (0-50); Potassium 3.0 mmol/L (3.4-5.1); Sodium 140 mmol/L (137-145)
[2025-09-24 08:32] VITALS: BP 145/102; PULSE 91
[2025-09-24] MEDS: METOPROLOL ER 50 MG TABLET PO (08:32)
[2025-09-24] MEDS: HEPARIN 5,000 UNIT/ML VIAL 5000 UNIT SUBCUT (08:32)
[2025-09-24] MEDS: POTASSIUM CHLORIDE 20 MEQ TAB 40 MEQ PO ×2 (08:32→13:23)
[2025-09-24] MEDS: INSULIN GLARGINE 100 UNIT/ML 3ML PEN 27 UNIT SUBCUT (08:33)
[2025-09-24] MEDS: INSULIN LISPRO 100 UNIT/ML 3ML VIAL SUBCUT ×4 (08:34→12:05)
--- NOTE | 2025-09-24 09:03 | P.DS_ITS ---
History of Present Illness History of Present Illness Date Patient Seen: 09/24/25 Time Patient Seen: 09:04 Chief complaint: Unwitnessed Fall secondary to sepsis from pyelonep Narrative: Chief complaint: Sepsis secondary to pyelonephritis with fall leukocytosis weakness with indwelling stent and nephrolithiasis History of present illness: 09/18: 75-year-old history of recurrent kidney stones managed by Urology Dr. Milligan with ureteral stent found in her living room by her neighbor. Patient was expected to go to [facility] he notes that she was confused but knew who he was, knew that they were supposed to go to [facility] today but has a day of the week wrong. He states she did not drink a large cup of water. He found her on her back between her coffee table in her couch. She was last seen yesterday by family and he is spoke with her on the phone yesterday states that she was acting normally and conversing normally. She has a recent kidney stone with sepsis has a ureteral stent placed. She has been on antibiotics he is not sure if she has completed them. He states she has had similar episodes in the past typically secondary to UTIs and/or kidney stone. He states she is not very consistent with her medications but that has on insulin she does have a monitor he states it was 212 when he arrived and glucose was 160 with EMS. He states she has been complaining of anything today. Patient we will open her eyes follows commands but is not answering questions for emergency provider. Case discussed with Dr. Milligan who has reviewed the imaging and felt that the stent is patent and there is no need for instrumentation for source control patient was admitted with IV antibiotics culture blood and urine. DR Milligan is available if any instrumentation is required but it is unlikely EMR notes she takes medication for hypertension, diabetes, dyslipidemia including insulin and an aspirin 81 mg daily. Patient appears to have had cystoscopy, right ureteral stent placed on 09/05/2025. No known drug allergies. No tobacco, occasional alcohol not regularly, no recreational drugs. Patient does have PCP, according to neighbor/friend. Patient's friend did call her sister who has a aware that she is here. CT stone protocol: 1. Right ureteral stent is present. No residual right hydroureter. Right greater than left perinephric fat stranding is present that may be chronic although pyelonephritis is not excluded. 2. Gas in the bladder may be related to instrumentation or infection with a gas- forming organism. 3. Nonobstructing left renal calculi. No left hydronephrosis. 4. Colonic diverticulosis without signs of acute diverticulitis. 5. Small hiatal hernia. Hospital course: 09/19: Temperature 103? overnight no chills overnight good urine output white blood cell count continues to escalate however patient does not appear very toxic at all leading to suspicion of an occult underlying myeloproliferative disorder at leukemoid reaction 09/20: Patient feeling better T-max 100? white count down to 22,000 slept well no complaints of abdominal pain or fatigue so far no growth and blood cultures but final is still pending urine cultures also no growth so far continuing went with IV Merrem for today consider getting PICC line and doing prolonged 7-10 days of IV Merrem 09/21: Antibiotics de-escalated to ceftriaxone so far 24 hours after blood culture drawn no growth continue IV antibiotics and plan discharge on Tuesday with PICC line and follow up with Urology for 10 days of IV antibiotics after discharge 09/22: Patient no while ambulating difficulty 09/23: Patient with robust appetite ready for discharge home follow up with Urology the who has been contacted who will supervise her IV antibiotics and treatment 09/24: Patient this being transferred to long term for continued care and IV antibiotics and we will follow up with Review of systems: No chest pain palpitations No nausea vomiting diarrhea No paresthesia paresis Physical exam: By the time of my examination patient was alert cogent and oriented HEENT unremarkable Heart rate and rhythm regular lungs clear Abdomen is nontender Extremities no edema Assessment and plan: Severe sepsis secondary to pyelonephritis UTI with polyp probable nidus of infection with nephrolithiasis and indwelling stent that was placed on 09/05 * Intravenous fluid resuscitation and IV antibiotics * Culture blood and urine * Monitor urine output * Change antibiotics to meropenem 1 g q.12 per investigation with pharmacy and sensitivities * consider getting PICC line and doing prolonged 7-10 days of IV Merrem * Await until blood cultures are finalized before placing a PICC line Insulin-dependent diabetes * Resume home medications DVT prophylaxis: * Subcutaneous heparin Code status: * Full code blue Disposition: * Inpatient expect discharge today to long term 09/24 long-term IV ceftriaxone for 10 days * Discussed with Dr. Milligan and will follow Time based billing: * 35 minutes were involved in evaluation of the patient including [id number] evaluation physical examination discussion with emergency provider and Urology review of objective laboratory findings and review of previous records Discharge Providers Provider Date of admission: 09/18/25 12:58 Discharge Date: 09/24/25 Primary care physician: Beverley Albert Consults: 09/23/25 10:49 Consult to Occupational Therapy Evaluate & Treat Comment: Physician Instructions: Evaluate and treat 09/23/25 10:50 Consult to Physical Therapy Evaluate & Treat Comment: Physician Instructions: Evaluate and Treat 09/23/25 20:22 Consult to Pharmacy Routine Comment: high fall risk Discharge provider: Dennys Anderson MD Exam Vital Signs (past 8 hours): - 09/24/25 02:00 09/24/25 08:32 Temperature 98.5 F Pulse Rate 77 91 H Respiratory Rate 16 Blood Pressure 165/95 H 145/102 H Pulse Oximetry 93 Oxygen Flow Rate 0 Fraction of Inspired Oxygen 24 SaO2/FiO2 Ratio 293 Oxygen Delivery Method Room Air Oxygen Flow Rate 0 Objective Labs 09/24/25 05:30 09/24/25 05:30 Labs: Laboratory Results - last 24 hr 09/23/25 09/23/25 09/23/25 12:13 16:50 20:40 WBC RBC Hgb Hct MCV MCH MCHC RDW Plt Count Neut % (Auto) Lymph % (Auto) [place] % (Auto) Eos % (Auto) Baso % (Auto) Neut # (Auto) Lymph # (Auto) [place] # (Auto) Eos # (Auto) Baso # (Auto) Sodium Potassium Chloride Carbon Dioxide BUN Creatinine Estimated GFR BUN/Creatinine Ratio Glucose POC Whole Bld Glucose 126 H 156 H 127 H Calcium 09/24/25 09/24/25 05:30 07:49 WBC 10.1 RBC 3.60 L Hgb 9.2 L Hct 28.4 L MCV 78.9 L MCH 25.6 L MCHC 32.4 RDW 16.3 H Plt Count 393 Neut % (Auto) 73.1 Lymph % (Auto) 11.3 L [place] % (Auto) 11.4 Eos % (Auto) 3.4 Baso % (Auto) 0.8 Neut # (Auto) 7400 H Lymph # (Auto) 1100 [place] # (Auto) 1200 H Eos # (Auto) 300 Baso # (Auto) 100 Sodium 140 Potassium 3.0 L Chloride 102 Carbon Dioxide 31 BUN 14 Creatinine 0.78 Estimated GFR > 60 BUN/Creatinine Ratio 17.9 Glucose 128 H POC Whole Bld Glucose 158 H Calcium 9.1 PFSH Medical History Melanoma (~2019) Depression (~2015) Osteoporosis (~2018) Foot pain (~2019) Carpal tunnel syndrome (~2013) Measles Chicken pox Vertigo Retinal detachment (~2017) Cataracts, bilateral (~2018) Diabetes mellitus (~1989) Healthy adult Surgical History Anesthesia History of removal of cyst (~1978) History of carpal tunnel release (~2013) History of partial thyroidectomy (~1979) History of eye surgery (~2017) History of cataract removal with insertion of prosthetic lens (~2020) Family History Father Cancer Mother Diabetes mellitus Hypertension Brother Diabetes mellitus Brother Diabetes mellitus Family/Other Diabetes mellitus Hypertension Social History household members: other Smoking Status: Smoker, status unknown alcohol intake: current Discharge Plan Discharge Plan Patient Disposition: Home Discharge orders & Medications Prescriptions: New ceftriaxone in dextrose,iso-os 2 gram/50 mL piggyback 2 g IV DAILY Continued metoprolol succinate 50 mg tablet extended release 24 hr 50 mg PO DAILY Patient Comments: took on 09/03 duloxetine 60 mg capsule,delayed release(DR/EC) 60 mg PO DAILY losartan-hydrochlorothiazide 100-12.5 mg tablet 1 tab PO DAILY insulin glargine [Lantus Solostar U-100 Insulin] 100 unit/mL (3 mL) insulin pen 27 unit SUBCUT DAILY Patient Comments: Takes 25 units in am. currently NPO or surgery this evening. aspirin 81 mg tablet,delayed release (DR/EC) 81 mg PO QPM Patient Comments: took on 09/03 metformin 1,000 mg tablet 1 tab PO BID Patient Comments: taken on 09/03 rosuvastatin 20 mg tablet 20 mg PO QPM Patient Comments: took on 09/03 amlodipine 5 mg tablet 5 mg PO DAILY Patient Comments: took on 09/03 meloxicam 15 mg tablet 15 mg PO DAILY Qty: 30 0RF Patient Comments: took on 09/03 Follow up/Referrals: Beverley Albert PA-C [Primary Care Provider, Medical] Visit Report/Discharge Packet Stand Alone Forms: [employer], Patient Portal/API, Stroke Signs & Symptoms, Influenza Vaccine Info, Notice of Privacy Practices, Inpatient vs Outpatient, Pneumococcal Vaccine Info, Pt. Rights & Responsibilities Discharge Data Primary Care Provider: Beverley Albert
--- NOTE | 2025-09-24 11:17 | CM.DPC ---
DCP Cont. Reviewed EMR and team rounds for pt's medical status and updates. Pt has been medically cleared to d/c today to [facility] to continue her IV antibiotics. They will transport today at 3:00pm, no further d/c needs are identified at this time.
[2025-09-24 12:00] VITALS: BP 145/87; PULSE 79; RESP 18; TEMP 36.9; O2SAT 97
[2025-09-24 12:06] VITALS: BP 143/78; PULSE 80
--- NOTE | 2025-09-24 14:38 | P.PN_ITS ---
Subjective Subjective Date Patient Seen: 09/22/25 Interval history: Chief complaint: Sepsis secondary to pyelonephritis with fall leukocytosis weakness with indwelling stent and nephrolithiasis History of present illness: 09/18: 75-year-old history of recurrent kidney stones managed by Urology Dr. Milligan with ureteral stent found in her living room by her neighbor. Patient was expected to go to [facility] to [facility] he notes that she was confused but knew who he was, knew that they were supposed to go to [facility] to [facility] today but has a day of the week wrong. He states she did not drink a large cup of water. He found her on her back between her coffee table in her couch. She was last seen yesterday by family and he is spoke with her on the phone yesterday states that she was acting normally and conversing normally. She has a recent kidney stone with sepsis has a ureteral stent placed. She has been on antibiotics he is not sure if she has completed them. He states she has had similar episodes in the past typically secondary to UTIs and/or kidney stone. He states she is not very consistent with her medications but that has on insulin she does have a monitor he states it was 212 when he arrived and glucose was 160 with EMS. He states she has been complaining of anything today. Patient we will open her eyes follows commands but is not answering questions for emergency provider. Case discussed with Dr. Milligan who has reviewed the imaging and felt that the stent is patent and there is no need for instrumentation for source control patient was admitted with IV antibiotics culture blood and urine. DR Milligan is available if any instrumentation is required but it is unlikely EMR notes she takes medication for hypertension, diabetes, dyslipidemia including insulin and an aspirin 81 mg daily. Patient appears to have had cystoscopy, right ureteral stent placed on 09/05/2025. No known drug allergies. No tobacco, occasional alcohol not regularly, no recreational drugs. Patient does have PCP, according to neighbor/friend. Patient's friend did call her sister who has a aware that she is here. CT stone protocol: 1. Right ureteral stent is present. No residual right hydroureter. Right greater than left perinephric fat stranding is present that may be chronic although pyelonephritis is not excluded. 2. Gas in the bladder may be related to instrumentation or infection with a gas- forming organism. 3. Nonobstructing left renal calculi. No left hydronephrosis. 4. Colonic diverticulosis without signs of acute diverticulitis. 5. Small hiatal hernia. Hospital course: 09/19: Temperature 103? overnight no chills overnight good urine output white blood cell count continues to escalate however patient does not appear very toxic at all leading to suspicion of an occult underlying myeloproliferative disorder at leukemoid reaction 09/20: Patient feeling better T-max 100? white count down to 22,000 slept well no complaints of abdominal pain or fatigue so far no growth and blood cultures but final is still pending urine cultures also no growth so far continuing went with IV Merrem for today consider getting PICC line and doing prolonged 7-10 days of IV Merrem 09/21: Antibiotics de-escalated to ceftriaxone so far 24 hours after blood culture drawn no growth continue IV antibiotics and plan discharge on Tuesday with PICC line and follow up with Urology for 10 days of IV antibiotics after discharge 09/22: stable getting picc line tomorrow Review of systems: No chest pain palpitations No nausea vomiting diarrhea No paresthesia paresis Physical exam: By the time of my examination patient was alert cogent and oriented HEENT unremarkable Heart rate and rhythm regular lungs clear Abdomen is nontender Extremities no edema Assessment and plan: Severe sepsis secondary to pyelonephritis UTI with polyp probable nidus of infection with nephrolithiasis and indwelling stent that was placed on 09/05 * Intravenous fluid resuscitation and IV antibiotics * Culture blood and urine * Monitor urine output * Change antibiotics to meropenem 1 g q.12 per investigation with pharmacy and sensitivities * consider getting PICC line and doing prolonged 7-10 days of IV Merrem * Await until blood cultures are finalized before placing a PICC line Insulin-dependent diabetes * Resume home medications DVT prophylaxis: * Subcutaneous heparin Code status: * Full code blue Disposition: * Inpatient expect discharge Sunday 09/23 long-term IV ceftriaxone for 10 days Time based billing: * 35 minutes were involved in evaluation of the patient including [id number] evaluation physical examination discussion with emergency provider and Urology review of objective laboratory findings and review of previous records Exam Vital Signs (past 8 hours): - 09/24/25 08:32 09/24/25 12:00 09/24/25 12:06 Temperature 98.4 F Pulse Rate 91 H 79 80 Respiratory Rate 18 Blood Pressure 145/102 H 145/87 H 143/78 H Pulse Oximetry 97 Oxygen Flow Rate 0 Fraction of Inspired Oxygen 24 SaO2/FiO2 Ratio 293 Oxygen Delivery Method Room Air Oxygen Flow Rate 0 Objective Labs 09/24/25 05:30 09/24/25 05:30 Labs: Laboratory Results - last 24 hr 09/23/25 09/23/25 09/23/25 12:13 16:50 20:40 WBC RBC Hgb Hct MCV MCH MCHC RDW Plt Count Neut % (Auto) Lymph % (Auto) [place] % (Auto) Eos % (Auto) Baso % (Auto) Neut # (Auto) Lymph # (Auto) [place] # (Auto) Eos # (Auto) Baso # (Auto) Sodium Potassium Chloride Carbon Dioxide BUN Creatinine Estimated GFR BUN/Creatinine Ratio Glucose POC Whole Bld Glucose 126 H 156 H 127 H Calcium 09/24/25 09/24/25 09/24/25 05:30 07:49 11:46 WBC 10.1 RBC 3.60 L Hgb 9.2 L Hct 28.4 L MCV 78.9 L MCH 25.6 L MCHC 32.4 RDW 16.3 H Plt Count 393 Neut % (Auto) 73.1 Lymph % (Auto) 11.3 L [place] % (Auto) 11.4 Eos % (Auto) 3.4 Baso % (Auto) 0.8 Neut # (Auto) 7400 H Lymph # (Auto) 1100 [place] # (Auto) 1200 H Eos # (Auto) 300 Baso # (Auto) 100 Sodium 140 Potassium 3.0 L Chloride 102 Carbon Dioxide 31 BUN 14 Creatinine 0.78 Estimated GFR > 60 BUN/Creatinine Ratio 17.9 Glucose 128 H POC Whole Bld Glucose 158 H 168 H Calcium 9.1 PFSH Medical History Melanoma (~2019) Depression (~2015) Osteoporosis (~2018) Foot pain (~2019) Carpal tunnel syndrome (~2013) Measles Chicken pox Vertigo Retinal detachment (~2017) Cataracts, bilateral (~2018) Diabetes mellitus (~1989) Healthy adult Surgical History Anesthesia History of removal of cyst (~1978) History of carpal tunnel release (~2013) History of partial thyroidectomy (~1979) History of eye surgery (~2017) History of cataract removal with insertion of prosthetic lens (~2020) Family History Father Cancer Mother Diabetes mellitus Hypertension Brother Diabetes mellitus Brother Diabetes mellitus Family/Other Diabetes mellitus Hypertension Social History household members: other Smoking Status: Smoker, status unknown alcohol intake: current Assessment & Plan Time-Based Coding :: [TOTAL MINUTES] spent with patient and on the chart (including review of chart, obtaining history, exam, reviewing outside data, placing orders, documenting exam and treatment plan, and counseling patient) on [DATE].
--- NOTE | 2025-09-24 14:40 | PM.PN.1 ---
Subjective Subjective Date Patient Seen: 09/23/25 Interval history: Chief complaint: Sepsis secondary to pyelonephritis with fall leukocytosis weakness with indwelling stent and nephrolithiasis History of present illness: 09/18: 75-year-old history of recurrent kidney stones managed by Urology Dr. Milligan with ureteral stent found in her living room by her neighbor. Patient was expected to go to [facility] he notes that she was confused but knew who he was, knew that they were supposed to go to [facility] today but has a day of the week wrong. He states she did not drink a large cup of water. He found her on her back between her coffee table in her couch. She was last seen yesterday by family and he is spoke with her on the phone yesterday states that she was acting normally and conversing normally. She has a recent kidney stone with sepsis has a ureteral stent placed. She has been on antibiotics he is not sure if she has completed them. He states she has had similar episodes in the past typically secondary to UTIs and/or kidney stone. He states she is not very consistent with her medications but that has on insulin she does have a monitor he states it was 212 when he arrived and glucose was 160 with EMS. He states she has been complaining of anything today. Patient we will open her eyes follows commands but is not answering questions for emergency provider. Case discussed with Dr. Milligan who has reviewed the imaging and felt that the stent is patent and there is no need for instrumentation for source control patient was admitted with IV antibiotics culture blood and urine. DR Milligan is available if any instrumentation is required but it is unlikely EMR notes she takes medication for hypertension, diabetes, dyslipidemia including insulin and an aspirin 81 mg daily. Patient appears to have had cystoscopy, right ureteral stent placed on 09/05/2025. No known drug allergies. No tobacco, occasional alcohol not regularly, no recreational drugs. Patient does have PCP, according to neighbor/friend. Patient's friend did call her sister who has a aware that she is here. CT stone protocol: 1. Right ureteral stent is present. No residual right hydroureter. Right greater than left perinephric fat stranding is present that may be chronic although pyelonephritis is not excluded. 2. Gas in the bladder may be related to instrumentation or infection with a gas-forming organism. 3. Nonobstructing left renal calculi. No left hydronephrosis. 4. Colonic diverticulosis without signs of acute diverticulitis. 5. Small hiatal hernia. Hospital course: 09/19: Temperature 103? overnight no chills overnight good urine output white blood cell count continues to escalate however patient does not appear very toxic at all leading to suspicion of an occult underlying myeloproliferative disorder at leukemoid reaction 09/20: Patient feeling better T-max 100? white count down to 22,000 slept well no complaints of abdominal pain or fatigue so far no growth and blood cultures but final is still pending urine cultures also no growth so far continuing went with IV Merrem for today consider getting PICC line and doing prolonged 7-10 days of IV Merrem 09/21-09/23: Antibiotics de-escalated to ceftriaxone so far 24 hours after blood culture drawn no growth continue IV antibiotics and plan discharge on Tuesday with PICC line and follow up with Urology for 10 days of IV antibiotics after discharge Review of systems: No chest pain palpitations No nausea vomiting diarrhea No paresthesia paresis Physical exam: By the time of my examination patient was alert cogent and oriented HEENT unremarkable Heart rate and rhythm regular lungs clear Abdomen is nontender Extremities no edema Assessment and plan: Severe sepsis secondary to pyelonephritis UTI with polyp probable nidus of infection with nephrolithiasis and indwelling stent that was placed on 09/05 Intravenous fluid resuscitation and IV antibiotics Culture blood and urine Monitor urine output Change antibiotics to meropenem 1 g q.12 per investigation with pharmacy and sensitivities consider getting PICC line and doing prolonged 7-10 days of IV Merrem Await until blood cultures are finalized before placing a PICC line Insulin-dependent diabetes Resume home medications DVT prophylaxis: Subcutaneous heparin Code status: Full code blue Disposition: Inpatient expect discharge Sunday 09/23 long-term IV ceftriaxone for 10 days Time based billin minutes were involved in evaluation of the patient including [id number] evaluation physical examination discussion with emergency provider and Urology review of objective laboratory findings and review of previous records Exam Vital Signs (past 8 hours): - 09/24/25 08:32 09/24/25 12:00 09/24/25 12:06 Temperature 98.4 F Pulse Rate 91 H 79 80 Respiratory Rate 18 Blood Pressure 145/102 H 145/87 H 143/78 H Pulse Oximetry 97 Oxygen Flow Rate 0 Fraction of Inspired Oxygen 24 SaO2/FiO2 Ratio 293 Oxygen Delivery Method Room Air Oxygen Flow Rate 0 Objective Labs 09/24/25 05:30 09/24/25 05:30 Labs: Laboratory Results - last 24 hr 09/23/25 09/23/25 09/23/25 12:13 16:50 20:40 WBC RBC Hgb Hct MCV MCH MCHC RDW Plt Count Neut % (Auto) Lymph % (Auto) [place] % (Auto) Eos % (Auto) Baso % (Auto) Neut # (Auto) Lymph # (Auto) [place] # (Auto) Eos # (Auto) Baso # (Auto) Sodium Potassium Chloride Carbon Dioxide BUN Creatinine Estimated GFR BUN/Creatinine Ratio Glucose POC Whole Bld Glucose 126 H 156 H 127 H Calcium 09/24/25 09/24/25 09/24/25 05:30 07:49 11:46 WBC 10.1 RBC 3.60 L Hgb 9.2 L Hct 28.4 L MCV 78.9 L MCH 25.6 L MCHC 32.4 RDW 16.3 H Plt Count 393 Neut % (Auto) 73.1 Lymph % (Auto) 11.3 L [place] % (Auto) 11.4 Eos % (Auto) 3.4 Baso % (Auto) 0.8 Neut # (Auto) 7400 H Lymph # (Auto) 1100 [place] # (Auto) 1200 H Eos # (Auto) 300 Baso # (Auto) 100 Sodium 140 Potassium 3.0 L Chloride 102 Carbon Dioxide 31 BUN 14 Creatinine 0.78 Estimated GFR > 60 BUN/Creatinine Ratio 17.9 Glucose 128 H POC Whole Bld Glucose 158 H 168 H Calcium 9.1 PFSH Medical History Melanoma (~2019) Depression (~2015) Osteoporosis (~2018) Foot pain (~2019) Carpal tunnel syndrome (~2013) Measles Chicken pox Vertigo Retinal detachment (~2017) Cataracts, bilateral (~2018) Diabetes mellitus (~1989) Healthy adult Surgical History Anesthesia History of removal of cyst (~1978) History of carpal tunnel release (~2013) History of partial thyroidectomy (~1979) History of eye surgery (~2017) History of cataract removal with insertion of prosthetic lens (~2020) Family History Father Cancer Mother Diabetes mellitus Hypertension Brother Diabetes mellitus Brother Diabetes mellitus Family/Other Diabetes mellitus Hypertension Social History household members: other Smoking Status: Smoker, status unknown alcohol intake: current Assessment & Plan Time-Based Coding :: [TOTAL MINUTES] spent with patient and on the chart (including review of chart, obtaining history, exam, reviewing outside data, placing orders, documenting exam and treatment plan, and counseling patient) on [DATE].
== END 2025-09-24 15:29 | DRG 872 ==
LOC: ED 11:46 → AC 12:58
PROVIDERS: Pharmacist Pharmacist Clinician (PhC)/ Clinical Pharmacy Specialist; Admitting Provider Internal Medicine; Emergency Provider Emergency Medicine; PCP Physician Assistant; Referring Provider Emergency Medicine; Visit Provider Internal Medicine
DX: A41.9 Sepsis, unspecified organism (principal); Z16.11 Resistance to penicillins; R65.20 Severe sepsis without septic shock; N20.0 Calculus of kidney; E11.9 Type 2 diabetes mellitus without complications; I10 Essential (primary) hypertension; E78.5 Hyperlipidemia, unspecified; B96.1 Klebsiella pneumoniae [K. pneumoniae] as the cause of diseases classified elsewhere; F32.A Depression, unspecified; Z87.442 Personal history of urinary calculi; Z96.0 Presence of urogenital implants; Z79.4 Long term (current) use of insulin; Z79.82 Long term (current) use of aspirin; Z79.84 Long term (current) use of oral hypoglycemic drugs
CPT/HCPCS: 36415; 36592; 70450; 71045; 74176; 80048; 80053; 81001; 82962; 83036; 83605; 83690; 84145; 85007; 85025; 85610; 85730; 87040; 87077; 87086; 87154; 87186; 93005; 94760; 96365; 96367; 97161; 97530; 99285; 99291; J0131; J0696; J1642; J1644; J1815; J2185; J2405; J2543; J7030; J7050; J7120